=== PATIENT | female | born 1950 | race Caucasian/White ===

== ENCOUNTER → 2017-10-05 14:06 | Outpatient (CLI) | payer BC, SELFPAY ==
[2017-10-05 16:25] LABS: Absolute Lymphocyte Count 1.44 X10^3/ul (0.83-4.51); Absolute Neutrophil Count 6.5 X10^3/uL (2.0-7.7); Basophil# 0.03 X10^3/uL; Basophil% 0.3 % (0-1); Eosinophil# 0.18 X10^3/uL; Hemoglobin 11.9 g/dl (12.0-15.0); Lymphocyte # 1.44 X10^3/ul (4.0); Mean Corp Hgb Conc 32.2 g/gl (32-36); Mean Corpuscular Hgb 29.4 pg (27.0-32.0); Mean Corpuscular Volume 91.4 fL (81-99); Mean Platelet Vol. 11.3 fl (6.2-12.0); Monocyte# 0.87 X10^3/uL; Monocyte% 9.7 % (0-10); Neutrophil # 6.47 X10^3/uL (2.7-7.7); Neutrophil % 71.8 % (47-70); Platelet Count 269 K/mm3 (150-450); RBC Distribution Width CV 13.9 % (11.6-14.6); Red Blood Count 4.05 M/mm3 (4.2-5.4)
[2017-10-05 16:32] LABS: POSITIVE COUNT NO; POSITIVE DIFFERENTIAL NO; POSITIVE MORPHOLOGY NO
[2017-10-05 16:37] LABS: ALB/GLOB Ratio 0.9 RATIO (0.9-2.4); AST(SGOT) 30 U/L (15-37); Alanine Aminotransfer ALT/SGPT 21 U/L (13-56); Albumin, Serum 3.5 g/dL (3.2-5.0); Alkaline Phosphatase 96 U/L (45-117); Anion Gap 10 (5-15); BUN 13 mg/dL (7-18); BUN/Creat Ratio 16.5 RATIO (10-20); Calcium,Total 8.9 mg/dL (8.5-10.1); Chloride 103 mmol/L (98-107); Creatinine, Serum 0.79 mg/dL (0.55-1.02); EST Glomerular Filtration Rate 78 mL/min (>60); Est Glom Filt Rate - Afr Amer 94 mL/min (>60); Glucose 104 mg/dL (74-106); Potassium 4.1 mmol/L (3.5-5.1); Protein, Total 7.5 g/dL (6.4-8.2); Sodium Level 139 mmol/L (136-145); Thyroid Stim Hormone (TSH) 1.28 uIU/mL (0.358-3.74)
[2017-10-06 08:59] LABS: Vitamin D,25 Hydroxy 22.4 ng/mL (29.95-100.01)
== END ==
PROVIDERS: Family Provider Family Medicine Geriatric Medicine; PCP Family Medicine Geriatric Medicine; Visit Provider Family Medicine Geriatric Medicine
DX: I10 Essential (primary) hypertension (principal); E55.9 Vitamin D deficiency, unspecified
CPT/HCPCS: 36415; 80053; 82306; 84443; 85025

== ENCOUNTER → 2017-10-13 09:49 | Outpatient (CLI) | payer BC, SELFPAY ==
--- NOTE | 2017-10-13 09:52 | CDU_ITS ---
Reason For Study: Carotid stenosis Rt. Velocities/BP Lt. Velocities/BP Prox CCA 106.0/16.4 cm/sec. Prox CCA 106.0/28.3 cm/sec. Mid CCA 95.0/27.0 cm/sec. Mid CCA 105.0/26.7 cm/sec. Dist CCA 90.9/22.9 cm/sec. Dist CCA 103.0/26.7 cm/sec. Prox ICA 186.0/49.8 cm/sec. Prox ICA 267.0/75.4 cm/sec. Mid ICA 192.0/53.7 cm/sec. Mid ICA 226.0/62.9 cm/sec. Dist ICA 121.0/40.3 cm/sec. Dist ICA 114.0/32.6 cm/sec. Rt. ICA/CCA = 2.0. Lt. ICA/CCA = 2.5. Prox ECA 220.0/28.8 cm/sec. Prox ECA 248.0/29.9 cm/sec. Rt. Vert. 62.9/20.6 cm/sec. Lt. Vert. 74.7/11.6 cm/sec. Right Extracranial There is intimal thickening but no significant atherosclerotic plaque noted in the right common carotid artery. There is heterogeneous, irregular atherosclerotic plaque noted in the right internal carotid artery. There is heterogeneous, irregular atherosclerotic plaque noted in the right external carotid artery. Antegrade flow is noted in the right vertebral artery. Left Extracranial There is intimal thickening but no significant atherosclerotic plaque noted in the left common carotid artery. There is heterogeneous, irregular atherosclerotic plaque noted in the left internal carotid artery. There is heterogeneous, irregular atherosclerotic plaque noted in the left external carotid artery. Antegrade flow is noted in the left vertebral artery. Procedure Carotid Duplex [id number]. Exam performed in department. Interpretation Summary Moderate (50-69%) stenosis right extracranial internal carotid. Severe (>70%) stenosis left extracranial internal carotid. Flow within the vertebral arteries is antegrade bilaterally. Ordering Physician: Argelia Eid Referring Physician: Leonardo Sotelo Chi Performed By: Alma Rosa Duong RVT
== END ==
PROVIDERS: Family Provider Family Medicine Geriatric Medicine; PCP Family Medicine Geriatric Medicine; Visit Provider Physician Assistant Medical
DX: I25.10 Atherosclerotic heart disease of native coronary artery without angina pectoris (principal); R09.89 Other specified symptoms and signs involving the circulatory and respiratory systems
CPT/HCPCS: 93880

== ENCOUNTER → 2017-12-03 13:01 | Outpatient (CLI) | payer BC, SELFPAY ==
[2017-12-03 13:48] LABS: Prothrombin Time (Protime)PT. 31.3 SECONDS (11.7-14.9)
== END ==
PROVIDERS: Family Provider Family Medicine Geriatric Medicine; PCP Family Medicine Geriatric Medicine; Visit Provider Internal Medicine Cardiovascular Disease
DX: Z95.2 Presence of prosthetic heart valve (principal); Z79.01 Long term (current) use of anticoagulants
CPT/HCPCS: 36415; 85610

== ENCOUNTER → 2018-02-17 11:45 | Outpatient (CLI) | payer BC, SELFPAY ==
--- NOTE | 2018-02-17 12:00 | RAD_ITS ---
STUDY: X-RAY - LUMBAR SPINE REASON FOR EXAM: Female, 67 years old. Lower back pain x1 week. TECHNIQUE: 3 view(s) of the lumbar spine were obtained. COMPARISON: None available. FINDINGS: All 5 nonrib-bearing lumbar vertebral bodies are identified and show normal vertebral body heights with mild L1-L2, moderate L2-L3, mild L3-L4/L4-L5 and moderate L5-S1 disc space seen. Mild scoliosis apex right noted L3-L4, may be positional. Mild normal-appearing lordotic curvature is maintained without significant listhesis seen. No osseous lytic/blastic lesion noted. Visualized posterior elements, pedicles, SI joints and sacrum appear intact. Exit neural foramina appear patent. No paravertebral mass density noted. Nonobstructed nonspecific visualized intestinal gas pattern. Surgical clip right upper quadrant. RAD/Lumbar Spine 2 or 3 Views IMPRESSION: Nonacute lumbosacral spine. No finding of lumbosacral vertebral body acute compression fracture or traumatic listhesis. Multilevel degenerative lumbosacral as described. Severe arteriosclerosis distal abdominal aorta. Electronically Signed: Ronan Salinas, at 14:36 EDT Tel , Service support ,
== END ==
PROVIDERS: Family Provider Family Medicine Geriatric Medicine; PCP Family Medicine Geriatric Medicine; Visit Provider Family Medicine Geriatric Medicine
DX: M51.86 Other intervertebral disc disorders, lumbar region (principal); N39.0 Urinary tract infection, site not specified
CPT/HCPCS: 72100; 87086

== ENCOUNTER → 2018-04-12 13:20 | Outpatient (CLI) | payer BC, SELFPAY ==
[2018-04-12 13:41] LABS: Absolute Lymphocyte Count 1.25 X10^3/ul (0.83-4.51); Absolute Neutrophil Count 7.5 X10^3/uL (2.0-7.7); Basophil# 0.02 X10^3/uL; Basophil% 0.2 % (0-1); Eosinophil# 0.12 X10^3/uL; Eosinophils% 1.2 % (0-5); Hematocrit 38.9 % (37-47); Hemoglobin 12.7 g/dl (12.0-15.0); Lymphocyte # 1.25 X10^3/ul (4.0); Lymphocyte % 12.7 % (19-41); Mean Corp Hgb Conc 32.6 g/gl (32-36); Mean Platelet Vol. 10.6 fl (6.2-12.0); Monocyte# 0.94 X10^3/uL; Monocyte% 9.5 % (0-10); Neutrophil # 7.52 X10^3/uL (2.7-7.7); Neutrophil % 76.2 % (47-70); Platelet Count 260 K/mm3 (150-450); RBC Distribution Width CV 14.1 % (11.6-14.6); RBC Distribution Width SD 46.4 fl (35.1-43.9); Red Blood Count 4.23 M/mm3 (4.2-5.4); White Blood Count 9.9 K/mm3 (4.4-11.0)
[2018-04-12 13:45] LABS: POSITIVE COUNT NO; POSITIVE DIFFERENTIAL NO; POSITIVE MORPHOLOGY NO
[2018-04-12 14:23] LABS: Vitamin D,25 Hydroxy 24.7 ng/mL (29.95-100.01)
[2018-04-12 14:28] LABS: AST(SGOT) 36 U/L (15-37); Alanine Aminotransfer ALT/SGPT 27 U/L (13-56); Albumin, Serum 3.6 g/dL (3.2-5.0); Alkaline Phosphatase 86 U/L (45-117); Anion Gap 6 (5-15); BUN 17 mg/dL (7-18); BUN/Creat Ratio 20.4 RATIO (10-20); Calcium,Total 8.8 mg/dL (8.5-10.1); Chloride 105 mmol/L (98-107); Creatinine, Serum 0.83 mg/dL (0.55-1.02); EST Glomerular Filtration Rate 73 mL/min (>60); Est Glom Filt Rate - Afr Amer 88 mL/min (>60); Globulin 3.7 g/dL (2.2-4.2); Glucose 114 mg/dL (74-106); Protein, Total 7.3 g/dL (6.4-8.2); Sodium Level 139 mmol/L (136-145); Thyroid Stim Hormone (TSH) 0.64 uIU/mL (0.358-3.74)
[2018-04-13 11:27] LABS: Hep C Antibodies <0.1 s/co ratio (0.0-0.9)
== END ==
PROVIDERS: Family Provider Family Medicine Geriatric Medicine; PCP Family Medicine Geriatric Medicine; Visit Provider Family Medicine Geriatric Medicine
DX: I10 Essential (primary) hypertension (principal); E55.9 Vitamin D deficiency, unspecified; Z13.89 Encounter for screening for other disorder
CPT/HCPCS: 36415; 80053; 82306; 84443; 85025; 86803

== ENCOUNTER → 2018-05-17 12:05 | Outpatient (CLI) | payer BC, SELFPAY ==
[2018-05-17 12:36] LABS: International Normalized Ratio 2.2; Prothrombin Time (Protime)PT. 24.1 SECONDS (11.7-14.9)
== END ==
PROVIDERS: Family Provider Family Medicine Geriatric Medicine; PCP Family Medicine Geriatric Medicine; Referring Provider Internal Medicine Cardiovascular Disease; Visit Provider Internal Medicine Cardiovascular Disease
DX: Z79.01 Long term (current) use of anticoagulants (principal); Z95.2 Presence of prosthetic heart valve
CPT/HCPCS: 36415; 85610

== ENCOUNTER → 2018-05-24 13:14 | Outpatient (CLI) | payer BC, SELFPAY ==
[2018-05-24 13:43] LABS: International Normalized Ratio 2.2; Prothrombin Time (Protime)PT. 24.5 SECONDS (11.7-14.9)
== END ==
PROVIDERS: Family Provider Family Medicine Geriatric Medicine; PCP Family Medicine Geriatric Medicine; Referring Provider Internal Medicine Cardiovascular Disease; Visit Provider Internal Medicine Cardiovascular Disease
DX: Z95.2 Presence of prosthetic heart valve (principal); Z79.01 Long term (current) use of anticoagulants
CPT/HCPCS: 36415; 85610

== ENCOUNTER 2018-06-07 14:26 | Outpatient (RCR) | payer BC, SELFPAY ==
[2018-06-07 15:26] LABS: Prothrombin Time (Protime)PT. 31.4 SECONDS (11.7-14.9)
--- OUTSIDE RECORDS SUMMARY | 2018-08-03 05:58 | XMS RPT_ITS ---
:1950 Author Organization OHIP Support Name Relationship Address Phone EDJANPABLO Unavailable [address] [place] [address] + [address] [place] [address] R Unavailable Unavailable Unavailable PABLO WARD Unavailable [address] [place] [address] + [address] [place] [address] R Unavailable Unavailable Unavailable PABLO WARD Unavailable [address] [place] [address] + [address] [place] [address] R Unavailable Unavailable Unavailable PABLO WARD Unavailable [address] [place] [address] + [address] [place] [address] R Unavailable Unavailable Unavailable PABLO WARD Unavailable [address] + [place] [address] R Unavailable Unavailable Unavailable PABLO WARD Unavailable [address] + [place] [address] R Unavailable Unavailable Unavailable PABLO WARD Unavailable [address] + [place] [address] R Unavailable Unavailable Unavailable PABLO WARD Unavailable [address] + [place] [address] R Unavailable Unavailable Unavailable PABLO WARD Unavailable [address] + [place] [address] R Unavailable Unavailable Unavailable PABLO WARD Unavailable [address] + [address] [place], [place] [phone] PABLO WARD Unavailable [address] Unavailable [address] [place], [place] [phone] NOT GIVEN Unavailable Unavailable Unavailable PABLO WARD Unavailable [address] + [place] [address] R Unavailable Unavailable Unavailable PABLO WARD Unavailable [address] + [address] [facility] [place], [place] [phone] PABLO WARD Unavailable [address] Unavailable [address] [facility] [place] [id number] NOT GIVEN Unavailable Unavailable Unavailable PABLO WARD Unavailable [address] + [place] [address] R Unavailable Unavailable Unavailable PABLO WARD Unavailable [address] + [address] [facility] [place] [phone] PABLO WARD Unavailable [address] Unavailable [address] [facility] [place] [phone] NOT GIVEN Unavailable Unavailable Unavailable PABLO WARD Unavailable [address] + [address] [facility] [place] [phone] PABLO WARD Unavailable [address] Unavailable [address] [place], [place] [phone] NOT GIVEN Unavailable Unavailable Unavailable PABLO WARD Unavailable [address] + [place] [address] R Unavailable Unavailable Unavailable PABLO WARD Unavailable [address] + [address] [facility] [place] [phone] PABLO WARD Unavailable [address] Unavailable [address] [place], [place] [phone] NOT GIVEN Unavailable Unavailable Unavailable PABLO WARD Unavailable [address] + [place] [address] R Unavailable Unavailable Unavailable PABLO WARD Unavailable [address] + [address] [facility] [place] [phone] PABLO WARD Unavailable [address] Unavailable [address] [facility] [place] [phone] NOT GIVEN Unavailable Unavailable Unavailable PABLO WARD Unavailable [address] + [place] [address] R Unavailable Unavailable Unavailable PABLO WARD Unavailable [address] + [place] [address] R Unavailable Unavailable Unavailable PABLO WARD Unavailable [address] + [address] [facility] [place] [phone] PABLO WARD Unavailable [address] Unavailable [address] [facility] [place] [phone] NOT GIVEN Unavailable Unavailable Unavailable PABLO WARD Unavailable [address] + [address] [facility] [place], [place] [phone] PABLO WARD Unavailable [address] Unavailable [address] [facility] [place], [place] [phone] NOT GIVEN Unavailable Unavailable Unavailable PABLO WARD Unavailable [address] + [place] [address] R Unavailable Unavailable Unavailable PABLO WARD Unavailable [address] + [place] [address] R Unavailable Unavailable Unavailable PABLO WARD Unavailable [address] + [address] [facility] [place] [phone] PABLO WARD Unavailable [address] Unavailable [address] [facility] [place] [phone] NOT GIVEN Unavailable Unavailable Unavailable PABLO WARD Unavailable [address] + [place] [address] R Unavailable Unavailable Unavailable PABLO WARD Unavailable [address] + [address] [facility] [place] [phone] PABLO WARD Unavailable [address] Unavailable [address] [facility] [place] [phone] NOT GIVEN Unavailable Unavailable Unavailable PABLO WARD Unavailable [address] + [place] [address] R Unavailable Unavailable Unavailable PABLO WARD Unavailable [address] + [address] [facility] [place] [phone] PABLO WARD Unavailable [address] Unavailable [address] [facility] [place] [phone] NOT GIVEN Unavailable Unavailable Unavailable PABLO WARD Unavailable [address] + [address] [facility] [place] [phone] PABLO WARD Unavailable [address] Unavailable [address] [facility] [place] [phone] NOT GIVEN Unavailable Unavailable Unavailable PABLO WARD Unavailable [address] + [place] [address] R Unavailable Unavailable Unavailable PABLO WARD Unavailable [address] + [address] [facility] [place], [place] [phone] PABLO WARD Unavailable [address] Unavailable [address] [facility] [place], [place] [phone] NOT GIVEN Unavailable Unavailable Unavailable PABLO WARD Unavailable [address] + [place] [address] R Unavailable Unavailable Unavailable PABLO WARD Unavailable [address] + [place] [address] R Unavailable Unavailable Unavailable PABLO WARD Unavailable [address] + [address] [facility] [place], [place] [phone] PABLO WARD Unavailable [address] Unavailable [address] [facility] [place] [phone] NOT GIVEN Unavailable Unavailable Unavailable PABLO WARD Unavailable [address] + [place] [address] R Unavailable Unavailable Unavailable PABLO WARD Unavailable [address] + [address] [facility] [place] [phone] PABLO WARD Unavailable [address] Unavailable [address] [facility] [place] [phone] NOT GIVEN Unavailable Unavailable Unavailable PABLO WARD Unavailable [address] + [place] [address] R Unavailable Unavailable Unavailable PABLO WARD Unavailable [address] + [place] [address] R Unavailable Unavailable Unavailable PABLO WARD Unavailable [address] + [place] [address] R Unavailable Unavailable Unavailable R Unavailable Unavailable Unavailable PABLO WARD Unavailable [address] + [place] [address] ED SAMIR Unavailable [address] [place] [facility] + [address] [place] [address] R Unavailable Unavailable Unavailable PABLO WARD Unavailable [address] + [address] [facility] [place], [place] [phone] PABLO WARD Unavailable [address] Unavailable [address] [facility] [place] [phone] NOT GIVEN Unavailable Unavailable Unavailable PABLO WARD Unavailable [address] + [address] [facility] [place], [place] [phone] PABLO WARD Unavailable [address] Unavailable [address] [facility] [place], [place] [phone] NOT GIVEN Unavailable Unavailable Unavailable PABLO WARD Unavailable [address] + [place] [address] ED SAMIR Unavailable [address] [place] [address] + [address] [place] [address] R Unavailable Unavailable Unavailable PABLO WARD Unavailable [address] + [address] [facility] [place], [place] [phone] PABLO WARD Unavailable [address] Unavailable [address] [facility] [place] [phone] NOT GIVEN Unavailable Unavailable Unavailable PABLO WARD Unavailable [address] + [address] [facility] [place], [place] [phone] PABLO WARD Unavailable [address] Unavailable [address] [facility] [place] [phone] NOT GIVEN Unavailable Unavailable Unavailable PABLO WARD Unavailable [address] + [address] [facility] [place], [place] [phone] PABLO WARD Unavailable [address] Unavailable [address] [facility] [place] [phone] NOT GIVEN Unavailable Unavailable Unavailable PABLO WARD Unavailable [address] + [place] [address] ED SAMIR Unavailable [address] [place] [address] + [address] [place] [address] R Unavailable Unavailable Unavailable PABLO WARD Unavailable [address] + [address] [facility] [place], [place] [phone] PABLO WARD Unavailable [address] Unavailable [address] [facility] [place], [place] [phone] NOT GIVEN Unavailable Unavailable Unavailable PABLO WARD Unavailable [address] + [address] [facility] [place], [place] [phone] PABLO WARD Unavailable [address] Unavailable [address] [facility] [place], [place] [phone] NOT GIVEN Unavailable Unavailable Unavailable Care Team Providers Name Role Phone ZURI, JCAK S Admitting Unavailable ZURI, JACK S Attending Unavailable TANK TREADWELL MD Consulting Unavailable ZURI, JACK S Primary Care Unavailable PROVIDER, UNKNOWN Consulting Unavailable PROVIDER, UNKNOWN Consulting Unavailable ZURI, JACK S Admitting Unavailable ZURI, JACK S Attending Unavailable ZURI, JACK S Primary Care Unavailable ZURI, JACK S Admitting Unavailable ZURI, JACK S Attending Unavailable ZURI, JACK S Primary Care Unavailable ZURI, JACK S Admitting Unavailable ZURI, JACK S Attending Unavailable ZURI, JACK S Primary Care Unavailable ZURI, JACK S Admitting Unavailable ZURI, JACK S Attending Unavailable ZURI, JACK S Primary Care Unavailable ZURI, JACK MD Admitting Unavailable ZURI, JACK MD Attending Unavailable ZURI, JACK MD Primary Care Unavailable ZURI, JACK S Admitting Unavailable ZURI, JACK S Attending Unavailable ZURI, JACK S Primary Care Unavailable ZURI, JACK S Admitting Unavailable ZURI, JACK S Attending Unavailable ZURI, JACK S Primary Care Unavailable ZURI, JACK S Admitting Unavailable ZURI, JACK S Attending Unavailable ZURI, JACK S Primary Care Unavailable ZURI, JACK S Admitting Unavailable ZURI, JACK S Attending Unavailable TANK TREADWELL MD Consulting Unavailable ZURI, JACK S Primary Care Unavailable PROVIDER, UNKNOWN Consulting Unavailable PROVIDER, UNKNOWN Consulting Unavailable ZURI, JACK S Admitting Unavailable ZURI, JACK S Attending Unavailable ZURI, JACK S Primary Care Unavailable TANK TREADWELL MD Consulting Unavailable PROVIDER, UNKNOWN Consulting Unavailable PROVIDER, UNKNOWN Consulting Unavailable ZURI, JACK S Admitting Unavailable ZURI, JACK S Attending Unavailable ZURI, JACK S Primary Care Unavailable TANK TREADWELL MD Consulting Unavailable PROVIDER, UNKNOWN Consulting Unavailable PROVIDER, UNKNOWN Consulting Unavailable ZURI, JACK S Admitting Unavailable ZURI, JACK S Attending Unavailable ZURI, JACK S Primary Care Unavailable TANK TREADWELL MD Consulting Unavailable PROVIDER, UNKNOWN Consulting Unavailable PROVIDER, UNKNOWN Consulting Unavailable ZURI, JACK S Admitting Unavailable ZURI, JACK S Attending Unavailable ZURI, JACK S Primary Care Unavailable TANK TREADWELL MD Consulting Unavailable PROVIDER, UNKNOWN Consulting Unavailable PROVIDER, UNKNOWN Consulting Unavailable ZURI, JACK S Admitting Unavailable ZURI, JACK S Attending Unavailable MILETANK MD Consulting Unavailable ZURI, JACK S Primary Care Unavailable PROVIDER, UNKNOWN Consulting Unavailable PROVIDER, UNKNOWN Consulting Unavailable ZURI, JACK S Admitting Unavailable ZURI, JACK S Attending Unavailable MILE, TANK GARCIA Consulting Unavailable ZURI, JACK S Primary Care Unavailable PROVIDER, UNKNOWN Consulting Unavailable PROVIDER, UNKNOWN Consulting Unavailable ZURI, JACK S Admitting Unavailable ZURI, JACK S Attending Unavailable MILE, TANK GARCIA Consulting Unavailable ZURI, JACK S Primary Care Unavailable PROVIDER, UNKNOWN Consulting Unavailable PROVIDER, UNKNOWN Consulting Unavailable ZURI, JACK S Admitting Unavailable ZURI, JACK S Attending Unavailable MILE, TANK GARCIA Consulting Unavailable ZURI, JACK S Primary Care Unavailable PROVIDER, UNKNOWN Consulting Unavailable PROVIDER, UNKNOWN Consulting Unavailable ZURI, JACK S Admitting Unavailable ZURI, JACK S Attending Unavailable MILE, TANK GARCIA Consulting Unavailable ZURI, JACK S Primary Care Unavailable PROVIDER, UNKNOWN Consulting Unavailable PROVIDER, UNKNOWN Consulting Unavailable ZURI, JACK S Admitting Unavailable ZURI, JACK S Attending Unavailable MILE, TANK GARCIA Consulting Unavailable ZURI, JACK S Primary Care Unavailable PROVIDER, UNKNOWN Consulting Unavailable PROVIDER, UNKNOWN Consulting Unavailable ZURI, JACK S Admitting Unavailable ZURI, JACK S Attending Unavailable MILE, TANK GARCIA Consulting Unavailable ZURI, JACK S Primary Care Unavailable PROVIDER, UNKNOWN Consulting Unavailable PROVIDER, UNKNOWN Consulting Unavailable MASCI, LUI A Referring Unavailable MASCI, LUI A Referring Unavailable MASCI, LUI A Referring Unavailable MASCI, LUI A Referring Unavailable MASCI, LUI A Attending Unavailable MASCI, LUI A Referring Unavailable MASCI, LUI A Referring Unavailable MASCI, LUI A Referring Unavailable MASCI, LUI A Attending Unavailable MASCI, LUI A Referring Unavailable MASCI, LUI A Referring Unavailable Zuri, Jack Attending Unavailable Mile, Tank Chi Primary Care Unavailable Zuri, Cranford Attending Unavailable Zuri, Jack Referring Unavailable Mile, Tank Chi Primary Care Unavailable Mile, Tank Chi Attending Unavailable Mile, Tank Chi Attending Unavailable Mile, Tank Chi Attending Unavailable Mile, Tank Chi Attending Unavailable Mile, Tnak Chi Attending Unavailable Argelia Eid Attending Unavailable Mile, Tank Chi Primary Care Unavailable Mile, Tank Chi Attending Unavailable Mile, Tank Chi Primary Care Unavailable Mile, Tank Chi Attending Unavailable Argelia Eid Attending Unavailable Mile, Tank Chi Referring Unavailable Mile, Tank Chi Primary Care Unavailable Mile, Tank Chi Attending Unavailable Mile, Tank Chi Attending Unavailable Argelia Eid Attending Unavailable Mile, Tank Chi Primary Care Unavailable Argelia Eid Referring Unavailable Zuri, Jack Attending Unavailable Zuri, Cranford Referring Unavailable Mile, Tank Chi Primary Care Unavailable Mile, Tank Chi Attending Unavailable Mile, Tank Chi Primary Care Unavailable Mile, Tank Chi Attending Unavailable Mile, Tank Chi Primary Care Unavailable Zuri, Jack Attending Unavailable Mile, Tank Chi Referring Unavailable Zuri, Jack Attending Unavailable Zuri, Cranford Referring Unavailable Mile, Tank Chi Primary Care Unavailable Zuri, Cranford Attending Unavailable Zuri, Jack Referring Unavailable Mile, Tank Chi Primary Care Unavailable Mile, Tank Chi Attending Unavailable Mile, Tank Chi Attending Unavailable Mile, Tank Chi Primary Care Unavailable Mile, Tank Chi Attending Unavailable Mile, Tank Chi Attending Unavailable Mile, Tank Chi Attending Unavailable Mile, Tank Chi Attending Unavailable Mile, Tank Chi Primary Care Unavailable Mile, Tank Chi Referring Unavailable Mile, Tank Chi Attending Unavailable Mile, Tank Chi Attending Unavailable Mile, Tank Chi Attending Unavailable PROBLEMS PROBLEMS DATE TYPE CONDITION / CODE ATTENDING STATUS SOURCE 06/13/2018 Unknown Z79.01 - FPC Zuri, Cranford Active [facility] (current) use of Community anticoagulants / Hospital Z79.01(ICD-10) Repository 06/13/2018 Unknown 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, 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 / Hospital Z95.2(ICD-10) Repository 06/13/2018 Unknown I77.9 - Disorder of Zuri, Jack Active [facility] arteries and Community arterioles, Hospital unspecified / Repository I77.9(ICD-10) 06/13/2018 Unknown 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, 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 / Hospital I65.22(ICD-10) Repository 05/24/2018 Unknown R09.89 - Other Zuri, Jack Active [facility] specified symptoms Community and signs involving Hospital the circulatory and Repository respiratory systems / R09.89(ICD-10) 05/24/2018 Unknown Z95.1 - Presence of Zuri, Jack Active [facility] aortocoronary bypass Community graft / Hospital Z95.1(ICD-10) Repository 03/15/2018 Admitting Presence of ZURI, 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 [facility] / Z952(ICD-10) Hospital Repository 03/15/2018 Principle Presence of ZURI, 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 [facility] prosthetic heart [facility] / Z952(ICD-10) Hospital Repository 03/15/2018 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) ZURI, 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 [facility] Diagnosis use of [facility] anticoagulants / Hospital Z7901(ICD-10) Repository 02/21/2018 Admitting FPC (current) ZURI, 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 [facility] Diagnosis use of [facility] anticoagulants / Hospital Z7901(ICD-10) Repository 02/21/2018 Principle FPC (current) ZURI, 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 [facility] Diagnosis use of [facility] anticoagulants / Hospital Z7901(ICD-10) Repository 02/21/2018 Secondary Presence of ZURI, 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 [facility] prosthetic heart [facility] / Z952(ICD-10) Hospital Repository 02/17/2018 Unknown M51.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, Tank Chi Active [facility] intervertebral disc Community disorders, lumbar Hospital region / Repository M51.86(ICD-10) 10/05/2017 Unknown E55.9 - Vitamin D Mile, Tank Chi Active [facility] deficiency, Community unspecified / Hospital E55.9(ICD-10) Repository 10/05/2017 Unknown I10 - Essential Mile, Tank Chi Active [facility] (primary) [facility] hypertension / Hospital I10(ICD-10) Repository 10/01/2017 Unknown I25.10 - Eid, Active [facility] Atherosclerotic [facility] heart disease [facility] coronary Repository artery without angina pectoris / I25.10(ICD-10) 09/14/2017 Secondary Presence of ZURI, JACK Active [facility] Diagnosis cerebrospinal fluid MD [facility] drainage device / Hospital Z982(ICD-10) Repository 07/29/2017 Active 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 / Clinic Main D59.4(ICD-10) [place] Repository PROCEDURES PROCEDURES No Procedure Records FoundRESULTS RESULTS DEXA BONE DENSITY Observed: 06/09/2018 Status: F Source: [place] STUDY 1:00 PM [facility] REPOSITORY [facility] Imaging Services [address] [place] [address] Dexa Bone Density Study MR#: [id number] Acct: [id number] Name: CLEMENTINE WARD Rep #: [id number] : 1950 F 67 From: Fermin Patterson MD PCP: Tank Treadwell MD, Chi Status: REG CLI Study: Dexa Bone Density Study Date of Exam: 06/09/18 Exam# [id number] Ordering Dr: Tank Treadwell MD STUDY: DUAL ENERGY X-RAY ABSORPTIOMETRY / DXA REASON FOR EXAM: Female, 67 years old. The patient is postmenopausal. Loss of height. TECHNIQUE: Bone Mineral Density (BMD) measurements of lumbar spine and bilateral hips were obtained. COMPARISON: Comparison is made with prior study dated March 25, 2010. FINDINGS: Lumbar Spine (L1-L4): g/cm2 (0.869) / T-score (-2.7) / Z-score (-1.0) Findings are suggestive of osteoporosis with a high fracture risk. Left Femur Total: g/cm2 (0.784) / T-score (-1.8) / Z- score (-0.5) Left Femoral Neck: g/cm2 (0.744) / T-score (-2.1) / Z- score (-0.6) Right Femur Total: g/cm2 (0.821) / T-score (-1.5) / Z- score (-0.3) Right Femoral Neck: g/cm2 (0.802) / T-score (-1.7) / Z-score (-0.2) The T-Scores on the most recent prior examination were: Lumbar Spine (L1-L4): There has been worsening of bone density since the previous examination. Left Femur Total: which represents a worsening of 11.0%. Right Femur Total: which represents a worsening of 9.5%. BD/Dexa Bone Density Study IMPRESSION: The patient is considered osteoporotic as outlined below according to World Aman Organization (WHO) criteria with a high fracture risk. There has been worsening of bone density since the previous examination. Reference Information: The T-score is the number of standard deviations above or below the standard which is normal for young adults at their peak bone mineral density. The World Health Organization (WHO) interprets the T-scores as follows: Above -1 Normal bone density Between -1 and -2.5 Osteopenia Equal to / or below -2.5 Osteoporosis As a practical clinical guideline, osteopenia may be graded as follows: Mild -1 through -1.5 Moderate -1.6 through -2.0 Severe -2.1 through -2.4 The Z-score is the number of standard deviations above or below age-matched controls. A Z-score of less than -1.5 would be considered abnormal. References: 1. NIH Osteoporosis and Related Bone Diseases http://www.osteo.org 2. International Society for Clinical Densitometry http://www.iscd.org 3. National Osteoporosis Foundation http://www.nof.org Electronically Signed: Fermin Patterson MD at 15:32 EST Tel [phone], Service support , CC: Tank Treadwell MD Ladle Cleaner: Signed SCREENING MAMM (CAD), Observed: 06/07/2018 Status: F Source: [place] BILAT 2:54 PM [facility] REPOSITORY [facility] Imaging Services [address] [place] [address] SCREENING MAMM (CAD), BILAT MR#: [id number] Acct: [id number] Name: CLEMENTINE WARD Rep #: [id number] : 1950 F 67 From: Fermin Patterson MD PCP: Tank Treadwell MD, Chi Status: REG CLI Study: SCREENING MAMM (CAD), BILAT Date of Exam: 06/07/18 Exam# [id number] Ordering Dr: Tank Treadwell MD MAMMOGRAPHY - BILATERAL SCREENING REASON FOR EXAM: Female, 67 years old. Routine annual screening examination. PERTINENT HISTORY: Non-contributory. TECHNIQUE: Digital bilateral breast stanislav (3D mammographic acquisition) in the CC and MLO projections. 2-D mediolateral oblique (MLO) and craniocaudad (CC) views of both breasts were obtained. CAD: Full Field Digital Mammography with Computer Added Detection was performed. COMPARISON: Comparison is made with prior examination of March 25, 2010. FINDINGS: Breast Composition: There are scattered areas of fibroglandular density. There are no dominant masses or suspicious calcifications. Small bilateral axillary lymph nodes. No other significant abnormalities are identified. There has been no significant change since the prior study. BI/SCREENING MAMM (CAD), BILAT IMPRESSION: Stable bilateral screening mammogram. Yearly follow-up mammogram recommended. (A) ASSESSMENT CATEGORY: BIRADS Category 2: Benign. A letter regarding these results will be sent to the patient by the facility within 30 days. Approximately 10% of breast cancers are not detected by mammography. A normal mammogram should not delay biopsy of a clinically suspicious abnormality. [id number] Electronically Signed: Fermin Patterson MD at 15:34 EST Tel [phone], Service support , CC: Tank Treadwell MD Ladle Cleaner: Signed PROTHROMBIN TIME W/INR Collected: 06/07/2018 Status: F Source: [place] 2:41 PM [facility] REPOSITORY TYPE CODE TESTS RESULT OUT OF RANGE REFERENCE UNITS LAB L300.4150 11.7-14.9 SECONDS High PROTIME 31.4 LAB L300.4200 Normal INR 3.0 Performed By: #### L300.3900 #### [facility] [address] [place], [address] CARDIOLOGY VISIT Observed: 05/24/2018 Status: F Source: [place] REPORT 1:51 PM [facility] REPOSITORY [facility] [address] [place] [address] OFFICE VISIT Date of Service: 05/24/18 MR#: [id number] Acct: [id number] Name: CLEMENTINE WARD Rep #: [id number] : 1950 Provider: Jack Keating MD Age/Sex: 67/F Location: [facility] Status: Signed HPI HPI Chief Complaint: Follow-up visit Details: CLEMENTINE WARD, is a 67 F who presents to the office today for a follow-up visit. She is a lady with a history of coronary artery disease status post coronary artery bypass surgery in 2010 with a left internal mammary artery to the left anterior descending artery, free right internal mammary artery to the circumflex artery, saphenous vein graft to the AV groove branch of the circumflex and saphenous vein graft to the posterior descending artery. She also had a mitral valve replacement at that time. In addition she has a history of hypertension and hyperlipidemia. From the cardiovascular standpoint she tells me that she has been doing well denying any chest pain or shortness breath or paroxysmal nocturnal dyspnea or pedal edema. Gait this weekend she went hiking and did not experience any significant abnormalities. She has been compliant with all her medications. Her physical exam today demonstrates clear lung moss regular rate and rhythm and no pedal edema. Dixon prosthetic sounds are noted and 1/6 systolic murmur is present. 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 Accompanied by: none Is patient in pain?: No Allergies adhesive tape Adverse Reaction (Severe, Verified 05/24/18 13:28) Rash paroxetine [From Paxil] Adverse Reaction (Severe, Verified 05/24/18 13:28) Many side effects Medications Aspirin [Aspirin, Baby] 81 mg PO DAILY@0800 12/30/14 [History Confirmed 05/24/18] Escitalopram Oxalate [Lexapro] 20 mg PO DAILY 12/30/14 [History Confirmed 05/24/18] Ascorbic Acid [Vitamin C] 500 mg PO DAILY@0800 03/24/16 [History Confirmed 05/24/18] folic acid 1 mg tablet PO 90 Days #90 10/01/17 [History Confirmed 05/24/18] furosemide 40 mg tablet 40 mg PO DAILY #30 tab 10/01/17 [Rx Confirmed 05/24/18] rosuvastatin 20 mg tablet 20 mg PO QHS #30 tab 10/01/17 [Rx Confirmed 05/24/18] warfarin 1 mg tablet 1 mg PO .COMPLEX #30 tab 10/01/17 [Rx Confirmed 05/24/18] warfarin 4 mg tablet 4 mg PO .COMPLEX #30 tab 10/01/17 [Rx Confirmed 05/24/18] metoprolol tartrate 25 mg tablet 12.5 mg PO BID #30 tab 04/11/18 [Rx Confirmed 05/24/18] 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) Anemia (Chronic) Surgical History S/P CABG x 5 (Chronic) Hx of mitral valve replacement with mechanical valve (Chronic) Family History Mother Myocardial infarction CAD (coronary artery disease) Hx CABG Father Pulmonary fibrosis Social History Smoking Status: Current every day smoker alcohol intake: current alcohol intake frequency: a few times a week Alcohol type: beer substance use type: does not use caffeine: Yes Type: tea what type of physical activity do you participate in: none seatbelt use: always do you feel safe at home: Yes ROS Const Const: Negative for fatigue, weakness, night sweats, excessive sweating, frequent falls, headache(s) or daytime sleepiness Eyes Eyes: Negative for loss of peripheral vision, transient loss of vision, blind spots, double vision or blurry vision ENT ENT: Negative for headache(s), dizziness, balance problems, Nosebleed/epistaxis, tongue swelling or lip swelling Cardio Chest Pain: No Palpitations: No Edema: None Muscle aches with walking: None Resp Respiratory: Negative for SOB at rest, SOB orthopnea\SOB lying down, Cough, paroxysmal nocturnal dyspnea or SOB with activity GI GI: Negative nausea, vomiting, heartburn, black,tarry stools or bright, red blood in stools : Negative for hematuria Musc Musc: Negative for balance problems, muscle aches/ myalgia, muscle weakness or joint pain Skin Skin: Negative non-healing lesions, unusual bruising or rash Neuro Neuro: Negative for weakness, frequent falls, headache(s), double vision, dizziness, lightheadedness, orthostatic symptoms, blurry vision or lack of coordination Hong Hematologic/Lymphatic: Negative for easy bruising or easy bleeding Endo Endo: Negative for fatigue, excessive sweating, cold intolerance, heat intolerance, increased thirst/drinking or hair loss Psych Psych: Negative for anxiety or depression Allergy Allergy/Immunology: Negative for throat swelling, Negative for tongue swelling, Negative for hives, Negative for rash, Negative for lip swelling Cardiology Exam Const Appearance: cooperative, healthy appearing, well developed, well groomed and no acute distress Nutritional Appearance: well nourished and average body habitus Orientation: alert, awake and oriented x3 Head Head: normal to inspection, normocephalic and atraumatic Ears: hearing grossly normal bilaterally and external ears normal Nose: external nose normal, nasal mucous membranes and turbinates normal, nares normal, septum normal, no nasal discharge Face and Sinus: face symmetric Mouth: oral mucosae normal, tongue normal, oropharynx normal and moist mucous membranes Teeth and gingiva: dentition normal Throat: posterior oropharynx normal, tonsils normal and uvula midline Eyes General: appearance normal, both eyes and all related structures Eyelids: eyelids normal Conjunctivae: conjunctivae normal Pupils: PERRL, normal by confrontation and accommodation normal EOM: EOM intact bilaterally Neck Neck: normal visual inspection, trachea midline and no JVD JVD: +5 Carotids: normal carotid upstroke and bounding pulses Chest Chest inspection: normal inspection of the chest, symmetric chest movement and normal respiratory effort Auscultation: Bilateral: Clear to Auscultation Cardio Palpation: normal PMI Rate: regular rate Rhythm: regular rhythm Heart sounds: S1 normal and crisp prosthetic S2 Murmur: Grade 1/6, soft and early systolic GI GI: normal to inspection, soft, no hepatosplenomegaly and bowel sounds present Neuro General: alert, awake, oriented x3, no focal sensory deficit, gait normal and moves all extremities Skin Skin: no rashes or lesions noted Extremities Pulses: Normal: Right Femoral Pulse, Left Femoral Pulse, Right Dorsalis Pedis Pulse, Left Dorsalis Pedis Pulse, Right Posterior Tibial Pulse, Left Posterior Tibial Pulse, Right Radial Pulse, Left Radial Pulse Lower Extremity Edema: None: Bilateral Musculoskel Musculoskeletal: No joint tenderness Psych Psychological: normal affect Assessment AND Plan 1. S/P CABG x 5 Z95.1 LUX to LAD, Free ETHEL to lateral CX, SVG to AV branch of cx, SVG to the AV branch of the right, SVG to the PDA. Concomittent with Mechainical MVR per Dr. Ronan Bailey, [facility], 03/10/2011 Plan She does have a view of coronary artery disease status post bypass surgery she underwent stress testing in 2016 which demonstrated no evidence of ischemia at a high workload. 2. Hx of mitral valve replacement with mechanical valve Z95.2 MVR with mechanical valve 03/10/11 @ [facility] Plan She does have a history of mechanical mitral valve replacement her echocardiogram in 2016 demonstrated an normal prosthetic mitral valve function she did have moderate pulmonary hypertension though. She does not appear to be symptomatic with respect to the above and will continue the same. She will also continue with antibiotic prophylaxis. 3. Right carotid bruit R09.89 Plan She does have evidence of a carotid bruit. She did have a carotid ultrasound in 2017 demonstrating moderate 50-69% stenosis of the right extracranial internal carotid and moderate 50-69% stenosis of the left extracranial internal carotid. A repeat ultrasound will be ordered for next year. Thank you for allowing me to participate in the care of your patient. Please don't hesitate to call if any issues arise Plan Detail Follow Up 6 Months (mmm) Coding Level of Care Code Off vis,est,level 3 Diagnoses S/P CABG x 5 Z95.1 Hx of mitral valve replacement with mechanical valve Z95.2 Right carotid bruit R09.89 Coding Level of Care Code Off vis,est,level 3 Diagnoses S/P CABG x 5 Z95.1 Hx of mitral valve replacement with mechanical valve Z95.2 Right carotid bruit R09.89 05/24/18 1351 <Electronically signed by Jack Keating MD> Date Jack Keating MD Cosigner Signature: Date (if applicable) CC: Tank Treadwell MD PROTHROMBIN TIME W/INR Collected: 05/24/2018 Status: F Source: [place] 1:17 PM [facility] REPOSITORY Order Comment: Comments: STANDING ORDER Comments: STANDING ORDER TYPE CODE TESTS RESULT OUT OF RANGE REFERENCE UNITS LAB L300.4150 11.7-14.9 SECONDS High PROTIME 24.5 LAB L300.4200 Normal INR 2.2 Performed By: #### L300.3900 #### [facility] [address] [place], [place], [address] PROTHROMBIN TIME W/INR Collected: 05/17/2018 Status: F Source: [place] 12:17 PM [facility] REPOSITORY TYPE CODE TESTS RESULT OUT OF RANGE REFERENCE UNITS LAB L300.4150 11.7-14.9 SECONDS High PROTIME 24.1 LAB L300.4200 Normal INR 2.2 Performed By: #### L300.3900 #### [facility] [address] [place], [address] PROGRESS Observed: 04/27/2018 Status: COMPLETED Source: [place] 11:56 AM [facility] [place] REPOSITORY HNO ID: [id number] Author: Lui Wilkerson Service: (none) Author Type: Physician Type: Progress Notes Filed: 04/27/2018 3:44 PM Note Text: Diagnosis: 1) Mechanical hemolytic anemia. HPI: Patient is a 67-year-old female who has a past medical history significant for mitral valve disease (s/p mechanical mitral valve replacement; 2010; on AC) and CAD (5 vessel CABG same time as MV surgery) Several years ago was found iron deficient. Was put on oral iron replacement. The patient's CBC from 12/30/2016 demonstrated a total white count of 10,300. Hemoglobin was 11.4 g/dL and the platelet count was 271,000. The MCV was 94.9 and the MCH was 30.8. Most recent iron studies from January 2016. Total iron was 24 TIBC was 538 and the iron saturation was 4.5%. Ferritin was 21 ng per mL. She had a total iron of 77 on 12/30/2016. She underwent a colonoscopy on 03/26/2016. That study showed evidence of moderate diverticular disease with no evidence of lower GI blood loss. Internal hemorrhoids were noted. She also had an EGD done on the same day and it showed no evidence of upper GI blood loss. She had some mild erythema in the gastric mucosa with no other significant findings. Presents for ongoing hematologic management. 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 No symptoms of cardiomyopathy including chest pain/pressure, palpitations, shortness of breath at rest or with exertion, lower extremity swelling/edema, PND or orthopnea. Most recent echo 2015. No episodes of jaundice. No unusual bleeding or unexplained bruising. Still smoking at least a half pack cigarettes a day. PMH, medications and allergies as below personally reviewed by me today. Any changes documented in appropriate section. ROS: Constitutional: Denies episodes of fever and night sweats. Normal appetite. Neuro: Denies VALDIVIA, vertigo, dizziness and imbalance. Denies symptoms of neuropathy. HEENT: No recent change in voice, vision or hearing. Resp: Denies cough, wheeze and hemoptysis. CVS: Denies PND, orthopnea and LE edema. GI: Denies dysgeusia. Denies symptoms of stomatitis. Denies dysphagia and odynophagia. Denies reflux, n/v, change in bowel habits. : Denies dysuria or gross hematuria. No symptoms of bladder outlet obstruction. Endo: Denies hot flashes. Denies polyuria and polydipsia. Denies heat and cold intolerance. Musculoskeletal: Denies muscular pain. Derm: Denies rash. Denies jaundice and diffuse pruritis. Heme: Denies unusual bleeding and unexplained bruising. Psych: Normal mood. PHYSICAL EXAM: Vitals: Blood pressure 120/57, pulse 65, temperature 37.2 ?C (99 ?F), temperature source Oral, weight 65.3 kg (144 lb). Well-appearing and in no acute distress. EYES: Sclerae are anicteric bilaterally. NECK: Supple. RESPIRATORY: Inspiratory breath sounds are of normal intensity in all moss. No rales, wheezes or rhonchi. Expiratory phase is normal. CARDIOVASCULAR: Rhythm is regular. Valve click. There is no gallop or murmur. ABDOMEN: The abdomen is nondistended. Extremities: No swelling or edema. SKIN: No jaundice or rash. No petechiae. 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 No focal motor weakness. MUSCULOSKELETAL: No muscle wasting. LABS: Component Latest Ref Rng AND Units 04/20/2018 WBC, Shelley 3.70 - 11.00 k/uL 10.44 RBC, Sylva 3.90 - 5.20 m/uL 3.79 (L) Hemoglobin, Shelley 11.5 - 15.5 g/dL 11.7 Hematocrit, Shelley 36.0 - 46.0 % 35.4 (L) MCV, Shelley 80.0 - 100.0 fL 93.4 MCH, Shelley 26.0 - 34.0 pg 30.9 MCHC, Shelley 30.5 - 36.0 g/dL 33.1 RDW, Shelley 11.5 - 15.0 % 14.1 Platelet Cnt, Shelley 150 - 400 k/uL 213 MPV, Sylva 9.0 - 12.7 fL 10.6 Absol Gran Count 1.45 - 7.50 k/uL 7.64 (H) Iron 41 - 186 ug/dL 65 TIBC 232 - 386 ug/dL 293 Transferrin Saturation 15 - 57 % 22 Retic % 0.4 - 2.0 % 3.1 (H) Abs Retic 0.0180 - 0.1000 M/uL 0.114 (H) LD 135 - 214 U/L 819 (H) Haptoglobin 31 - 238 mg/dL <10 (L) Ferritin 14.7 - 205.1 ng/mL 663.9 (H) ASSESSMENT/PLAN: (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 Patient has history of mechanical mitral valve replacement. -Previously discussed with her retail buyer--plan to monitor for now. -She has good erythrocytic compensation and is tolerating iron and folic acid replacement well. 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 -Still evidence of ongoing hemolysis. Plan: -Recheck Juan David test today. -Continue iron and folic acid supplementation. -Recheck labs in 3 months. -Office visit in 6 months. -She will continue regular follow-up with her retail buyer. -We also discussed smoking cessation today. She is not psychologically motivated to quit at this time. I will continue to address this on subsequent visits. Lui Wilkerson DO CNOVSP Observed: 04/27/2018 Status: COMPLETED Source: [place] 11:30 AM [facility] REPOSITORY Visit (SP) Office ([facility]) CLEMENTINE WARD ([id number]) 1950 F Date Time Provider Department 04/27/18 11:30 AM LUI WILKERSON During your visit today, we recorded the following information about you: Temperature Pulse Blood pressure Weight 99 degrees 65/minute 120/57 65.3 kg Lui Wilkerson DO 04/27/2018 3:44 PM Signed Diagnosis: 1) Mechanical hemolytic anemia. HPI: Patient is a 67-year-old female who has a past medical history significant for mitral valve disease (s/p mechanical mitral valve replacement; 2010; on AC) and CAD (5 vessel CABG same time as MV surgery) Several years ago was found iron deficient. Was put on oral iron replacement. The patient's CBC from 12/30/2016 demonstrated a total white count of 10,300. Hemoglobin was 11.4 g/dL and the platelet count was 271,000. The MCV was 94.9 and the MCH was 30.8. Most recent iron studies from January 2016. Total iron was 24 TIBC was 538 and the iron saturation was 4.5%. Ferritin was 21 ng per mL. She had a total iron of 77 on 12/30/2016. She underwent a colonoscopy on 03/26/2016. That study showed evidence of moderate diverticular disease with no evidence of lower GI blood loss. Internal hemorrhoids were noted. She also had an EGD done on the same day and it showed no evidence of upper GI blood loss. She had some mild erythema in the gastric mucosa with no other significant findings. Presents for ongoing hematologic management. 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 No symptoms of cardiomyopathy including chest pain/pressure, palpitations, shortness of breath at rest or with exertion, lower extremity swelling/edema, PND or orthopnea. Most recent echo 2015. No episodes of jaundice. No unusual bleeding or unexplained bruising. Still smoking at least a half pack cigarettes a day. PMH, medications and allergies as below personally reviewed by me today. Any changes documented in appropriate section. ROS: Constitutional: Denies episodes of fever and night sweats. Normal appetite. Neuro: Denies VALDIVIA, vertigo, dizziness and imbalance. Denies symptoms of neuropathy. HEENT: No recent change in voice, vision or hearing. Resp: Denies cough, wheeze and hemoptysis. CVS: Denies PND, orthopnea and LE edema. GI: Denies dysgeusia. Denies symptoms of stomatitis. Denies dysphagia and odynophagia. Denies reflux, n/v, change in bowel habits. : Denies dysuria or gross hematuria. No symptoms of bladder outlet obstruction. Endo: Denies hot flashes. Denies polyuria and polydipsia. Denies heat and cold intolerance. Musculoskeletal: Denies muscular pain. Derm: Denies rash. Denies jaundice and diffuse pruritis. Heme: Denies unusual bleeding and unexplained bruising. Psych: Normal mood. PHYSICAL EXAM: Vitals: Blood pressure 120/57, pulse 65, temperature 37.2 ?C (99 ?F), temperature source Oral, weight 65.3 kg (144 lb). Well-appearing and in no acute distress. EYES: Sclerae are anicteric bilaterally. NECK: Supple. RESPIRATORY: Inspiratory breath sounds are of normal intensity in all moss. No rales, wheezes or rhonchi. Expiratory phase is normal. CARDIOVASCULAR: Rhythm is regular. Valve click. There is no gallop or murmur. ABDOMEN: The abdomen is nondistended. Extremities: No swelling or edema. SKIN: No jaundice or rash. No petechiae. 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 No focal motor weakness. MUSCULOSKELETAL: No muscle wasting. LABS: Component Latest Ref Rng AND Units 04/20/2018 WBC, Sylva 3.70 - 11.00 k/uL 10.44 RBC, Sylva 3.90 - 5.20 m/uL 3.79 (L) Hemoglobin, Sylva 11.5 - 15.5 g/dL 11.7 Hematocrit, Sylva 36.0 - 46.0 % 35.4 (L) MCV, Shelley 80.0 - 100.0 fL 93.4 MCH, Shelley 26.0 - 34.0 pg 30.9 MCHC, Sylva 30.5 - 36.0 g/dL 33.1 RDW, Shelley 11.5 - 15.0 % 14.1 Platelet Cnt, Shelley 150 - 400 k/uL 213 MPV, Shelley 9.0 - 12.7 fL 10.6 Absol Gran Count 1.45 - 7.50 k/uL 7.64 (H) Iron 41 - 186 ug/dL 65 TIBC 232 - 386 ug/dL 293 Transferrin Saturation 15 - 57 % 22 Retic % 0.4 - 2.0 % 3.1 (H) Abs Retic 0.0180 - 0.1000 M/uL 0.114 (H) LD 135 - 214 U/L 819 (H) Haptoglobin 31 - 238 mg/dL <10 (L) Ferritin 14.7 - 205.1 ng/mL 663.9 (H) ASSESSMENT/PLAN: (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 Patient has history of mechanical mitral valve replacement. -Previously discussed with her retail buyer--plan to monitor for now. -She has good erythrocytic compensation and is tolerating iron and folic acid replacement well. 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 -Still evidence of ongoing hemolysis. Plan: -Recheck Juan David test today. -Continue iron and folic acid supplementation. -Recheck labs in 3 months. -Office visit in 6 months. -She will continue regular follow-up with her retail buyer. -We also discussed smoking cessation today. She is not psychologically motivated to quit at this time. I will continue to address this on subsequent visits. Lui Wilkerson DO Referring Provider: LUI WILKERSON [[id number]] Allergies As of Date: 04/27/2018 (No Known Allergies) Date Reviewed: 04/27/2018 Reviewed by: Nevaeh Farrar - Fully Assessed Reason for Visit: Established Patient [175] Primary Visit Diagnosis:Other non-autoimmune hemolytic anemias (HCC) [D59.4] Order(s):JUAN DAVID DIRECT [SQDAGT] Order #: [id number] FUTURE Follow-up and Disposition History Recorded Prescriptions as of 04/27/2018 Sig: FOLIC ACID 1 MG TABLET Take 1 tablet by mouth once d* LEXAPRO 20 MG TABLET 1 tablet once daily. FUROSEMIDE 40 MG TABLET 1 tablet once daily. METOPROLOL TARTRATE 25 MG TAB* 0.5 tablets twice daily. CRESTOR 20 MG TABLET 1 tablet once daily. WARFARIN 1 MG TABLET Take 5mg by mouth once daily * WARFARIN 4 MG TABLET Take 5mg by mouth once daily * ASPIRIN 81 MG TABLET,DELAYED * Take 81 mg by mouth once eliazar* FERROUS SULFATE 325 MG (65 MG* Take 325 mg by mouth twice da* ASCORBIC ACID (VITAMIN C) 500* Take 500 mg by mouth once quin* CHANTIX STARTING MONTH BOX 0.* Take by mouth as directed. Medication notes this encounter CHANTIX STARTING MONTH BOX 0.5 MG (11)-1 MG (42) TABLETS IN DOSE PACK >> Nevaeh Farrar MA 04/27/2018 11:27 AM >> NEVAEH FARRAR MA WedApr 27, 2018 11:27 AM No longer taking. Problem List As Of Date 04/27/2018 Noted Resolved Hemolytic anemia (HCC) [D58.9] INVALID FOR* Absolute anemia [D64.9] INVALID FOR*10/27/2017 Encounter Status:Closed by LUI WILKERSON DO on 04/27/18 SHELLEY ABS GR + CBC Collected: 04/20/2018 Status: F Source: [place] 2:36 PM [facility] REPOS[facility]ORY TYPE CODE TESTS RESULT OUT OF REFERENCE UNITS RANGE LAB WWBC 3.70-11.00 k/uL Sylva WBC 10.44 LAB WRBC 3.90-5.20 m/uL Low Shelley RBC 3.79 LAB WHGB 11.5-15.5 g/dL Shelley Hemoglobin 11.7 LAB WHCT 36.0-46.0 % Low Shelley Hematocrit 35.4 LAB WMCV 80.0-100.0 fL Sylva MCV 93.4 LAB WMCH 26.0-34.0 pg Sylva MCH 30.9 LAB WMCHC 30.5-36.0 g/dL Shelley MCHC 33.1 LAB WRDW 11.5-15.0 % Sylva RDW 14.1 LAB WPLT 150-400 k/uL Sylva Platelet Cnt 213 LAB WMPV 9.0-12.7 fL Shelley MPV 10.6 Result Comment: Test performed at: [facility], [address] [place] [address] Rd[address] [place] [address]. LAB ABGRAN 1.45-7.50 k/uL High Absol 7.64 Gran Count RETICULOCYTE Collected: 04/20/2018 Status: F Source: [place] 2:36 PM [facility] REPOSITORY TYPE CODE TESTS RESULT OUT OF REFERENCE UNITS RANGE LAB RETC 0.4-2.0 % High Retic% 3.1 LAB ABRET 0.0180-0.1000 M/uL High Abs Retic 0.114 Performed By: #### RETIC, LD6, HAPTO, FERR, IRON #### [facility] [address] [address] LD Collected: 04/20/2018 Status: F Source: [facility] 2:36 PM [facility] REPOSITORY TYPE CODE TESTS RESULT OUT OF RANGE REFERENCE UNITS LAB LD 135-214 U/L High LD 819 Performed By: #### RETIC, LD6, HAPTO, FERR, IRON #### [facility] [place] [address] [address] HAPTOGLOBIN Collected: 04/20/2018 Status: F Source: [place] 2:36 PM [facility] REPOSITORY TYPE CODE TESTS RESULT OUT OF REFERENCE UNITS RANGE LAB HAPTO 31-238 mg/dL Low Haptoglobin <10 Performed By: #### RETIC, LD6, HAPTO, FERR, IRON #### [facility] [place] [address] [address] FERRITIN Collected: 04/20/2018 Status: F Source: [place] 2:36 PM [facility] REPOSITORY TYPE CODE TESTS RESULT OUT OF REFERENCE UNITS RANGE LAB FERR 14.7-205.1 ng/mL High Ferritin 663.9 Performed By: #### RETIC, LD6, HAPTO, FERR, IRON #### [facility] [address] [id number] IRON AND TIBC Collected: 04/20/2018 Status: F Source: [place] 2:36 PM [facility] REPOSITORY TYPE CODE TESTS RESULT OUT OF REFERENCE UNITS RANGE LAB IRN 41-186 ug/dL Iron 65 LAB TIBC 232-386 ug/dL TIBC 293 LAB SAT 15-57 % Transferrin Saturatn 22 Performed By: #### RETIC, LD6, HAPTO, FERR, IRON #### [facility] [id number] PROTHROMBIN TIME AND Collected: 04/18/2018 Status: F Source: [facility] INR 11:50 AM [facility] REPOS[facility] TYPE CODE TESTS RESULT OUT OF REFERENCE UNITS RANGE LAB PROTHROMBIN TIME AND INR(LOINC) PROTHROMBIN TIME AND INR Result Comment: PROTHROMBIN TIME AND INR LAB PT-COUMADIN(LOINC) sec PT-COUMADIN 32.6 LAB INR(LOINC) 0.8 - 1.2 INR High 3.0 Result Comment: THE HEMOSIL THROMBOPLASTIN REAGENT USED IN THE PROTHROMBIN TIME TEST INTERACTS WITH THE DRUG CUBICIN (DAPTOMYCIN) AND WILL RESULT IN FALSELY ELEVATED PT / INR RESULTS INR INTERPRETATION INR INDICATION PREVENTION AND TREATMENT OF THROMBOEMBOLISM ASSOCIATED WITH: 2.0 - 3.0 ATRIAL FIBRILLATION, BIOPROSTHETIC HEART VALVES, PULMONARY EMBOLISM, VENOUS THROMBOSIS, SYSTEMIC EMBOLISM POST MYOCARDIAL INFARCTION 2.5 - 3.5 MECHANICAL HEART VALVES Performed By: #### [id number] #### [facility],[address] [place], [place] [id number] CBC W/DIFF, AUTOMATED Collected: 04/12/2018 Status: F Source: [place] 1:21 PM [facility] REPOSITORY TYPE CODE TESTS RESULT OUT OF RANGE REFERENCE UNITS LAB L100.1000 4.4-11.0 K/mm3 Normal WBC 9.9 LAB L100.1200 4.2-5.4 M/mm3 Normal RBC 4.23 LAB L100.1300 12.0-15.0 g/dl Normal HGB 12.7 LAB L100.1400 37-47 % Normal HCT 38.9 LAB L100.1500 81-99 fL Normal MCV 92.0 LAB L100.1600 27.0-32.0 pg Normal MCH 30.0 LAB L100.1700 32-36 g/gl Normal MCHC 32.6 LAB L100.1810 11.6-14.6 % Normal RDW CV 14.1 LAB L100.1820 35.1-43.9 fl High RDW SD 46.4 LAB L100.1900 150-450 K/mm3 Normal PLT 260 LAB L100.2000 6.2-12.0 fl Normal MPV 10.6 LAB L100.2100 47-70 % High NEUT% 76.2 LAB L100.2200 19-41 % Low LY% 12.7 LAB L100.2300 0-10 % Normal MONO% 9.5 LAB L100.2400 0-5 % Normal EO% 1.2 LAB L100.2500 0-1 % Normal BASO% 0.2 LAB L100.2550 0.0-0.9 % Normal IM GRAN % 0.200 Result Comment: IG% - Immature Granulocytes (promyelocytes, myelocytes and metamyelocytes) > 1% indicates that a LEFT SHIFT is Present. LAB L100.2620 2.0-7.7 X10 3/uL Normal Absolute Neut 7.5 LAB L100.2720 0.83-4.51 X10 3/ul Normal Absolute Lymph 1.25 Performed By: #### L100.0100 #### [facility] [address] [place], [address] VITAMIN D,25 HYDROXY Collected: 04/12/2018 Status: F Source: [place] 1:21 PM [facility] REPOSITORY TYPE CODE TESTS RESULT OUT OF REFERENCE UNITS RANGE LAB L506.1000 29.95-100.01 ng/mL Low Vitamin D 24.7 25-OH Result Comment: Vitamin D 25(OH) Status Range Deficiency <20 ng/mL (50nmol/L) Insuffciency 20 - 30 ng/mL (50 - 75 nmol/L) Sufficiency 30 - 100 ng/mL (75 - 250 nmol/L) Toxicity >100 ng/mL (>250 nmol/L) Performed By: #### L506.1000 #### [facility] [address] [place], [address] COMPREHENSIVE METABOLIC Collected: 04/12/2018 Status: F Source: [place] [facility] 1:21 PM [facility] REPOSITORY TYPE CODE TESTS RESULT OUT OF RANGE REFERENCE UNITS LAB L501.0100 74-106 mg/dL High GLU 114 Result Comment: Fasting Glucose result from 100 to 125 mg/dL suggests IMPAIRED HOMEOSTASIS per A.D.A. criteria. Please note revised GLUCOSE reference range effective 2017. LAB L501.1000 7-18 mg/dL Normal BUN 17 LAB L501.1100 0.55-1.02 mg/dL Normal CREAT,SERUM 0.83 Result Comment: The validity of the calculated GFR AND GFRAA in patients over 70 years has not been determined. Clinical correlation is essential. LAB L501.1110 >60 mL/min Normal EST GFR 73 Result Comment: Non- GFR Calc LAB L501.1115 >60 mL/min Normal EST GFR - AA 88 Result Comment: GFR Calc LAB L501.1300 10-20 RATIO High BUN/CRE 20.4 LAB L501.1500 6.4-8.2 g/dL T Normal PROT 7.3 LAB L501.1800 3.2-5.0 g/dL Normal ALB 3.6 LAB L501.1950 2.2-4.2 g/dL Normal GLOB 3.7 LAB L501.2000 0.9-2.4 RATIO Normal A/G 1.0 LAB L501.2200 8.5-10.1 mg/dL CA Normal 8.8 LAB L501.4100 15-37 U/L Normal AST 36 LAB L501.4305 45-117 U/L Normal ALK P 86 LAB L501.4405 13-56 U/L Normal ALT 27 LAB L501.4600 0.20-1.00 mg/dL T Normal BILI 0.70 LAB L501.5300 136-145 mmol/L NA Normal 139 LAB L501.5600 3.5-5.1 mmol/L K Normal 4.0 LAB L501.5900 98-107 mmol/L CL Normal 105 LAB L501.6100 21.0-32.0 mmol/L Normal CO2 28.0 LAB L501.6200 5-15 Normal GAP 6 Performed By: #### L500.4050, L501.9520 #### [facility] [address] [place], [place], [id number] THYROID STIM HORMONE Collected: 04/12/2018 Status: F Source: [place] (TSH) 1:21 PM [facility] REPOSITORY TYPE CODE TESTS RESULT OUT OF RANGE REFERENCE UNITS LAB L501.9520 0.358-3.74 uIU/mL Normal TSH 0.64 Performed By: #### L500.4050, L501.9520 #### [facility] [address] [place], [place], [id number] HEPATITIS C ANTIBODIES Collected: 04/12/2018 Status: F Source: [place] 1:21 PM [facility] REPOSITORY TYPE CODE TESTS RESULT OUT OF RANGE REFERENCE UNITS LAB L3100.0650 0.0-0.9 s/co ratio Normal HEP C AB <0.1 Result Comment: Negative: < 0.8 Indeterminate: 0.8 - 0.9 Positive: > 0.9 The CDC recommends that a positive HCV antibody result be followed up with a HCV Nucleic Acid Amplification test (390349). Performed at: [address] [id number] Pharmacy Services Representative: Rl Gant PhD, Phone: [phone] Performed By: #### L3100.0625 #### [facility] (refer to report for specific site) refer to report for address and phone number PROTHROMBIN TIME AND Collected: 03/29/2018 Status: F Source: [place] INR 11:10 AM [facility] REPOSITORY TYPE CODE TESTS RESULT OUT OF REFERENCE UNITS RANGE LAB PROTHROMBIN TIME AND INR(LOINC) PROTHROMBIN TIME AND INR Result Comment: PROTHROMBIN TIME AND INR LAB PT-COUMADIN(LOINC) sec PT-COUMADIN 28.4 LAB INR(LOINC) 0.8 - 1.2 INR High 2.6 Result Comment: THE HEMOSIL THROMBOPLASTIN REAGENT USED IN THE PROTHROMBIN TIME TEST INTERACTS WITH THE DRUG CUBICIN (DAPTOMYCIN) AND WILL RESULT IN FALSELY ELEVATED PT / INR RESULTS INR INTERPRETATION INR INDICATION PREVENTION AND TREATMENT OF THROMBOEMBOLISM ASSOCIATED WITH: 2.0 - 3.0 ATRIAL FIBRILLATION, BIOPROSTHETIC HEART VALVES, PULMONARY EMBOLISM, VENOUS THROMBOSIS, SYSTEMIC EMBOLISM POST MYOCARDIAL INFARCTION 2.5 - 3.5 MECHANICAL HEART VALVES Performed By: #### [id number] #### [place] [address] PROTHROMBIN TIME AND Collected: 03/15/2018 Status: F [facility]: [facility] [facility] 1:26 PM [facility] REPOSITORY TYPE CODE TESTS RESULT OUT OF REFERENCE UNITS RANGE LAB PROTHROMBIN TIME AND INR(LOINC) PROTHROMBIN TIME AND INR Result Comment: PROTHROMBIN TIME AND INR LAB PT-COUMADIN(LOINC) sec PT-COUMADIN 38.9 LAB INR(LOINC) 0.8 - 1.2 INR High 3.6 Result Comment: THE HEMOSIL THROMBOPLASTIN REAGENT USED IN THE PROTHROMBIN TIME TEST INTERACTS WITH THE DRUG CUBICIN (DAPTOMYCIN) AND WILL RESULT IN FALSELY ELEVATED PT / INR RESULTS INR INTERPRETATION INR INDICATION PREVENTION AND TREATMENT OF THROMBOEMBOLISM ASSOCIATED WITH: 2.0 - 3.0 ATRIAL FIBRILLATION, BIOPROSTHETIC HEART VALVES, PULMONARY EMBOLISM, VENOUS THROMBOSIS, SYSTEMIC EMBOLISM POST MYOCARDIAL INFARCTION 2.5 - 3.5 MECHANICAL HEART VALVES Performed By: #### [id number] #### [place] [address] PROTHROMBIN TIME AND Collected: 02/28/2018 Status: F Source: [place] INR 1:18 PM [facility] REPOSITORY TYPE CODE TESTS RESULT OUT OF REFERENCE UNITS RANGE LAB PROTHROMBIN TIME AND INR(LOINC) PROTHROMBIN TIME AND INR Result Comment: PROTHROMBIN TIME AND INR LAB PT-COUMADIN(LOINC) sec PT-COUMADIN 38.0 LAB INR(LOINC) 0.8 - 1.2 INR High 3.5 Result Comment: THE HEMOSIL THROMBOPLASTIN REAGENT USED IN THE PROTHROMBIN TIME TEST INTERACTS WITH THE DRUG CUBICIN (DAPTOMYCIN) AND WILL RESULT IN FALSELY ELEVATED PT / INR RESULTS INR INTERPRETATION INR INDICATION PREVENTION AND TREATMENT OF THROMBOEMBOLISM ASSOCIATED WITH: 2.0 - 3.0 ATRIAL FIBRILLATION, BIOPROSTHETIC HEART VALVES, PULMONARY EMBOLISM, VENOUS THROMBOSIS, SYSTEMIC EMBOLISM POST MYOCARDIAL INFARCTION 2.5 - 3.5 MECHANICAL HEART VALVES Performed By: #### [id number] #### [facility],[address] [place] [address] PROTHROMBIN TIME AND Collected: 02/21/2018 Status: F Source: [facility] INR 11:41 AM [facility] REPOSITORY TYPE CODE TESTS RESULT OUT OF REFERENCE UNITS RANGE LAB PROTHROMBIN TIME AND INR(LOINC) PROTHROMBIN TIME AND INR Result Comment: PROTHROMBIN TIME AND INR LAB PT-COUMADIN(LOINC) sec PT-COUMADIN 38.3 LAB INR(LOINC) 0.8 - 1.2 INR High 3.5 Result Comment: THE HEMOSIL THROMBOPLASTIN REAGENT USED IN THE PROTHROMBIN TIME TEST INTERACTS WITH THE DRUG CUBICIN (DAPTOMYCIN) AND WILL RESULT IN FALSELY ELEVATED PT / INR RESULTS INR INTERPRETATION INR INDICATION PREVENTION AND TREATMENT OF THROMBOEMBOLISM ASSOCIATED WITH: 2.0 - 3.0 ATRIAL FIBRILLATION, BIOPROSTHETIC HEART VALVES, PULMONARY EMBOLISM, VENOUS THROMBOSIS, SYSTEMIC EMBOLISM POST MYOCARDIAL INFARCTION 2.5 - 3.5 MECHANICAL HEART VALVES Performed By: #### [id number] #### [address] [address] LUMBAR SPINE 2 OR 3 Observed: 02/17/2018 Status: F Source: [place] VIEWS 12:00 PM [facility] REPOSITORY [facility] Imaging Services [address] [place], [place] [id number] Lumbar Spine 2 or 3 Views MR#: [id number] Acct: [id number] Name: CLEMENTINE WARD Rep #: [id number] : 1950 F 67 From: Rnoan Salinas MD PCP: Mile GARCIA,Tank Ghotra Status: REG CLI Study: Lumbar Spine 2 or 3 Views Date of Exam: 02/17/18 Exam# [id number] Ordering Dr: Tank Treadwell MD STUDY: X-RAY - LUMBAR SPINE REASON FOR EXAM: Female, 67 years old. Lower back pain x1 week. TECHNIQUE: 3 view(s) of the lumbar spine were obtained. COMPARISON: None available. FINDINGS: All 5 nonrib-bearing lumbar vertebral bodies are identified and show normal vertebral body heights with mild L1-L2, moderate L2-L3, mild L3-L4/L4-L5 and moderate L5-S1 disc space seen. Mild scoliosis apex right noted L3-L4, may be positional. Mild normal-appearing lordotic curvature is maintained without significant listhesis seen. No osseous lytic/blastic lesion noted. Visualized posterior elements, pedicles, SI joints and sacrum appear intact. Exit neural foramina appear patent. No paravertebral mass density noted. Nonobstructed nonspecific visualized intestinal gas pattern. Surgical clip right upper quadrant. RAD/Lumbar Spine 2 or 3 Views IMPRESSION: Nonacute lumbosacral spine. No finding of lumbosacral vertebral body acute compression fracture or traumatic listhesis. Multilevel degenerative lumbosacral as described. Severe arteriosclerosis distal abdominal aorta. Electronically Signed: Ronan Salinas, at 14:36 EDT Tel , Service support , CC: Tank Treadwell MD Ladle Cleaner: Signed Observed: 02/17/2018 Status: F Source: [place] CULTURE, URINE 11:48 AM [facility] REPOSITORY Urine Culture Culture exhibits no growth. Performed By: #### M100.0650 #### [facility] [address] [place] [address], [id number] PROTHROMBIN TIME AND Collected: 02/16/2018 Status: F Source: [place] IN[place] 1:05 PM [facility] REPOSITORY TYPE CODE TESTS RESULT OUT OF REFERENCE UNITS RANGE LAB PROTHROMBIN TIME AND INR(LOINC) PROTHROMBIN TIME AND INR Result Comment: PROTHROMBIN TIME AND INR LAB PT-COUMADIN(LOINC) sec PT-COUMADIN 40.9 LAB INR(LOINC) 0.8 - 1.2 INR High 3.8 Result Comment: THE HEMOSIL THROMBOPLASTIN REAGENT USED IN THE PROTHROMBIN TIME TEST INTERACTS WITH THE DRUG CUBICIN (DAPTOMYCIN) AND WILL RESULT IN FALSELY ELEVATED PT / INR RESULTS INR INTERPRETATION INR INDICATION PREVENTION AND TREATMENT OF THROMBOEMBOLISM ASSOCIATED WITH: 2.0 - 3.0 ATRIAL FIBRILLATION, BIOPROSTHETIC HEART VALVES, PULMONARY EMBOLISM, VENOUS THROMBOSIS, SYSTEMIC EMBOLISM POST MYOCARDIAL INFARCTION 2.5 - 3.5 MECHANICAL HEART VALVES Performed By: #### [id number] #### [facility],[address] [place], [place] [address] PROTHROMBIN TIME AND Collected: 02/02/2018 Status: F Source: [facility] INR 2:13 PM [facility] REPOSITORY TYPE CODE TESTS RESULT OUT OF REFERENCE UNITS RANGE LAB PROTHROMBIN TIME AND INR(LOINC) PROTHROMBIN TIME AND INR Result Comment: PROTHROMBIN TIME AND INR LAB PT-COUMADIN(LOINC) sec PT-COUMADIN 49.9 LAB INR(LOINC) 0.8 - 1.2 INR High Alert 4.6 Result Comment: { CALLED TO NEVAEH/ADRIANO 1521 { READ BACK BY [id number] { TEST REPEATED THE HEMOSIL THROMBOPLASTIN REAGENT USED IN THE PROTHROMBIN TIME TEST INTERACTS WITH THE DRUG CUBICIN (DAPTOMYCIN) AND WILL RESULT IN FALSELY ELEVATED PT / INR RESULTS INR INTERPRETATION INR INDICATION PREVENTION AND TREATMENT OF THROMBOEMBOLISM ASSOCIATED WITH: 2.0 - 3.0 ATRIAL FIBRILLATION, BIOPROSTHETIC HEART VALVES, PULMONARY EMBOLISM, VENOUS THROMBOSIS, SYSTEMIC EMBOLISM POST MYOCARDIAL INFARCTION 2.5 - 3.5 MECHANICAL HEART VALVES Performed By: #### [id number] #### [facility],[address] [place], [place] [address] PROTHROMBIN TIME AND Collected: 01/27/2018 Status: F Source: [facility] INR 2:43 PM [facility] REPOSITORY TYPE CODE TESTS RESULT OUT OF REFERENCE UNITS RANGE LAB PROTHROMBIN TIME AND INR(LOINC) PROTHROMBIN TIME AND INR Result Comment: PROTHROMBIN TIME AND INR LAB PT-COUMADIN(LOINC) sec PT-COUMADIN 22.7 LAB INR(LOINC) 0.8 - 1.2 INR High 2.0 Result Comment: THE HEMOSIL THROMBOPLASTIN REAGENT USED IN THE PROTHROMBIN TIME TEST INTERACTS WITH THE DRUG CUBICIN (DAPTOMYCIN) AND WILL RESULT IN FALSELY ELEVATED PT / INR RESULTS INR INTERPRETATION INR INDICATION PREVENTION AND TREATMENT OF THROMBOEMBOLISM ASSOCIATED WITH: 2.0 - 3.0 ATRIAL FIBRILLATION, BIOPROSTHETIC HEART VALVES, PULMONARY EMBOLISM, VENOUS THROMBOSIS, SYSTEMIC EMBOLISM POST MYOCARDIAL INFARCTION 2.5 - 3.5 MECHANICAL HEART VALVES Performed By: #### [id number] #### [facility],[address] [facility] [address] [place] ABS GR + CBC Collected: 01/26/2018 Status: F Source: [place] 2:43 PM [facility] [place] REPOSITORY TYPE CODE TESTS RESULT OUT OF REFERENCE UNITS RANGE LAB WWBC 3.70-11.00 k/uL [place] WBC 9.23 LAB WRBC 3.90-5.20 m/uL [place] RBC 3.99 LAB WHGB 11.5-15.5 g/dL [place] Hemoglobin 11.9 LAB WHCT 36.0-46.0 % [place] Hematocrit 36.4 LAB WMCV 80.0-100.0 fL [place] MCV 91.2 LAB WMCH 26.0-34.0 pg [place] MCH 29.8 LAB WMCHC 30.5-36.0 g/dL [place] MCHC 32.7 LAB WRDW 11.5-15.0 % [place] RDW 14.1 LAB WPLT 150-400 k/uL [place] Platelet Cnt 237 LAB WMPV 9.0-12.7 fL [place] MPV 9.9 Result Comment: Test performed at: [facility], [address] [place] [address]., [place] [address]. LAB ABGRAN 1.45-7.50 k/uL Absol Gran 6.31 Count RETICULOCYTE Collected: 01/26/2018 Status: F Source: [place] 2:43 PM [facility] REPOSITORY TYPE CODE TESTS RESULT OUT OF REFERENCE UNITS RANGE LAB RETC 0.4-2.0 % High Retic% 3.0 LAB ABRET 0.0180-0.1000 M/uL High Abs Retic 0.116 Performed By: #### RETIC, LD6, IRON, HAPTO, FERR #### [facility] [address], [place] [address] LD Collected: 01/26/2018 Status: F Source: [facility] 2:43 PM [facility] [place] REPOSITORY TYPE CODE TESTS RESULT OUT OF RANGE REFERENCE UNITS LAB LD 135-214 U/L High LD 680 Performed By: #### RETIC, LD6, IRON, HAPTO, FERR #### [facility] [address] [place], [place] [address] IRON AND TIBC Collected: 01/26/2018 Status: F Source: [place] 2:43 PM [facility] REPOSITORY TYPE CODE TESTS RESULT OUT OF REFERENCE UNITS RANGE LAB IRN 41-186 ug/dL Iron 71 LAB TIBC 232-386 ug/dL TIBC 298 LAB SAT 15-57 % Transferrin Saturatn 24 Performed By: #### RETIC, LD6, IRON, HAPTO, FERR #### [facility] [address] [place] [phone] HAPTOGLOBIN Collected: 01/26/2018 Status: F Source: [place] 2:43 PM [facility] REPOSITORY TYPE CODE TESTS RESULT OUT OF REFERENCE UNITS RANGE LAB HAPTO 31-238 mg/dL Low Haptoglobin <10 Performed By: #### RETIC, LD6, IRON, HAPTO, FERR #### [place] [phone] FERRITIN Collected: 01/26/2018 Status: F Source: [place] 2:43 PM [facility] REPOSITORY TYPE CODE TESTS RESULT OUT OF REFERENCE UNITS RANGE LAB FERR 14.7-205.1 ng/mL High Ferritin 525.5 Performed By: #### RETIC, LD6, IRON, HAPTO, FERR #### [place] [address] PROTHROMBIN TIME AND Collected: 01/24/2018 Status: F Source: [place] IN[place] 2:55 PM [facility] REPOSITORY TYPE CODE TESTS RESULT OUT OF REFERENCE UNITS RANGE LAB PROTHROMBIN TIME AND INR(LOINC) PROTHROMBIN TIME AND INR Result Comment: PROTHROMBIN TIME AND INR LAB PT-COUMADIN(LOINC) sec PT-COUMADIN 17.4 LAB INR(LOINC) 0.8 - 1.2 INR High 1.5 Result Comment: THE HEMOSIL THROMBOPLASTIN REAGENT USED IN THE PROTHROMBIN TIME TEST INTERACTS WITH THE DRUG CUBICIN (DAPTOMYCIN) AND WILL RESULT IN FALSELY ELEVATED PT / INR RESULTS INR INTERPRETATION INR INDICATION PREVENTION AND TREATMENT OF THROMBOEMBOLISM ASSOCIATED WITH: 2.0 - 3.0 ATRIAL FIBRILLATION, BIOPROSTHETIC HEART VALVES, PULMONARY EMBOLISM, VENOUS THROMBOSIS, SYSTEMIC EMBOLISM POST MYOCARDIAL INFARCTION 2.5 - 3.5 MECHANICAL HEART VALVES Performed By: #### [id number] #### [facility],[address] [place] [address] PROTHROMBIN TIME AND Collected: 01/20/2018 Status: F Source: [place] IN[place] 2:15 PM [facility] REPOSITORY TYPE CODE TESTS RESULT OUT OF REFERENCE UNITS RANGE LAB PROTHROMBIN TIME AND INR(LOINC) PROTHROMBIN TIME AND INR Result Comment: PROTHROMBIN TIME AND INR LAB PT-COUMADIN(LOINC) sec PT-COUMADIN 50.3 LAB INR(LOINC) 0.8 - 1.2 INR High Alert 4.7 Result Comment: { CALLED TO YVES KENYON AT 1549 { READ BACK BY PK TO DJB { TEST REPEATED THE HEMOSIL THROMBOPLASTIN REAGENT USED IN THE PROTHROMBIN TIME TEST INTERACTS WITH THE DRUG CUBICIN (DAPTOMYCIN) AND WILL RESULT IN FALSELY ELEVATED PT / INR RESULTS INR INTERPRETATION INR INDICATION PREVENTION AND TREATMENT OF THROMBOEMBOLISM ASSOCIATED WITH: 2.0 - 3.0 ATRIAL FIBRILLATION, BIOPROSTHETIC HEART VALVES, PULMONARY EMBOLISM, VENOUS THROMBOSIS, SYSTEMIC EMBOLISM POST MYOCARDIAL INFARCTION 2.5 - 3.5 MECHANICAL HEART VALVES Performed By: #### [id number] #### [place] [address] PROTHROMBIN TIME AND Collected: 01/05/2018 Status: F Source: [place] IN[place] 1:00 PM [facility] REPOSITORY TYPE CODE TESTS RESULT OUT OF REFERENCE UNITS RANGE LAB PROTHROMBIN TIME AND INR(LOINC) PROTHROMBIN TIME AND INR Result Comment: PROTHROMBIN TIME AND INR LAB PT-COUMADIN(LOINC) sec PT-COUMADIN 29.8 LAB INR(LOINC) 0.8 - 1.2 INR High 2.7 Result Comment: THE HEMOSIL THROMBOPLASTIN REAGENT USED IN THE PROTHROMBIN TIME TEST INTERACTS WITH THE DRUG CUBICIN (DAPTOMYCIN) AND WILL RESULT IN FALSELY ELEVATED PT / INR RESULTS INR INTERPRETATION INR INDICATION PREVENTION AND TREATMENT OF THROMBOEMBOLISM ASSOCIATED WITH: 2.0 - 3.0 ATRIAL FIBRILLATION, BIOPROSTHETIC HEART VALVES, PULMONARY EMBOLISM, VENOUS THROMBOSIS, SYSTEMIC EMBOLISM POST MYOCARDIAL INFARCTION 2.5 - 3.5 MECHANICAL HEART VALVES Performed By: #### [id number] #### [place] [address] PROTHROMBIN TIME AND Collected: 12/29/2017 Status: F Source: [facility] INR 2:00 PM [facility] REPOSITORY TYPE CODE TESTS RESULT OUT OF REFERENCE UNITS RANGE LAB PROTHROMBIN TIME AND INR(LOINC) PROTHROMBIN TIME AND INR Result Comment: PROTHROMBIN TIME AND INR LAB PT-COUMADIN(LOINC) sec PT-COUMADIN 48.7 LAB INR(LOINC) 0.8 - 1.2 INR High 4.5 Result Comment: THE HEMOSIL THROMBOPLASTIN REAGENT USED IN THE PROTHROMBIN TIME TEST INTERACTS WITH THE DRUG CUBICIN (DAPTOMYCIN) AND WILL RESULT IN FALSELY ELEVATED PT / INR RESULTS INR INTERPRETATION INR INDICATION PREVENTION AND TREATMENT OF THROMBOEMBOLISM ASSOCIATED WITH: 2.0 - 3.0 ATRIAL FIBRILLATION, BIOPROSTHETIC HEART VALVES, PULMONARY EMBOLISM, VENOUS THROMBOSIS, SYSTEMIC EMBOLISM POST MYOCARDIAL INFARCTION 2.5 - 3.5 MECHANICAL HEART VALVES Performed By: #### [id number] #### [facility],[address] [facility] [address] PROTHROMBIN TIME W/INR Collected: 12/03/2017 Status: F Source: [place] 1:05 PM [facility] REPOSITORY Order Comment: Comments: STANDING ORDER: FAX TO [facility] Comments: STANDING ORDER: FAX TO [facility] TYPE CODE TESTS RESULT OUT OF RANGE REFERENCE UNITS LAB L300.4150 11.7-14.9 SECONDS High PROTIME 31.3 LAB L300.4200 Normal INR 3.0 Performed By: #### L300.3900 #### [facility] [address] [place] [address], [address] PROTHROMBIN TIME AND Collected: 11/04/2017 Status: F Source: [facility] INR 1:22 PM [facility] REPOSITORY TYPE CODE TESTS RESULT OUT OF REFERENCE UNITS RANGE LAB PROTHROMBIN TIME AND INR(LOINC) PROTHROMBIN TIME AND INR Result Comment: PROTHROMBIN TIME AND INR LAB PT-COUMADIN(LOINC) sec PT-COUMADIN 34.5 LAB INR(LOINC) 0.8 - 1.2 INR High 3.1 Result Comment: THE HEMOSIL THROMBOPLASTIN REAGENT USED IN THE PROTHROMBIN TIME TEST INTERACTS WITH THE DRUG CUBICIN (DAPTOMYCIN) AND WILL RESULT IN FALSELY ELEVATED PT / INR RESULTS INR INTERPRETATION INR INDICATION PREVENTION AND TREATMENT OF THROMBOEMBOLISM ASSOCIATED WITH: 2.0 - 3.0 ATRIAL FIBRILLATION, BIOPROSTHETIC HEART VALVES, PULMONARY EMBOLISM, VENOUS THROMBOSIS, SYSTEMIC EMBOLISM POST MYOCARDIAL INFARCTION 2.5 - 3.5 MECHANICAL HEART VALVES Performed By: #### [id number] #### [facility],[address] [place] [address] PROGRESS Observed: 10/27/2017 Status: COMPLETED Source: [place] 12:25 PM [facility] REPOSITORY HNO ID: [id number] Author: Ramon Islas (Sw) Service: (none) Author Type: University Archivist Type: Progress Notes Filed: 10/27/2017 12:28 PM Note Text: You are not granted access to view this sensitive note. PROGRESS Observed: 10/27/2017 Status: COMPLETED Source: [place] 12:06 PM [facility] REPOSITORY HNO ID: [id number] Author: Lui Wilkerson Service: (none) Author Type: Physician Type: Progress Notes Filed: 10/27/2017 12:17 PM Note Text: Diagnosis: 1) Mechanical hemolytic anemia. HPI: Patient is a 67-year-old female who has a past medical history significant for mitral valve disease (s/p mechanical mitral valve replacement; 2010; on AC) and CAD (5 vessel CABG same time as MV surgery) Several years ago was found iron deficient. Was put on oral iron replacement. The patient's CBC from 12/30/2016 demonstrated a total white count of 10,300. Hemoglobin was 11.4 g/dL and the platelet count was 271,000. The MCV was 94.9 and the MCH was 30.8. Most recent iron studies from January 2016. Total iron was 24 TIBC was 538 and the iron saturation was 4.5%. Ferritin was 21 ng per mL. She had a total iron of 77 on 12/30/2016. She underwent a colonoscopy on 03/26/2016. That study showed evidence of moderate diverticular disease with no evidence of lower GI blood loss. Internal hemorrhoids were noted. She also had an EGD done on the same day and it showed no evidence of upper GI blood loss. She had some mild erythema in the gastric mucosa with no other significant findings. Presents for ongoing hematologic management. 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 She has stable dyspnea on exertion. She is able to climb a flight of stairs without getting short of breath. She's got no difficulty with cough, sputum production or wheezing. She denies chest pain/pressure and tightness. No palpitations. She still smoking about a half a pack a day but started Chantix yesterday. No nausea thus far. Smokes about ~1/2 ppd. No episodes of jaundice. No unusual bleeding or unexplained bruising. PMH, medications and allergies as below personally reviewed by me today. Any changes documented in appropriate section. ROS: Constitutional: Denies episodes of fever and night sweats. Normal appetite. Neuro: Denies VALDIVIA, vertigo, dizziness and imbalance. Denies symptoms of neuropathy. HEENT: No recent change in voice, vision or hearing. Resp: Denies cough, wheeze and hemoptysis. CVS: Denies PND, orthopnea and LE edema. GI: Denies dysgeusia. Denies symptoms of stomatitis. Denies dysphagia and odynophagia. Denies reflux, n/v, change in bowel habits. : Denies dysuria or gross hematuria. No symptoms of bladder outlet obstruction. Endo: Denies hot flashes. Denies polyuria and polydipsia. Denies heat and cold intolerance. Musculoskeletal: Denies muscular pain. Derm: Denies rash. Denies jaundice and diffuse pruritis. Heme: Denies unusual bleeding and unexplained bruising. Psych: Normal mood. PHYSICAL EXAM: Vitals: Blood pressure 130/58, pulse 64, temperature 36.3 ?C (97.3 ?F), temperature source Temporal Artery, weight 65.8 kg (145 lb). Well-appearing and in no acute distress. EYES: Sclerae are anicteric bilaterally. NECK: Supple. RESPIRATORY: Inspiratory breath sounds are of normal intensity in all moss. No rales, wheezes or rhonchi. Expiratory phase is normal. CARDIOVASCULAR: Rhythm is regular. Valve click. There is no gallop or murmur. ABDOMEN: The abdomen is nondistended. Extremities: No swelling or edema. SKIN: No jaundice or rash. No petechiae. 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 No focal motor weakness. MUSCULOSKELETAL: No muscle wasting. LABS: Component Latest Ref Rng AND Units 10/20/2017 WBC, [place] 3.70 - 11.00 k/uL 9.14 RBC, [place] 3.90 - 5.20 m/uL 3.93 Hemoglobin, [place] 11.5 - 15.5 g/dL 11.6 Hematocrit, [place] 36.0 - 46.0 % 36.1 MCV, [place] 80.0 - 100.0 fL 91.9 MCH, [place] 26.0 - 34.0 pg 29.5 MCHC, [place] 30.5 - 36.0 g/dL 32.1 RDW, [place] 11.5 - 15.0 % 14.3 Platelet Cnt, Shelley 150 - 400 k/uL 261 MPV, Sylva 9.0 - 12.7 fL 10.5 Absol Gran Count 1.45 - 7.50 k/uL 6.40 Iron 41 - 186 ug/dL 88 TIBC 232 - 386 ug/dL 308 Transferrin Saturation 15 - 57 % 29 Retic % 0.4 - 2.0 % 3.2 (H) Abs Retic 0.0180 - 0.1000 M/uL 0.130 (H) LD 135 - 214 U/L 750 (H) Haptoglobin 31 - 238 mg/dL <10 (L) Ferritin 14.7 - 205.1 ng/mL 507.2 (H) ASSESSMENT/PLAN: (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 Patient has history of mechanical mitral valve replacement. -Previously discussed with her retail buyer--plan to monitor for now. -She has good erythrocytic compensation and is tolerating iron and folic acid replacement well. 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 Plan: -Continue iron and folic acid supplementation. -Recheck labs in 3 months. -Office visit in 6 months. -She will continue regular follow-up with her retail buyer. Lui Wilkerson DO CNOVSP Observed: 10/27/2017 Status: COMPLETED Source: [place] 11:30 AM [facility] REPOSITORY Visit (SP) Office (HEMAWS) CLEMENTINE WARD ([id number]) 1950 F Date Time Provider Department 10/27/17 11:30 AM LUI WILKERSON During your visit today, we recorded the following information about you: Temperature Pulse Blood pressure Weight 97.3 degrees 64/minute 130/58 65.8 kg Lui Wilkerson DO 10/27/2017 12:17 PM Signed Diagnosis: 1) Mechanical hemolytic anemia. HPI: Patient is a 67-year-old female who has a past medical history significant for mitral valve disease (s/p mechanical mitral valve replacement; 2010; on AC) and CAD (5 vessel CABG same time as MV surgery) Several years ago was found iron deficient. Was put on oral iron replacement. The patient's CBC from 12/30/2016 demonstrated a total white count of 10,300. Hemoglobin was 11.4 g/dL and the platelet count was 271,000. The MCV was 94.9 and the MCH was 30.8. Most recent iron studies from January 2016. Total iron was 24 TIBC was 538 and the iron saturation was 4.5%. Ferritin was 21 ng per mL. She had a total iron of 77 on 12/30/2016. She underwent a colonoscopy on 03/26/2016. That study showed evidence of moderate diverticular disease with no evidence of lower GI blood loss. Internal hemorrhoids were noted. She also had an EGD done on the same day and it showed no evidence of upper GI blood loss. She had some mild erythema in the gastric mucosa with no other significant findings. Presents for ongoing hematologic management. 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 She has stable dyspnea on exertion. She is able to climb a flight of stairs without getting short of breath. She's got no difficulty with cough, sputum production or wheezing. She denies chest pain/pressure and tightness. No palpitations. She still smoking about a half a pack a day but started Chantix yesterday. No nausea thus far. Smokes about ~1/2 ppd. No episodes of jaundice. No unusual bleeding or unexplained bruising. PMH, medications and allergies as below personally reviewed by me today. Any changes documented in appropriate section. ROS: Constitutional: Denies episodes of fever and night sweats. Normal appetite. Neuro: Denies VALDIVIA, vertigo, dizziness and imbalance. Denies symptoms of neuropathy. HEENT: No recent change in voice, vision or hearing. Resp: Denies cough, wheeze and hemoptysis. CVS: Denies PND, orthopnea and LE edema. GI: Denies dysgeusia. Denies symptoms of stomatitis. Denies dysphagia and odynophagia. Denies reflux, n/v, change in bowel habits. : Denies dysuria or gross hematuria. No symptoms of bladder outlet obstruction. Endo: Denies hot flashes. Denies polyuria and polydipsia. Denies heat and cold intolerance. Musculoskeletal: Denies muscular pain. Derm: Denies rash. Denies jaundice and diffuse pruritis. Heme: Denies unusual bleeding and unexplained bruising. Psych: Normal mood. PHYSICAL EXAM: Vitals: Blood pressure 130/58, pulse 64, temperature 36.3 ?C (97.3 ?F), temperature source Temporal Artery, weight 65.8 kg (145 lb). Well-appearing and in no acute distress. EYES: Sclerae are anicteric bilaterally. NECK: Supple. RESPIRATORY: Inspiratory breath sounds are of normal intensity in all moss. No rales, wheezes or rhonchi. Expiratory phase is normal. CARDIOVASCULAR: Rhythm is regular. Valve click. There is no gallop or murmur. ABDOMEN: The abdomen is nondistended. Extremities: No swelling or edema. SKIN: No jaundice or rash. No petechiae. 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 No focal motor weakness. MUSCULOSKELETAL: No muscle wasting. LABS: Component Latest Ref Rng ANDamp; Units 10/20/2017 WBC, Sylva 3.70 - 11.00 k/uL 9.14 RBC, Shelley 3.90 - 5.20 m/uL 3.93 Hemoglobin, Sylva 11.5 - 15.5 g/dL 11.6 Hematocrit, Sylva 36.0 - 46.0 % 36.1 MCV, Sylva 80.0 - 100.0 fL 91.9 MCH, Shelley 26.0 - 34.0 pg 29.5 MCHC, Shelley 30.5 - 36.0 g/dL 32.1 RDW, Shelley 11.5 - 15.0 % 14.3 Platelet Cnt, Shelley 150 - 400 k/uL 261 MPV, Shelley 9.0 - 12.7 fL 10.5 Absol Gran Count 1.45 - 7.50 k/uL 6.40 Iron 41 - 186 ug/dL 88 TIBC 232 - 386 ug/dL 308 Transferrin Saturation 15 - 57 % 29 Retic % 0.4 - 2.0 % 3.2 (H) Abs Retic 0.0180 - 0.1000 M/uL 0.130 (H) LD 135 - 214 U/L 750 (H) Haptoglobin 31 - 238 mg/dL ANDlt;10 (L) Ferritin 14.7 - 205.1 ng/mL 507.2 (H) ASSESSMENT/PLAN: (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 Patient has history of mechanical mitral valve replacement. -Previously discussed with her retail buyer--plan to monitor for now. -She has good erythrocytic compensation and is tolerating iron and folic acid replacement well. 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 Plan: -Continue iron and folic acid supplementation. -Recheck labs in 3 months. -Office visit in 6 months. -She will continue regular follow-up with her retail buyer. Lui Wilkerson DO Referring Provider: LUI WILKERSON [[id number]] Allergies As of Date: 10/27/2017 (No Known Allergies) Date Reviewed: 10/27/2017 Reviewed by: Nevaeh Farrar - Fully Assessed Reason for Visit: Established Patient [175] Primary Visit Diagnosis:Other non-autoimmune hemolytic anemias (HCC) [D59.4] Follow-up and Disposition History Recorded Prescriptions as of 10/27/2017 Sig: CHANTIX STARTING MONTH BOX 0.* Take by mouth as directed. FOLIC ACID 1 MG TABLET Take 1 tablet by mouth once d* LEXAPRO 20 MG TABLET 1 tablet once daily. FUROSEMIDE 40 MG TABLET 1 tablet once daily. METOPROLOL TARTRATE 25 MG TAB* 0.5 tablets twice daily. CRESTOR 20 MG TABLET 1 tablet once daily. WARFARIN 1 MG TABLET Take 5 mg by mouth once daily* WARFARIN 4 MG TABLET Take 5 mg by mouth once daily* ASPIRIN 81 MG TABLET,DELAYED * Take 81 mg by mouth once eliazar* FERROUS SULFATE 325 MG (65 MG* Take 325 mg by mouth twice da* ASCORBIC ACID (VITAMIN C) 500* Take 500 mg by mouth once quin* Problem List As Of Date 10/27/2017 Noted Resolved Hemolytic anemia (HCC) [D58.9] INVALID FOR* Absolute anemia [D64.9] INVALID FOR*10/27/2017 Encounter Status:Closed by LUI WILKERSON DO on 10/27/17 CNSW Observed: 10/27/2017 Status: COMPLETED Source: [place] 12:00 AM [facility] REPOSITORY Social Work (HEMAWS) CLEMENTINE WARD ([id number]) 1950 F Date Time Provider Department 10/27/17 RAMON ISLAS (ALLEN) HEMGLORIA During your visit today, we recorded the following information about you: Allergies As of Date: 10/27/2017 (No Known Allergies) Date Reviewed: 10/27/2017 Reviewed by: Nevaeh Farrar - Fully Assessed Reason for Visit: Social Work Services [507] Cmt: distress assessment Prescriptions as of 10/27/2017 Sig: CHANTIX STARTING MONTH BOX 0.* Take by mouth as directed. FOLIC ACID 1 MG TABLET Take 1 tablet by mouth once d* LEXAPRO 20 MG TABLET 1 tablet once daily. FUROSEMIDE 40 MG TABLET 1 tablet once daily. METOPROLOL TARTRATE 25 MG TAB* 0.5 tablets twice daily. CRESTOR 20 MG TABLET 1 tablet once daily. WARFARIN 1 MG TABLET Take 5 mg by mouth once daily* WARFARIN 4 MG TABLET Take 5 mg by mouth once daily* ASPIRIN 81 MG TABLET,DELAYED * Take 81 mg by mouth once eliazar* FERROUS SULFATE 325 MG (65 MG* Take 325 mg by mouth twice da* ASCORBIC ACID (VITAMIN C) 500* Take 500 mg by mouth once quin* Problem List As Of Date 10/27/2017 Noted Resolved Hemolytic anemia (HCC) [D58.9] INVALID FOR* Absolute anemia [D64.9] INVALID FOR*10/27/2017 Encounter Status:Closed by RAMON ISLAS on 10/27/17 RETICULOCYTE Collected: 10/20/2017 Status: F Source: [place] 2:30 PM [facility] REPOSITORY TYPE CODE TESTS RESULT OUT OF REFERENCE UNITS RANGE LAB RETC 0.4-2.0 % High Retic% 3.2 LAB ABRET 0.0180-0.1000 M/uL High Abs Retic 0.130 Performed By: #### RETIC, IRON, LD6, FERR, HAPTO #### [place] [id number] IRON AND TIBC Collected: 10/20/2017 Status: F Source: [place] 2:30 PM [facility] REPOSITORY TYPE CODE TESTS RESULT OUT OF REFERENCE UNITS RANGE LAB IRN 41-186 ug/dL Iron 88 LAB TIBC 232-386 ug/dL TIBC 308 LAB SAT 15-57 % Transferrin Saturatn 29 Performed By: #### RETIC, IRON, LD6, FERR, HAPTO #### [place] [address] LD Collected: 10/20/2017 Status: F Source: [facility] 2:30 PM [facility] REPOSITORY TYPE CODE TESTS RESULT OUT OF RANGE REFERENCE UNITS LAB LD 135-214 U/L High LD 750 Performed By: #### RETIC, IRON, LD6, FERR, HAPTO #### [place] [id number] FERRITIN Collected: 10/20/2017 Status: F Source: [place] 2:30 PM [facility] REPOSITORY TYPE CODE TESTS RESULT OUT OF REFERENCE UNITS RANGE LAB FERR 14.7-205.1 ng/mL High Ferritin 507.2 Performed By: #### RETIC, IRON, LD6, FERR, HAPTO #### [place] [address] HAPTOGLOBIN Collected: 10/20/2017 Status: F Source: [place] 2:30 PM [facility] REPOSITORY TYPE CODE TESTS RESULT OUT OF REFERENCE UNITS RANGE LAB HAPTO 31-238 mg/dL Low Haptoglobin <10 Performed By: #### RETIC, IRON, LD6, FERR, HAPTO #### [place] [address] [place] ABS GR + CBC Collected: 10/20/2017 Status: F Source: [place] 2:29 PM [facility] REPOSITORY TYPE CODE TESTS RESULT OUT OF REFERENCE UNITS RANGE LAB WWBC 3.70-11.00 k/uL Shelley WBC 9.14 LAB WRBC 3.90-5.20 m/uL Sylva RBC 3.93 LAB WHGB 11.5-15.5 g/dL Shelley Hemoglobin 11.6 LAB WHCT 36.0-46.0 % Shelley Hematocrit 36.1 LAB WMCV 80.0-100.0 fL Sylva MCV 91.9 LAB WMCH 26.0-34.0 pg Sylva MCH 29.5 LAB WMCHC 30.5-36.0 g/dL Shelley MCHC 32.1 LAB WRDW 11.5-15.0 % Sylva RDW 14.3 LAB WPLT 150-400 k/uL Shelley Platelet Cnt 261 LAB WMPV 9.0-12.7 fL Sylva MPV 10.5 Result Comment: Test performed at: [facility], [address] [place] [address] Rd[address] [place] [address]. LAB ABGRAN 1.45-7.50 k/uL Absol Gran 6.40 Count CAROTID DUPLEX Observed: 10/20/2017 Status: F Source: [place] ULTR[facility] 6:54 AM [facility] REPOSITORY [facility] Cardiovascular Services [address] [place] [address] Carotid Duplex Ultrasound 10/13/17 1001 MR#: [id number] Acct: [id number] Name: CLEMENTINE WARD Rep #: [id number] : 1950 67 From: Curtis Joshi MD Attending Dr: Argelia Eid Status: REG CLI Ordering Dr: Argelia Eid Date: 10/13/17 Location: [facility] Sex: F C Admitted: Reason For Study: Carotid stenosis Rt. Velocities/BP Lt. Velocities/BP Prox CCA 106.0/16.4 cm/sec. Prox CCA 106.0/28.3 cm/sec. Mid CCA 95.0/27.0 cm/sec. Mid CCA 105.0/26.7 cm/sec. Dist CCA 90.9/22.9 cm/sec. Dist CCA 103.0/26.7 cm/sec. Prox ICA 186.0/49.8 cm/sec. Prox ICA 267.0/75.4 cm/sec. Mid ICA 192.0/53.7 cm/sec. Mid ICA 226.0/62.9 cm/sec. Dist ICA 121.0/40.3 cm/sec. Dist ICA 114.0/32.6 cm/sec. Rt. ICA/CCA = 2.0. Lt. ICA/CCA = 2.5. Prox ECA 220.0/28.8 cm/sec. Prox ECA 248.0/29.9 cm/sec. Rt. Vert. 62.9/20.6 cm/sec. Lt. Vert. 74.7/11.6 cm/sec. Right Extracranial There is intimal thickening but no significant atherosclerotic plaque noted in the right common carotid artery. There is heterogeneous, irregular atherosclerotic plaque noted in the right internal carotid artery. There is heterogeneous, irregular atherosclerotic plaque noted in the right external carotid artery. Antegrade flow is noted in the right vertebral artery. Left Extracranial There is intimal thickening but no significant atherosclerotic plaque noted in the left common carotid artery. There is heterogeneous, irregular atherosclerotic plaque noted in the left internal carotid artery. There is heterogeneous, irregular atherosclerotic plaque noted in the left external carotid artery. Antegrade flow is noted in the left vertebral artery. Procedure Carotid Duplex 23965. Exam performed in department. Interpretation Summary Moderate (50-69%) stenosis right extracranial internal carotid. Severe (>70%) stenosis left extracranial internal carotid. Flow within the vertebral arteries is antegrade bilaterally. Ordering Physician: Argelia Eid Referring Physician: Tank Treadwell Chi Performed By: Alma Rosa Duong RVT 10/20/17 0653 Date Curtis Joshi MD CC: Argelia Eid; Tank Treadwell MD Date Dictated: 10/13/17 1001 Date Transcribed: 10/20/17 0653 Ladle Cleaner: Signed PROTHROMBIN TIME AND Collected: 10/14/2017 Status: F Source: [facility] INR 10:13 AM [facility] REPOSITORY TYPE CODE TESTS RESULT OUT OF REFERENCE UNITS RANGE LAB PROTHROMBIN TIME AND INR(LOINC) PROTHROMBIN TIME AND INR Result Comment: PROTHROMBIN TIME AND INR LAB PT-COUMADIN(LOINC) sec PT-COUMADIN 32.6 LAB INR(LOINC) 0.8 - 1.2 INR High 3.0 Result Comment: THE HEMOSIL THROMBOPLASTIN REAGENT USED IN THE PROTHROMBIN TIME TEST INTERACTS WITH THE DRUG CUBICIN (DAPTOMYCIN) AND WILL RESULT IN FALSELY ELEVATED PT / INR RESULTS INR INTERPRETATION INR INDICATION PREVENTION AND TREATMENT OF THROMBOEMBOLISM ASSOCIATED WITH: 2.0 - 3.0 ATRIAL FIBRILLATION, BIOPROSTHETIC HEART VALVES, PULMONARY EMBOLISM, VENOUS THROMBOSIS, SYSTEMIC EMBOLISM POST MYOCARDIAL INFARCTION 2.5 - 3.5 MECHANICAL HEART VALVES Performed By: #### [id number] #### [facility],[address] [place] [address] CBC W/DIFF, AUTOMATED Collected: 10/05/2017 Status: F Source: [place] 2:08 PM [facility] REPOSITORY TYPE CODE TESTS RESULT OUT OF RANGE REFERENCE UNITS LAB L100.1000 4.4-11.0 K/mm3 Normal WBC 9.0 LAB L100.1200 4.2-5.4 M/mm3 Low RBC 4.05 LAB L100.1300 12.0-15.0 g/dl Low HGB 11.9 LAB L100.1400 37-47 % Normal HCT 37.0 LAB L100.1500 81-99 fL Normal MCV 91.4 LAB L100.1600 27.0-32.0 pg Normal MCH 29.4 LAB L100.1700 32-36 g/gl Normal MCHC 32.2 LAB L100.1810 11.6-14.6 % Normal RDW CV 13.9 LAB L100.1820 35.1-43.9 fl High RDW SD 46.0 LAB L100.1900 150-450 K/mm3 Normal PLT 269 LAB L100.2000 6.2-12.0 fl Normal MPV 11.3 LAB L100.2100 47-70 % High NEUT% 71.8 LAB L100.2200 19-41 % Low LY% 16.0 LAB L100.2300 0-10 % Normal MONO% 9.7 LAB L100.2400 0-5 % Normal EO% 2.0 LAB L100.2500 0-1 % Normal BASO% 0.3 LAB L100.2550 0.0-0.9 % Normal IM GRAN % 0.200 Result Comment: IG% - Immature Granulocytes (promyelocytes, myelocytes and metamyelocytes) > 1% indicates that a LEFT SHIFT is Present. LAB L100.2620 2.0-7.7 X10 3/uL Normal Absolute Neut 6.5 LAB L100.2720 0.83-4.51 X10 3/ul Normal Absolute Lymph 1.44 Performed By: #### L100.0100 #### [facility] [address] [place], [address] COMPREHENSIVE METABOLIC Collected: 10/05/2017 Status: F Source: [facility] 2:08 PM [facility] REPOSITORY TYPE CODE TESTS RESULT OUT OF RANGE REFERENCE UNITS LAB L501.0100 74-106 mg/dL Normal GLU 104 Result Comment: Fasting Glucose result from 100 to 125 mg/dL suggests IMPAIRED HOMEOSTASIS per A.D.A. criteria. Please note revised GLUCOSE reference range effective 2017. LAB L501.1000 7-18 mg/dL Normal BUN 13 LAB L501.1100 0.55-1.02 mg/dL Normal CREAT,SERUM 0.79 Result Comment: The validity of the calculated GFR AND GFRAA in patients over 70 years has not been determined. Clinical correlation is essential. LAB L501.1110 >60 mL/min Normal EST GFR 78 Result Comment: Non- GFR Calc LAB L501.1115 >60 mL/min Normal EST GFR - AA 94 Result Comment: GFR Calc LAB L501.1300 10-20 RATIO Normal BUN/CRE 16.5 LAB L501.1500 6.4-8.2 g/dL T Normal PROT 7.5 LAB L501.1800 3.2-5.0 g/dL Normal ALB 3.5 LAB L501.1950 2.2-4.2 g/dL Normal GLOB 4.0 LAB L501.2000 0.9-2.4 RATIO Normal A/G 0.9 LAB L501.2200 8.5-10.1 mg/dL CA Normal 8.9 LAB L501.4100 15-37 U/L Normal AST 30 LAB L501.4305 45-117 U/L Normal ALK P 96 LAB L501.4405 13-56 U/L Normal ALT 21 Result Comment: Please note revised ALT reference range effective 2017. LAB L501.4600 0.20-1.00 mg/dL Normal T BILI 0.50 LAB L501.5300 136-145 mmol/L Normal NA 139 LAB L501.5600 3.5-5.1 mmol/L Normal K 4.1 LAB L501.5900 98-107 mmol/L Normal CL 103 LAB L501.6100 21.0-32.0 mmol/L Normal CO2 26.0 LAB L501.6200 5-15 Normal GAP 10 Performed By: #### L500.4050, L501.9520 #### [facility] [address] [facility] [place], [place], [id number] THYROID STIM HORMONE Collected: 10/05/2017 Status: F Source: [place] ([facility]) 2:08 PM [facility] REPOSITORY TYPE CODE TESTS RESULT OUT OF RANGE REFERENCE UNITS LAB L501.9520 0.358-3.74 uIU/mL Normal TSH 1.28 Performed By: #### L500.4050, L501.9520 #### [facility] [address] [facility] [place], [address] VITAMIN D,25 HYDROXY Collected: 10/05/2017 Status: F Source: [place] 2:08 PM [facility] REPOSITORY TYPE CODE TESTS RESULT OUT OF REFERENCE UNITS RANGE LAB L506.1000 29.95-100.01 ng/mL Low Vitamin D 22.4 25-OH Result Comment: Vitamin D 25(OH) Status Range Deficiency <20 ng/mL (50nmol/L) Insuffciency 20 - 30 ng/mL (50 - 75 nmol/L) Sufficiency 30 - 100 ng/mL (75 - 250 nmol/L) Toxicity >100 ng/mL (>250 nmol/L) Performed By: #### L506.1000 #### [facility] [address] [place], [address] CARDIOLOGY VISIT Observed: 10/01/2017 Status: F Source: [place] RE[place] 5:00 PM [facility] REPOSITORY [facility] [address] [place] [address] OFFICE VISIT Date of Service: 10/01/17 MR#: [id number] Acct: [id number] Name: CLEMENTINE WARD Rep #: [id number] : 1950 Provider: Argelia Eid Age/Sex: 67/F Location: [facility] Status: Signed HPI HPI Details: CLEMENTINE WARD, is a 67 F who presents to the office today for a cardiovascular follow-up. She has a history of coronary artery disease with bypass surgery in 2010 with an LUX to the LAD, free ETHEL to the circumflex, SVG to the AV groove branch of the circumflex, SVG to the posterior descending. She also underwent a mitral valve replacement at that time. She does have a history of hypertension,hyperlipidemia, amenia. From a cardiac standpoint, patient is doing well. She does not have any chest discomfort/heaviness/tightness. Her exercise tolerance is stable for her age. She does not have any worsening symptoms of shortness of breath. She does not have any orthopnea. She denies PND. She does not have any symptoms of congestive heart failure. She does not have any palpitations that she is aware of. She does not have any lightheadedness or dizziness. She does not have any near-syncope or syncope. She does not have any lower extremity edema. She does not have any symptoms of claudication. 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 Accompanied by: None Is patient in pain?: No Allergies adhesive tape Adverse Reaction (Severe, Verified 10/01/17 13:21) Rash paroxetine [From Paxil] Adverse Reaction (Severe, Verified 10/01/17 13:21) Many side effects Medications Aspirin [Aspirin, Baby] 81 mg PO DAILY@0800 12/30/14 [History Confirmed 10/01/17] Escitalopram Oxalate [Lexapro] 20 mg PO DAILY 12/30/14 [History Confirmed 10/01/17] Ferrous Sulfate [Slow Release Iron] 47.5 mg PO DAILY 12/30/14 [History Confirmed 10/01/17] Ascorbic Acid [Vitamin C] 500 mg PO DAILY@0800 03/24/16 [History Confirmed 10/01/17] folic acid 1 mg tablet PO 90 Days #90 10/01/17 [History Confirmed 10/01/17] furosemide 40 mg tablet 40 mg PO DAILY #30 tab 10/01/17 [Rx Confirmed 10/01/17] metoprolol tartrate 25 mg tablet 12.5 mg PO BID #30 tab 10/01/17 [Rx Confirmed 10/01/17] rosuvastatin 20 mg tablet 20 mg PO QHS #30 tab 10/01/17 [Rx Confirmed 10/01/17] warfarin 1 mg tablet 1 mg PO .COMPLEX #30 tab 10/01/17 [Rx Confirmed 10/01/17] warfarin 4 mg tablet 4 mg PO .COMPLEX #30 tab 10/01/17 [Rx Confirmed 10/01/17] PFSH Medical History Premature ventricular contractions (Chronic) Right carotid bruit (Chronic) Tobacco use (Chronic) Hyperlipidemia (Chronic) Secondary pulmonary arterial hypertension (Chronic) Nonrheumatic mitral valve regurgitation (Chronic) Atherosclerotic heart disease of [place] coronary artery without angina pectoris (Chronic) 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) Anemia (Chronic) Surgical History S/P CABG x 5 (Chronic) Hx of mitral valve replacement with mechanical valve (Chronic) Family History Mother Myocardial infarction CAD (coronary artery disease) Hx CABG Father Pulmonary fibrosis Social History Smoking Status: Current every day smoker alcohol intake: current alcohol intake frequency: a few times a week Alcohol type: beer substance use type: does not use caffeine: Yes Type: tea what type of physical activity do you participate in: none seatbelt use: always do you feel safe at home: Yes ROS Const Const: Negative for weakness, fatigue, fever(s) or headache(s) Eyes Eyes: Negative for blind spots, loss of peripheral vision or transient loss of vision ENT ENT: Positive for dizziness; negative for headache(s), tinnitus or Nosebleed/epistaxis Cardio Chest Pain: No Palpitations: No Edema: None Muscle aches with walking: None Resp Respiratory: Negative for SOB with activity, SOB at rest, SOB orthopnea\SOB lying down or Cough GI GI: Negative nausea, vomiting, heartburn or vomiting blood/hematemesis : Negative for hematuria Musc Musc: Negative for muscle aches/ myalgia Neuro Neuro: Positive for dizziness and lightheadedness; negative for weakness, headache(s), near syncope, syncope or orthostatic symptoms Hong Hematologic/Lymphatic: Negative for easy bleeding Endo Endo: Negative for fatigue Cardiology Exam Const Appearance: cooperative, no acute distress and well developed Orientation: alert, awake and oriented x3 Head Head: normocephalic and atraumatic Mouth: moist mucous membranes Eyes General: appearance normal, both eyes and all related structures Conjunctivae: conjunctivae normal Pupils: PERRL EOM: EOM intact bilaterally Neck Neck: normal visual inspection, no lymphadenopathy and no JVD Carotids: bruit Right Neck Mass: Negative Neck mass Chest Chest inspection: normal inspection of the chest, symmetric chest movement and midline sternotomy incision Auscultation: Bilateral: Clear to Auscultation Cardio Palpation: normal PMI Rate: regular rate Rhythm: regular rhythm Heart sounds: S1 normal, S2 normal, murmur and crisp prosthetic S2; negative rub or gallop Murmur: soft, Grade 1/6 and mid systolic GI GI: normal to inspection, soft, no hepatosplenomegaly and bowel sounds present; negative tender Neuro General: alert, awake, oriented x3, CN's II-XI intact bilaterally and moves all extremities Extremities Pulses: Normal: Right Posterior Tibial Pulse, Left Posterior Tibial Pulse, Right Radial Pulse, Left Radial Pulse Lower Extremity Edema: None: Bilateral Psych Psychological: normal affect Supplemental Info Echocardiogram in 2016 demonstrated normal LV size. Left ventricular systolic function is normal. The estimated ejection fraction is 65 %. Normal prosthetic mitral valve. Moderate pulmonary hypertension. Stress test in 2016 demonstrated Normal exercise myocardial perfusion stress test. Preserved ejection fraction. Good functional work capacity. Carotid ultrasound in 2017 demonstrated moderate (50-69%) stenosis right extracranial internal carotid. Moderate (50-69%) stenosis left extracranial internal carotid. Flow within the vertebral arteries is antegrade bilaterally. Assessment AND Plan 1. Atherosclerosis of [place] coronary artery of [place] heart without angina pectoris I25.10 LUX to LAD, Free ETHEL to lateral CX, SVG to AV branch of cx, SVG to the AV branch of the right, SVG to the PDA. Concomittent with Mechainical MVR per Dr. Ronan Bailey, [facility], 03/10/2011 Plan - POLLY Ramos Stable, from a cardiac standpoint patient does not have any symptoms of angina. We recommend that they continue with current aggressive medical management and risk factor modification. Orders Orders: 2. Nonrheumatic mitral valve regurgitation I34.0 Plan - POLLY Ramos Patient does have a mechanical mitral valve. We will continue to monitor by history, exam and echocardiograms as deemed appropriate. She is anticoagulated with a therapeutic INR goal of 2.5-3.5. She is being monitored through hematology for her anemia. 3. Pure hypercholesterolemia E78.00; E78.0 Plan - POLLY Ramos Managed by primary care doctor. Patient states that they have been adequately controlled. 4. Right carotid bruit R09.89 Plan - POLLY Ramos Patient does have moderate disease bilaterally. With her right carotid bruit would like to obtain a carotid ultrasound to demonstrate stability. Orders Orders: Plan Detail Other Medications New: Changed: Additional Comments - POLLY Ramos The above patient was discussed with Dr. Keating, he agrees with plan of care. Thank you for allowing us to participate in patient's plan of care, if you have any questions please do not hesitate to call. This note was generated using a voice recognition system and there may be incorrect words, spelling or punctuation errors that were not noted when reviewing the office note prior to saving. 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 transplanted heart: [place] heart Nonrheumatic mitral valve regurgitation I34.0 Pure hypercholesterolemia E78.00; E78.0 Hyperlipidemia type: pure hypercholesterolemia Right carotid bruit R09.89 Coding Level of Care Code Off vis,est,level 3 Diagnoses Atherosclerosis of [place] coronary artery of [place] heart without angina pectoris I25.10 [place] vs. transplanted heart: [place] heart Nonrheumatic mitral valve regurgitation I34.0 Pure hypercholesterolemia E78.00; E78.0 Hyperlipidemia type: pure hypercholesterolemia Right carotid bruit R09.89 10/01/17 1408 <Electronically signed by Argelia MATIAS> Date Argelia MATIAS 10/01/17 1700<Electronically signed by Jack Keating MD> Cosigner Signature: Date (if applicable) Jack Keating MD CC: Tank Treadwell MD PROTHROMBIN TIME AND Collected: 09/30/2017 Status: F Source: [place] INR 1:06 PM [facility] REPOSITORY TYPE CODE TESTS RESULT OUT OF REFERENCE UNITS RANGE LAB PROTHROMBIN TIME AND INR(LOINC) PROTHROMBIN TIME AND INR Result Comment: PROTHROMBIN TIME AND INR LAB PT-COUMADIN(LOINC) sec PT-COUMADIN 26.4 LAB INR(LOINC) 0.8 - 1.2 INR High 2.4 Result Comment: THE HEMOSIL THROMBOPLASTIN REAGENT USED IN THE PROTHROMBIN TIME TEST INTERACTS WITH THE DRUG CUBICIN (DAPTOMYCIN) AND WILL RESULT IN FALSELY ELEVATED PT / INR RESULTS INR INTERPRETATION INR INDICATION PREVENTION AND TREATMENT OF THROMBOEMBOLISM ASSOCIATED WITH: 2.0 - 3.0 ATRIAL FIBRILLATION, BIOPROSTHETIC HEART VALVES, PULMONARY EMBOLISM, VENOUS THROMBOSIS, SYSTEMIC EMBOLISM POST MYOCARDIAL INFARCTION 2.5 - 3.5 MECHANICAL HEART VALVES Performed By: #### [id number] #### [facility],[address] [place] [address] PROTHROMBIN TIME AND Collected: 09/14/2017 Status: F Source: [place] 1:03 PM [facility] REPOSITORY TYPE CODE TESTS RESULT OUT OF REFERENCE UNITS RANGE LAB PROTHROMBIN TIME AND INR(LOINC) PROTHROMBIN TIME AND INR Result Comment: PROTHROMBIN TIME AND INR LAB PT-COUMADIN(LOINC) sec PT-COUMADIN 32.0 LAB INR(LOINC) 0.8 - 1.2 INR High 2.9 Result Comment: THE HEMOSIL THROMBOPLASTIN REAGENT USED IN THE PROTHROMBIN TIME TEST INTERACTS WITH THE DRUG CUBICIN (DAPTOMYCIN) AND WILL RESULT IN FALSELY ELEVATED PT / INR RESULTS INR INTERPRETATION INR INDICATION PREVENTION AND TREATMENT OF THROMBOEMBOLISM ASSOCIATED WITH: 2.0 - 3.0 ATRIAL FIBRILLATION, BIOPROSTHETIC HEART VALVES, PULMONARY EMBOLISM, VENOUS THROMBOSIS, SYSTEMIC EMBOLISM POST MYOCARDIAL INFARCTION 2.5 - 3.5 MECHANICAL HEART VALVES Performed By: #### [id number] #### [place] [address] PROTHROMBIN TIME AND Collected: 09/02/2017 Status: F [facility] [place] [facility] PM [facility] REPOSITORY TYPE CODE TESTS RESULT OUT OF REFERENCE UNITS RANGE LAB PROTHROMBIN TIME AND INR(LOINC) PROTHROMBIN TIME AND INR Result Comment: PROTHROMBIN TIME AND INR LAB PT-COUMADIN(LOINC) sec PT-COUMADIN 40.8 LAB INR(LOINC) 0.8 - 1.2 INR High 3.7 Result Comment: THE HEMOSIL THROMBOPLASTIN REAGENT USED IN THE PROTHROMBIN TIME TEST INTERACTS WITH THE DRUG CUBICIN (DAPTOMYCIN) AND WILL RESULT IN FALSELY ELEVATED PT / INR RESULTS INR INTERPRETATION INR INDICATION PREVENTION AND TREATMENT OF THROMBOEMBOLISM ASSOCIATED WITH: 2.0 - 3.0 ATRIAL FIBRILLATION, BIOPROSTHETIC HEART VALVES, PULMONARY EMBOLISM, VENOUS THROMBOSIS, SYSTEMIC EMBOLISM POST MYOCARDIAL INFARCTION 2.5 - 3.5 MECHANICAL HEART VALVES Performed By: #### [id number] #### [place] [id number] PROTHROMBIN TIME AND Collected: 08/19/2017 Status: F Source: [place] IN[place] 11:17 AM [facility] REPOSITORY TYPE CODE TESTS RESULT OUT OF REFERENCE UNITS RANGE LAB PROTHROMBIN TIME AND INR(LOINC) PROTHROMBIN TIME AND INR Result Comment: PROTHROMBIN TIME AND INR LAB PT-COUMADIN(LOINC) sec PT-COUMADIN 31.7 LAB INR(LOINC) 0.8 - 1.2 INR High 2.9 Result Comment: THE HEMOSIL THROMBOPLASTIN REAGENT USED IN THE PROTHROMBIN TIME TEST INTERACTS WITH THE DRUG CUBICIN (DAPTOMYCIN) AND WILL RESULT IN FALSELY ELEVATED PT / INR RESULTS INR INTERPRETATION INR INDICATION PREVENTION AND TREATMENT OF THROMBOEMBOLISM ASSOCIATED WITH: 2.0 - 3.0 ATRIAL FIBRILLATION, BIOPROSTHETIC HEART VALVES, PULMONARY EMBOLISM, VENOUS THROMBOSIS, SYSTEMIC EMBOLISM POST MYOCARDIAL INFARCTION 2.5 - 3.5 MECHANICAL HEART VALVES Performed By: #### [id number] #### [facility],[address] [place] [address] PROTHROMBIN TIME AND Collected: 08/12/2017 Status: F Source: [facility] INR 11:33 AM [facility] REPOSITORY TYPE CODE TESTS RESULT OUT OF REFERENCE UNITS RANGE LAB PROTHROMBIN TIME AND INR(LOINC) PROTHROMBIN TIME AND INR Result Comment: PROTHROMBIN TIME AND INR LAB PT-COUMADIN(LOINC) sec PT-COUMADIN 50.9 LAB INR(LOINC) 0.8 - 1.2 INR High Alert 4.7 Result Comment: { CALLED TO ALFIE/1537/BKO { READ BACK BY ALFIE/[id number] { TEST REPEATED THE HEMOSIL THROMBOPLASTIN REAGENT USED IN THE PROTHROMBIN TIME TEST INTERACTS WITH THE DRUG CUBICIN (DAPTOMYCIN) AND WILL RESULT IN FALSELY ELEVATED PT / INR RESULTS INR INTERPRETATION INR INDICATION PREVENTION AND TREATMENT OF THROMBOEMBOLISM ASSOCIATED WITH: 2.0 - 3.0 ATRIAL FIBRILLATION, BIOPROSTHETIC HEART VALVES, PULMONARY EMBOLISM, VENOUS THROMBOSIS, SYSTEMIC EMBOLISM POST MYOCARDIAL INFARCTION 2.5 - 3.5 MECHANICAL HEART VALVES Performed By: #### [id number] #### [facility],[address] [place], [place] [address] PNH PANEL BY FCM Collected: 08/02/2017 Status: F Source: [place] 12:38 PM [facility] REPOSITORY TYPE CODE TESTS RESULT OUT OF RANGE REFERENCE UNITS LAB PNHINT Negative. No PNH clone Interpretation Abnormal detected. Account Alert Credited Result Comment: SENT TO [facility] Performed By: #### PNHPNL #### [facility] [address] [place], [place] [address] #### PNHF #### [facility]-[address] [address] PNH PANEL BY FCM Collected: 08/02/2017 Status: F Source: [place] 12:38 PM [facility] REPOSITORY TYPE CODE TESTS RESULT OUT OF REFERENCE UNITS RANGE LAB PNHPI PNH PI-Linked (NOTE) Interp Result Comment: Peripheral blood, flow cytometric immunophenotyping: Normal phenotyping results. No PNH clone is detected in RBC, granulocytes, or monocytes. Clinical correlation is recommended. Recent transfusion can decrease the sensitivity of this test and interfere with accuracy. The specimen received is satisfactory for quality analysis. Reviewed by: Vernon Mirza M.D. Testing results: See table ADDITIONAL INFORMATION Antibodies to the following antigens were used for cell gating and interpretation. RBCs: KZ994r and CD59. WBCs: CD14, CD15, CD16, CD24, CD33, CD45, FLAER. This test was developed using an analyte specific reagent. Its performance characteristics were determined by [facility] in a manner consistent with CLIA requirements. This test has not been cleared or approved by the U.S. Food and Drug Administration. LAB PNHRP 0.00-0.99 % PNH RBC Part Ag Loss 0.01 LAB PNHRC 0.00-0.01 % PNH RBC Comp Ag Loss 0.00 LAB PNHG 0.00-0.01 % PNH Granulocytes 0.00 LAB PNHM 0.00-0.05 % PNH Monocytes 0.00 Performed By: #### PNHPNL #### [facility] [address] [place], [place] [address] #### PNHF #### [facility]-[address] [address] [place] ABS GR + CBC Collected: 07/29/2017 Status: F Source: [place] 2:43 PM [facility] REPOSITORY TYPE CODE TESTS RESULT OUT OF REFERENCE UNITS RANGE LAB WWBC 3.70-11.00 k/uL [place] WBC 10.64 LAB WRBC 3.90-5.20 m/uL [place] RBC 4.01 LAB WHGB 11.5-15.5 g/dL [place] Hemoglobin 12.0 LAB WHCT 36.0-46.0 % [place] Hematocrit 36.5 LAB WMCV 80.0-100.0 fL [place] MCV 91.0 LAB WMCH 26.0-34.0 pg [place] MCH 29.9 LAB WMCHC 30.5-36.0 g/dL [place] MCHC 32.9 LAB WRDW 11.5-15.0 % [place] RDW 13.9 LAB WPLT 150-400 k/uL [place] Platelet Cnt 256 LAB WMPV 9.0-12.7 fL [place] MPV 10.3 Result Comment: Test performed at: [facility], [address] [place] [address] Rd., [place] [address]. LAB ABGRAN 1.45-7.50 k/uL High Absol 8.18 Gran Count RETICULOCYTE Collected: 07/29/2017 Status: F Source: [place] 2:43 PM [facility] [place] REPOSITORY TYPE CODE TESTS RESULT OUT OF REFERENCE UNITS RANGE LAB RETC 0.4-2.0 % High Retic% 2.9 LAB ABRET 0.0180-0.1000 M/uL High Abs Retic 0.118 Performed By: #### RETIC, LD6, IRON, HAPTO, FERR #### [facility] [address] [place] [address] LD Collected: 07/29/2017 Status: F Source: [facility] 2:43 PM [facility] [place] REPOSITORY TYPE CODE TESTS RESULT OUT OF RANGE REFERENCE UNITS LAB LD 135-214 U/L High LD 768 Performed By: #### RETIC, LD6, IRON, HAPTO, FERR #### [facility] [address] [place] [address] IRON AND TIBC Collected: 07/29/2017 Status: F Source: [place] 2:43 PM [facility] REPOSITORY TYPE CODE TESTS RESULT OUT OF REFERENCE UNITS RANGE LAB IRN 41-186 ug/dL Iron 69 LAB TIBC 232-386 ug/dL TIBC 304 LAB SAT 15-57 % Transferrin Saturatn 23 Performed By: #### RETIC, LD6, IRON, HAPTO, FERR #### [facility] [address] [place] [id number] HAPTOGLOBIN Collected: 07/29/2017 Status: F Source: [place] 2:43 PM [facility] [place] REPOSITORY TYPE CODE TESTS RESULT OUT OF REFERENCE UNITS RANGE LAB HAPTO 31-238 mg/dL Low Haptoglobin <10 Performed By: #### RETIC, LD6, IRON, HAPTO, FERR #### [facility] [address] [place], [place] [address] FERRITIN Collected: 07/29/2017 Status: F Source: [place] 2:43 PM [facility] REPOSITORY TYPE CODE TESTS RESULT OUT OF REFERENCE UNITS RANGE LAB FERR 14.7-205.1 ng/mL High Ferritin 484.7 Performed By: #### RETIC, LD6, IRON, HAPTO, FERR #### [facility] [address] [place], [place] [address] PROTHROMBIN TIME AND Collected: 07/22/2017 Status: F Source: [place] IN[place] 1:35 PM [facility] REPOSITORY TYPE CODE TESTS RESULT OUT OF REFERENCE UNITS RANGE LAB PROTHROMBIN TIME AND INR(LOINC) PROTHROMBIN TIME AND INR Result Comment: PROTHROMBIN TIME AND INR LAB PT-COUMADIN(LOINC) sec PT-COUMADIN 33.4 LAB INR(LOINC) 0.8 - 1.2 INR High 3.0 Result Comment: THE HEMOSIL THROMBOPLASTIN REAGENT USED IN THE PROTHROMBIN TIME TEST INTERACTS WITH THE DRUG CUBICIN (DAPTOMYCIN) AND WILL RESULT IN FALSELY ELEVATED PT / INR RESULTS INR INTERPRETATION INR INDICATION PREVENTION AND TREATMENT OF THROMBOEMBOLISM ASSOCIATED WITH: 2.0 - 3.0 ATRIAL FIBRILLATION, BIOPROSTHETIC HEART VALVES, PULMONARY EMBOLISM, VENOUS THROMBOSIS, SYSTEMIC EMBOLISM POST MYOCARDIAL INFARCTION 2.5 - 3.5 MECHANICAL HEART VALVES Performed By: #### [id number] #### [facility],[address] [place] [address] PROTHROMBIN TIME AND Collected: 07/15/2017 Status: F [place] 2[place]16 PM [facility] REPOSITORY TYPE CODE TESTS RESULT OUT OF REFERENCE UNITS RANGE LAB PROTHROMBIN TIME AND INR(LOINC) PROTHROMBIN TIME AND INR Result Comment: PROTHROMBIN TIME AND INR LAB PT-COUMADIN(LOINC) sec PT-COUMADIN 23.9 LAB INR(LOINC) 0.8 - 1.2 INR High 2.2 Result Comment: THE HEMOSIL THROMBOPLASTIN REAGENT USED IN THE PROTHROMBIN TIME TEST INTERACTS WITH THE DRUG CUBICIN (DAPTOMYCIN) AND WILL RESULT IN FALSELY ELEVATED PT / INR RESULTS INR INTERPRETATION INR INDICATION PREVENTION AND TREATMENT OF THROMBOEMBOLISM ASSOCIATED WITH: 2.0 - 3.0 ATRIAL FIBRILLATION, BIOPROSTHETIC HEART VALVES, PULMONARY EMBOLISM, VENOUS THROMBOSIS, SYSTEMIC EMBOLISM POST MYOCARDIAL INFARCTION 2.5 - 3.5 MECHANICAL HEART VALVES Performed By: #### [id number] #### [facility],[address] [place] [address] ALLERGIES ALLERGIES DATE TYPE / CODE NAME / CODE REACTION SEVERITY SOURCE 05/24/2018 Drug adhesive Rash SV [place] Allergy/483412598(S tape/[id number] [facility] NOMED CT) (RXNORM) Hospital Repository 05/24/2018 Drug paroxetine/F006 Many side SV [place] Allergy/968328385(S 690459(RXNORM[facility] 12/30/2014 Drug No Known Unknown [place] Allergy/189814985(S Allergies[facility] [address] Hospital Repository Drug NO KNOWN [place] Class/207854072(SNO ALLERGIES [facility]) [place] Repository Miscellaneous No Known Moderate [facility] Allergy/296754138(S Allergies (Severity [facility] NOMED CT) Modifier) Hospital (Qualifier Repository Value) ENCOUNTERS ENCOUNTERS ADMIT/DISCHARGE ACCOUNT ADMITTING ENCOUNTER LOCATION SOURCE NUMBER CLASS 06/27/2018 [id number] [facility] ing:CVS Repository 06/13/2018 [id number] [facility] ing:LAB Repository 06/09/2018 [id number] Ambulatory [facility] ing:OPBD Repository 06/07/2018 [id number] Ambulatory [facility] ing:OPBD Repository 06/07/2018/06/13/20 [id number] Ambulatory [address] ing:LAB Repository 05/24/2018/05/24/20 [id number] [facility] [place] [facility] 05/24/2018 [id number] [facility] ing:LAB Repository 05/17/2018 [id number] [facility] ing:LAB Repository 04/27/2018/04/27/20 [id number] Ambulatory [address] Repository 04/27/2018/04/28/20 [id number] Ambulatory [address] Repository 04/20/2018/04/21/20 [id number] Ambulatory [address] Repository 04/19/2018 [id number] Ambulatory BMSBuilding:[place] [facility] Repository 04/18/2018/04/18/20 [id number] ZURI, JACK Ambulatory [address] Repository 04/12/2018 [id number] Ambulatory [facility] ing:POLAB3 Repository 03/29/2018/03/29/20 [id number] ZURI, JACK Ambulatory [address] Repository 03/29/2018 [id number] Ambulatory BMSBuilding:[place] [facility] Repository 03/25/2018 [id number] Ambulatory [facility] Repository 03/15/2018/03/15/20 [id number] ZURI, JACK Ambulatory [address] Repository 02/28/2018 [id number] Ambulatory BMSBuilding:[place] MS.[facility] Repository 02/28/2018/02/29/20 [id number] ZURI, JACK Ambulatory [address] Repository 02/21/2018 [id number] Ambulatory BMSBuilding:[place] [facility] Repository 02/21/2018/02/22/20 [id number] ZURI, JACK Ambulatory [address] Repository 02/17/2018 [id number] Ambulatory [facility] Hospital ing:POLAB3 Repository 02/16/2018 [id number] Ambulatory BMSBuilding:[place] [facility] Repository 02/16/2018/02/17/20 [id number] ZURI, JACK Ambulatory [address] Repository 02/02/2018/02/03/20 [id number] ZURI, JACK Ambulatory [address] Repository 02/02/2018 [id number] Ambulatory BMSBuilding:[place] [facility] Repository 01/27/2018 [id number] Ambulatory BMSBuilding:[place] [facility] Repository 01/27/2018/01/28/20 [id number] ZURI, JACK Ambulatory [address] Repository 01/26/2018/01/28/20 [id number] Ambulatory [address] Repository 01/25/2018 [id number] Ambulatory BMSBuilding:[place] [facility] Repository 01/24/2018/01/25/20 [id number] ZURI, JACK Ambulatory [address] Repository 01/20/2018 [id number] Ambulatory BMSBuilding:[place] [facility] Repository 01/20/2018/01/21/20 [id number] ZURI, JACK Ambulatory [address] Repository 01/05/2018 [id number] ZURI, JACK Ambulatory [facility] Repository 12/29/2017 [id number] Ambulatory BMSBuilding:[place] [facility] Repository 12/29/2017/12/30/19 [id number] ZURI, JACK Ambulatory [address] Repository 12/03/2017 [id number] Ambulatory [facility] ing:LAB Repository 11/05/2017 [id number] Ambulatory BMSBuilding:[place] [facility] Repository 11/04/2017/11/05/19 [id number] ZURI, JACK Ambulatory [address] Repository 10/27/2017/10/29/19 [id number] Ambulatory [address] Repository 10/20/2017/10/22/19 [id number] Ambulatory [address] Repository 10/14/2017 [id number] Ambulatory BMSBuilding:[place] [facility] Repository 10/14/2017/10/15/19 [id number] ZURI, JACK Ambulatory [address] Repository 10/13/2017 [id number] Ambulatory [facility] ing:CVS Repository 10/05/2017 [id number] Ambulatory [facility] ing:POLAB3 Repository 10/01/2017/10/02/19 [id number] Ambulatory BMSBuilding:[place] 18 MS.[facility] Repository 10/01/2017 [id number] Ambulatory BMSBuilding:[place] [facility] Repository 09/30/2017/10/01/19 [id number] ZURI, JACK Ambulatory [address] Repository 09/14/2017/09/15/19 [id number] ZURI, JACK Ambulatory [address] Repository 09/14/2017 [id number] Ambulatory BMSBuilding:[place] [facility] Repository 09/02/2017/09/02/19 [id number] ZURI, JACK Ambulatory [address] Repository 08/19/2017/08/19/19 [id number] ZURI, JACK Ambulatory [address] Repository 08/12/2017/08/12/19 [id number] ZURI, JACK Ambulatory [address] Repository 08/02/2017/08/02/19 [id number] Ambulatory [address] Repository 07/30/2017/07/30/19 [id number] Ambulatory [address] Repository 07/29/2017/07/30/19 [id number] Ambulatory [address] Repository 07/22/2017 [id number] Ambulatory BMSBuilding:[place] [facility] Repository 07/22/2017/07/22/19 [id number] ZURI, JACK Ambulatory [address] Repository 07/15/2017/07/15/19 [id number] ZURI, JACK Ambulatory [address] Repository PAYERS PAYERS ENCOUNTER GUARANTOR PAYER SUBSCRIBER SOURCE 06/27/2018 PABLO Sanabria Primary PABLO Rosa [id number] Insurance:Ming TALAVERA: [facility] Number: [id number] Repository [address]Fpx: ([phone]) Date:7028-94-40EL [phone] () [id number], [place] [address]XU: 06/27/2018 Secondary NOT GIVENUNK [place] Insurance:SELF PAY [facility]: Effective Repository Date:2018-06-21 06/13/2018 PABLO A Primary PABLO A [place] [id number] Insurance:ANTHEMPolicy FLINNERDOB: Community [place] Number: [id number] [id number] Repository [address]Hol: ([phone]) Date:9968-84-13NV [phone] () [place], [place] [address]GY: 06/13/2018 Secondary NOT GIVENUNK [place] Insurance:SELF PAY [place] Number: Effective Repository Date:2018-06-13 06/09/2018 PABLO A Primary PABLO A [place] [id number] Insurance:ANTHEMPolicy FLINNERDOB: Community [place] Number: [id number], [place] [id number] Repository [address]Uzo: (330) Date:2218-49-44XN [phone] () 777[address]BEBJYRJ, [place] [address]MI: 06/09/2018 Secondary NOT GIVENUNK [place] Insurance:SELF PAY [facility] Number: Effective Repository Date:2018-06-06 06/07/2018 PABLO A Primary PABLO A [place] [id number] Insurance:ANTHEMPolicy FLINNERDOB: Community [place] Number: [id number], [place] [id number] Repository [address]Eiv: (330) Date:4275-81-68KP [phone] () 859348HZUKBJT, [place] [address]VB: 06/07/2018 Secondary NOT GIVENUNK [place] Insurance:SELF PAY [facility] Number: Effective Repository Date:2018-04-14 06/07/2018 PABLO A Primary PABLO A [place] [id number] Insurance:ANTHEMPolicy FLINNERDOB: Community [place] Number: [id number], [place] [id number] Repository [address]Mrk: (330) Date:0184-36-54US [phone] () [id number], [place] [address]KH: 06/07/2018 Secondary NOT GIVENUNK [place] Insurance:SELF PAY [facility] Number: Effective Repository Date:2018-06-07 05/24/2018 PABLO A Primary PABLO A [place] [id number] Insurance:ANTHEMPolicy FLINNERDOB: [facility] [place] Number: [id number], [place] [id number] Repository [address]Zlm: (330) Date:8415-76-56NP [phone] () 747[address]TEVONYX, [place] [address]IA: 05/24/2018 Secondary NOT GIVENUNK [place] Insurance:SELF PAY [place] Number: Effective Repository Date:2018-05-24 05/24/2018 PABLO A Primary PABLO A [place] [id number] Insurance:ANTHEMPolicy [facility] [place] Number: [id number], [place] [id number] Repository [address]Jbb: ([phone]) Date:1646-80-36XE [phone] () 1995[address]HSYOVTA, [place] [address]CF: 05/24/2018 Secondary NOT GIVENUNK [place] Insurance:SELF PAY [place] Number: Effective Repository Date:2018-05-24 05/17/2018 PABLO A Primary PABLO A Sylva [id number] Insurance:ANTHEMPolicy FLINNERDOB: [facility] Number: [id number], [place] [id number] Repository [address]Suu: (330) Date:4302-00-21CG [phone] () [id number], [place] [address]JX: 05/17/2018 Secondary NOT GIVENUNK [place] Insurance:SELF PAY [place] Number: Effective Repository Date:2018-05-17 04/19/2018 Pablo Sanabria Primary Pablo Rosa [id number] Insurance:ANTHEMPolicy FlinnerDOB: [facility] Number: [id number] Box [id number] Repository [address], [place] Date:4459-11-52JX [address] [address]Eea: [phone]) [id number], [place] [phone] () [address]VF: 04/19/2018 Secondary NOT GIVENUNK Syl[place] Insurance:SELF PAY [place] Number: Effective Repository Date:2018-04-19 04/18/2018 CLEMENTINE Luna Primary Insurance:JOAQUÍN Castro FLINNERDOB: [address] AN[address] FLINNERDOB: [id number] [id number] Hospital [id number] Number: [address], Repository [place] [id number] [id number] [facility], Date:Plan Name:B2 [place] [id number]: () 04/12/2018 Pablo Sanabria Primary Pablo Rosa [id number] Insurance:ANTHEMPolicy FlinnerDOB: [facility] Number: [id number] [facility] Box [id number] Repository [address] [place] [address], [place] Date:5868-60-65VW [address] [address]Fss: [phone]) [id number], [place] [phone] () [address]WJ: 04/12/2018 Secondary NOT GIVENUNK Syl[place] Insurance:SELF PAY [place] Number: Effective Repository Date:2018-04-12 03/29/2018 CLEMENTINE Luna Primary Insurance:JOAQUÍN Castro FLINNERDOB: [address] [birth year] ANTHEM FLINNERDOB: [facility] [id number] [facility] [id number] Hospital [id number] Number: [address] [place], Repository [place] [id number] [place] [id number] [facility], Date:Plan Name:B2 [place] [id number]: () 03/29/2018 Pablo A Primary Pablo Rosa [id number] Insurance:ANTHEMPolicy FlinnerDOB: [facility] Number: [id number] [facility] Box [id number] [facility] [place]:0400-[facility]-82HC [address]Rde: (556) [id number], [place] [phone] () 63091QR: 03/29/2018 Secondary NOT GIVENUNK Sylva Insurance:SELF PAY [place] Number: Effective Repository Date:2018-03-29 03/15/2018 CLEMENTINE Luna Primary Insurance:JOAQUÍN Swansoncatherine FLINNERDOB: CROSS [birth year] ANTHEM FLINNERDOB: [facility] 2452-83-38JSBoundary [facility] 5973-99-23RZNCM Hospital [address] Number: MARIA [address], Repository [place] [id number] [place] [id number] [facility], Date:Plan Name:[facility] [id number]: () 02/28/2018 Pablo A Primary Pablo Rosa [id number] Insurance:ANTHEMPolicy FlinnerDOB: [employer] Number: [id number] Juan Regional Medical Center Box [id number] [facility] [place] Date:0379-79-21ZW [address]Vys: (567) [id number], [place] [phone] () 68555FQ: 02/28/2018 Secondary NOT GIVENUNK Shelley Insurance:SELF PAY [place] Number: Effective Repository Date:2018-02-28 02/28/2018 CLEMENTINE Luna Primary Insurance:JOAQUÍN Castro FLINNERDOB: CROSS [birth year] ANTHEM FLINNERDOB: [facility] [id number] [facility] 2557-68-65CBSEX Hospital [address] Number: MARIA A DE [place], Repository [place] [id number] [place] [id number] [facility], Date:Plan Name:[facility] [id number]: () 02/21/2018 Pablo A Primary Pablo Jasonoster [id number] Insurance:ANTHEMPolicy FlinnerDOB: [facility] Number: [id number] Juan Regional Medical Center Box [id number] Repository [address] [place] [address], [place] Date:9511-63-96QA [address]Vei: (498) 433010SILANTABUHL, [place] [phone] () 39945JT: 02/21/2018 Secondary NOT GIVENUNK Sylva Insurance:SELF PAY [place] Number: Effective Repository Date:2018-02-21 02/21/2018 CLEMENTINE Luna Primary Insurance:JOAQUÍN MONTOYAALD Hong Castro FLINNERDOB: CROSS [birth year] ANTHEM FLINNERDOB: [facility] 5095-14-21SGBoundary Community Hospital 1165-80-81EUBRM Hospital [address] Number: MARIA A [place], Repository [place] [id number] [place] [id number] [facility], Date:Plan Name:[facility] [id number]: () 02/17/2018 Pablo A Primary Pablo A Shelley [id number] Insurance:ANTHEMPolicy FlinnerDOB: [facility] Number: [id number] Juan Regional Medical Center Box [id number] [address]ository [address], [place] Date:1990-96-35GW [address] [address]Cjp: ([phone]) [id number], [place] [phone] () 37487MN: 02/17/2018 Secondary NOT GIVENUNK Sylva Insurance:SELF PAY [place] Number: Effective Repository Date:2018-02-17 02/16/2018 Pablo A Primary Pablo A Shelley [id number] Insurance:ANTHEMPolicy FlinnerDOB: [facility] [place] Number: [id number] [facility] Medical Center Box [id number] Repository [address], [place] Date:0954-47-63CH [address] [address]Dqx: (086) [id number], [place] [phone] () 89161CV: 02/16/2018 Secondary NOT GIVENUNK Sylva Insurance:SELF PAY [place] Number: Effective Repository Date:2018-02-16 02/16/2018 CLEMENTINE D Primary Insurance:JOAQUÍN Castro FLINNERDOB: CROSS [birth year] ANTHEM FLINNERDOB: [facility] 0695-42-61DPBoundary Community Hospital 9588-85-32KRURO Hospital [address] Number: [address], Repository [place] [id number] [place] [id number] [facility], Date:Plan Name:[facility] [id number]: () 02/02/2018 [facility] Primary Insurance:JOAQUÍN Castro FLINNERDOB: CROSS [birth year] ANTHEM FLINNERDOB: [facility] 9319-57-04THBoundary Community Hospital 3238-89-81KDATW Hospital [address] Number: [address], Repository [place] [id number] [place] [id number] [facility], Date:Plan Name:[facility] [id number]: () 02/02/2018 Pablo A Primary Pablo A Sylva [id number] Insurance:ANTHEMPolicy FlinnerDOB: [facility] [place] Number: [id number] Juan Regional Medical Center Box [id number] [address]ository [address], [place] Date:6157-00-63WZ [address] [address]Iur: ([phone]) [id number], [place] [phone] () 61928FJ: 02/02/2018 Secondary NOT GIVENUNK Sylva Insurance:SELF PAY [place] Number: Effective Repository Date:2018-02-02 01/27/2018 Pablo A Primary Pablo A Sylva [id number] Insurance:ANTHEMPolicy FlinnerDOB: [facility] [place] Number: [id number] Juan Regional Medical Center Box [id number] Repository [address], [place] Date:6498-94-35CS [address] [address]Qct: (501) 105002EZDCJERBUHL, [place] [phone] () 78806EH: 01/27/2018 Secondary NOT GIVENUNK Shelley Insurance:SELF PAY [place] Number: Effective Repository Date:2018-01-27 01/27/2018 CLEMENTINE D Primary Insurance:JOAQUÍN Castro FLINNERDOB: CR[address] [birth year] ANTHTARYN FLINNERDOB: [facility] [id number] OUTPATIENTClarion Psych[facility] 3135-63-54FWXTK Hospital [address] Number: [address], Repository [place] [id number] [place] [id number] [facility], Date:Plan Name:[address]2 [place] [id number]: () 01/25/2018 Pablo A Primary Pablo Rosa [id number] Insurance:ANTHEMPolicy [facility]DOB: [facility] [place] Number: [id number] [facility] Regional Medical Center Box [id number] Repository [address], [place] Date:6471-72-20LE [address] [address]Ags: (482) [phone], [place] 081-2143 () 36931YX: 01/25/2018 Secondary NOT GIVENUNK Sylva Insurance:SELF PAY [place] Number: Effective Repository Date:2018-01-25 01/24/2018 CLEMENTINE D Primary Insurance:JOAQUÍN Castro FLINNERDOB: [place] [birth year] ANTHTARYN FLINNERDOB: [facility] [id number] OUTPATIENTClarion Psychiatric Center 0599-22-88HDCPH Hospital [address] Number: [address], Repository [place] [id number] [place] [id number] [facility], Date:Plan Name:[address]2 [place] [id number]: () 01/20/2018 Pablo A Primary Pablo Jasonoster [id number] Insurance:ANTHEMPolicy FlinnerDOB: [facility] [place] Number: [id number] Juan Regional Medical Center Box [id number] Repository [address], [place] Date:3350-70-58MD [address] [address]Icw: (655) [phone], [place] [phone] () 25737GD: 01/20/2018 Secondary NOT GIVENUNK Shelley Insurance:SELF PAY [place] Number: Effective Repository Date:2018-01-20 01/20/2018 CLEMENTINE Luna Primary Insurance:JOAQUÍN Castro FLINNERDOB: CROSS [birth year] ANTHEM FLINNERDOB: [facility] 5518-68-36XTBoundary Community Hospital 6159-17-25DVPXH Hospital [address] Number: [address], Repository [place] [id number] [place] [id number] [facility], Date:Plan Name:[facility] [id number]: () 01/05/2018 CLEMENTINE Luna Primary Insurance:JOAQUÍN Castro FLINNERDOB: CROSS [birth year] ANTHEM FLINNERDOB: [facility] 0258-47-94XOBoundary Community Hospital 8591-90-10CTOZR Hospital [address] Number: [address], Repository [place] [id number] [place] [id number] [facility], Date:Plan Name:[facility] [id number]: () 12/29/2017 Pablo A Primary Pablo Rosa [id number] Insurance:ANTHEMPolicy FlinnerDOB: [facility] Number: [id number] Juan Regional Medical Center Box [id number] Repository [address], [place] Date:8149-86-36MJ [address] [address]Srn: (125) [phone], [place] [phone] () 30785CH: 12/29/2017 Secondary NOT GIVENUNK Shelley Insurance:SELF PAY [place] Number: Effective Repository Date:2017-12-29 12/29/2017 CLEMENTINE Luna Primary Insurance:JOAQUÍN Castro FLINNERDOB: CR[address] [birth year] ANTHEM FLINNERDOB: [facility] [id number] OUTPATIENTClarion Psychiatric Center 5114-98-57JPWVK Hospital [address] Number: [address], Repository [place] [id number] [place] [id number] [facility], Date:Plan Name:[facility] [id number]: () 12/03/2017 Pablo Sanabria Primary Pablo Rosa [id number] Insurance:ANTHEMPolicy FlinnerDOB: [facility] Number: [id number] [facility] Center Box [id number] Repository [address], [place] Date:2759-72-09SL [address] [address]Ihu: (586) [id number], [place] [phone] () 90916PR: 12/03/2017 Secondary NOT GIVENUNK Sylva Insurance:SELF PAY [place] Number: Effective Repository Date:2017-12-03 11/05/2017 Pablo A Primary Pablo Rosa [id number] Insurance:ANTHEMPolicy FlinnerDOB: [facility] Number: [id number] Juan Regional Medical Center Box [id number] Repository [address], [place] Date:4133-39-25GY [address] [address]Dsd: ([phone]) 532333EPUWQSI, [place] 005-1475 () 16956HR: 11/05/2017 Secondary NOT GIVENUNK Shelley Insurance:SELF PAY [place] Number: Effective Repository Date:2017-11-05 11/04/2017 CLEMENTINE Luna Primary Insurance:JOAQUÍN Castro FLINNERDOB: CR[place] [birth year] ANTHTARYN FLINNERDOB: [facility] [id number] OUTPATIENTClarion Psychiatric Center 4766-83-44UMENC Hospital [address] Number: [address], Repository [place] [id number] W[place] [id number] [facility], Date:Plan Name:B2 [place] [id number]: () 10/14/2017 Pablo A Primary Pablo Rosa [id number] Insurance:ANTHEMPolicy FlinnerDOB: [facility] Number: [id number] Juan Regional Medical Center Box [id number] Repository [address], [place] Date:1993-76-53ER [address]Pwg: (137) [phone], [place] [phone] () 24980YH: 10/14/2017 Secondary NOT GIVENUNK Shelley Insurance:SELF PAY [place] Number: Effective Repository Date:2017-10-14 10/14/2017 CLEMENTINE Luna Primary Insurance:JOAQUÍN PABLO Pitts Ermaludincatherine FLINNERDOB: CROSS [facility] ANTHEM FLINNERDOB: [facility] 1271-04-42HQBoundary Community Hospital 7825-46-62GIPOJ Hospital [address] Number: [address], Repository [place] [id number] [place] [id number] [facility], Date:Plan Name:B2 [place] [id number]: () 10/13/2017 Pablo A Primary Pablo Jasonoster [id number] Insurance:ANTHEMPolicy FlinnerDOB: [facility] Number: [id number] Juan Regional Medical Center Box [id number] Repository [address], [place] Date:8078-17-56MP [address]Dfw: ([phone]) 214216GINAVTWBUHL, [place] [phone] () 62096IZ: 10/13/2017 Secondary NOT GIVENUNK Shelley Insurance:SELF PAY [place] Number: Effective Repository Date:2017-10-01 10/05/2017 Pablo A Primary Pablo Jasonoster [id number] Insurance:ANTHEMPolicy FlinnerDOB: [facility] Number: [id number] [facility] Medical Center Box [id number] Repository [address], [place] Date:5749-49-52KA [address] [address]Msr: ([phone]) 342008ZAMWXDG, [place] [phone] () 48586TS: 10/05/2017 Secondary NOT GIVENUNK Shelley Insurance:SELF PAY [place] Number: Effective Repository Date:2017-10-05 10/01/2017 Pablo Sanabria Primary Pablo Rosa [id number] Insurance:ANTHEMPolicy FlinnerDOB: [facility] [place] Number: [id number] Juan Regional Medical Center Box [id number] Repository [address], [place] Date:7605-44-94SX [address] [address]Ljl: ([phone]) [phone], [place] [phone] () 63556CY: 10/01/2017 Secondary NOT GIVENUNK Sylva Insurance:SELF PAY [place] Number: Effective Repository Date:2017-06-18 10/01/2017 Pablo A Primary Pablo Rosa [id number] Insurance:ANTHEMPolicy FlinnerDOB: [facility] [place] Number: [id number] Juan Regional Medical Center Box [id number] Repository [address], [place] Date:6815-39-31KC [address] [address]Cqc: ([phone]) [id number], [place] [phone] () 20368UI: 10/01/2017 Secondary NOT GIVENUNK Shelley Insurance:SELF PAY [place] Number: Effective Repository Date:2017-10-01 09/30/2017 CLEMENTINE Luna Primary Insurance:JOAQUÍN Castro FLINNERDOB: CROSS [birth year] ANTHEM FLINNERDOB: [facility] [id number] OUTPATIENTClarion Psychiatric Center 2057-15-71UCGGW Hospital [address] Number: [address], Repository [place] [id number] [place] [id number] [facility], Date:Plan Name:B2 [place] [id number]: () 09/14/2017 CLEMENTINE Luna Primary Insurance:BLUE PABLO Hong Pomerene FLINNERDOB: CROSS [birth year] ANTHEM FLINNERDOB: [facility] 6079-47-64UHBoundary Community Hospital 9760-06-65XXYLZ Hospital [address] Number: [address]MEGHAREANIL, Repository [place] [id number] [place] [id number] [facility], Date:Plan Name:[facility] [id number]: () 09/14/2017 Pablo A Primary Pablo Daniele Rosa [id number] Insurance:ANTHEMPolicy FlinnerDOB: [facility] [place] Number: [id number] [facility] Medical Center Box [id number] Repository [address], [place] Date:1833-42-85MX [address] [address]Hnt: (491) [id number], [place] [phone] () 22201VL: 09/14/2017 Secondary NOT GIVENUNK Shelley Insurance:SELF PAY [place] Number: Effective Repository Date:2017-09-14 09/02/2017 CLEMENTINE D Primary Insurance:JOAQUÍN Castro FLINNERDOB: CROSS [birth year] ANTHEM FLINNERDOB: [facility] 8377-41-76DDBoundary Community Hospital 7854-05-20ACIZY Hospital [address] Number: [address], Repository [place] [id number] [place] [id number] [facility], Date:Plan Name:[facility] [id number]: () 08/19/2017 CLEMENTINE D Primary Insurance:JOAQUÍN Castro FLINNERDOB: CROSS [birth year] ANTHEM FLINNERDOB: [facility] 1313-58-17KJBoundary Community Hospital 3653-16-67CLPVT Hospital [address] Number: [address]AN[address], Repository [place] [id number] [place] [id number] [facility], Date:Plan Name:[facility] [id number]: () 08/12/2017 CLEMENTINE D Primary Insurance:JOAQUÍN Castro FLINNERDOB: CROSS [birth year] ANTHEM FLINNERDOB: [facility] 7148-29-57BEBoundary Community Hospital 0254-55-93QYVFC Hospital [address] Number: [address]MEGHAREANIL, Repository [place] [id number] [place] [id number] [facility], Date:Plan Name:[facility] [id number]: () 07/22/2017 Pablo A Primary Pablo Rosa [id number] Insurance:ANTHEMPolicy FlinnerDOB: [facility] [place] Number: [id number] [facility] Center Box [id number] Repository [address], [place] Date:9627-17-13ZT [address]Hdf: (500) [id number], [place] [phone] () 78914NU: 07/22/2017 Secondary NOT GIVENUNK Shelley Insurance:SELF PAY [place] Number: Effective Repository Date:2017-07-22 07/22/2017 CLEMENTINE Luna Primary Insurance:JOAQUÍN Castro FLINNERDOB: CROSS 332 ANTHTARYN FLINNERDOB: [facility] 1936-04-86OBBoundary Community Hospital 3469-75-39SBPVT Hospital [address] Number: MARIA A [address] [place] [address], Repository [place] [id number] [place] [id number] [facility], Date:Plan Name:[facility] [id number]: () 07/15/2017 CLEMENTINE Luna Primary Insurance:JOAQUÍN Castro FLINNERDOB: CROSS 332 ANTHTARYN FLINNERDOB: [facility] 8471-04-14CEBoundary Community Hospital 7973-04-08QSSQE Hospital [address] Number: [address]MEGHAREANIL, Repository [place] [id number] [place] [id number] [facility], Date:Plan Name:[facility] [id number]: ()
== END 2018-06-13 10:50 | disposition home or self-care (01) ==
LOC: LAB 14:26
PROVIDERS: Family Provider Family Medicine Geriatric Medicine; PCP Family Medicine Geriatric Medicine; Referring Provider Internal Medicine Cardiovascular Disease; Visit Provider Internal Medicine Cardiovascular Disease
DX: Z79.01 Long term (current) use of anticoagulants (principal); Z95.2 Presence of prosthetic heart valve
CPT/HCPCS: 36415; 85610

== ENCOUNTER → 2018-06-07 14:50 | Outpatient (CLI) | payer BC, SELFPAY ==
[2018-05-24 13:27] VITALS: BMI 27.7
--- NOTE | 2018-06-07 14:53 | BI_ITS ---
MAMMOGRAPHY - BILATERAL SCREENING REASON FOR EXAM: Female, 67 years old. Routine annual screening examination. PERTINENT HISTORY: Non-contributory. TECHNIQUE: Digital bilateral breast stanislav (3D mammographic acquisition) in the CC and MLO projections. 2-D mediolateral oblique (MLO) and craniocaudad (CC) views of both breasts were obtained. CAD: Full Field Digital Mammography with Computer Added Detection was performed. COMPARISON: Comparison is made with prior examination of March 25, 2010. FINDINGS: Breast Composition: There are scattered areas of fibroglandular density. There are no dominant masses or suspicious calcifications. Small bilateral axillary lymph nodes. No other significant abnormalities are identified. There has been no significant change since the prior study. BI/SCREENING MAMM (CAD), BILAT IMPRESSION: Stable bilateral screening mammogram. Yearly follow-up mammogram recommended. (A) ASSESSMENT CATEGORY: BIRADS Category 2: Benign. A letter regarding these results will be sent to the patient by the facility within 30 days. Approximately 10% of breast cancers are not detected by mammography. A normal mammogram should not delay biopsy of a clinically suspicious abnormality. [id number] Electronically Signed: Fermin Patterson MD at 15:34 EST Tel [phone], Service support ,
--- OUTSIDE RECORDS SUMMARY | 2018-08-03 06:48 | XMS RPT_ITS ---
:1950 Author Organization OHIP Support Name Relationship Address Phone EDJANPABLO Unavailable [address] [place] [address] + [address] [place] [address] R Unavailable Unavailable Unavailable PABLO WARD Unavailable [address] [place] [address] + [address] [place] [address] R Unavailable Unavailable Unavailable PABLO WARD Unavailable [address] [place] [address] + [address] [place] [address] R Unavailable Unavailable Unavailable PABLO WARD Unavailable [address] [place] [address] + [address] [place] [address] R Unavailable Unavailable Unavailable PABLO WARD Unavailable [address] + [place] [address] R Unavailable Unavailable Unavailable PABLO WARD Unavailable [address] + [place] [address] R Unavailable Unavailable Unavailable PABLO WARD Unavailable [address] + [place] [address] R Unavailable Unavailable Unavailable PABLO WARD Unavailable [address] + [place] [address] R Unavailable Unavailable Unavailable PABLO WARD Unavailable [address] + [place] [address] R Unavailable Unavailable Unavailable PABLO WARD Unavailable [address] + [address] [place], [place] [phone] PABLO WARD Unavailable [address] Unavailable [address] [place], [place] [id number] NOT GIVEN Unavailable Unavailable Unavailable PABLO WARD Unavailable [address] + [place] [address] R Unavailable Unavailable Unavailable PABLO WARD Unavailable [address] + [address] [facility] [place], [place] [phone] PABLO WARD Unavailable [address] Unavailable [address] [facility] [place] [phone] NOT GIVEN Unavailable Unavailable Unavailable PABLO WARD Unavailable [address] + [place] [address] R Unavailable Unavailable Unavailable PABLO WARD Unavailable [address] + [address] [facility] [phone] PABLO WARD Unavailable [address] Unavailable [address] [facility] [place] [phone] NOT GIVEN Unavailable Unavailable Unavailable PABLO WARD Unavailable [address] + [address] [facility] [place] [phone] PABLO WARD Unavailable [address] Unavailable [address] [place], [place] [id number] NOT GIVEN Unavailable Unavailable Unavailable PABLO WARD Unavailable [address] + [place] [address] R Unavailable Unavailable Unavailable PABLO WARD Unavailable [address] + [address] [facility] [place] [phone] PABLO WARD Unavailable [address] Unavailable [address] [place], [place] [phone] NOT GIVEN Unavailable Unavailable Unavailable PABLO WARD Unavailable [address] + [place] [address] R Unavailable Unavailable Unavailable PABLO WARD Unavailable [address] + [address] [facility] [place] [phone] PABLO WARD Unavailable [address] Unavailable [address] [facility] [place] [phone] NOT GIVEN Unavailable Unavailable Unavailable PABLO WARD Unavailable [address] + [place] [address] R Unavailable Unavailable Unavailable PABLO WARD Unavailable [address] + [place] [address] R Unavailable Unavailable Unavailable PABLO WARD Unavailable [address] + [address] [facility] [place] [phone] PABLO WARD Unavailable [address] Unavailable [address] [facility] [place], [place] [phone] NOT GIVEN Unavailable Unavailable Unavailable PABLO WARD Unavailable [address] + [address] [facility] [place], [place] [phone] PABLO WARD Unavailable [address] Unavailable [address] [facility] [place], [place] [phone] NOT GIVEN Unavailable Unavailable Unavailable PABLO WARD Unavailable [address] + [place] [address] R Unavailable Unavailable Unavailable PABLO WARD Unavailable [address] + [place] [address] R Unavailable Unavailable Unavailable PABLO WARD Unavailable [address] + [address] [facility] [place] [phone] PABLO WARD Unavailable [address] Unavailable [address] [facility] [place] [phone] NOT GIVEN Unavailable Unavailable Unavailable PABLO WARD Unavailable [address] + [place] [address] R Unavailable Unavailable Unavailable PABLO WARD Unavailable [address] + [address] [facility] [place] [phone] PABLO WARD Unavailable [address] Unavailable [address] [facility] [place] [phone] NOT GIVEN Unavailable Unavailable Unavailable PABLO WARD Unavailable [address] + [place] [address] R Unavailable Unavailable Unavailable PABLO WARD Unavailable [address] + [address] [facility] [place] [phone] PABLO WARD Unavailable [address] Unavailable [address] [facility] [place] [phone] NOT GIVEN Unavailable Unavailable Unavailable PABLO WARD Unavailable [address] + [address] [facility] [place] [phone] PABLO WARD Unavailable [address] Unavailable [address] [facility] [place] [phone] NOT GIVEN Unavailable Unavailable Unavailable PABLO WARD Unavailable [address] + [place] [address] R Unavailable Unavailable Unavailable PABLO WARD Unavailable [address] + [address] [facility] [place], [place] [phone] PABLO WARD Unavailable [address] Unavailable [address] [facility] [place], [place] [phone] NOT GIVEN Unavailable Unavailable Unavailable PABLO WARD Unavailable [address] + [place] [address] R Unavailable Unavailable Unavailable PABLO WARD Unavailable [address] + [place] [address] R Unavailable Unavailable Unavailable PABLO WARD Unavailable [address] + [address] [facility] [place], [place] [phone] PABLO WARD Unavailable [address] Unavailable [address] [facility] [place] [phone] NOT GIVEN Unavailable Unavailable Unavailable PABLO WARD Unavailable [address] + [place] [address] R Unavailable Unavailable Unavailable PABLO WARD Unavailable [address] + [address] [facility] [place] [phone] PABLO WARD Unavailable [address] Unavailable [address] [facility] [place] [phone] NOT GIVEN Unavailable Unavailable Unavailable PABLO WARD Unavailable [address] + [place] [address] R Unavailable Unavailable Unavailable PABLO WARD Unavailable [address] + [place] [address] R Unavailable Unavailable Unavailable PABLO WARD Unavailable [address] + [place] [address] R Unavailable Unavailable Unavailable R Unavailable Unavailable Unavailable PABLO WARD Unavailable [address] + [place] [address] ED SAMIR Unavailable [address] [place] [facility] + [address] [place] [address] R Unavailable Unavailable Unavailable PABLO WARD Unavailable [address] + [address] [facility] [place], [place] [phone] PABLO WARD Unavailable [address] Unavailable [address] [facility] [place] [phone] NOT GIVEN Unavailable Unavailable Unavailable PABLO WARD Unavailable [address] + [address] [facility] [place], [place] [phone] PABLO WARD Unavailable [address] Unavailable [address] [facility] [place], [place] [phone] NOT GIVEN Unavailable Unavailable Unavailable PABLO WARD Unavailable [address] + [place] [address] ED SAMIR Unavailable [address] [place] [address] + [address] [place] [address] R Unavailable Unavailable Unavailable PABLO WARD Unavailable [address] + [address] [facility] [place], [place] [phone] PABLO WARD Unavailable [address] Unavailable [address] [facility] [place], [place] [phone] NOT GIVEN Unavailable Unavailable Unavailable PABLO WARD Unavailable [address] + [address] [facility] [place], [place] [phone] PABLO WARD Unavailable [address] Unavailable [address] [facility] [place] [id number] NOT GIVEN Unavailable Unavailable Unavailable PABLO WARD Unavailable [address] + [address] [facility] [place], [place] [phone] PABLO WARD Unavailable [address] Unavailable [address] [facility] [place], [place] [phone] NOT GIVEN Unavailable Unavailable Unavailable PABLO WARD Unavailable [address] + [place] [address] ED SAMIR Unavailable [address] [place] [address] + [address] [place] [address] R Unavailable Unavailable Unavailable PABLO WARD Unavailable [address] + [address] [facility] [place], [place] [phone] PABLO WARD Unavailable [address] Unavailable [address] [facility] [place], [place] [phone] NOT GIVEN Unavailable Unavailable Unavailable PABLO WARD Unavailable [address] + [address] [facility] [place], [place] [phone] PABLO WARD Unavailable [address] Unavailable [address] [facility] [place], [place] [phone] NOT GIVEN Unavailable Unavailable Unavailable Care Team Providers Name Role Phone Argelia Eid Attending Unavailable Mile, Tank Chi Primary Care Unavailable Argelia Eid Referring Unavailable Mile, Tank Chi Attending Unavailable Mile, Tank Chi Attending Unavailable Argelia Eid Attending Unavailable Mile, Tank Chi Referring Unavailable Mile, Tank Chi Primary Care Unavailable Mile, Tank Chi Attending Unavailable Mile, Tank Chi Attending Unavailable Mile, Tank Chi Primary Care Unavailable EidArgelia gil Attending Unavailable Mile, Tank Chi Primary Care Unavailable Mile, Tank Chi Attending Unavailable Mile, Tank Chi Attending Unavailable Zuri, Fisher Attending Unavailable Mile, Tank Chi Primary Care Unavailable Mile, Tank Chi Attending Unavailable Mile, Tank Chi Attending Unavailable Mile, Tank Chi Primary Care Unavailable Mile, Tank Chi Referring Unavailable Zuri, Fisher Attending Unavailable Zuri, Fisher Referring Unavailable Mile, Tank Chi Primary Care Unavailable Mile, Tank Chi Attending Unavailable Zuri, Jack Attending Unavailable Zuri, Fisher Referring Unavailable Mile, Tank Chi Primary Care [...] Attending Unavailable Mile, Tank Chi Attending Unavailable Zuri, Fisher Attending Unavailable Mile, Tank Chi Referring Unavailable Zuri, Jack Attending Unavailable Zuri, Fisher Referring Unavailable Mile, Tank Chi Primary Care Unavailable Zuri, Fisher Attending Unavailable Zuri, Fisher Referring Unavailable Mile, Tank Chi Primary Care Unavailable Mile, Tank Chi Attending Unavailable ZURI, JACK S Admitting Unavailable ZURI, JACK S Attending Unavailable MILE, TANK MD Consulting Unavailable ZURI, JAKC S Primary Care Unavailable PROVIDER, UNKNOWN Consulting Unavailable PROVIDER, UNKNOWN Consulting Unavailable ZURI, JACK S Admitting Unavailable ZURI, JACK S Attending Unavailable ZURI, JACK S Primary Care Unavailable ZURI, JACK S Admitting Unavailable ZURI, JACK S Attending Unavailable ZURI, JACK S Primary Care Unavailable ZURI, JACK S Admitting Unavailable ZURI, JACK S Attending Unavailable ZURI, JACK S Primary Care Unavailable UZRI, JACK S Admitting Unavailable ZURI, JACK S [...] Referring Unavailable MASCI, LUI A Referring Unavailable PROBLEMS PROBLEMS DATE TYPE CONDITION / CODE ATTENDING STATUS SOURCE 06/13/2018 Unknown Z79.01 - FDC Zuri, Fisher Active [facility] (current) use of Community anticoagulants / Hospital Z79.01(ICD-10) Repository 06/13/2018 Unknown 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, 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 / Hospital Z95.2(ICD-10) Repository 06/13/2018 Unknown I77.9 - Disorder of Zuri, Jack Active [facility] arteries and Community arterioles, Hospital unspecified / Repository I77.9(ICD-10) 06/13/2018 Unknown 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, 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 / Hospital I65.22(ICD-10) Repository 05/24/2018 Unknown R09.89 - Other Zuri, Jack Active [facility] specified symptoms Community and signs involving Hospital the circulatory and Repository respiratory systems / R09.89(ICD-10) 05/24/2018 Unknown Z95.1 - Presence of Zuri, Jack Active [facility] aortocoronary bypass Community graft / Hospital Z95.1(ICD-10) Repository 03/15/2018 Admitting Presence of ZURI, 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 [facility] prosthetic [facility] valve / Z952(ICD-10) Hospital Repository 03/15/2018 Principle Presence of ZURI, 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 [facility] prosthetic heart [facility] valve / Z952(ICD-10) Hospital Repository 03/15/2018 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, 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 [facility] use of [facility] anticoagulants / Hospital Z7901(ICD-10) Repository 02/21/2018 Admitting [facility]DC (current) ZURI, 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 [facility] use of [facility] anticoagulants / Hospital Z7901(ICD-10) Repository 02/21/2018 Principle [facility]DC (current) ZURI, 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 [facility] Diagnosis use of [facility] anticoagulants / Hospital Z7901(ICD-10) Repository 02/21/2018 Secondary Presence of ZURI, 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 [facility] prosthetic heart [facility] valve / Z952(ICD-10) Hospital Repository 02/17/2018 Unknown M51.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, Tank Chi Active [facility]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 / Clinic Main D59.4(ICD-10) [place] Repository PROCEDURES PROCEDURES No Procedure Records FoundRESULTS RESULTS DEXA BONE DENSITY Observed: 06/09/2018 Status: F Source: [place] STUDY 1:00 PM [facility] REPOSITORY [facility] Imaging Services [address] [place] [address] Dexa Bone Density Study MR#: [id number] Acct: [id number] Name: CLEMENTINE WARD Rep #: [id number] : 1950 F 67 From: Fermin Patterson MD PCP: Tank Treadwell MD, Chi Status: REG CLI Study: Dexa Bone Density Study Date of Exam: 06/09/18 Exam# [id number] Ordering Dr: Tank Treadwell MD STUDY: DUAL [...] Fermin Patterson MD at 15:32 EST Tel [phone], Service support , CC: Tank Treadwell MD Account Strategist: Signed SCREENING MAMM (CAD), Observed: 06/07/2018 Status: F Source: [place] BILAT 2:54 PM [facility]IT[facility] Imaging Services [address] [place] [id number] SCREENING MAMM (CAD), BILAT MR#: [id number] Acct: [id number] Name: CLEMENTINE WARD Rep #: [id number] : 1950 F 67 From: Fermin Patterson MD PCP: Tank Treadwell MD, Chi Status: REG CLI Study: SCREENING MAMM (CAD), BILAT Date of Exam: 06/07/18 Exam# [id number] Ordering Dr: Tank Treadwell MD MAMMOGRAPHY - [...] delay biopsy of a clinically suspicious abnormality. [id number] Electronically Signed: Fermin Patterson MD at 15:34 EST Tel [phone], Service support , CC: Tank Treadwell MD Account Strategist: Signed PROTHROMBIN TIME W/INR Collected: 06/07/2018 Status: F Source: [place] 2:41 PM [facility] REPOSITORY TYPE CODE TESTS RESULT OUT OF RANGE REFERENCE UNITS LAB L300.4150 11.7-14.9 SECONDS High PROTIME 31.4 LAB L300.4200 Normal INR 3.0 Performed By: #### L300.3900 #### [facility] [address] [place], [address] CARDIOLOGY VISIT Observed: 05/24/2018 Status: F Source: [place] REPORT 1:51 PM [facility] REPOSITORY [facility] [address] [place] [address] OFFICE VISIT Date of Service: 05/24/18 MR#: [id number] Acct: [id number] Name: CLEMENTINE WARD Rep #: [id number] : 1950 Provider: Jack Keating MD Age/Sex: 67/F Location[place] [facility] Status: Signed HPI HPI Chief Complaint: Follow-up [...] rate and rhythm and no pedal edema. [place] prosthetic sounds are noted and 1/6 systolic murmur is present. 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 Ronan Bailey, [facility], 03/10/2011 Plan She does have a view of coronary artery disease status post bypass surgery she underwent stress testing in 2016 which demonstrated no evidence of ischemia at a high workload. 2. Hx of mitral valve replacement with mechanical valve Z95.2 MVR with mechanical valve 03/10/11 @ [facility] Plan She does have a history of [...] TIME W/INR Collected: 05/24/2018 Status: F Source: [place] 1:17 PM [facility] REPOSITORY Order Comment: Comments: STANDING ORDER Comments: STANDING ORDER TYPE CODE TESTS RESULT OUT OF RANGE REFERENCE UNITS LAB L300.4150 11.7-14.9 SECONDS High PROTIME 24.5 LAB L300.4200 Normal INR 2.2 Performed By: #### L300.3900 #### [facility] [address] [place], [place], [address] PROTHROMBIN TIME W/INR Collected: 05/17/2018 Status: F Source: [place] 12:17 PM [facility] REPOSITORY TYPE CODE TESTS RESULT OUT OF RANGE REFERENCE UNITS LAB L300.4150 11.7-14.9 SECONDS High PROTIME 24.1 LAB L300.4200 Normal INR 2.2 Performed By: #### L300.3900 #### [facility] [address] [place], [address] PROGRESS Observed: 04/27/2018 Status: COMPLETED Source: [place] 11:56 AM [facility] [place] REPOSITORY HNO ID: [id number] Author: Lui Wilkerson Service: (none) Author Type: [...] No jaundice or rash. No petechiae. 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 No focal motor weakness. MUSCULOSKELETAL: No muscle wasting. LABS: Component Latest Ref Rng AND Units 04/20/2018 WBC, [facility] 3.70 - 11.00 k/uL 10.44 RBC, [facility] 3.90 - 5.20 m/uL 3.79 (L) Hemoglobin, [facility] 11.5 - 15.5 g/dL 11.7 Hematocrit, [facility] 36.0 - 46.0 % 35.4 (L) MCV, [facility] 80.0 - 100.0 fL 93.4 MCH, [facility] 26.0 - 34.0 pg 30.9 MCHC, [facility] 30.5 - 36.0 g/dL 33.1 RDW, [facility] 11.5 - 15.0 % 14.1 Platelet Cnt, [facility] 150 - 400 k/uL 213 MPV, [facility] 9.0 - 12.7 fL 10.6 Absol Gran [...] mitral valve replacement. -Previously discussed with her pricing manager--plan to monitor for now. -She has good erythrocytic compensation and is tolerating iron and folic acid replacement well. 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 -Still evidence of ongoing hemolysis. Plan: -Recheck Juan David test today. -Continue iron and folic acid supplementation. -Recheck labs in 3 months. -Office visit in 6 months. -She will continue regular follow-up with her pricing manager. -We also discussed smoking cessation today. She is not psychologically motivated to quit at this time. I will continue to address this on subsequent visits. Lui Wilkerson DO CNOVSP Observed: 04/27/2018 Status: COMPLETED Source: [place] 11:30 AM [facility] REPOSITORY Visit (SP) Office ([facility]) CLEMENTINE WARD ([id number]) 1950 F Date Time Provider Department 04/27/18 [...] No jaundice or rash. No petechiae. 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 No focal motor weakness. MUSCULOSKELETAL: No muscle wasting. LABS: Component Latest Ref Rng AND Units 04/20/2018 WBC, [facility] 3.70 - 11.00 k/uL 10.44 RBC, [facility] 3.90 - 5.20 m/uL 3.79 (L) Hemoglobin, [facility] 11.5 - 15.5 g/dL 11.7 Hematocrit, [place] 36.0 - 46.0 % 35.4 (L) MCV, [facility] 80.0 - 100.0 fL 93.4 MCH, [facility] 26.0 - 34.0 pg 30.9 MCHC, [place] 30.5 - 36.0 g/dL 33.1 RDW, [place] [...] mitral valve replacement. -Previously discussed with her pricing manager--plan to monitor for now. -She has good erythrocytic compensation and is tolerating iron and folic acid replacement well. 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 -Still evidence of ongoing hemolysis. Plan: -Recheck Juan David test today. -Continue iron and folic acid supplementation. -Recheck labs in 3 months. -Office visit in 6 months. -She will continue regular follow-up with her pricing manager. -We also discussed smoking cessation today. She is not psychologically motivated to quit at this time. I will continue to address this on subsequent visits. 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] Order(s):JUAN DAVID DIRECT [SQDAGT] Order #: [id number] FUTURE Follow-up and Disposition History Recorded Prescriptions [...] + CBC Collected: 04/20/2018 Status: F Source: [place] 2:36 PM [facility] REPOSIT[facility] TYPE CODE TESTS RESULT OUT OF REFERENCE UNITS RANGE LAB WWBC 3.70-11.00 k/uL [place] WBC 10.44 LAB WRBC 3.90-5.20 m/uL Low [place] RBC 3.79 LAB WHGB 11.5-15.5 g/dL [place] Hemoglobin 11.7 LAB WHCT 36.0-46.0 % Low [place] Hematocrit 35.4 LAB WMCV 80.0-100.0 fL [place] MCV 93.4 LAB WMCH 26.0-34.0 pg [place] MCH 30.9 LAB WMCHC 30.5-36.0 g/dL [place] MCHC 33.1 LAB WRDW 11.5-15.0 % [place] RDW 14.1 LAB WPLT 150-400 k/uL [place] Platelet Cnt 213 LAB WMPV 9.0-12.7 fL [place] MPV 10.6 Result Comment: Test performed at: [facility], [address] [place] [address] Rd[address] [place] [address]. LAB ABGRAN 1.45-7.50 k/uL High Absol 7.64 Gran Count RETICULOCYTE Collected: 04/20/2018 Status: F Source: [place] 2:36 PM [facility] REPOSITORY TYPE CODE TESTS RESULT OUT OF REFERENCE UNITS RANGE LAB RETC 0.4-2.0 % High Retic% 3.1 LAB ABRET 0.0180-0.1000 M/uL High Abs Retic 0.114 Performed By: #### RETIC, LD6, HAPTO, FERR, IRON #### [facility] [address] [address] LD Collected: 04/20/2018 Status: F Source: [facility] 2:36 PM [facility] REPOSITORY TYPE CODE TESTS RESULT OUT OF RANGE REFERENCE UNITS LAB LD 135-214 U/L High LD 819 Performed By: #### RETIC, LD6, HAPTO, FERR, IRON #### [facility] [address] [address] HAPTOGLOBIN Collected: 04/20/2018 Status: F Source: [place] 2:36 PM [facility] REPOSITORY TYPE CODE TESTS RESULT OUT OF REFERENCE UNITS RANGE LAB HAPTO 31-238 mg/dL Low Haptoglobin <10 Performed By: #### RETIC, LD6, HAPTO, FERR, IRON #### [facility] [address] [address] FERRITIN Collected: 04/20/2018 Status: F Source: [place] 2:36 PM [facility] REPOSITORY TYPE CODE TESTS RESULT OUT OF REFERENCE UNITS RANGE LAB FERR 14.7-205.1 ng/mL High Ferritin 663.9 Performed By: #### RETIC, LD6, HAPTO, FERR, IRON #### [facility] [address] [id number] IRON AND TIBC Collected: 04/20/2018 Status: F Source: [place] 2:36 PM [facility] REPOSITORY TYPE CODE TESTS RESULT OUT OF REFERENCE UNITS RANGE LAB IRN 41-186 ug/dL Iron 65 LAB TIBC 232-386 ug/dL TIBC 293 LAB SAT 15-57 % Transferrin Saturatn 22 Performed By: #### RETIC, LD6, HAPTO, FERR, IRON #### [facility] [id number] PROTHROMBIN TIME AND Collected: 04/18/2018 Status: F Source: [facility] INR 11:50 AM [facility] REPOSITORY TYPE CODE TESTS RESULT OUT OF [...] 3.5 MECHANICAL HEART VALVES Performed By: #### [id number] #### [facility],[address] [place], [place] [id number] CBC W/DIFF, AUTOMATED Collected: 04/12/2018 Status: F Source: [place] 1:21 PM [facility] REPOSITORY TYPE CODE TESTS RESULT [...] Lymph 1.25 Performed By: #### L100.0100 #### [facility] [address] [place], [address] VITAMIN D,25 HYDROXY Collected: 04/12/2018 Status: F Source: [place] 1:21 PM [facility] REPOSITORY TYPE CODE TESTS RESULT OUT OF REFERENCE UNITS RANGE LAB L506.1000 29.95-100.01 ng/mL Low Vitamin D 24.7 25-OH Result Comment: Vitamin D 25(OH) Status Range Deficiency <20 ng/mL (50nmol/L) Insuffciency 20 - 30 ng/mL (50 - 75 nmol/L) Sufficiency 30 - 100 ng/mL (75 - 250 nmol/L) Toxicity >100 ng/mL (>250 nmol/L) Performed By: #### L506.1000 #### [facility] [address] [place], [address] COMPREHENSIVE METABOLIC Collected: 04/12/2018 Status: F Source: [facility] 1:21 PM [facility] REPOSITORY TYPE CODE TESTS RESULT [...] 6 Performed By: #### L500.4050, L501.9520 #### [facility] [address] [facility]. [place], [place], [id number] THYROID STIM HORMONE Collected: 04/12/2018 Status: F Source: [place] (TSH) 1:21 PM [facility] REPOSITORY TYPE CODE TESTS RESULT OUT OF RANGE REFERENCE UNITS LAB L501.9520 0.358-3.74 uIU/mL Normal TSH 0.64 Performed By: #### L500.4050, L501.9520 #### [facility] [address] [place], [place], [address] HEPATITIS C ANTIBODIES Collected: 04/12/2018 Status: F Source: [place] 1:21 PM [facility] REPOSITORY TYPE CODE TESTS RESULT OUT OF RANGE REFERENCE UNITS LAB L3100.0650 0.0-0.9 s/co ratio Normal HEP C AB <0.1 Result Comment: Negative: < 0.8 Indeterminate: 0.8 - 0.9 Positive: > 0.9 The CDC recommends that a positive HCV antibody result be followed up with a HCV Nucleic Acid Amplification test (553393). Performed at: [address] [id number] Meter Changes Records Clerk: Rl Gant PhD, Phone: [phone] Performed By: #### L3100.0625 #### [facility] (refer to report for specific site) refer to report for address and phone number PROTHROMBIN TIME AND Collected: 03/29/2018 Status: F Source: [place] IN[place] 11:10 AM [facility] REPOSITORY TYPE CODE TESTS RESULT OUT OF [...] 3.5 MECHANICAL HEART VALVES Performed By: #### [id number] #### [place] [address] PROTHROMBIN TIME AND Collected: 03/15/2018 Status: F [facility] REPOSITORY TYPE CODE TESTS RESULT OUT OF [...] 3.5 MECHANICAL HEART VALVES Performed By: #### [id number] #### [place] [address] PROTHROMBIN TIME AND Collected: 02/28/2018 Status: F Source: [place] IN[place] 1:18 PM [facility] REPOSITORY TYPE CODE TESTS RESULT OUT OF [...] 3.5 MECHANICAL HEART VALVES Performed By: #### [id number] #### [facility],[address] [place] [address] PROTHROMBIN TIME AND Collected: 02/21/2018 Status: F Source: [facility] INR 11:41 AM [facility] REPOSITORY TYPE CODE TESTS RESULT OUT OF [...] 3.5 MECHANICAL HEART VALVES Performed By: #### [id number] #### [address] [address] LUMBAR SPINE 2 OR 3 Observed: 02/17/2018 Status: F Source: [place] VIEWS 12:00 PM [facility] REPOSITORY [facility] Imaging Services [address] [place], [place] [id number] Lumbar Spine 2 or 3 Views MR#: [id number] Acct: [id number] Name: CLEMENTINE WARD Rep #: [id number] : 1950 F 67 From: Rnoan Salinas MD PCP: Mile GARCIA,Tank Ghotra Status: REG CLI Study: Lumbar Spine 2 or 3 Views Date of Exam: 02/17/18 Exam# [id number] Ordering Dr: Tank Treadwell MD STUDY: X-RAY [...] Service support , CC: Tank Treadwell MD Account Strategist: Signed Observed: 02/17/2018 Status: F Source: [place] CULTURE, URINE 11:48 AM [facility] REPOSITORY Urine Culture Culture exhibits no growth. Performed By: #### M100.0650 #### [facility] [address] [place] [address], [id number] PROTHROMBIN TIME AND Collected: 02/16/2018 Status: F Source: [place] INR 1:05 PM [facility] REPOSITORY TYPE CODE TESTS RESULT OUT OF [...] 3.5 MECHANICAL HEART VALVES Performed By: #### [id number] #### [facility],[address] [place], [place] [address] PROTHROMBIN TIME AND Collected: 02/02/2018 Status: F Source: [facility] INR 2:13 PM [facility] REPOSITORY TYPE CODE TESTS RESULT OUT OF [...] 3.5 MECHANICAL HEART VALVES Performed By: #### [id number] #### [facility],[address] [place], [place] [address] PROTHROMBIN TIME AND Collected: 01/27/2018 Status: F Source: [facility] INR 2:43 PM [facility] REPOSITORY TYPE CODE TESTS RESULT OUT OF [...] 3.5 MECHANICAL HEART VALVES Performed By: #### [id number] #### [facility],[address] [facility] [address] [place] ABS GR + CBC Collected: 01/26/2018 Status: F Source: [place] 2:43 PM [facility] [place] REPOSITORY TYPE CODE TESTS RESULT OUT OF REFERENCE UNITS RANGE LAB WWBC 3.70-11.00 k/uL [place] WBC 9.23 LAB WRBC 3.90-5.20 m/uL [place] RBC 3.99 LAB WHGB 11.5-15.5 g/dL [place] Hemoglobin 11.9 LAB WHCT 36.0-46.0 % [place] Hematocrit 36.4 LAB WMCV 80.0-100.0 fL [place] MCV 91.2 LAB WMCH 26.0-34.0 pg [place] MCH 29.8 LAB WMCHC 30.5-36.0 g/dL [place] MCHC 32.7 LAB WRDW 11.5-15.0 % [place] RDW 14.1 LAB WPLT 150-400 k/uL [place] Platelet Cnt 237 LAB WMPV 9.0-12.7 fL [place] MPV 9.9 Result Comment: Test performed at: [facility], [address] [place] [address]., [place] [address]. LAB ABGRAN 1.45-7.50 k/uL Absol Gran 6.31 Count RETICULOCYTE Collected: 01/26/2018 Status: F Source: [place] 2:43 PM [facility] REPOSITORY TYPE CODE TESTS RESULT OUT OF REFERENCE UNITS RANGE LAB RETC 0.4-2.0 % High Retic% 3.0 LAB ABRET 0.0180-0.1000 M/uL High Abs Retic 0.116 Performed By: #### RETIC, LD6, IRON, HAPTO, FERR #### [facility] [address] [place], [place] [address] LD Collected: 01/26/2018 Status: F Source: [facility] 2:43 PM [facility] [place] REPOSITORY TYPE CODE TESTS RESULT OUT OF RANGE REFERENCE UNITS LAB LD 135-214 U/L High LD 680 Performed By: #### RETIC, LD6, IRON, HAPTO, FERR #### [facility] [address] [place], [place] [address] IRON AND TIBC Collected: 01/26/2018 Status: F Source: [place] 2:43 PM [facility] REPOSITORY TYPE CODE TESTS RESULT OUT OF REFERENCE UNITS RANGE LAB IRN 41-186 ug/dL Iron 71 LAB TIBC 232-386 ug/dL TIBC 298 LAB SAT 15-57 % Transferrin Saturatn 24 Performed By: #### RETIC, LD6, IRON, HAPTO, FERR #### [facility] [address] [place] [phone] HAPTOGLOBIN Collected: 01/26/2018 Status: F Source: [place] 2:43 PM [facility] REPOSITORY TYPE CODE TESTS RESULT OUT OF REFERENCE UNITS RANGE LAB HAPTO 31-238 mg/dL Low Haptoglobin <10 Performed By: #### RETIC, LD6, IRON, HAPTO, FERR #### [place] [phone] FERRITIN Collected: 01/26/2018 Status: F Source: [place] 2:43 PM [facility] REPOSITORY TYPE CODE TESTS RESULT OUT OF REFERENCE UNITS RANGE LAB FERR 14.7-205.1 ng/mL High Ferritin 525.5 Performed By: #### RETIC, LD6, IRON, HAPTO, FERR #### [place] [address] PROTHROMBIN TIME AND Collected: 01/24/2018 Status: F Source: [place] IN[place] 2:55 PM [facility] REPOSITORY TYPE CODE TESTS RESULT OUT OF [...] 3.5 MECHANICAL HEART VALVES Performed By: #### [id number] #### [facility],[address] [place] [address] PROTHROMBIN TIME AND Collected: 01/20/2018 Status: F Source: [place] IN[place] 2:15 PM [facility] REPOSITORY TYPE CODE TESTS RESULT OUT OF [...] 3.5 MECHANICAL HEART VALVES Performed By: #### [id number] #### [place] [address] PROTHROMBIN TIME AND Collected: 01/05/2018 Status: F Source: [place] IN[place] 1:00 PM [facility] REPOSITORY TYPE CODE TESTS RESULT OUT OF [...] 3.5 MECHANICAL HEART VALVES Performed By: #### [id number] #### [place] [address] PROTHROMBIN TIME AND Collected: 12/29/2017 Status: F Source: [facility] INR 2:00 PM [facility] REPOSITORY TYPE CODE TESTS RESULT OUT OF [...] 3.5 MECHANICAL HEART VALVES Performed By: #### [id number] #### [facility],[address] [facility] [address] PROTHROMBIN TIME W/INR Collected: 12/03/2017 Status: F Source: [place] 1:05 PM [facility] REPOSITORY Order Comment: Comments: STANDING ORDER: FAX TO [facility] Comments: STANDING ORDER: FAX TO [facility] TYPE CODE TESTS RESULT OUT OF RANGE REFERENCE UNITS LAB L300.4150 11.7-14.9 SECONDS High PROTIME 31.3 LAB L300.4200 Normal INR 3.0 Performed By: #### L300.3900 #### [facility] [address] [place] [address], [address] PROTHROMBIN TIME AND Collected: 11/04/2017 Status: F Source: [facility] INR 1:22 PM [facility] REPOSITORY TYPE CODE TESTS RESULT OUT OF [...] 3.5 MECHANICAL HEART VALVES Performed By: #### [id number] #### [facility],[address] [place] [address] PROGRESS Observed: 10/27/2017 Status: COMPLETED Source: [place] 12:25 PM [facility] REPOSITORY HNO ID: [id number] Author: Ramon Islas (Sw) Service: (none) Author Type: Leather Sponger Type: Progress Notes Filed: 10/27/2017 12:28 PM Note Text: You are not granted access to view this sensitive note. PROGRESS Observed: 10/27/2017 Status: COMPLETED Source: [place] 12:06 PM [facility] REPOSITORY HNO ID: [id number] Author: Lui Wilkerson Service: (none) Author Type: [...] No jaundice or rash. No petechiae. 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 No focal motor weakness. MUSCULOSKELETAL: No muscle wasting. LABS: Component Latest Ref Rng AND Units 10/20/2017 WBC, [place] 3.70 - 11.00 k/uL 9.14 RBC, [place] 3.90 - 5.20 m/uL 3.93 Hemoglobin, [place] 11.5 - 15.5 g/dL 11.6 Hematocrit, [place] 36.0 - 46.0 % 36.1 MCV, [place] 80.0 - 100.0 fL 91.9 MCH, [place] 26.0 - 34.0 pg 29.5 MCHC, [place] 30.5 - 36.0 g/dL 32.1 RDW, [place] 11.5 - 15.0 % 14.3 Platelet Cnt, [place] 150 - 400 k/uL 261 MPV, [place] 9.0 - 12.7 fL 10.5 Absol Gran [...] mitral valve replacement. -Previously discussed with her pricing manager--plan to monitor for now. -She has good erythrocytic compensation and is tolerating iron and folic acid replacement well. 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 Plan: -Continue iron and folic acid supplementation. -Recheck labs in 3 months. -Office visit in 6 months. -She will continue regular follow-up with her pricing manager. Lui Wilkerson DO CNOVSP Observed: 10/27/2017 Status: COMPLETED Source: [place] 11:30 AM [facility] REPOSITORY Visit (SP) Office (HEMAWS) CLEMENTINE WARD ([id number]) 1950 F Date Time Provider Department 10/27/17 [...] No jaundice or rash. No petechiae. 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 No focal motor weakness. MUSCULOSKELETAL: No muscle wasting. LABS: Component Latest Ref Rng ANDamp; Units 10/20/2017 WBC, [place] 3.70 - 11.00 k/uL 9.14 RBC, [place] 3.90 - 5.20 m/uL 3.93 Hemoglobin, [place] 11.5 - 15.5 g/dL 11.6 Hematocrit, [place] 36.0 - 46.0 % 36.1 MCV, [place] 80.0 - 100.0 fL 91.9 MCH, [place] [...] mitral valve replacement. -Previously discussed with her pricing manager--plan to monitor for now. -She has good erythrocytic compensation and is tolerating iron and folic acid replacement well. 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 Plan: -Continue iron and folic acid supplementation. -Recheck labs in 3 months. -Office visit in 6 months. -She will continue regular follow-up with her pricing manager. Lui Wilkerson DO Referring Provider: LUI WILKERSON [[id number]] Allergies As of Date: 10/27/2017 (No Known [...] 10/27/17 CNSW Observed: 10/27/2017 Status: COMPLETED Source: [place] 12:00 AM [facility] REPOSITORY Social Work (HEMAWS) CLEMENTINE WARD ([id number]) 1950 F Date Time Provider Department 10/27/17 [...] 10/27/17 RETICULOCYTE Collected: 10/20/2017 Status: F Source: [place] 2:30 PM [facility] REPOSITORY TYPE CODE TESTS RESULT OUT OF REFERENCE UNITS RANGE LAB RETC 0.4-2.0 % High Retic% 3.2 LAB ABRET 0.0180-0.1000 M/uL High Abs Retic 0.130 Performed By: #### RETIC, IRON, LD6, FERR, HAPTO #### [place] [address] IRON AND TIBC Collected: 10/20/2017 Status: F Source: [place] 2:30 PM [facility] REPOSITORY TYPE CODE TESTS RESULT OUT OF REFERENCE UNITS RANGE LAB IRN 41-186 ug/dL Iron 88 LAB TIBC 232-386 ug/dL TIBC 308 LAB SAT 15-57 % Transferrin Saturatn 29 Performed By: #### RETIC, IRON, LD6, FERR, HAPTO #### [place] [address] LD Collected: 10/20/2017 Status: F Source: [facility] 2:30 PM [facility] REPOSITORY TYPE CODE TESTS RESULT OUT OF RANGE REFERENCE UNITS LAB LD 135-214 U/L High LD 750 Performed By: #### RETIC, IRON, LD6, FERR, HAPTO #### [place] [phone] FERRITIN Collected: 10/20/2017 Status: F Source: [place] 2:30 PM [facility] REPOSITORY TYPE CODE TESTS RESULT OUT OF REFERENCE UNITS RANGE LAB FERR 14.7-205.1 ng/mL High Ferritin 507.2 Performed By: #### RETIC, IRON, LD6, FERR, HAPTO #### [place] [address] HAPTOGLOBIN Collected: 10/20/2017 Status: F Source: [place] 2:30 PM [facility] REPOSITORY TYPE CODE TESTS RESULT OUT OF REFERENCE UNITS RANGE LAB HAPTO 31-238 mg/dL Low Haptoglobin <10 Performed By: #### RETIC, IRON, LD6, FERR, HAPTO #### [place] [address] [place] ABS GR + CBC Collected: 10/20/2017 Status: F Source: [facility] 2:29 PM [facility] REPOSITORY TYPE CODE TESTS RESULT OUT OF REFERENCE UNITS RANGE LAB WWBC 3.70-11.00 k/uL [place] WBC 9.14 LAB WRBC 3.90-5.20 m/uL [place] RBC 3.93 LAB WHGB 11.5-15.5 g/dL [place] Hemoglobin 11.6 LAB WHCT 36.0-46.0 % [place] Hematocrit 36.1 LAB WMCV 80.0-100.0 fL [place] MCV 91.9 LAB WMCH 26.0-34.0 pg [place] MCH 29.5 LAB WMCHC 30.5-36.0 g/dL [place] MCHC 32.1 LAB WRDW 11.5-15.0 % [place] RDW 14.3 LAB WPLT 150-400 k/uL [place] Platelet Cnt 261 LAB WMPV 9.0-12.7 fL [place] MPV 10.5 Result Comment: Test performed at: [facility], [address] [place] [address] Rd., [place] [address]. LAB ABGRAN 1.45-7.50 k/uL Absol Gran 6.40 Count CAROTID DUPLEX Observed: 10/20/2017 Status: F Source: [place] ULTRASOUND 6:54 AM [facility] REPOSITORY [facility] Cardiovascular Services [address] [place] [address] Carotid Duplex Ultrasound 10/13/17 1001 MR#: [id number] Acct: [id number] Name: CLEMENTINE WARD Rep #: [id number] : 1950 67 From: Curtis Joshi MD Attending Dr: Argelia Eid Status: REG CLI Ordering Dr: Argelia Eid Date: 10/13/17 Location: [facility] Sex: F C Admitted: Reason For Study: [...] the left vertebral artery. Procedure Carotid Duplex 41308. Exam performed in department. Interpretation Summary Moderate (50-69%) stenosis right extracranial internal carotid. Severe (>70%) stenosis left extracranial internal carotid. Flow within the vertebral arteries is antegrade bilaterally. Ordering Physician: Argelia Eid Referring Physician: Tank Treadwell Chi Performed By: Alma Rosa Duong RVT 10/20/17 0653 Date Curtis Joshi MD CC: Argelia Eid; Tank Treadwell MD Date Dictated: 10/13/17 1001 Date Transcribed: 10/20/17 0653 Account Strategist: Signed PROTHROMBIN TIME AND Collected: 10/14/2017 Status: F Source: [facility] INR 10:13 AM [facility] REPOSITORY TYPE CODE TESTS RESULT OUT OF [...] 3.5 MECHANICAL HEART VALVES Performed By: #### [id number] #### [facility],[address] [place] [address] CBC W/DIFF, AUTOMATED Collected: 10/05/2017 Status: F Source: [place] 2:08 PM [facility] REPOSITORY TYPE CODE TESTS RESULT [...] Lymph 1.44 Performed By: #### L100.0100 #### [facility] [address] [place], [address] COMPREHENSIVE METABOLIC Collected: 10/05/2017 Status: F Source: [facility] 2:08 PM [facility] REPOSITORY TYPE CODE TESTS RESULT [...] 10 Performed By: #### L500.4050, L501.9520 #### [facility] [address] [facility] [place], [place], [id number] THYROID STIM HORMONE Collected: 10/05/2017 Status: F Source: [place] (TSH) 2:08 PM [facility] REPOSITORY TYPE CODE TESTS RESULT OUT OF RANGE REFERENCE UNITS LAB L501.9520 0.358-3.74 uIU/mL Normal TSH 1.28 Performed By: #### L500.4050, L501.9520 #### [facility] [address] [place] [place], [address] VITAMIN D,25 HYDROXY Collected: 10/05/2017 Status: F Source: [place] 2:08 PM [facility] REPOSITORY TYPE CODE TESTS RESULT OUT OF REFERENCE UNITS RANGE LAB L506.1000 29.95-100.01 ng/mL Low Vitamin D 22.4 25-OH Result Comment: Vitamin D 25(OH) Status Range Deficiency <20 ng/mL (50nmol/L) Insuffciency 20 - 30 ng/mL (50 - 75 nmol/L) Sufficiency 30 - 100 ng/mL (75 - 250 nmol/L) Toxicity >100 ng/mL (>250 nmol/L) Performed By: #### L506.1000 #### [facility] [address] [place], [address] CARDIOLOGY VISIT Observed: 10/01/2017 Status: F Source: [place] REPORT 5:00 PM [facility] REPOSITORY [facility] 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 Assessment AND Plan 1. 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 Concomittent with Mechainical MVR per Dr. Ronan Bailey, [facility], 03/10/2011 Plan - POLLY Ramos Stable, from [...] prior to saving. Follow Up 6 Months (SLOT AMBASSADOR) Coding Level of Care Code Off vis,est,level 3 Diagnoses Atherosclerosis of [place]anga coronary artery of [place] heart without angina pectoris I25.10 [place] vs. transplanted heart: [place]anga heart Nonrheumatic mitral valve regurgitation I34.0 Pure hypercholesterolemia E78.00; E78.0 Hyperlipidemia type: pure hypercholesterolemia Right carotid bruit R09.89 Coding Level of Care Code Off vis,est,level 3 Diagnoses Atherosclerosis of [place] coronary artery of [place] heart without angina pectoris I25.10 [place] vs. transplanted heart: [place] heart Nonrheumatic mitral valve regurgitation I34.0 Pure hypercholesterolemia E78.00; E78.0 Hyperlipidemia type: pure hypercholesterolemia Right carotid bruit R09.89 10/01/17 1408 <Electronically signed by Argelia MATIAS> Date Argelia MATIAS 10/01/17 1700<Electronically signed by Jack Keating MD> Cosigner Signature: Date (if applicable) Jack Keating MD CC: Tank Treadwell MD PROTHROMBIN TIME AND Collected: 09/30/2017 Status: F Source: [place] [facility] 1:06 PM [facility] REPOSITORY TYPE CODE TESTS RESULT OUT OF [...] 3.5 MECHANICAL HEART VALVES Performed By: #### [id number] #### [facility],[address] [place] [address] PROTHROMBIN TIME AND Collected: 09/14/2017 Status: F Source: [place] IN[place] 1:03 PM [facility] REPOSITORY TYPE CODE TESTS RESULT OUT OF [...] 3.5 MECHANICAL HEART VALVES Performed By: #### [id number] #### [place] [address] PROTHROMBIN TIME AND Collected: 09/02/2017 Status: F [facility] REPOSITORY TYPE CODE TESTS RESULT OUT OF [...] 3.5 MECHANICAL HEART VALVES Performed By: #### [id number] #### [place] [id number] PROTHROMBIN TIME AND Collected: 08/19/2017 Status: F Source: [place] IN[place] 11:17 AM [facility] REPOSITORY TYPE CODE TESTS RESULT OUT OF [...] 3.5 MECHANICAL HEART VALVES Performed By: #### [id number] #### [facility],[address] [place] [address] PROTHROMBIN TIME AND Collected: 08/12/2017 Status: F Source: [facility] INR 11:33 AM [facility] REPOSITORY TYPE CODE TESTS RESULT OUT OF REFERENCE UNITS RANGE LAB PROTHROMBIN TIME AND INR(LOINC) PROTHROMBIN TIME AND INR Result Comment: PROTHROMBIN TIME AND INR LAB PT-COUMADIN(LOINC) sec PT-COUMADIN 50.9 LAB INR(LOINC) 0.8 - 1.2 INR High Alert 4.7 Result Comment: { CALLED TO ALFIE/1537/BKO { READ BACK BY ALFIE/[id number] { TEST REPEATED THE HEMOSIL THROMBOPLASTIN REAGENT [...] 3.5 MECHANICAL HEART VALVES Performed By: #### [id number] #### [facility],[address] [place], [place] [id number] PNH PANEL BY FCM Collected: 08/02/2017 Status: F Source: [place] 12:38 PM [facility] REPOSITORY TYPE CODE TESTS RESULT OUT OF RANGE REFERENCE UNITS LAB PNHINT Negative. No PNH clone Interpretation Abnormal detected. Account Alert Credited Result Comment: SENT TO [facility] Performed By: #### PNHPNL #### [facility] [address] [place], [place] [address] #### PNHF #### [facility]-[address] [address] PNH PANEL BY FCM Collected: 08/02/2017 Status: F Source: [place] 12:38 PM [facility] REPOSITORY TYPE CODE TESTS RESULT OUT [...] used for cell gating and interpretation. RBCs: VB249t and CD59. WBCs: CD14, CD15, CD16, CD24, CD33, CD45, FLAER. This test was developed using an analyte specific reagent. Its performance characteristics were determined by [facility] in a manner consistent with CLIA requirements. This test has not been cleared or approved by the U.S. Food and Drug Administration. LAB PNHRP 0.00-0.99 % PNH RBC Part Ag Loss 0.01 LAB PNHRC 0.00-0.01 % PNH RBC Comp Ag Loss 0.00 LAB PNHG 0.00-0.01 % PNH Granulocytes 0.00 LAB PNHM 0.00-0.05 % PNH Monocytes 0.00 Performed By: #### PNHPNL #### [facility] [address] [place], [place] [address] #### PNHF #### [facility]-[address] [address] [place] ABS GR + CBC Collected: 07/29/2017 Status: F Source: [place] 2:43 PM [facility] REPOSITORY TYPE CODE TESTS RESULT OUT OF REFERENCE UNITS RANGE LAB WWBC 3.70-11.00 k/uL [place] WBC 10.64 LAB WRBC 3.90-5.20 m/uL [place] RBC 4.01 LAB WHGB 11.5-15.5 g/dL [place] Hemoglobin 12.0 LAB WHCT 36.0-46.0 % [place] Hematocrit 36.5 LAB WMCV 80.0-100.0 fL [place] MCV 91.0 LAB WMCH 26.0-34.0 pg [place] MCH 29.9 LAB WMCHC 30.5-36.0 g/dL [place] MCHC 32.9 LAB WRDW 11.5-15.0 % [place] RDW 13.9 LAB WPLT 150-400 k/uL [place] Platelet Cnt 256 LAB WMPV 9.0-12.7 fL [place] MPV 10.3 Result Comment: Test performed at: [facility], [address] [place] [address] Rd., [place] [address]. LAB ABGRAN 1.45-7.50 k/uL High Absol 8.18 Gran Count RETICULOCYTE Collected: 07/29/2017 Status: F Source: [place] 2:43 PM [facility] [place] REPOSITORY TYPE CODE TESTS RESULT OUT OF REFERENCE UNITS RANGE LAB RETC 0.4-2.0 % High Retic% 2.9 LAB ABRET 0.0180-0.1000 M/uL High Abs Retic 0.118 Performed By: #### RETIC, LD6, IRON, HAPTO, FERR #### [facility] [address] [place] [address] LD Collected: 07/29/2017 Status: F Source: [facility] 2:43 PM [facility] [place] REPOSITORY TYPE CODE TESTS RESULT OUT OF RANGE REFERENCE UNITS LAB LD 135-214 U/L High LD 768 Performed By: #### RETIC, LD6, IRON, HAPTO, FERR #### [facility] [address] [place] [address] IRON AND TIBC Collected: 07/29/2017 Status: F Source: [place] 2:43 PM [facility] REPOSITORY TYPE CODE TESTS RESULT OUT OF REFERENCE UNITS RANGE LAB IRN 41-186 ug/dL Iron 69 LAB TIBC 232-386 ug/dL TIBC 304 LAB SAT 15-57 % Transferrin Saturatn 23 Performed By: #### RETIC, LD6, IRON, HAPTO, FERR #### [facility] [address] [place] [id number] HAPTOGLOBIN Collected: 07/29/2017 Status: F Source: [place] 2:43 PM [facility] [place] REPOSITORY TYPE CODE TESTS RESULT OUT OF REFERENCE UNITS RANGE LAB HAPTO 31-238 mg/dL Low Haptoglobin <10 Performed By: #### RETIC, LD6, IRON, HAPTO, FERR #### [facility] [address] [address] [place], [place] [address] FERRITIN Collected: 07/29/2017 Status: F Source: AGRA 2:43 PM [facility] REPOSITORY TYPE CODE TESTS RESULT OUT OF REFERENCE UNITS RANGE LAB FERR 14.7-205.1 ng/mL High Ferritin 484.7 Performed By: #### RETIC, LD6, IRON, HAPTO, FERR #### [facility] [address] [place], [place] [address] PROTHROMBIN TIME AND Collected: 07/22/2017 Status: F Source: HONG STELLA INR 1:35 PM [facility] REPOSITORY TYPE CODE TESTS RESULT OUT OF [...] 3.5 MECHANICAL HEART VALVES Performed By: #### [id number] #### [facility],[address] [place] [address] PROTHROMBIN TIME AND Collected: 07/15/2017 Status: F Source: HONGEUSEBIA VILLALTALUDINMT INR 2:16 PM [facility] REPOSITORY TYPE CODE TESTS RESULT OUT OF [...] 3.5 MECHANICAL HEART VALVES Performed By: #### [id number] #### [facility],[address] [place] [address] ALLERGIES ALLERGIES DATE TYPE / CODE NAME / CODE REACTION SEVERITY SOURCE 05/24/2018 Drug adhesive Rash SV [place] Allergy/209862008(S tape/[id number] [facility] NOMED CT) (RXNORM) Hospital Repository 05/24/2018 Drug paroxetine/F006 Many side SV [place] Allergy/437986818(S 439028(RXNORM) [facility] 12/30/2014 Drug No Known Unknown [place] Allergy/334675007(S Allergies/F0019 [facility] [address]([facility] Repository Drug NO KNOWN Walsh Class/907172076(SNO ALLERGIES [facility]) [place] Repository Miscellaneous No Known [facility] Allergy/735796500(S Allergies (Severity [facility] NOMED CT) Modifier) Hospital (Qualifier Repository Value) ENCOUNTERS ENCOUNTERS ADMIT/DISCHARGE ACCOUNT ADMITTING ENCOUNTER LOCATION SOURCE NUMBER CLASS 06/27/2018 [id number] [facility] ing:CVS Repository 06/13/2018 [id number] [facility] ing:LAB Repository 06/09/2018 [id number] Ambulatory [facility] ing:OPBD Repository 06/07/2018 [id number] Ambulatory [facility] ing:OPBD Repository 06/07/2018/06/13/20 [id number] Ambulatory [address] ing:LAB Repository 05/24/2018/05/24/20 [id number] Ambulatory BMS[facility] [place] [facility] 05/24/2018 [id number] [facility] ing:LAB Repository 05/17/2018 [id number] [facility] ing:LAB Repository 04/27/2018/04/27/20 [id number] Ambulatory [address] Repository 04/27/2018/04/28/20 [id number] Ambulatory [address] Repository 04/20/2018/04/21/20 [id number] Ambulatory [address] Repository 04/19/2018 [id number] Ambulatory BMSBuilding:[place] [facility] Repository 04/18/2018/04/18/20 [id number] ZURI, JACK Ambulatory [address] Repository 04/12/2018 [id number] Ambulatory [facility] ing:POLAB3 Repository 03/29/2018/03/29/20 [id number] ZURI, JAKC Ambulatory [address] Repository 03/29/2018 [id number] Ambulatory BMSBuilding:[place] [facility] Repository 03/25/2018 [id number] Ambulatory [facility] Repository 03/15/2018/03/15/20 [id number] ZURI, JACK Ambulatory [address] Repository 02/28/2018 [id number] Ambulatory BMSBuilding:[place] [facility] Repository 02/28/2018/02/29/20 [id number] ZURI, JACK Ambulatory [address] Repository 02/21/2018 [id number] Ambulatory BMSBuilding:[place] [facility] Repository 02/21/2018/02/22/20 [id number] ZURI, JACK Ambulatory [address] Repository 02/17/2018 [id number] Ambulatory [facility] Hospital ing:POLAB3 Repository 02/16/2018 [id number] Ambulatory BMSBuilding:[place] [facility] Repository 02/16/2018/02/17/20 [id number] ZURI, JACK Ambulatory [address] Repository 02/02/2018/02/03/20 [id number] ZURI, JACK Ambulatory [address] Repository 02/02/2018 [id number] Ambulatory BMSBuilding:[place]be[place] [facility] Repository 01/27/2018 [id number] Ambulatory BMSBuilding:[place] [facility] Repository 01/27/2018/01/28/20 [id number] ZURI, JACK Ambulatory [address] Repository 01/26/2018/01/28/20 [id number] Ambulatory [address] Repository 01/25/2018 [id number] Ambulatory BMSBuilding:[place] [facility] Repository 01/24/2018/01/25/20 [id number] ZURI, JACK Ambulatory [address] Repository 01/20/2018 [id number] Ambulatory BMSBuilding:[place] [facility] Repository 01/20/2018/01/21/20 [id number] ZURI, JACK Ambulatory [address] Repository 01/05/2018 [id number] ZURI, JACK Ambulatory [facility] Repository 12/29/2017 [id number] Ambulatory BMSBuilding:[place] [facility] Repository 12/29/2017/12/30/19 [id number] ZURI, JACK Ambulatory [address] Repository 12/03/2017 [id number] Ambulatory [facility] ing:LAB Repository 11/05/2017 [id number] Ambulatory BMSBuilding:[place] [facility] Repository 11/04/2017/11/05/19 [id number] ZURI, JACK Ambulatory [address] Repository 10/27/2017/10/29/19 [id number] Ambulatory [address] Repository 10/20/2017/10/22/19 [id number] Ambulatory [address] Repository 10/14/2017 [id number] Ambulatory BMSBuilding:[place] [facility] Repository 10/14/2017/10/15/19 [id number] ZURI, JACK Ambulatory [address] Repository 10/13/2017 [id number] Ambulatory [facility] ing:CVS Repository 10/05/2017 [id number] Ambulatory [facility] ing:POLAB3 Repository 10/01/2017/10/02/19 [id number] Ambulatory BMSBuilding:[place] [address] [facility] Repository 10/01/2017 [id number] Ambulatory BMSBuilding:[place] [facility] Repository 09/30/2017/10/01/19 [id number] ZURI, JCAK Ambulatory [address] Repository 09/14/2017/09/15/19 [id number] ZURI, JACK Ambulatory [address] Repository 09/14/2017 [id number] Ambulatory BMSBuilding:[place] [facility] Repository 09/02/2017/09/02/19 [id number] ZURI, JACK Ambulatory [address] Repository 08/19/2017/08/19/19 [id number] ZURI, JACK Ambulatory [address] Repository 08/12/2017/08/12/19 [id number] ZURI, JACK Ambulatory [address] Repository 08/02/2017/08/02/19 [id number] Ambulatory [address] Repository 07/30/2017/07/30/19 [id number] Ambulatory [address] Repository 07/29/2017/07/30/19 [id number] Ambulatory [address] Repository 07/22/2017 [id number] Ambulatory BMSBuilding:[place] [facility] Repository 07/22/2017/07/22/19 [id number] ZURI, JACK Ambulatory [address] Repository 07/15/2017/07/15/19 [id number] ZURI, JACK Ambulatory [address] Repository PAYERS PAYERS ENCOUNTER GUARANTOR PAYER SUBSCRIBER SOURCE 06/27/2018 PABLO Sanabria Primary PABLO Rosa [id number] Insurance:Ming TALAVERA: [facility] Number: [id number] Repository [address]Zlr: (330) Date:9511-18-14HT [phone] () [id number], [place] [address]LZ: 06/27/2018 Secondary NOT GIVENUNK [place] Insurance:SELF PAY [facility] Number: Effective Repository Date:2018-06-21 06/13/2018 PABLO A Primary PABLO A [place] [id number] Insurance:ANTHEMPolicy FLINNERDOB: Community [place] Number: [id number], [place] [id number] Repository [address]Aer: (330) Date:0808-66-95AJ [phone] () 456999IAQYTRI, [place] [address]CH: 06/13/2018 Secondary NOT GIVENUNK [place] Insurance:SELF PAY [facility] Number: Effective Repository Date:2018-06-13 06/09/2018 PABLO A Primary PABLO A [place] [id number] Insurance:ANTHEMPolicy FLINNERDOB: Community [place] Number: [id number], [place] [id number] Repository [address]Plu: (330) Date:1572-32-79JE [phone] () 193123VEXTVGD, [place] [address]FA: 06/09/2018 Secondary NOT GIVENUNK [place] Insurance:SELF PAY [facility] Hospital Number: Effective Repository Date:2018-06-06 06/07/2018 PABLO A Primary PABLO A [place] [id number] Insurance:ANTHEMPolicy FLINNERDOB: Community [place] Number: [id number], [place] [id number] Repository [address]Muw: (330) Date:1565-86-76AS [phone] () 583572LXXNGAO, [place] [address]NX: 06/07/2018 Secondary NOT GIVENUNK [place] Insurance:SELF PAY [facility] Number: Effective Repository Date:2018-04-14 06/07/2018 PABLO A Primary PABLO A [place] [id number] Insurance:ANTHEMPolicy FLINNERDOB: Community [place] Number: [id number], [place] [id number] Repository [address]Vpp: (330) Date:3153-93-41CZ [phone] () [id number], [place] [address]WW: 06/07/2018 Secondary NOT GIVENUNK [place] Insurance:SELF PAY [facility] Number: Effective Repository Date:2018-06-07 05/24/2018 PABLO A Primary PABLO A [place] [id number] Insurance:ANTHEMPolicy FLINNERDOB: [facility] [place] Number: [id number], [place] [id number] Repository [address]Zqa: (330) Date:0227-64-61BM [phone] () [id number], [place] [address]ZO: 05/24/2018 Secondary NOT GIVENUNK [place] Insurance:SELF PAY [facility] Number: Effective Repository Date:2018-05-24 05/24/2018 PABLO A Primary PABLO A [place] [id number] Insurance:ANTHEMPolicy [facility]DOB[facility] Number: [id number], [place] [id number] Repository [address]Lsk: (330) Date:1711-36-79PI [phone] () 829986VQABRMF, [place] [address]FN: 05/24/2018 Secondary NOT GIVENUNK [place] Insurance:SELF PAY [facility] Number: Effective Repository Date:2018-05-24 05/17/2018 PABLO A Primary PABLO A [place] [id number] Insurance:ANTHEMPolicy FLINNERDOB: [facility] Number: [id number], [place] [id number] Repository [address]Eoo: (330) Date:4203-08-04DZ [phone] () 805038YPXLYSI, [place] [address]DD: 05/17/2018 Secondary NOT GIVENUNK [place] Insurance:SELF PAY [facility] Number: Effective Repository Date:2018-05-17 04/19/2018 Pablo Sanabria Primary Pablo Rosa [id number] Insurance:ANTHEMPolicy FlinnerDOB: [facility] Number: [id number] View Regional Medical Center Box [id number] Repository [address], [place] Date:5188-19-83MK [address] [address]Dse: (538) [id number], [place] [phone] () 26[address]OX: 04/19/2018 Secondary NOT GIVENUNK [place] Insurance:SELF PAY [facility] Number: Effective Repository Date:2018-04-19 04/18/2018 CLEMENTINE Luna Primary Insurance:JOAQUÍN Castro FLINNERDOB: [address] [birth year] ANTHEM FLINNERDOB: [facility] [id number] Memorial Hospital [id number] Hospital [address] Number: [address], Repository [place] [id number] [place] [id number] [facility], Date:Plan Name:B2 Ne [id number]: () 04/12/2018 Pablo Sanabria Primary Pablo Rosa [id number] Insurance:ANTHEMPolicy FlinnerDOB: [facility] Number: [id number] View Regional Medical Center Box [id number] Repository [address] [place] [address], [place] Date:7019-86-33QH [address] [address]Nnn: (194) 742254XYPNJOZ, [place] [phone] () [address]VC: 04/12/2018 Secondary NOT GIVENUNK [place] Insurance:SELF PAY [facility] Number: Effective Repository Date:2018-04-12 03/29/2018 CLEMENTINE Luna Primary Insurance:JOAQUÍN Castro FLINNERDOB: [address] ANTHEM FLINNERDOB: [facility] 9078-24-12ECCaribou Memorial Hospital 8241-10-63FVEGN Hospital [address] Number: [address], Repository [place] [id number] [place] [id number] [facility], Date:Plan Name:B2 Ne [id number]: () 03/29/2018 Pablo A Primary Pablo Rosa [id number] Insurance:ANTHEMPolicy FlinnerDOB: [facility] Number: [id number] View Regional Medical Center Box [id number] Repository [facility] [place] Date:9697-69-08VW [address] [address]Yat: (077) [phone], [place] [phone] () 611[address]DD: 03/29/2018 Secondary NOT GIVENUNK [place] Insurance:SELF PAY [facility] Number: Effective Repository Date:2018-03-29 03/15/2018 CLEMENTINE Luna Primary Insurance:JOAQUÍN Swansoncatherine FLINNERDOB: [address] [birth year] ANTHEM FLINNERDOB: [facility] [id number] Memorial Hospital [id number] Hospital [address] Number: MARIA A 194[place], Repository [place] [id number] [place] [id number] [facility], Date:Plan Name:[facility] [id number]: () 02/28/2018 Pablo A Primary Pablo Rosa [id number] Insurance:ANTHEMPolicy FlinnerDOB: [facility] Number: [id number] View Regional Medical Center Box [id number] Repository [facility] [place] Date:5363-50-42EB [address] [address]Gzm: (311) [phone], [place] [phone] () 534[address]PY: 02/28/2018 Secondary NOT GIVENUNK [place] Insurance:SELF PAY [facility] Number: Effective Repository Date:2018-02-28 02/28/2018 CLEMENTINE Luna Primary Insurance:JOAQUÍN Castro FLINNERDOB: [address] ANTHEM FLINNERDOB: [facility] [id number] OUTPATIENTKaleida Health [id number] Hospital [address] Number: MARIA A [place], Repository [place] [id number] [place] [id number] [facility], Date:Plan Name:[facility] [id number]: () 02/21/2018 Pablo A Primary Pablo Jasonoster [id number] Insurance:ANTHEMPolicy FlinnerDOB: [facility] Number: [id number] View Regional Medical Center Box [id number] Repository [address] [place] [address], [place] Date:2408-16-90PK [address] [address]Trl: ([phone]) [phone], [place] [phone] () 25253WZ: 02/21/2018 Secondary NOT GIVENUNK [place] Insurance:SELF PAY [facility] Number: Effective Repository Date:2018-02-21 02/21/2018 CLEMENTINE Luna Primary Insurance:JOAQUÍN MONTOYAALD Hong Castro FLINNERDOB: [address] [birth year] ANTHEM FLINNERDOB: [facility] [id number] Memorial Hospital [id number] Hospital [address] Number: MARIA A [place], Repository [place] [id number] Ne [id number] [facility], Date:Plan Name:[facility] [id number]: () 02/17/2018 Pablo A Primary Pablo A [place] [id number] Insurance:ANTHEMPolicy FlinnerDOB: [facility] Number: [id number] View Regional Medical Center Box [id number] Repository [address], [place] Date:6234-10-83YV [address] [address]Nnt: (054) 587102294572VPAGEENJENISON, [place] [phone] () 917[address]OV: 02/17/2018 Secondary NOT GIVENUNK [place] Insurance:SELF PAY [facility] Number: Effective Repository Date:2018-02-17 02/16/2018 Pablo A Primary Pablo A [place] [id number] Insurance:ANTHEMPolicy FlinnerDOB: Community [facility] Number: [id number] View Regional Medical Center Box [id number] Repository [address], [place] Date:6437-73-52GS [address] [address]Ebg: (485) 782543MKHMYMO, [place] [phone] () 52[address]CV: 02/16/2018 Secondary NOT GIVENUNK [place] Insurance:SELF PAY [facility] Number: Effective Repository Date:2018-02-16 02/16/2018 CLEMENTINE D Primary Insurance:JOAQUÍN Castro FLINNERDOB: [address] ANTHEM FLINNERDOB: [facility] [id number] Memorial Hospital 5082-64-75WCSJN Hospital [address] Number: [address], Repository [place] [id number] [place] [id number] [facility], Date:Plan Name:[facility] [id number]: () 02/02/2018 [facility] Primary Insurance:JOAQUÍN Castro FLINNERDOB: [address] ANTHEM FLINNERDOB: [facility] [id number] Memorial Hospital [id number] Hospital [address] Number: [address], Repository [place] [id number] [place] [id number] [facility], Date:Plan Name:[facility] [id number]: () 02/02/2018 Pablo A Primary Pablo A [place] [id number] Insurance:ANTHEMPolicy FlinnerDOB: [facility] Number: [id number] View Regional Medical Center Box [id number] Repository [address], [place] Date:7846-45-98UJ [address] [address]Ybo: (885) 083028NHECGHM, [place] [phone] () 37539EV: 02/02/2018 Secondary NOT GIVENUNK [place] Insurance:SELF PAY [facility] Number: Effective Repository Date:2018-02-02 01/27/2018 Pablo A Primary Pablo A [place] [id number] Insurance:ANTHEMPolicy FlinnerDOB: [facility] [place] Number: [id number] View Regional Medical Center Box [id number] Repository [address], [place] Date:7196-21-37ET [address] [address]Rzo: (030) 459853XSXPMKYJENISON, [place] [phone] () 28445DL: 01/27/2018 Secondary NOT GIVENUNK [place] Insurance:SELF PAY [facility] Number: Effective Repository Date:2018-01-27 01/27/2018 CLEMENTINE D Primary Insurance:JOAQUÍN Castro FLINNERDOB: [address] ANTHTARYN FLINNERDOB: [facility] [id number] OUTPATIENTKaleida Health [id number] Hospital [address] Number: [address], Repository [place] [id number] [place] [id number] [facility], Date:Plan Name:B2 Ne [id number]: () 01/25/2018 Pablo A Primary Pablo Rosa [id number] Insurance:ANTHEMPolicy FlinnerDOB: [facility] Number: [id number] View Regional Medical Center Box [id number] Repository [address], [place] Date:3472-05-49XC [address] [address]Cyt: (740) 202428EABNGBYJENISON, [place] [phone] () 77366YX: 01/25/2018 Secondary NOT GIVENUNK [place] Insurance:SELF PAY [facility] Number: Effective Repository Date:2018-01-25 01/24/2018 CLEMENTINE D Primary Insurance:JOAQUÍN Castro FLINNERDOB: [address] ANTHTARYN FLINNERDOB: [facility] [id number] OUTPATIENTKaleida Health 8485-43-00ECDAH Hospital [address] Number: [address], Repository [place] [id number] [place] [id number] [facility], Date:Plan Name:B2 Ne [id number]: () 01/20/2018 Pablo A Primary Pablo Jasonoster [id number] Insurance:ANTHEMPolicy FlinnerDOB: [facility] [place] Number: [id number] View Regional Medical Center Box [id number] Repository [address], [place] Date:5016-07-25LJ [address] [address]Zeb: (672) [phone], [place] [phone] () 34[address]MO: 01/20/2018 Secondary NOT GIVENUNK [place] Insurance:SELF PAY [facility] Number: Effective Repository Date:2018-01-20 01/20/2018 CLEMENTINE Luna Primary Insurance:JOAQUÍN Castro FLINNERDOB: [address] ANTHEM FLINNERDOB: [facility] [id number] Memorial Hospital 2175-14-12PNWHV Hospital [address] Number: [address], Repository [place] [id number] [place] [id number] [facility], Date:Plan Name:[facility] [id number]: () 01/05/2018 CLEMENTINE Luna Primary Insurance:JOAQUÍN Castro FLINNERDOB: [address] ANTHEM FLINNERDOB: [facility] 5484-11-79VECaribou Memorial Hospital 5726-03-19DQLBI Hospital [address] Number: [address], Repository [place] [id number] [place] [id number] [facility], Date:Plan Name:[facility] [id number]: () 12/29/2017 Pablo A Primary Pablo Rosa [id number] Insurance:ANTHEMPolicy FlinnerDOB: [facility] Number: [id number] View Regional Medical Center Box [id number] Repository [address], [place] Date:3390-28-98NU [address] [address]Pqm: (752) 833714ZJUBDQQJENISON, [place] [phone] () 70854HO: 12/29/2017 Secondary NOT GIVENUNK [place] Insurance:SELF PAY [facility] Number: Effective Repository Date:2017-12-29 12/29/2017 CLEMENTINE Luna Primary Insurance:JOAQUÍN Castro FLINNERDOB: [address] ANTHEM FLINNERDOB: [facility] [id number] OUTPATIENTKaleida Health [id number] Hospital [address] Number: [address], Repository [place] [id number] [place] [id number] [facility], Date:Plan Name:[facility] [id number]: () 12/03/2017 Pablo Sanabria Primary Pablo Rosa [id number] Insurance:ANTHEMPolicy FlinnerDOB: [facility] Number: [id number] View Regional Medical Center Box [id number] Repository [address], [place] Date:1004-88-56VH [address] [address]Nyn: (524) 449567TGAVXMW, [place] [phone] () 81009XQ: 12/03/2017 Secondary NOT GIVENUNK [place] Insurance:SELF PAY [facility] Number: Effective Repository Date:2017-12-03 11/05/2017 Pablo A Primary Pablo Rosa [id number] Insurance:ANTHEMPolicy FlinnerDOB: [facility] Number: [id number] View Regional Medical Center Box [id number] Repository [address], [place] Date:1316-06-23QV [address] [address]Kub: (409) [id number], [place] [phone] () 30981WK: 11/05/2017 Secondary NOT GIVENUNK [place] Insurance:SELF PAY [facility] Number: Effective Repository Date:2017-11-05 11/04/2017 CLEMENTINE Luna Primary Insurance:JOAQUÍN Castro FLINNERDOB: [address] ANTHTARYN FLINNERDOB: [facility] [id number] OUTPATIENTKaleida Health 9274-40-68VAAPM Hospital [address] Number: [address], Repository [place] [id number] Ne [id number] [facility], Date:Plan Name:B2 Ne [id number]: () 10/14/2017 Pablo A Primary Pablo Rosa [id number] Insurance:ANTHEMPolicy FlinnerDOB: [facility] Number: [id number] View Regional Medical Center Box [id number] Repository [address], [place] Date:8132-23-37QY [address] [address]Xxu: (642) 867328CXIRMGM, [place] [phone] () 95603RR: 10/14/2017 Secondary NOT GIVENUNK [place] Insurance:SELF PAY [facility] Number: Effective Repository Date:2017-10-14 10/14/2017 CLEMENTINE Luna Primary Insurance:JOAQUÍN PABLO Pitts Ermaludincatherine FLINNERDOB: [facility] ANTHEM FLINNERDOB: [facility] 7519-07-21OOCaribou Memorial Hospital 3190-49-72HABVX Hospital [address] Number: [address], Repository [place] [id number] [place] [id number] [facility], Date:Plan Name:B2 Ne [id number]: () 10/13/2017 Pablo A Primary Pablo Jasonoster [id number] Insurance:ANTHEMPolicy FlinnerDOB: [facility] Number: [id number] View Regional Medical Center Box [id number] Repository [address], [place] Date:0965-23-87UF [address] [address]Wny: (313) [phone], [place] [phone] () 06752BB: 10/13/2017 Secondary NOT GIVENUNK [place] Insurance:SELF PAY [facility] Number: Effective Repository Date:2017-10-01 10/05/2017 Pablo A Primary Pablo Jasonoster [id number] Insurance:ANTHEMPolicy FlinnerDOB: [facility] Number: [id number] View Regional Medical Center Box [id number] Repository [address], [place] Date:5207-62-96IB [address] [address]Crv: (080) 441372NWSVOLV, [place] [phone] () 20685KY: 10/05/2017 Secondary NOT GIVENUNK [place] Insurance:SELF PAY [facility] Number: Effective Repository Date:2017-10-05 10/01/2017 Pablo Sanabria Primary Pablo Rosa [id number] Insurance:ANTHEMPolicy FlinnerDOB: [facility] Number: [id number] View Regional Medical Center Box [id number] Repository [address], [place] Date:0791-85-06GJ [address]Rmi: (942) [phone], [place] [phone] () 16341BN: 10/01/2017 Secondary NOT GIVENUNK [place] Insurance:SELF PAY [facility] Number: Effective Repository Date:2017-06-18 10/01/2017 Pablo A Primary Pablo Rosa [id number] Insurance:ANTHEMPolicy Fl[facility]: [facility] Number: [id number] View Regional Medical Center Box [id number] Repository [address], [place] Date:3419-69-23QD [address] [address]Roq: (316) 964807JZDIEWD, [place] [phone] () [id number]: 10/01/2017 Secondary NOT GIVENUNK Shelley Insurance:SELF PAY [facility] Number: Effective Repository Date:2017-10-01 09/30/2017 CLEMENTINE Luna Primary Insurance:JOAQUÍN Castro FLINNERDOB: CROSS [birth year] ANTHEM FLINNERDOB: [facility] [id number] [id number] [facility] [address]: [address], Repository [place] [id number] [place] [id number] [facility], Date:Plan Name:B2 Ne [id number]: () 09/14/2017 CLEMENTINE Luna Primary Insurance:BLUE PABLO Hong Pomerene FLINNERDOB: CROSS [birth year] ANTHEM FLINNERDOB: [facility] [id number] 6125-13-43BCDES Hospital [id number]: [address], Repository [place] [id number] [place] [id number] [facility], Date:Plan Name:[facility] [id number]: () 09/14/2017 Pablo A Primary Pablo Daniele Rosa [id number] Insurance:ANTHEMPolicy FlinnerDOB: [facility] Gackle Number: [id number] Box [id number] [address] Date:1321-77-63[address]Nfn: (864) [id number], [place] [phone] () [id number]: 09/14/2017 Secondary NOT GIVENUNK Hselley Insurance:SELF PAY [facility] Number: Effective Repository Date:2017-09-14 09/02/2017 CLEMENTINE D Primary Insurance:JOAQUÍN Castro FLINNERDOB: CROSS [birth year] ANTHEM FLINNERDOB: [facility] [id number] [facility] Hospital 9030-07-94BGUIQ Hospital [id number]: [address], Repository [place] [id number] [place] [id number] [facility], Date:Plan Name:[facility] [id number]: () 08/19/2017 CLEMENTINE D Primary Insurance:JOAQUÍN Castro FLINNERDOB: CR[address] [birth year] ANTHEM FLINNERDOB: [facility] 2045-28-21XCCaribou Memorial Hospital [id number] Hospital [id number]: [address], Repository [place] [id number] [place] [id number] [facility], Date:Plan Name:[facility] [id number]: () 08/12/2017 CLEMENTINE D Primary Insurance:JAOQUÍN Castro FLINNERDOB: CROSS [birth year] ANTHEM FLINNERDOB: [facility] [id number] Memorial Hospital [id number] Hospital [id number]: [address], Repository [place] [id number] [place] [id number] [facility], Date:Plan Name:[facility] [id number]: () 07/22/2017 Pablo A Primary Pablo Rosa [id number] Insurance:ANTHEMPolicy FlinnerDOB: [facility]ackle Number: [id number] View Regional Medical Center Box [id number] [address], [place] Date:8904-83-74[address] [address]Cqz: ([phone]) [id number], [place] [phone] () [id number]: 07/22/2017 Secondary NOT GIVENUNK Shelley Insurance:SELF PAY [facility] Number: Effective Repository Date:2017-07-22 07/22/2017 CLEMENTINE Luna Primary Insurance:JOAQUÍN Castro FLINNERDOB: CR[address] [birth year] ANTHTARYN FLINNERDOB: [facility] [id number] Memorial Hospital 6031-80-99JFAZL Hospital [address] Number: [address], Repository [place] [id number] [place] [id number] [facility], Date:Plan Name:[facility] [id number]: () 07/15/2017 CLEMENTINE Luna Primary Insurance:JOAQUÍN Castro FLINNERDOB: CR[address] [birth year] ANTHTARYN FLINNERDOB: [facility] [id number] Memorial Hospital 1186-17-32EFOPP Hospital [id number]: [address], Repository [place] [id number] [place] [id number] [facility], Date:Plan Name:[facility] [id number]: ()
== END ==
PROVIDERS: Family Provider Family Medicine Geriatric Medicine; PCP Family Medicine Geriatric Medicine; Visit Provider Family Medicine Geriatric Medicine
DX: Z12.31 Encounter for screening mammogram for malignant neoplasm of breast (principal)
CPT/HCPCS: 77063; 77067

== ENCOUNTER → 2018-06-09 12:58 | Outpatient (CLI) | payer BC, SELFPAY ==
[2018-05-24 13:27] VITALS: BMI 27.7
--- NOTE | 2018-06-09 13:06 | BD_ITS ---
STUDY: DUAL ENERGY X-RAY ABSORPTIOMETRY / DXA REASON FOR EXAM: Female, 67 years old. The patient is postmenopausal. Loss of height. TECHNIQUE: Bone Mineral Density (BMD) measurements of lumbar spine and bilateral hips were obtained. COMPARISON: Comparison is made with prior study dated March 25, 2010. FINDINGS: Lumbar Spine (L1-L4): g/cm2 (0.869) / T-score (-2.7) / Z-score (-1.0) Findings are suggestive of osteoporosis with a high fracture risk. Left Femur Total: g/cm2 (0.784) / T-score (-1.8) / Z-score (-0.5) Left Femoral Neck: g/cm2 (0.744) / T-score (-2.1) / Z-score (-0.6) Right Femur Total: g/cm2 (0.821) / T-score (-1.5) / Z-score (-0.3) Right Femoral Neck: g/cm2 (0.802) / T-score (-1.7) / Z-score (-0.2) The T-Scores on the most recent prior examination were: Lumbar Spine (L1-L4): There has been worsening of bone density since the previous examination. Left Femur Total: which represents a worsening of 11.0%. Right Femur Total: which represents a worsening of 9.5%. BD/Dexa Bone Density Study IMPRESSION: The patient is considered osteoporotic as outlined below according to World [employer] Organization (WHO) criteria with a high fracture risk. There has been worsening of bone density since the previous examination. Reference Information: The T-score is the number of standard deviations above or below the standard which is normal for young adults at their peak bone mineral density. The World Health Organization (WHO) interprets the T-scores as follows: Above -1 Normal bone density Between -1 and -2.5 Osteopenia Equal to / or below -2.5 Osteoporosis As a practical clinical guideline, osteopenia may be graded as follows: Mild -1 through -1.5 Moderate -1.6 through -2.0 Severe -2.1 through -2.4 The Z-score is the number of standard deviations above or below age-matched controls. A Z-score of less than -1.5 would be considered abnormal. References: 1. NIH Osteoporosis and Related Bone Diseases http://www.osteo.org 2. International Society for Clinical Densitometry http://www.iscd.org 3. National Osteoporosis Foundation http://www.nof.org Electronically Signed: Fermin Patterson MD at 15:32 EST Tel [phone], Service support ,
--- OUTSIDE RECORDS SUMMARY | 2018-08-04 16:42 | XMS RPT_ITS ---
:1950 Author Organization OHIP Support Name Relationship Address Phone EDJANPABLO Unavailable [address] [place] [address] + [address] [place] [address] R Unavailable Unavailable Unavailable PABLO WARD Unavailable [address] [place] [address] + [address] [place] [address] R Unavailable Unavailable Unavailable PABLO WARD Unavailable [address] [place] [address] + [address] [place] [address] R Unavailable Unavailable Unavailable PABLO WARD Unavailable [address] [place] [address] + [address] [place] [address] R Unavailable Unavailable Unavailable PABLO WARD Unavailable [address] + [place] [address] R Unavailable Unavailable Unavailable PABLO WARD Unavailable [address] + [place] [address] R Unavailable Unavailable Unavailable PABLO WARD Unavailable [address] + [place] [address] R Unavailable Unavailable Unavailable PABLO WARD Unavailable [address] + [place] [address] R Unavailable Unavailable Unavailable PABLO WARD Unavailable [address] + [place] [address] R Unavailable Unavailable Unavailable PABLO WARD Unavailable [address] + [address] [place], [place] [phone] PABLO WARD Unavailable [address] Un[address] [place], [place] [phone] NOT GIVEN Unavailable Unavailable Unavailable PABLO WARD Unavailable [address] + [place] [address] R Unavailable Unavailable Unavailable PABLO WARD Unavailable [address] + [address] [facility] [place], [place] [phone] PABLO WARD Unavailable [address] [facility] [place] [phone] NOT GIVEN Unavailable Unavailable Unavailable PABLO WARD Unavailable [address] + [place] [address] R Unavailable Unavailable Unavailable PABLO WARD Unavailable [address] + [address] [facility] [place] [phone] PABLO WARD Unavailable [address] Unavailable [address] [facility] [place] [phone] NOT GIVEN Unavailable Unavailable Unavailable PABLO WARD Unavailable [address] + [address] [facility] [place] [phone] PABLO WARD Unavailable [address] Unavailable [address] [place], [place] [phone] NOT GIVEN Unavailable Unavailable Unavailable PABLO WARD Unavailable [address] + [place] [address] R Unavailable Unavailable Unavailable PABLO WARD Unavailable [address] + [address] [facility] [place] [phone] PABLO WARD Unavailable [address] Unavailable [address] [place], [place] [phone] NOT GIVEN Unavailable Unavailable Unavailable PABLO WARD Unavailable [address] + [place] [address] R Unavailable Unavailable Unavailable PABLO WARD Unavailable [address] + [address] [facility] [place] [phone] PABLO WARD Unavailable [address] Unavailable [address] [facility] [place] [phone] NOT GIVEN Unavailable Unavailable Unavailable PABLO WARD Unavailable [address] + [place] [address] R Unavailable Unavailable Unavailable PABLO WARD Unavailable [address] + [place] [address] R Unavailable Unavailable Unavailable PABLO WARD Unavailable [address] + [address] [facility] [place] [phone] PABLO WARD Unavailable [address] [facility] [place], [place] [phone] NOT GIVEN Unavailable Unavailable Unavailable PABLO WARD Unavailable [address] + [address] [facility] [place], [place] [phone] PABLO WARD Unavailable [address] [facility] [place], [place] [phone] NOT GIVEN Unavailable Unavailable Unavailable PABLO WARD Unavailable [address] + [place] [address] R Unavailable Unavailable Unavailable PABLO WARD Unavailable [address] + [place] [address] R Unavailable Unavailable Unavailable PABLO WARD Unavailable [address] + [address] [facility] [place] [phone] PABLO WARD Unavailable [address] Unavailable [address] [facility] [place] [phone] NOT GIVEN Unavailable Unavailable Unavailable PABLO WARD Unavailable [address] + [place] [address] R Unavailable Unavailable Unavailable PABLO WARD Unavailable [address] + [address] [facility] [phone] PABLO WADR Unavailable [address] Unavailable [address] [facility] [place] [phone] NOT GIVEN Unavailable Unavailable Unavailable PABLO WARD Unavailable [address] + [place] [address] R Unavailable Unavailable Unavailable PABLO WARD Unavailable [address] + [address] [facility] [phone] PABLO WARD Unavailable [address] Unavailable [address] [facility] [phone] NOT GIVEN Unavailable Unavailable Unavailable PABLO WARD Unavailable [address] + [address] [facility] [phone] PABLO AWRD Unavailable [address] Unavailable [address] [facility] [phone] NOT GIVEN Unavailable Unavailable Unavailable PABLO WARD Unavailable [address] + [place] [address] R Unavailable Unavailable Unavailable PABLO WARD Unavailable [address] + [address] [facility] [place], [place] [phone] PABLO WARD Unavailable [address] [facility] [place], [place] [phone] NOT GIVEN Unavailable Unavailable Unavailable PABLO WARD Unavailable [address] + [place] [address] R Unavailable Unavailable Unavailable PABLO WARD Unavailable [address] + [place] [address] R Unavailable Unavailable Unavailable PABLO WARD Unavailable [address] + [address] [facility] [place], [place] [phone] PABLO WARD Unavailable [address] Unavailable [address] [facility] [phone] NOT GIVEN Unavailable Unavailable Unavailable PABLO WARD Unavailable [address] + [place] [address] R Unavailable Unavailable Unavailable PABLO WARD Unavailable [address] + [address] [facility] [phone] PABLO WARD Unavailable [address] Unavailable [address] [facility] [phone] NOT GIVEN Unavailable Unavailable Unavailable PABLO WARD Unavailable [address] + [place] [address] R Unavailable Unavailable Unavailable PABLO WARD Unavailable [address] + [place] [address] R Unavailable Unavailable Unavailable PABLO WARD Unavailable [address] + [place] [address] R Unavailable Unavailable Unavailable R Unavailable Unavailable Unavailable PABLO WARD Unavailable [address] + [place] [address] ED SAMIR Unavailable [address] [place] [facility] + [address] [place] [address] R Unavailable Unavailable Unavailable PABLO WARD Unavailable [address] + [address] [facility] [place], [place] [phone] PABLO WARD Unavailable [address] Unavailable [address] [place] [facility] [phone] NOT GIVEN Unavailable Unavailable Unavailable PABLO WARD Unavailable [address] + [address] [facility] [place], [place] [phone] PABLO WARD Unavailable [address] [facility] [place], [place] [phone] NOT GIVEN Unavailable Unavailable Unavailable PABLO WARD Unavailable [address] + [place] [address] ED SAMIR Unavailable [address] [place] [address] + [address] [place] [address] R Unavailable Unavailable Unavailable PABLO WARD Unavailable [address] + [address] [facility] [place], [place] [phone] PABLO WARD Unavailable [address] Unavailable [address] [facility] [facility] [phone] NOT GIVEN Unavailable Unavailable Unavailable PABLO WARD Unavailable [address] + [address] [facility] [place], [place] [phone] PABLO WARD Unavailable [address] Unavailable [address] [facility] [facility] [phone] NOT GIVEN Unavailable Unavailable Unavailable PABLO WARD Unavailable [address] + [address] [facility] [place], [place] [phone] PABLO WARD Unavailable [address] Unavailable [address] [facility] [facility] [phone] NOT GIVEN Unavailable Unavailable Unavailable PABLO WARD Unavailable [address] + [place] [address] ED SAMIR Unavailable [address] [place] [address] + [address] [place] [address] R Unavailable Unavailable Unavailable PABLO WARD Unavailable [address] + [address] [facility] [place], [place] [phone] PABLO WARD Unavailable [address] [facility] [place], [place] [phone] NOT GIVEN Unavailable Unavailable Unavailable PABLO WARD Unavailable [address] + [address] [facility] [place], [place] [phone] PABLO WARD Unavailable [address] [facility] [place], [place] [phone] NOT GIVEN Unavailable Unavailable Unavailable Care Team Providers Name Role Phone ZURI, JACK S Admitting Unavailable ZURI, JACK [...] Unavailable ZURI, JACK S Primary Care Unavailable MILE, TANK MD Consulting Unavailable PROVIDER, UNKNOWN Consulting Unavailable PROVIDER, UNKNOWN Consulting Unavailable ZURI, JACK S Admitting Unavailable ZURI, JACK S Attending Unavailable ZURI, JACK S Primary Care Unavailable MILE, TANK MD Consulting Unavailable PROVIDER, UNKNOWN Consulting Unavailable PROVIDER, UNKNOWN Consulting Unavailable ZURI, JACK S Admitting Unavailable ZURI, JACK S Attending Unavailable ZURI, JACK S Primary Care Unavailable MILE, TNAK MD Consulting Unavailable PROVIDER, UNKNOWN Consulting Unavailable PROVIDER, UNKNOWN Consulting Unavailable ZURI, JACK S Admitting Unavailable ZURI, JACK S Attending Unavailable ZURI, JACK S Primary Care Unavailable MILE, TANK MD Consulting Unavailable PROVIDER, UNKNOWN Consulting Unavailable PROVIDER, UNKNOWN Consulting Unavailable ZURI, JACK S Admitting Unavailable ZURI, JACK S Attending Unavailable ZURI, JACK S Primary Care Unavailable MILE, TANK MD Consulting Unavailable PROVIDER, UNKNOWN Consulting Unavailable PROVIDER, UNKNOWN Consulting Unavailable ZURI, JACK S Admitting Unavailable ZURI, JACK S Attending Unavailable ZURI, JACK S Primary Care Unavailable MILE, TANK MD Consulting Unavailable PROVIDER, UNKNOWN Consulting Unavailable PROVIDER, UNKNOWN Consulting Unavailable ZURI, JACK S Admitting Unavailable ZURI, JACK S Attending Unavailable ZURI, JACK S Primary Care Unavailable MILE, TANK MD Consulting Unavailable PROVIDER, UNKNOWN Consulting Unavailable PROVIDER, UNKNOWN Consulting Unavailable Mile, Tank Chi Attending Unavailable Mile, Tank Chi Attending Unavailable Argelia [place] Attending Unavailable Mile, Tank Chi Referring Unavailable Mile, Tank Chi Primary Care Unavailable Mile, Tank Chi Attending Unavailable Mile, Tank Chi Attending Unavailable Mile, Tank Chi Primary Care Unavailable Argelia [place] Attending Unavailable Mile, Tank Chi Primary Care Unavailable Mile, Tank Chi Attending Unavailable Mile, Tank Chi Attending Unavailable Zuri, Jack Attending Unavailable Mile, Tank Chi Primary Care Unavailable Mile, Tank Chi Attending Unavailable Mile, Tank Chi Attending Unavailable Mile, Tank Chi Attending Unavailable EidArgelia santos Attending Unavailable Mile, Tank Chi Primary Care Unavailable Argelia [place] Referring Unavailable Mile, Tank Chi Attending Unavailable Mile, Tank Chi Attending Unavailable Mile, Atnk Chi Attending Unavailable Mile, Tank Chi Attending Unavailable Mile, Tank Chi Primary Care Unavailable Mile, Tank Chi Referring Unavailable Mile, Tank Chi Attending Unavailable Mile, Tnak Chi Attending Unavailable Mile, Tank Chi Attending Unavailable Mile, Tank Chi Attending Unavailable Mile, Tank Chi Primary Care Unavailable Mile, Tank Chi Attending Unavailable Zuri, Jack Attending Unavailable Zuri, Dawn Referring Unavailable Mile, Tank Chi Primary Care Unavailable Zuri, Dawn Attending Unavailable Zuri, Dawn Referring Unavailable Mile, Tank Chi Primary Care Unavailable Zuri, Jack Attending Unavailable Mile, Tank Chi Referring Unavailable Mile, Tank Chi Attending Unavailable Mile, Tank Chi Primary Care Unavailable Mile, Tank Chi Attending Unavailable Mile, Tank Chi Primary Care Unavailable Zuri, Jack Attending Unavailable Zuri, Dawn Referring Unavailable Mile, Tank Chi Primary Care Unavailable Zuri, Dawn Attending Unavailable Zuri, Dawn Referring Unavailable Mile, Tank Chi Primary Care Unavailable MASCI, LUI A Referring Unavailable MASCI, [...] / CODE ATTENDING STATUS SOURCE 06/13/2018 Unknown 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, 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 / Hospital Z95.2(ICD-10) Repository 06/13/2018 Unknown Z79.01 - long-term Zuri, Jack Active [place] (current) use of Community anticoagulants / Hospital Z79.01(ICD-10) Repository 06/13/2018 Unknown I77.9 - Disorder of Zuri, Jack Active [place] arteries and Community arterioles, Hospital unspecified / Repository I77.9(ICD-10) 06/13/2018 Unknown 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, 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 / Hospital I65.22(ICD-10) Repository 05/24/2018 Unknown R09.89 - Other Zuri, Jack Active [place] specified symptoms Community and signs involving Hospital the circulatory and Repository respiratory systems / R09.89(ICD-10) 05/24/2018 Unknown Z95.1 - Presence of Zuri, Jack Active [place] aortocoronary bypass Community graft / Hospital Z95.1(ICD-10) Repository 03/15/2018 Admitting Presence of ZURI, 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 [place] [facility] / Z952(ICD-10) Hospital Repository 03/15/2018 Principle Presence of ZURI, 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 [place] [facility] prosthetic heart [facility] / Z952(ICD-10) Hospital Repository 03/15/2018 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) ZURI, 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 [place] Diagnosis use of [facility] anticoagulants / Hospital Z7901(ICD-10) Repository 02/21/2018 Admitting long-term (current) ZURI, 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 [place] Diagnosis use of [facility] anticoagulants / Hospital Z7901(ICD-10) Repository 02/21/2018 Principle long-term (current) ZURI, 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 [place] Diagnosis use of [facility] anticoagulants / Hospital Z7901(ICD-10) Repository 02/21/2018 Secondary Presence of ZURI, 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 [place] Diagnosis prosthetic heart [facility] / Z952(ICD-10) Hospital Repository 02/17/2018 Unknown M51.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, 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, lumbar Hospital region / Repository M51.86(ICD-10) 10/05/2017 Unknown E55.9 - Vitamin D Mile, Tank Chi Active [place] deficiency, Community unspecified / Hospital E55.9(ICD-10) Repository 10/05/2017 Unknown I10 - Essential Mile, Tank Chi Active [place] (primary) Replaced By [facility] hypertension / Hospital I10(ICD-10) Repository 10/01/2017 Unknown I25.10 - Eid, Active [facility] Atherosclerotic [facility] heart disease [facility] [place] coronary Repository artery without angina pectoris / I25.10(ICD-10) 09/14/2017 Secondary Presence of ZURI, JACK Active [place] [facility] Diagnosis cerebrospinal fluid MD [facility] drainage device / Hospital Z982(ICD-10) Repository 07/29/2017 Active 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 / Clinic Main D59.4(ICD-10) [place] Repository PROCEDURES PROCEDURES No Procedure Records FoundRESULTS RESULTS DEXA BONE DENSITY Observed: 06/09/2018 Status: F Source: [place] STUDY 1:00 PM [facility] REPOSITORY [facility] Imaging Services [address] [place] [address] Dexa Bone Density Study MR#: [id number] Acct: [id number] Name: CLEMENTINE WARD Rep #: [id number] : 1950 F 67 From: Fermin Patterson MD PCP: Tank Treadwell MD, Chi Status: REG CLI Study: Dexa Bone Density Study Date of Exam: 06/09/18 Exam# [id number] Ordering Dr: Tank Treadwell MD STUDY: DUAL [...] Fermin Patterson MD at 15:32 EST Tel [phone], Service support , CC: Tank Treadwell MD Cleaner [employer]: Signed SCREENING MAMM (CAD), Observed: 06/07/2018 Status: F Source: [place] BILAT 2:54 PM [facility] REPOSITORY [facility] Imaging Services [address] [place] [address] SCREENING MAMM (CAD), BILAT MR#: [id number] Acct: [id number] Name: CLEMENTINE WARD Rep #: [id number] : 1950 F 67 From: Fermin Patterson MD PCP: Tank Treadwell MD, Chi Status: REG CLI Study: SCREENING MAMM (CAD), BILAT Date of Exam: 06/07/18 Exam# [id number] Ordering Dr: Tank Treadwell MD MAMMOGRAPHY - [...] delay biopsy of a clinically suspicious abnormality. [id number] Electronically Signed: Fermin Patterson MD at 15:34 EST Tel [phone], Service support , CC: Tank Treadwell MD [employer]: Signed PROTHROMBIN TIME W/INR Collected: 06/07/2018 Status: F Source: [place] 2:41 PM [facility] REPOSITORY TYPE CODE TESTS RESULT OUT OF RANGE REFERENCE UNITS LAB L300.4150 11.7-14.9 SECONDS High PROTIME 31.4 LAB L300.4200 Normal INR 3.0 Performed By: #### L300.3900 #### [facility] [address] [place], [address] CARDIOLOGY VISIT Observed: 05/24/2018 Status: F Source: [place] REPORT 1:51 PM [facility] REPOSITORY [facility] [address] [place] [address] OFFICE VISIT Date of Service: 05/24/18 MR#: [id number] Acct: [id number] Name: CLEMENTINE WARD Rep #: [id number] : 1950 Provider: Jack Keating MD Age/Sex: 67/F [place] [facility] [place]: Signed HPI HPI Chief Complaint: Follow-up [...] rate and rhythm and no pedal edema. [place] prosthetic sounds are noted and 1/6 systolic murmur is present. 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 Ronan Bailey, [facility], 03/10/2011 Plan She does have a view of coronary artery disease status post bypass surgery she underwent stress testing in 2016 which demonstrated no evidence of ischemia at a high workload. 2. Hx of mitral valve replacement with mechanical valve Z95.2 MVR with mechanical valve 03/10/11 @ [facility] Plan She does have a history of [...] TIME W/INR Collected: 05/24/2018 Status: F Source: [place] 1:17 PM [facility] REPOSITORY Order Comment: Comments: STANDING ORDER Comments: STANDING ORDER TYPE CODE TESTS RESULT OUT OF RANGE REFERENCE UNITS LAB L300.4150 11.7-14.9 SECONDS High PROTIME 24.5 LAB L300.4200 Normal INR 2.2 Performed By: #### L300.3900 #### [facility] [address] [place], [place], [id number] PROTHROMBIN TIME W/INR Collected: 05/17/2018 Status: F Source: [place] 12:17 PM [facility] REPOSITORY TYPE CODE TESTS RESULT OUT OF RANGE REFERENCE UNITS LAB L300.4150 11.7-14.9 SECONDS High PROTIME 24.1 LAB L300.4200 Normal INR 2.2 Performed By: #### L300.3900 #### [facility] [address] [place], [address] PROGRESS Observed: 04/27/2018 Status: COMPLETED Source: [place] 11:56 AM [facility] REPOSITORY HNO ID: [id number] Author: Lui Wilkerson Service: (none) Author Type: [...] No jaundice or rash. No petechiae. 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 No focal motor weakness. MUSCULOSKELETAL: No muscle wasting. LABS: Component Latest Ref Rng AND Units 04/20/2018 WBC, [place] 3.70 - 11.00 k/uL 10.44 RBC, [place] 3.90 - 5.20 m/uL 3.79 (L) Hemoglobin, [place] 11.5 - 15.5 g/dL 11.7 Hematocrit, [place] 36.0 - 46.0 % 35.4 (L) MCV, [place] 80.0 - 100.0 fL 93.4 MCH, [place] 26.0 - 34.0 pg 30.9 MCHC, [place] 30.5 - 36.0 g/dL 33.1 RDW, [place] 11.5 - 15.0 % 14.1 Platelet Cnt, [place] 150 - 400 k/uL 213 MPV, [place] 9.0 - 12.7 fL 10.6 Absol Gran [...] mitral valve replacement. -Previously discussed with her change management--plan to monitor for now. -She has good erythrocytic compensation and is tolerating iron and folic acid replacement well. 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 -Still evidence of ongoing hemolysis. Plan: -Recheck Juan David test today. -Continue iron and folic acid supplementation. -Recheck labs in 3 months. -Office visit in 6 months. -She will continue regular follow-up with her change management. -We also discussed smoking cessation today. She is not psychologically motivated to quit at this time. I will continue to address this on subsequent visits. Lui Wilkerson DO CNOVSP Observed: 04/27/2018 Status: COMPLETED Source: [place] 11:30 AM [facility] REPOSITORY Visit (SP) Office ([facility]) CLEMENTINE WARD ([id number]) 1950 F Date Time Provider Department 04/27/18 [...] No jaundice or rash. No petechiae. 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 No focal motor weakness. MUSCULOSKELETAL: No muscle wasting. LABS: Component Latest Ref Rng AND Units 04/20/2018 WBC, [place] 3.70 - 11.00 k/uL 10.44 RBC, [place] 3.90 - 5.20 m/uL 3.79 (L) Hemoglobin, [place] 11.5 - 15.5 g/dL 11.7 Hematocrit, [place] 36.0 - 46.0 % 35.4 (L) MCV, [place] 80.0 - 100.0 fL 93.4 MCH, [place] 26.0 - 34.0 pg 30.9 MCHC, [place] 30.5 - 36.0 g/dL 33.1 RDW, [place] [...] mitral valve replacement. -Previously discussed with her change management--plan to monitor for now. -She has good erythrocytic compensation and is tolerating iron and folic acid replacement well. 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 -Still evidence of ongoing hemolysis. Plan: -Recheck Juan David test today. -Continue iron and folic acid supplementation. -Recheck labs in 3 months. -Office visit in 6 months. -She will continue regular follow-up with her change management. -We also discussed smoking cessation today. She is not psychologically motivated to quit at this time. I will continue to address this on subsequent visits. 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] Order(s):JUAN DAVID DIRECT [SQDAGT] Order #: [id number] FUTURE Follow-up and Disposition History Recorded Prescriptions [...] + CBC Collected: 04/20/2018 Status: F Source: [place] 2:36 PM [facility] REPOSITORY TYPE CODE TESTS RESULT OUT OF REFERENCE UNITS RANGE LAB WWBC 3.70-11.00 k/uL [place] WBC 10.44 LAB WRBC 3.90-5.20 m/uL Low [place] RBC 3.79 LAB WHGB 11.5-15.5 g/dL [place] Hemoglobin 11.7 LAB WHCT 36.0-46.0 % Low [place] Hematocrit 35.4 LAB WMCV 80.0-100.0 fL [place] MCV 93.4 LAB WMCH 26.0-34.0 pg [place] MCH 30.9 LAB WMCHC 30.5-36.0 g/dL [place] MCHC 33.1 LAB WRDW 11.5-15.0 % [place] RDW 14.1 LAB WPLT 150-400 k/uL [place] Platelet Cnt 213 LAB WMPV 9.0-12.7 fL [place] MPV 10.6 Result Comment: Test performed at: [facility], [address] [place] [address] Rd[address] [place] [address]. LAB ABGRAN 1.45-7.50 k/uL High Absol 7.64 Gran Count RETICULOCYTE Collected: 04/20/2018 Status: F Source: [place] 2:36 PM [facility] REPOSITORY TYPE CODE TESTS RESULT OUT OF REFERENCE UNITS RANGE LAB RETC 0.4-2.0 % High Retic% 3.1 LAB ABRET 0.0180-0.1000 M/uL High Abs Retic 0.114 Performed By: #### RETIC, IRON, FERR, HAPTO, LD6 #### [facility] [employer] [address] [place] [address] LD Collected: 04/20/2018 Status: F Source: [facility] 2:36 PM [facility] REPOSITORY TYPE CODE TESTS RESULT OUT OF RANGE REFERENCE UNITS LAB LD 135-214 U/L High LD 819 Performed By: #### RETIC, IRON, FERR, HAPTO, LD6 #### [facility] [employer] [address] [place] [address] HAPTOGLOBIN Collected: 04/20/2018 Status: F Source: [place] 2:36 PM [facility] REPOSITORY TYPE CODE TESTS RESULT OUT OF REFERENCE UNITS RANGE LAB HAPTO 31-238 mg/dL Low Haptoglobin <10 Performed By: #### RETIC, IRON, FERR, HAPTO, LD6 #### [facility] [employer] [address] [place] [address] FERRITIN Collected: 04/20/2018 Status: F Source: [place] 2:36 PM [facility] REPOSITORY TYPE CODE TESTS RESULT OUT OF REFERENCE UNITS RANGE LAB FERR 14.7-205.1 ng/mL High Ferritin 663.9 Performed By: #### RETIC, IRON, FERR, HAPTO, LD6 #### [facility] [address] [address] IRON AND TIBC Collected: 04/20/2018 Status: F Source: [place] 2:36 PM [facility] REPOSITORY TYPE CODE TESTS RESULT OUT OF REFERENCE UNITS RANGE LAB IRN 41-186 ug/dL Iron 65 LAB TIBC 232-386 ug/dL TIBC 293 LAB SAT 15-57 % Transferrin Saturatn 22 Performed By: #### RETIC, IRON, FERR, HAPTO, LD6 #### [facility] [id number] PROTHROMBIN TIME AND Collected: 04/18/2018 Status: F Source: [facility] INR 11:50 AM [facility] REPOSITORY TYPE CODE TESTS RESULT OUT OF [...] 3.5 MECHANICAL HEART VALVES Performed By: #### [id number] #### [facility],[address] [place], [place] [id number] CBC W/DIFF, AUTOMATED Collected: 04/12/2018 Status: F Source: [place] 1:21 PM [facility] REPOSITORY TYPE CODE TESTS RESULT OUT [...] Lymph 1.25 Performed By: #### L100.0100 #### [facility] [address] [place], [address] VITAMIN D,25 HYDROXY Collected: 04/12/2018 Status: F Source: [place] 1:21 PM [facility] REPOSITORY TYPE CODE TESTS RESULT OUT OF REFERENCE UNITS RANGE LAB L506.1000 29.95-100.01 ng/mL Low Vitamin D 24.7 25-OH Result Comment: Vitamin D 25(OH) Status Range Deficiency <20 ng/mL (50nmol/L) Insuffciency 20 - 30 ng/mL (50 - 75 nmol/L) Sufficiency 30 - 100 ng/mL (75 - 250 nmol/L) Toxicity >100 ng/mL (>250 nmol/L) Performed By: #### L506.1000 #### [facility] [address] [place], [address] COMPREHENSIVE METABOLIC Collected: 04/12/2018 Status: F Source: [place] [facility] 1:21 PM [facility] REPOSITORY TYPE CODE TESTS RESULT OUT [...] 6 Performed By: #### L500.4050, L501.9520 #### [facility] [address] [facility]. [place], [place], [id number] THYROID STIM HORMONE Collected: 04/12/2018 Status: F Source: [place] (TSH) 1:21 PM [facility] REPOSITORY TYPE CODE TESTS RESULT OUT OF RANGE REFERENCE UNITS LAB L501.9520 0.358-3.74 uIU/mL Normal TSH 0.64 Performed By: #### L500.4050, L501.9520 #### [facility] [address] [place], [place], [address] HEPATITIS C ANTIBODIES Collected: 04/12/2018 Status: F Source: [place] 1:21 PM [facility] REPOSITORY TYPE CODE TESTS RESULT OUT OF RANGE REFERENCE UNITS LAB L3100.0650 0.0-0.9 s/co ratio Normal HEP C AB <0.1 Result Comment: Negative: < 0.8 Indeterminate: 0.8 - 0.9 Positive: > 0.9 The CDC recommends that a positive HCV antibody result be followed up with a HCV Nucleic Acid Amplification test (581962). Performed at: [address] [id number] Storeroom Supervisor: Rl Gant PhD, Phone: [phone] Performed By: #### L3100.0625 #### [facility] (refer to report for specific site) refer to report for address and phone number PROTHROMBIN TIME AND Collected: 03/29/2018 Status: F Source: [place] IN[place] 11:10 AM [facility] REPOSITORY TYPE CODE TESTS RESULT OUT OF [...] 3.5 MECHANICAL HEART VALVES Performed By: #### [id number] #### [place] [address] PROTHROMBIN TIME AND Collected: 03/15/2018 Status: F [facility] REPOSITORY TYPE CODE TESTS RESULT OUT OF [...] 3.5 MECHANICAL HEART VALVES Performed By: #### [id number] #### [place] [address] PROTHROMBIN TIME AND Collected: 02/28/2018 Status: F Source: [place] 1:18 PM [facility] REPOSITORY TYPE CODE TESTS RESULT OUT OF [...] 3.5 MECHANICAL HEART VALVES Performed By: #### [id number] #### [facility],[address] [place] [address] PROTHROMBIN TIME AND Collected: 02/21/2018 Status: F Source: [facility] INR 11:41 AM [facility] REPOSITORY TYPE CODE TESTS RESULT OUT OF [...] 3.5 MECHANICAL HEART VALVES Performed By: #### [id number] #### [address] [address] LUMBAR SPINE 2 OR 3 Observed: 02/17/2018 Status: F Source: [place] VIEWS 12:00 PM [facility] REPOSITORY [facility] Imaging Services [address] [place], [place] [id number] Lumbar Spine 2 or 3 Views MR#: [id number] Acct: [id number] Name: CLEMENTINE WARD Rep #: [id number] : 1950 F 67 From: Ronan Salinas MD PCP: Mile GARCIA,Tank Ghotra Status: REG CLI Study: Lumbar Spine 2 or 3 Views Date of Exam: 02/17/18 Exam# [id number] Ordering Dr: Tank Treadwell MD STUDY: X-RAY [...] Service support , CC: Tank Treadwell MD [employer]: Signed Observed: 02/17/2018 Status: F Source: [place] CULTURE, URINE 11:48 AM [facility] REPOSITORY Urine Culture Culture exhibits no growth. Performed By: #### M100.0650 #### [facility] [address] [place] [address], [id number] PROTHROMBIN TIME AND Collected: 02/16/2018 Status: F Source: [place] 1:05 PM [facility] REPOSITORY TYPE CODE TESTS RESULT OUT OF [...] 3.5 MECHANICAL HEART VALVES Performed By: #### [id number] #### [facility],[address] [place], [place] [address] PROTHROMBIN TIME AND Collected: 02/02/2018 Status: F Source: [facility] INR 2:13 PM [facility] REPOSITORY TYPE CODE TESTS RESULT OUT OF [...] 3.5 MECHANICAL HEART VALVES Performed By: #### [id number] #### [facility],[address] [place], [place] [address] PROTHROMBIN TIME AND Collected: 01/27/2018 Status: F Source: [facility] INR 2:43 PM [facility] REPOSITORY TYPE CODE TESTS RESULT OUT OF [...] 3.5 MECHANICAL HEART VALVES Performed By: #### [id number] #### [facility],[address] [facility] [address] [place] ABS GR + CBC Collected: 01/26/2018 Status: F Source: [place] 2:43 PM [facility] REPOSITORY TYPE CODE TESTS RESULT OUT OF REFERENCE UNITS RANGE LAB WWBC 3.70-11.00 k/uL [place] WBC 9.23 LAB WRBC 3.90-5.20 m/uL [place] RBC 3.99 LAB WHGB 11.5-15.5 g/dL [place] Hemoglobin 11.9 LAB WHCT 36.0-46.0 % [place] Hematocrit 36.4 LAB WMCV 80.0-100.0 fL [place] MCV 91.2 LAB WMCH 26.0-34.0 pg [place] MCH 29.8 LAB WMCHC 30.5-36.0 g/dL [place] MCHC 32.7 LAB WRDW 11.5-15.0 % [place] RDW 14.1 LAB WPLT 150-400 k/uL [place] Platelet Cnt 237 LAB WMPV 9.0-12.7 fL [place] MPV 9.9 Result Comment: Test performed at: [facility], [address] [place] [address] Rd., [place] [address]. LAB ABGRAN 1.45-7.50 k/uL Absol Gran 6.31 Count RETICULOCYTE Collected: 01/26/2018 Status: F Source: [place] 2:43 PM [facility] REPOSITORY TYPE CODE TESTS RESULT OUT OF REFERENCE UNITS RANGE LAB RETC 0.4-2.0 % High Retic% 3.0 LAB ABRET 0.0180-0.1000 M/uL High Abs Retic 0.116 Performed By: #### LD6, IRON, HAPTO, FERR, RETIC #### [facility] [employer] [address] [place], [place] [address] LD Collected: 01/26/2018 Status: F Source: [facility] 2:43 PM [facility] REPOSITORY TYPE CODE TESTS RESULT OUT OF RANGE REFERENCE UNITS LAB LD 135-214 U/L High LD 680 Performed By: #### LD6, IRON, HAPTO, FERR, RETIC #### [facility] [employer] [address] [place], [place] [address] IRON AND TIBC Collected: 01/26/2018 Status: F Source: [place] 2:43 PM [facility] REPOSITORY TYPE CODE TESTS RESULT OUT OF REFERENCE UNITS RANGE LAB IRN 41-186 ug/dL Iron 71 LAB TIBC 232-386 ug/dL TIBC 298 LAB SAT 15-57 % Transferrin Saturatn 24 Performed By: #### LD6, IRON, HAPTO, FERR, RETIC #### [address] [place] [address] HAPTOGLOBIN Collected: 01/26/2018 Status: F Source: [place] 2:43 PM [facility] REPOSITORY TYPE CODE TESTS RESULT OUT OF REFERENCE UNITS RANGE LAB HAPTO 31-238 mg/dL Low Haptoglobin <10 Performed By: #### LD6, IRON, HAPTO, FERR, RETIC #### [address] [address] FERRITIN Collected: 01/26/2018 Status: F Source: [place] 2:43 PM [facility] REPOSITORY TYPE CODE TESTS RESULT OUT OF REFERENCE UNITS RANGE LAB FERR 14.7-205.1 ng/mL High Ferritin 525.5 Performed By: #### LD6, IRON, HAPTO, FERR, RETIC #### [place] [address] PROTHROMBIN TIME AND Collected: 01/24/2018 Status: F Source: [place] 2:55 PM [facility] REPOSITORY TYPE CODE TESTS RESULT OUT OF [...] 3.5 MECHANICAL HEART VALVES Performed By: #### [id number] #### [facility],[address] [place] [address] PROTHROMBIN TIME AND Collected: 01/20/2018 Status: F Source: [place] 2:15 PM [facility] REPOSITORY TYPE CODE TESTS RESULT OUT OF [...] 3.5 MECHANICAL HEART VALVES Performed By: #### [id number] #### [address] [place] [address] PROTHROMBIN TIME AND Collected: 01/05/2018 Status: F Source: [place] 1:00 PM [facility] REPOSITORY TYPE CODE TESTS RESULT OUT OF [...] 3.5 MECHANICAL HEART VALVES Performed By: #### [id number] #### [place] [address] PROTHROMBIN TIME AND Collected: 12/29/2017 Status: F Source: [facility] INR 2:00 PM [facility] REPOSITORY TYPE CODE TESTS RESULT OUT OF [...] 3.5 MECHANICAL HEART VALVES Performed By: #### [id number] #### [facility],[address] [facility] [address] PROTHROMBIN TIME W/INR Collected: 12/03/2017 Status: F Source: [place] 1:05 PM [facility] REPOSITORY Order Comment: Comments: STANDING ORDER: FAX TO [facility] Comments: STANDING ORDER: FAX TO [facility] TYPE CODE TESTS RESULT OUT OF RANGE REFERENCE UNITS LAB L300.4150 11.7-14.9 SECONDS High PROTIME 31.3 LAB L300.4200 Normal INR 3.0 Performed By: #### L300.3900 #### [facility] [address] [place] [address], [address] PROTHROMBIN TIME AND Collected: 11/04/2017 Status: F Source: [facility] INR 1:22 PM [facility] REPOSITORY TYPE CODE TESTS RESULT OUT OF [...] 3.5 MECHANICAL HEART VALVES Performed By: #### [id number] #### [facility],[address] [place] [address] PROGRESS Observed: 10/27/2017 Status: COMPLETED Source: [place] 12:25 PM [facility] REPOSITORY HNO ID: [id number] Author: Ramon Islas (Sw) Service: (none) Author Type: Home Theater Installer Type: Progress Notes Filed: 10/27/2017 12:28 PM Note Text: You are not granted access to view this sensitive note. PROGRESS Observed: 10/27/2017 Status: COMPLETED Source: [place] 12:06 PM [facility] REPOSITORY HNO ID: [id number] Author: Lui Wilkerson Service: (none) Author Type: [...] No jaundice or rash. No petechiae. 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 No focal motor weakness. MUSCULOSKELETAL: No muscle wasting. LABS: Component Latest Ref Rng AND Units 10/20/2017 WBC, [place] 3.70 - 11.00 k/uL 9.14 RBC, [place] 3.90 - 5.20 m/uL 3.93 Hemoglobin, [place] 11.5 - 15.5 g/dL 11.6 Hematocrit, [place] 36.0 - 46.0 % 36.1 MCV, [place] 80.0 - 100.0 fL 91.9 MCH, [place] 26.0 - 34.0 pg 29.5 MCHC, [place] 30.5 - 36.0 g/dL 32.1 RDW, [place] 11.5 - 15.0 % 14.3 Platelet Cnt, [place] 150 - 400 k/uL 261 MPV, [place] 9.0 - 12.7 fL 10.5 Absol Gran [...] mitral valve replacement. -Previously discussed with her change management--plan to monitor for now. -She has good erythrocytic compensation and is tolerating iron and folic acid replacement well. 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 Plan: -Continue iron and folic acid supplementation. -Recheck labs in 3 months. -Office visit in 6 months. -She will continue regular follow-up with her change management. Lui Wilkerson DO CNOVSP Observed: 10/27/2017 Status: COMPLETED Source: [place] 11:30 AM [facility] REPOSITORY Visit (SP) Office (HEMAWS) CLEMENTINE WARD ([id number]) 1950 F Date Time Provider Department 10/27/17 [...] No jaundice or rash. No petechiae. 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 No focal motor weakness. MUSCULOSKELETAL: No muscle wasting. LABS: Component Latest Ref Rng ANDamp; Units 10/20/2017 WBC, [place] 3.70 - 11.00 k/uL 9.14 RBC, [place] 3.90 - 5.20 m/uL 3.93 Hemoglobin, [place] 11.5 - 15.5 g/dL 11.6 Hematocrit, [place] 36.0 - 46.0 % 36.1 MCV, [place] 80.0 - 100.0 fL 91.9 MCH, [place] [...] mitral valve replacement. -Previously discussed with her change management--plan to monitor for now. -She has good erythrocytic compensation and is tolerating iron and folic acid replacement well. 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 Plan: -Continue iron and folic acid supplementation. -Recheck labs in 3 months. -Office visit in 6 months. -She will continue regular follow-up with her change management. Lui Wilkerson DO Referring Provider: LUI WILKERSON [[id number]] Allergies As of Date: 10/27/2017 (No Known [...] 10/27/17 CNSW Observed: 10/27/2017 Status: COMPLETED Source: [place] 12:00 AM [facility] REPOSITORY Social Work (HEMAWS) CLEMENTINE WARD ([id number]) 1950 F Date Time Provider Department 10/27/17 [...] 10/27/17 RETICULOCYTE Collected: 10/20/2017 Status: F Source: [place] 2:30 PM [facility] REPOSITORY TYPE CODE TESTS RESULT OUT OF REFERENCE UNITS RANGE LAB RETC 0.4-2.0 % High Retic% 3.2 LAB ABRET 0.0180-0.1000 M/uL High Abs Retic 0.130 Performed By: #### HAPTO, FERR, LD6, IRON, RETIC #### [place] [address] IRON AND TIBC Collected: 10/20/2017 Status: F Source: [place] 2:30 PM [facility] REPOSITORY TYPE CODE TESTS RESULT OUT OF REFERENCE UNITS RANGE LAB IRN 41-186 ug/dL Iron 88 LAB TIBC 232-386 ug/dL TIBC 308 LAB SAT 15-57 % Transferrin Saturatn 29 Performed By: #### HAPTO, FERR, LD6, IRON, RETIC #### [place] [address] LD Collected: 10/20/2017 Status: F Source: [facility] 2:30 PM [facility] REPOSITORY TYPE CODE TESTS RESULT OUT OF RANGE REFERENCE UNITS LAB LD 135-214 U/L High LD 750 Performed By: #### HAPTO, FERR, LD6, IRON, RETIC #### [place] [address] FERRITIN Collected: 10/20/2017 Status: F Source: [place] 2:30 PM [facility] REPOSITORY TYPE CODE TESTS RESULT OUT OF REFERENCE UNITS RANGE LAB FERR 14.7-205.1 ng/mL High Ferritin 507.2 Performed By: #### HAPTO, FERR, LD6, IRON, RETIC #### [place] [address] HAPTOGLOBIN Collected: 10/20/2017 Status: F Source: [place] 2:30 PM [facility] REPOSITORY TYPE CODE TESTS RESULT OUT OF REFERENCE UNITS RANGE LAB HAPTO 31-238 mg/dL Low Haptoglobin <10 Performed By: #### HAPTO, FERR, LD6, IRON, RETIC #### [place] [address] [place] ABS GR + CBC Collected: 10/20/2017 Status: F Source: [place] 2:29 PM [facility] REPOSITORY TYPE CODE TESTS RESULT OUT OF REFERENCE UNITS RANGE LAB WWBC 3.70-11.00 k/uL [place] WBC 9.14 LAB WRBC 3.90-5.20 m/uL [place] RBC 3.93 LAB WHGB 11.5-15.5 g/dL [place] Hemoglobin 11.6 LAB WHCT 36.0-46.0 % [place] Hematocrit 36.1 LAB WMCV 80.0-100.0 fL [place] MCV 91.9 LAB WMCH 26.0-34.0 pg [place] MCH 29.5 LAB WMCHC 30.5-36.0 g/dL [place] MCHC 32.1 LAB WRDW 11.5-15.0 % [place] RDW 14.3 LAB WPLT 150-400 k/uL [place] Platelet Cnt 261 LAB WMPV 9.0-12.7 fL [place] MPV 10.5 Result Comment: Test performed at: [facility], [address] [place] [address] Rd., [place] [address]. LAB ABGRAN 1.45-7.50 k/uL Absol Gran 6.40 Count CAROTID DUPLEX Observed: 10/20/2017 Status: F Source: [place] ULTRASOUND 6:54 AM [facility] REPOSITORY [facility] Cardiovascular Services [address] [place] [address] Carotid Duplex Ultrasound 10/13/17 1001 MR#: [id number] Acct: [id number] Name: CLEMENTINE WARD Rep #: [id number] : 1950 67 From: Curtis Joshi MD Attending Dr: Argelia Eid Status: REG CLI Ordering Dr: Argelia Eid Date: 10/13/17 Location: [facility] Sex: F C Admitted: Reason For Study: [...] the left vertebral artery. Procedure Carotid Duplex 11769. Exam performed in department. Interpretation Summary Moderate (50-69%) stenosis right extracranial internal carotid. Severe (>70%) stenosis left extracranial internal carotid. Flow within the vertebral arteries is antegrade bilaterally. Ordering Physician: Argelia Eid Referring Physician: Tank Treadwell Chi Performed By: Alma Rosa Duong RVT 10/20/17 0653 Date Curtis Joshi MD CC: Argelia Eid; Tank Treadwell MD Date Dictated: 10/13/17 1001 Date Transcribed: 10/20/17 0653 [employer]: Signed PROTHROMBIN TIME AND Collected: 10/14/2017 Status: F Source: [facility] INR 10:13 AM [facility] REPOSITORY TYPE CODE TESTS RESULT OUT OF [...] 3.5 MECHANICAL HEART VALVES Performed By: #### [id number] #### [facility],[address] [place] [address] CBC W/DIFF, AUTOMATED Collected: 10/05/2017 Status: F Source: [place] 2:08 PM [facility] REPOSITORY TYPE CODE TESTS RESULT OUT [...] Lymph 1.44 Performed By: #### L100.0100 #### [facility] [address] [place], [address] COMPREHENSIVE METABOLIC Collected: 10/05/2017 Status: F Source: [facility] 2:08 PM [facility] REPOSITORY TYPE CODE TESTS RESULT OUT [...] 10 Performed By: #### L500.4050, L501.9520 #### [facility] [address] [facility]. [place], [place], [id number] THYROID STIM HORMONE Collected: 10/05/2017 Status: F Source: [place] (TSH) 2:08 PM [facility] REPOSITORY TYPE CODE TESTS RESULT OUT OF RANGE REFERENCE UNITS LAB L501.9520 0.358-3.74 uIU/mL Normal TSH 1.28 Performed By: #### L500.4050, L501.9520 #### [facility] [address] [facility], [address] VITAMIN D,25 HYDROXY Collected: 10/05/2017 Status: F Source: [place] 2:08 PM [facility] REPOSITORY TYPE CODE TESTS RESULT OUT OF REFERENCE UNITS RANGE LAB L506.1000 29.95-100.01 ng/mL Low Vitamin D 22.4 25-OH Result Comment: Vitamin D 25(OH) Status Range Deficiency <20 ng/mL (50nmol/L) Insuffciency 20 - 30 ng/mL (50 - 75 nmol/L) Sufficiency 30 - 100 ng/mL (75 - 250 nmol/L) Toxicity >100 ng/mL (>250 nmol/L) Performed By: #### L506.1000 #### [facility] [address] [place], [address] CARDIOLOGY VISIT Observed: 10/01/2017 Status: F Source: [place] REPORT 5:00 PM [facility] REPOSITORY [facility] 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 Assessment AND Plan 1. Atherosclerosis of [place] coronary artery of [place] heart without angina pectoris I25.10 LUX to LAD, Free ETHEL to lateral CX, SVG to AV branch of cx, SVG to the AV branch of the right, SVG to the PDA. Concomittent with Mechainical MVR per Dr. Ronan Bailey, [facility], 03/10/2011 Plan - POLLY Ramos Stable, from [...] prior to saving. 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 transplanted heart: [place] heart Nonrheumatic mitral valve regurgitation I34.0 Pure hypercholesterolemia E78.00; E78.0 Hyperlipidemia type: pure hypercholesterolemia Right carotid bruit R09.89 Coding Level of Care Code Off vis,est,level 3 Diagnoses Atherosclerosis of [place] coronary artery of [place] heart without angina pectoris I25.10 [place] vs. transplanted heart: [place] heart Nonrheumatic mitral valve regurgitation I34.0 Pure hypercholesterolemia E78.00; E78.0 Hyperlipidemia type: pure hypercholesterolemia Right carotid bruit R09.89 10/01/17 1408 <Electronically signed by Argelia MATIAS> Date Argelia MATIAS 10/01/17 1700<Electronically signed by Jack Keating MD> Cosigner Signature: Date (if applicable) Jack Keating MD CC: Tank Treadwell MD PROTHROMBIN TIME AND Collected: 09/30/2017 Status: F Source: [place] 1:06 PM [facility] REPOSITORY TYPE CODE TESTS RESULT OUT OF [...] 3.5 MECHANICAL HEART VALVES Performed By: #### [id number] #### [facility],[address] [place] [address] PROTHROMBIN TIME AND Collected: 09/14/2017 Status: F Source: [place] [facility] 1:03 PM [facility] REPOSITORY TYPE CODE TESTS RESULT OUT OF [...] 3.5 MECHANICAL HEART VALVES Performed By: #### [id number] #### [place] [address] PROTHROMBIN TIME AND Collected: 09/02/2017 Status: F [facility] PM [facility] REPOSITORY TYPE CODE TESTS RESULT OUT OF [...] 3.5 MECHANICAL HEART VALVES Performed By: #### [id number] #### [place] [address] PROTHROMBIN TIME AND Collected: 08/19/2017 Status: F Source: [place] 11:17 AM [facility] REPOSITORY TYPE CODE TESTS RESULT OUT OF [...] 3.5 MECHANICAL HEART VALVES Performed By: #### [id number] #### [facility],[address] [place] [address] PROTHROMBIN TIME AND Collected: 08/12/2017 Status: F Source: [facility] INR 11:33 AM [facility] REPOSITORY TYPE CODE TESTS RESULT OUT OF REFERENCE UNITS RANGE LAB PROTHROMBIN TIME AND INR(LOINC) PROTHROMBIN TIME AND INR Result Comment: PROTHROMBIN TIME AND INR LAB PT-COUMADIN(LOINC) sec PT-COUMADIN 50.9 LAB INR(LOINC) 0.8 - 1.2 INR High Alert 4.7 Result Comment: { CALLED TO ALFIE/1537/BKO { READ BACK BY ALFIE/[id number] { TEST REPEATED THE HEMOSIL THROMBOPLASTIN REAGENT [...] 3.5 MECHANICAL HEART VALVES Performed By: #### [id number] #### [facility],[address] [place], [place] [id number] PNH PANEL BY FCM Collected: 08/02/2017 Status: F Source: [place] 12:38 PM [facility] REPOSITORY TYPE CODE TESTS RESULT OUT OF RANGE REFERENCE UNITS LAB PNHINT Negative. No PNH clone Interpretation Abnormal detected. Account Alert Credited Result Comment: S[facility] TO [facility] Performed By: #### PNHPNL #### [facility] [address] [place], [place] [address] #### PNHF #### [facility]-[address] [address] PNH PANEL BY FCM Collected: 08/02/2017 Status: F Source: [place] 12:38 PM [facility] REPOSITORY TYPE CODE TESTS RESULT [...] used for cell gating and interpretation. RBCs: XY081s and CD59. WBCs: CD14, CD15, CD16, CD24, CD33, CD45, FLAER. This test was developed using an analyte specific reagent. Its performance characteristics were determined by [facility] in a manner consistent with CLIA requirements. This test has not been cleared or approved by the U.S. Food and Drug Administration. LAB PNHRP 0.00-0.99 % PNH RBC Part Ag Loss 0.01 LAB PNHRC 0.00-0.01 % PNH RBC Comp Ag Loss 0.00 LAB PNHG 0.00-0.01 % PNH Granulocytes 0.00 LAB PNHM 0.00-0.05 % PNH Monocytes 0.00 Performed By: #### PNHPNL #### [facility] [address], [place] [address] #### PNHF #### [facility]-[address] [address] [place] ABS GR + CBC Collected: 07/29/2017 Status: F Source: [place] 2:43 PM [facility] REPOSITORY TYPE CODE TESTS RESULT OUT OF REFERENCE UNITS RANGE LAB WWBC 3.70-11.00 k/uL [place] WBC 10.64 LAB WRBC 3.90-5.20 m/uL [place] RBC 4.01 LAB WHGB 11.5-15.5 g/dL [place] Hemoglobin 12.0 LAB WHCT 36.0-46.0 % [place] Hematocrit 36.5 LAB WMCV 80.0-100.0 fL [place] MCV 91.0 LAB WMCH 26.0-34.0 pg [place] MCH 29.9 LAB WMCHC 30.5-36.0 g/dL [place] MCHC 32.9 LAB WRDW 11.5-15.0 % [place] RDW 13.9 LAB WPLT 150-400 k/uL [place] Platelet Cnt 256 LAB WMPV 9.0-12.7 fL [place] MPV 10.3 Result Comment: Test performed at: [facility], [address] [place] [address] Rd., [place] [address]. LAB ABGRAN 1.45-7.50 k/uL High Absol 8.18 Gran Count RETICULOCYTE Collected: 07/29/2017 Status: F Source: [place] 2:43 PM [facility] [place] REPOSITORY TYPE CODE TESTS RESULT OUT OF REFERENCE UNITS RANGE LAB RETC 0.4-2.0 % High Retic% 2.9 LAB ABRET 0.0180-0.1000 M/uL High Abs Retic 0.118 Performed By: #### FERR, HAPTO, IRON, LD6, RETIC #### [facility] [employer] [address] [id number] LD Collected: 07/29/2017 Status: F Source: [facility] 2:43 PM [facility] [place] REPOSITORY TYPE CODE TESTS RESULT OUT OF RANGE REFERENCE UNITS LAB LD 135-214 U/L High LD 768 Performed By: #### FERR, HAPTO, IRON, LD6, RETIC #### [facility] [employer] [address], [place] [address] IRON AND TIBC Collected: 07/29/2017 Status: F Source: [place] 2:43 PM [facility] REPOSITORY TYPE CODE TESTS RESULT OUT OF REFERENCE UNITS RANGE LAB IRN 41-186 ug/dL Iron 69 LAB TIBC 232-386 ug/dL TIBC 304 LAB SAT 15-57 % Transferrin Saturatn 23 Performed By: #### FERR, HAPTO, IRON, LD6, RETIC #### [facility] [employer] [address], [place] [address] HAPTOGLOBIN Collected: 07/29/2017 Status: F Source: [place] 2:43 PM [facility] [place] REPOSITORY TYPE CODE TESTS RESULT OUT OF REFERENCE UNITS RANGE LAB HAPTO 31-238 mg/dL Low Haptoglobin <10 Performed By: #### FERR, HAPTO, IRON, LD6, RETIC #### [facility] [address] [place], [place] [id number] FERRITIN Collected: 07/29/2017 Status: F Source: [place] 2:43 PM [facility] REPOSITORY TYPE CODE TESTS RESULT OUT OF REFERENCE UNITS RANGE LAB FERR 14.7-205.1 ng/mL High Ferritin 484.7 Performed By: #### FERR, HAPTO, IRON, LD6, RETIC #### [facility] [address] [place], [place] [address] PROTHROMBIN TIME AND Collected: 07/22/2017 Status: F Source: [place] 1:35 PM [facility] REPOSITORY TYPE CODE TESTS RESULT OUT OF [...] 3.5 MECHANICAL HEART VALVES Performed By: #### [id number] #### [facility],[address] [place] [address] PROTHROMBIN TIME AND Collected: 07/15/2017 Status: F Source: [place] 2:16 PM [facility] REPOSITORY TYPE CODE TESTS RESULT OUT OF [...] 3.5 MECHANICAL HEART VALVES Performed By: #### [id number] #### [facility],[address] [place] [address] ALLERGIES ALLERGIES DATE TYPE / CODE NAME / CODE REACTION SEVERITY SOURCE 05/24/2018 Drug adhesive Rash SV [place] Allergy/419300766(S tape/[id number] Replaced By [facility] NOMED CT) (RXNORM) Hospital Repository 05/24/2018 Drug paroxetine/F006 Many side SV [place] Allergy/481812387(S 173515(RXNORM) [facility] 12/30/2014 Drug No Known Unknown [place] Allergy/305450475(S Allergies/F[facility] [address]NORM[facility] Hospital Repository Drug NO KNOWN [place] Class/521907903(SNO ALLERGIES [facility]) [place] Repository Miscellaneous No Known Moderate [facility] Allergy/810339247(S Allergies (Severity [facility] NOMED CT) Modifier) Hospital (Qualifier Repository Value) ENCOUNTERS ENCOUNTERS ADMIT/DISCHARGE ACCOUNT ADMITTING ENCOUNTER LOCATION SOURCE NUMBER CLASS 06/27/2018 [id number] [facility] ing:CVS Repository 06/13/2018 [id number] [facility] ing:LAB Repository 06/09/2018 [id number] Ambulatory [facility] ing:OPBD Repository 06/07/2018 [id number] Ambulatory [facility] ing:OPBD Repository 06/07/2018/06/13/20 [id number] Ambulatory [address] ing:LAB Repository 05/24/2018/05/24/20 [id number] Ambulatory BMSBuilding[facility]B [place] [facility] 05/24/2018 [id number] [facility] ing:LAB Repository 05/17/2018 [id number] [facility] ing:LAB Repository 04/27/2018/04/27/20 [id number] Ambulatory [address] Repository 04/27/2018/04/28/20 [id number] Ambulatory [address] Repository 04/20/2018/04/21/20 [id number] Ambulatory [address] Repository 04/19/2018 [id number] Ambulatory BMSBuilding:[place] [facility] Repository 04/18/2018/04/18/20 [id number] ZURI, JACK Ambulatory [address] Repository 04/12/2018 [id number] Ambulatory [facility] ing:POLAB3 Repository 03/29/2018/03/29/20 [id number] ZURI, JACK Ambulatory [address] Repository 03/29/2018 [id number] Ambulatory BMSBuilding:[place] [facility] Repository 03/25/2018 [id number] Ambulatory [facility] Repository 03/15/2018/03/15/20 [id number] ZURI, JACK Ambulatory [address] Repository 02/28/2018 [id number] Ambulatory BMSBuilding:[place] [facility] Repository 02/28/2018/02/29/20 [id number] ZURI, JACK Ambulatory [address] Repository 02/21/2018 [id number] Ambulatory BMSBuilding:[place] [facility] Repository 02/21/2018/02/22/20 [id number] ZURI, JACK Ambulatory [address] Repository 02/17/2018 [id number] Ambulatory [facility] ing:POLAB3 Repository 02/16/2018 [id number] Ambulatory BMSBuilding:[place] [facility] Repository 02/16/2018/02/17/20 [id number] ZURI, JACK Ambulatory [address] Repository 02/02/2018/02/03/20 [id number] ZURI, JACK Ambulatory [address] Repository 02/02/2018 [id number] Ambulatory BMSBuilding:[place] [facility] Repository 01/27/2018 [id number] Ambulatory BMSBuilding:[place] [facility] Repository 01/27/2018/01/28/20 [id number] ZURI, JACK Ambulatory [address] Repository 01/26/2018/01/28/20 [id number] Ambulatory [address] Repository 01/25/2018 [id number] Ambulatory BMSBuilding:[place] [facility] Repository 01/24/2018/01/25/20 [id number] ZURI, JACK Ambulatory [address] Repository 01/20/2018 [id number] Ambulatory BMSBuilding:[place] [facility] Repository 01/20/2018/01/21/20 [id number] ZURI, JACK Ambulatory [address] Repository 01/05/2018 [id number] ZURI, JACK Ambulatory [facility] Repository 12/29/2017 [id number] Ambulatory BMSBuilding:[place] [facility] Repository 12/29/2017/12/30/19 [id number] ZURI, JACK Ambulatory [address] Repository 12/03/2017 [id number] Ambulatory [facility] ing:LAB Repository 11/05/2017 [id number] Ambulatory BMSBuilding:[place] [facility] Repository 11/04/2017/11/05/19 [id number] ZURI, JACK Ambulatory [address] Repository 10/27/2017/10/29/19 [id number] Ambulatory [address] Repository 10/20/2017/10/22/19 [id number] Ambulatory [address] Repository 10/14/2017 [id number] Ambulatory BMSBuilding:[place] [facility] Repository 10/14/2017/10/15/19 [id number] ZURI, JACK Ambulatory [address] Repository 10/13/2017 [id number] Ambulatory [facility] ing:CVS Repository 10/05/2017 [id number] Ambulatory [facility] ing:POLAB3 Repository 10/01/2017/10/02/19 [id number] Ambulatory BMSBuilding:[place] 18 [facility] Repository 10/01/2017 [id number] Ambulatory BMSBuilding:[place] [facility] Repository 09/30/2017/10/01/19 [id number] ZURI, JACK Ambulatory [address] Repository 09/14/2017/09/15/19 [id number] ZURI, JACK Ambulatory [address] Repository 09/14/2017 [id number] Ambulatory BMSBuilding:[place] [facility] Repository 09/02/2017/09/02/19 [id number] ZURI, JACK Ambulatory [address] Repository 08/19/2017/08/19/19 [id number] ZURI, JACK Ambulatory [address] Repository 08/12/2017/08/12/19 [id number] ZURI, JACK Ambulatory [address] Repository 08/02/2017/08/02/19 [id number] Ambulatory [address] Repository 07/30/2017/07/30/19 [id number] Ambulatory [address] Repository 07/29/2017/07/30/19 [id number] Ambulatory [address] Repository 07/22/2017 [id number] Ambulatory BMSBuilding:[place] [facility] Repository 07/22/2017/07/22/19 [id number] ZURI, JACK Ambulatory [address] Repository 07/15/2017/07/15/19 [id number] ZURI, JACK Ambulatory [address] Repository PAYERS PAYERS ENCOUNTER GUARANTOR PAYER SUBSCRIBER SOURCE 06/27/2018 PABLO Sanabria Primary PABLO Rosa [id number] Insurance:Ming TALAVERA: [facility] Number: [id number] Repository [address]Jbf: (330) Date:5513-24-37YI [phone] () 125338ZEMHZWH, [place] [address]FP: 06/27/2018 Secondary NOT GIVENUNK [place] Insurance:SELF PAY [facility] Number: Effective Repository Date:2018-06-21 06/13/2018 PABLO A Primary PABLO A [place] [id number] Insurance:ANTHEMPolicy FLINNERDOB: Community [place] Number: [id number], [place] [id number] Repository [address]Ykr: (330) Date:5842-88-30QD [phone] () 087302TUKWSGU, [place] [address]EW: 06/13/2018 Secondary NOT GIVENUNK [place] Insurance:SELF PAY [facility] Number: Effective Repository Date:2018-06-13 06/09/2018 PABLO A Primary PABLO A [place] [id number] Insurance:ANTHEMPolicy FLINNERDOB: Community [place] Number: [id number], [place] [id number] Repository [address]Vrp: (330) Date:7547-32-80QJ [phone] () 067543QYTJUKT, [place] [address]UP: 06/09/2018 Secondary NOT GIVENUNK [place] Insurance:SELF PAY [facility] Number: Effective Repository Date:2018-06-06 06/07/2018 PABLO A Primary PABLO A [place] [id number] Insurance:ANTHEMPolicy FLINNERDOB: Community [place] Number: [id number], [place] [id number] Repository [address]Mcp: (330) Date:2672-21-04ZL [phone] () 210591TJVLCSR, [place] [address]RV: 06/07/2018 Secondary NOT GIVENUNK [place] Insurance:SELF PAY [facility] Number: Effective Repository Date:2018-04-14 06/07/2018 PABLO A Primary PABLO A [place] [id number] Insurance:ANTHEMPolicy FLINNERDOB: Community [place] Number: [id number], [place] [id number] Repository [address]Lgf: (330) Date:4937-09-70MK [phone] () 071855BPJYUYQ, [place] [address]AO: 06/07/2018 Secondary NOT GIVENUNK [place] Insurance:SELF PAY Replaced By [facility] Number: Effective Repository Date:2018-06-07 05/24/2018 PABLO A Primary PABLO A [place] [id number] Insurance:ANTHEMPolicy FLINNERDOB: [facility] Number: [id number], [place] [id number] Repository [address]Fsg: (330) Date:4022-34-14AJ [phone] () 709707UBGLFQT, [place] [address]SV: 05/24/2018 Secondary NOT GIVENUNK [place] Insurance:SELF PAY [facility] Number: Effective Repository Date:2018-05-24 05/24/2018 PABLO A Primary PABLO A [place] [id number] Insurance:ANTHEMPolicy [facility]INNERDOB[facility] [place] Number: [id number], [place] [id number] Repository [address]Rur: (330) Date:5791-25-17NV [phone] () 785730IAPUGTS, [place] [address]US: 05/24/2018 Secondary NOT GIVENUNK [place] Insurance:SELF PAY [facility] Number: Effective Repository Date:2018-05-24 05/17/2018 PABLO A Primary PABLO A [place] [id number] Insurance:ANTHEMPolicy FLINNERDOB: [facility] Number: [id number], [place] [id number] Repository [address]Bwy: (330) Date:8107-94-50SP [phone] () 197053WNXJLUN, [place] [address]IU: 05/17/2018 Secondary NOT GIVENUNK [place] Insurance:SELF PAY [facility] Number: Effective Repository Date:2018-05-17 04/19/2018 Pablo Sanabria Primary [place] Rosa [id number] Insurance:ANTHEMPolicy FlinnerDOB: [facility] Number: [id number] General Hospital Box [id number] Repository [address], [place] Date:4347-85-47PJ [address] [address]Udj: (772) 836461JFXJKQO, [place] [phone] () [address]PB: 04/19/2018 Secondary NOT GIVENUNK [place] Insurance:SELF PAY [facility] Number: Effective Repository Date:2018-04-19 04/18/2018 CLEMENTINE Luna Primary Insurance:JOAQUÍN Castro FLINNERDOB: [address] ANTHEM FLINNERDOB: [facility] [id number][facility] [id number] Hospital [address] Number: [address], Repository [place] [id number] Ar [id number] [facility], Date:Plan Name:B2 Ar [id number]: () 04/12/2018 Pablo Sanabria Primary Pablo Rosa [id number] Insurance:ANTHEMPolicy FlinnerDOB: [facility] Number: [id number] General Hospital Box [id number] Repository [address] [place] [address], [place] Date:7810-14-87TF [address] [address]Unj: (328) 822930UNJJVSX, [place] [phone] () 111[address]KO: 04/12/2018 Secondary NOT GIVENUNK [place] Insurance:SELF PAY [facility] Number: Effective Repository Date:2018-04-12 03/29/2018 CLEMENTINE Luna Primary Insurance:JOAQUÍN Castro FLINNERDOB: [address] ANTHEM FLINNERDOB: [facility] [id number]. Luke's [facility] [id number] Hospital [address] Number: [address] [place], Repository [place] [id number] Ar [id number] [facility], Date:Plan Name:B2 Ar [id number]: () 03/29/2018 Pablo A Primary Pablo Rosa [id number] Insurance:ANTHEMPolicy FlinnerDOB: [facility] Number: [id number] General Hospital Box [id number] Rep[facility] [place] Date:4560-04-22TD [address] [address]Yip: (586) [id number], [place] [phone] () [address]IM: 03/29/2018 Secondary NOT GIVENUNK [place] Insurance:SELF PAY [facility] Number: Effective Repository Date:2018-03-29 03/15/2018 CLEMENTINE Luna Primary Insurance:JOAQUÍN Swansoncatherine FLINNERDOB: [address] [birth year] ANTHEM FLINNERDOB: [facility] [id number]. Luke's [facility] [id number] Hospital [address] Number: MARIA A 194[place], Repository [place] [id number] Ar [id number] [facility], Date:Plan Name:[facility] [id number]: () 02/28/2018 Pablo A Primary Pablo Rosa [id number] Insurance:ANTHEMPolicy FlinnerDOB: [facility] Number: [id number] General Hospital Box [id number] Repository [facility] [place] Date:0461-46-66DF [address] [address]Kfo: (506) 762144XLFIQIJIRONTON, [place] [phone] () [address]27[address]EM: 02/28/2018 Secondary NOT GIVENUNK [place] Insurance:SELF PAY [facility] Number: Effective Repository Date:2018-02-28 02/28/2018 CLEMENTINE Luna Primary Insurance:JOAQUÍN Castro FLINNERDOB: [place] [address] ANTHEM FLINNERDOB: [facility] [id number] OUT[facility]IENTKind[facility] [id number] Hospital [address] Number: [place]IA A [place], Repository [place] [id number] Ar [id number] [facility], Date:Plan Name:[facility] [id number]: () 02/21/2018 Pablo A Primary Pablo Jasonoster [id number] Insurance:ANTHEMPolicy FlinnerDOB: [facility] Number: [id number] General Hospital Box [id number] Repository [address] [place] [address], [place] Date:0403-59-97PU [address] [address]Ejx: ([phone]) 381394HGLANTAIRONTON, [place] [phone] () 06[address]SD: 02/21/2018 Secondary NOT GIVENUNK [place] Insurance:SELF PAY [facility] Number: Effective Repository Date:2018-02-21 02/21/2018 CLEMENTINE Luna Primary Insurance:JOAQUÍN MONTOYAALD [place] FLINNERDOB: [place] [birth year] ANTHEM FLINNERDOB: [facility] [id number]. Luke's [facility] [id number] Hospital [address] Number: MARIA A [place], Repository [place] [id number] Ar [id number] [facility], Date:Plan Name:[facility] [id number]: () 02/17/2018 Pablo A Primary Pablo A [place] [id number] Insurance:ANTHEMPolicy FlinnerDOB: [facility] Number: [id number] General Hospital Box [id number] Repository [address], [place] Date:2313-65-28RN [address] [address]Ffz: (143) [id number], [place] [phone] () 64988QJ: 02/17/2018 Secondary NOT GIVENUNK [place] Insurance:SELF PAY [facility] Number: Effective Repository Date:2018-02-17 02/16/2018 Pablo A Primary Pablo A [place] [id number] Insurance:ANTHEMPolicy FlinnerDOB: Community [facility] Dixon Number: [id number] General Hospital Box [id number] Repository [address], [place] Date:1989-76-19QL [address]Bxm: (193) 010821FNPXIRS, [place] [phone] () 30504RC: 02/16/2018 Secondary NOT GIVENUNK [place] Insurance:SELF PAY [facility] Number: Effective Repository Date:2018-02-16 02/16/2018 CLEMENTINE D Primary Insurance:JOAQUÍN Castro FLINNERDOB: [address] ANTHEM FLINNERDOB: [facility] [id number]. Luke's [facility] [id number] Hospital [address] Number: [address], Repository [place] [id number] [place] [id number] [facility], Date:Plan Name:[facility] [id number]: () 02/02/2018 [facility] Primary Insurance:JOAQUÍN Castro FLINNERDOB: [address] ANTHEM FLINNERDOB: [facility] [id number]. Luke's [place] 5964-47-61ODUAD Hospital [address] Number: [address], Repository [place] [id number] [place] [id number] [facility], Date:Plan Name:[facility] [id number]: () 02/02/2018 Pablo A Primary Pablo A [place] [id number] Insurance:ANTHEMPolicy [facility] Number: [id number] General Hospital Box [id number] Repository [address], [place] Date:3471-01-04GG [address] [address]Jbw: (758) 367334FDGOLOY, [place] [phone] () 478[address]GQ: 02/02/2018 Secondary NOT GIVENUNK [place] Insurance:SELF PAY [facility] Number: Effective Repository Date:2018-02-02 01/27/2018 Pablo A Primary Pablo A [place] [id number] Insurance:ANTHEMPolicy FlinnerDOB: Replaced By [facility] Gideon Dixon Number: [id number] General Hospital Box [id number] Repository [place], [place] Date:4309-09-38LC [address] [address]Gvq: (222) 667906AYUVRPBIRONTON, [place] [phone] () 05228JP: 01/27/2018 Secondary NOT GIVENUNK [place] Insurance:SELF PAY [facility] Number: Effective Repository Date:2018-01-27 01/27/2018 CLEMENTINE D Primary Insurance:JOAQUÍN Castro FLINNERDOB: [address] ANTHTARYN FLINNERDOB: [facility] [id number] OUTPATIENTKind[facility] [id number] Hospital [address] Number: [address]OX [address], Repository [place] [id number] Ar [id number] [facility], Date:Plan Name:B2 Ar [id number]: () 01/25/2018 Pablo A Primary Pablo Rosa [id number] Insurance:ANTHEMPolicy [facility] Number: [id number] General Hospital Box [id number] Repository [address], [place] Date:8265-11-08VM [address] [address]Nok: (680) 676998TXYNBFXIRONTON, [place] [phone] () 58797DU: 01/25/2018 Secondary NOT GIVENUNK [place] Insurance:SELF PAY [facility] Number: Effective Repository Date:2018-01-25 01/24/2018 CLEMENTINE D Primary Insurance:JOAQUÍN Castro FLINNERDOB: [address] ANTHTARYN FLINNERDOB: [facility] [id number] OUTPATIENTKind[facility] [id number] Hospital [address] Number: [address], Repository [place] [id number] Ar [id number] [facility], Date:Plan Name:B2 Ar [id number]: () 01/20/2018 Pablo A Primary Pablo Jasonoster [id number] Insurance:ANTHEMPolicy FlinnerDOB: Replaced By [facility] [place] Number: [id number] General Hospital Box [id number] Repository [address], [place] Date:4212-05-62EV [address] [address]Xpp: (028) 757875JLKMGHOIRONTON, [place] [phone] () 02141IZ: 01/20/2018 Secondary NOT GIVENUNK [place] Insurance:SELF PAY [facility] Number: Effective Repository Date:2018-01-20 01/20/2018 CLEMENTINE Luna Primary Insurance:JOAQUÍN Castro FLINNERDOB: [address] ANTHEM FLINNERDOB: [facility] 7407-40-30NSSt. [facility] 3099-45-80XHXLE Hospital [address] Number: [address], Repository [place] [id number] Ar [id number] [facility], Date:Plan Name:[facility] [id number]: () 01/05/2018 CLEMENTINE Luna Primary Insurance:JOAQUÍN Castro FLINNERDOB: [address] ANTHEM FLINNERDOB: [facility] 7766-89-08CISt. Luke's [facility] 2025-46-46NBRVQ Hospital [address] Number: [address], Repository [place] [id number] [place] [id number] [facility], Date:Plan Name:[facility] [id number]: () 12/29/2017 Pablo A Primary Pablo Rosa [id number] Insurance:ANTHEMPolicy FlinnerDOB: [facility] Number: [id number] General Hospital Box [id number] Repository [place], [place] Date:7834-89-53ZZ [address] [address]Rkx: (061) 170517SXQBIYTIRONTON, [place] [phone] () 42983DX: 12/29/2017 Secondary NOT GIVENUNK [place] Insurance:SELF PAY [facility] Number: Effective Repository Date:2017-12-29 12/29/2017 CLEMENTINE Luna Primary Insurance:JOAQUÍN Castro FLINNERDOB: [address] ANTHEM FLINNERDOB: [facility] [id number] OUT[facility]IENTKind[facility] [id number] Hospital [address] Number: [address], Repository [place] [id number] Ar [id number] [facility], Date:Plan Name:[facility] [id number]: () 12/03/2017 Pablo Sanabria Primary Pablo Rosa [id number] Insurance:ANTHEMPolicy FlinnerDOB: [facility] Number: [id number] General Hospital Box [id number] Repository [place], [place] Date:7938-46-13CK [address] [address]Dpq: (800) 628106YRCEPUD, [place] [phone] () 24871BR: 12/03/2017 Secondary NOT GIVENUNK [place] Insurance:SELF PAY [facility] Number: Effective Repository Date:2017-12-03 11/05/2017 Pablo A Primary Pablo Rosa [id number] Insurance:ANTHEMPolicy FlinnerDOB: [facility] Number: [id number] General Hospital Box [id number] Repository [address], [place] Date:5634-66-30ZC [address] [address]Mdl: (905) 990981WXJBQUW, [place] [phone] () 65480YN: 11/05/2017 Secondary NOT GIVENUNK [place] Insurance:SELF PAY [facility] Hospital Number: Effective Repository Date:2017-11-05 11/04/2017 CLEMENTINE Luna Primary Insurance:JOAQUÍN Castro FLINNERDOB: CROSS [birth year] ANTHTARYN FLINNERDOB: [facility] [id number] [facility] [id number] Hospital [address]: [address], Repository [place] [id number] Ar [id number] [facility], Date:Plan Name:B2 Ar [id number]: () 10/14/2017 Pablo A Primary Pablo Rosa [id number] Insurance:ANTHEMPolicy FlinnerDOB: [facility] Number: [id number] [facility] Hospital Box [id number] [address] Date:8257-58-73VS [address] [address]Ogq: [phone]) [phone], [place] [phone] () 70825UB: 10/14/2017 Secondary NOT GIVENUNK [place] Insurance:SELF PAY [facility] Number: Effective Repository Date:2017-10-14 10/14/2017 CLEMENTINE Luna Primary Insurance:JOAQUÍN PABLO Pitts Ermaludincatherine FLINNERDOB: CROSS [facility] ANTHEM FLINNERDOB: [facility] [id number] [id number] Hospital [address] Number: [address], Repository [place] [id number] [place] [id number] [facility], Date:Plan Name:B2 Ar [id number]: () 10/13/2017 Pablo A Primary Pablo Jasonoster [id number] Insurance:ANTHEMPolicy FlinnerDOB: [facility] Number: [id number] General Hospital Box [id number] [address]ository [address] Date:2261-89-61ZA [address] [address]Ltw: [phone], [place] [phone] () 77733FK: 10/13/2017 Secondary NOT GIVENUNK [place] Insurance:SELF PAY [facility] Number: Effective Repository Date:2017-10-01 10/05/2017 Pablo A Primary Pablo Jasonoster [id number] Insurance:ANTHEMPolicy FlinnerDOB: [facility] Number: [id number] General Hospital Box [id number] [address]ository [address] Date:9174-56-37JU [address] [address]Qhb: [phone], [place] [phone] () 39249ZF: 10/05/2017 Secondary NOT GIVENUNK [place] Insurance:SELF PAY [facility] Number: Effective Repository Date:2017-10-05 10/01/2017 Pablo Sanabria Primary Pablo Rosa [id number] Insurance:ANTHEMPolicy FlinnerDOB: Replaced By [facility] Number: [id number] General Hospital Box [id number] [address], [place] Date:5858-75-23MM [address] [address]Vnq: [phone], [place] [phone] () 65529RI: 10/01/2017 Secondary NOT GIVENUNK [place] Insurance:SELF PAY [facility] Number: Effective Repository Date:2017-06-18 10/01/2017 Pablo A Primary Pablo Rosa [id number] Insurance:ANTHEMPolicy [facility] Number: [id number] General Hospital Box [id number] [address] Date:1296-24-21NR [address] [address]Gqd: [phone], [place] [phone] () 29119WR: 10/01/2017 Secondary NOT GIVENUNK [place] Insurance:SELF PAY [facility] Number: Effective Repository Date:2017-10-01 09/30/2017 CLEMENTINE Luna Primary Insurance:JOAQUÍN Castro FLINNERDOB: CROSS [birth year] ANTHEM FLINNERDOB: [facility] [id number] OUTPATIENTKind[facility] [id number] Hospital [address] Number: [address], Repository [place] [id number] Ar [id number] [facility], Date:Plan Name:B2 Ar [id number]: () 09/14/2017 CLEMENTINE Luna Primary Insurance:BLUE PABLO Hong Pomerene FLINNERDOB: CROSS [birth year] ANTHEM FLINNERDOB: [facility] [id number]. [facility] [id number] Hospital [address] Number: [address], Repository [place] [id number] [place] [id number] [facility], Date:Plan Name:[facility] [id number]: () 09/14/2017 Pablo A Primary Pablo Daniele Rosa [id number] Insurance:ANTHEMPolicy FlinnerDOB: Replaced By [facility] [place] Number: [id number] General Hospital Box [id number] [address]ository [address], [place] Date:0855-89-77BX [address] [address]Psb: [phone], [place] [phone] () 83149IS: 09/14/2017 Secondary NOT GIVENUNK [place] Insurance:SELF PAY [facility] Number: Effective Repository Date:2017-09-14 09/02/2017 CLEMENTINE D Primary Insurance:JOAQUÍN Castro FLINNERDOB: CROSS [birth year] ANTHEM FLINNERDOB: [facility] [id number]. Luke's [facility] [id number] Hospital [address] Number: [address], Repository [place] [id number] [place] [id number] [facility], Date:Plan Name:[facility] [id number]: () 08/19/2017 CLEMENTINE D Primary Insurance:JOAQUÍN Castro FLINNERDOB: CROSS [birth year] ANTHEM FLINNERDOB: [facility] [id number]. Luke's [place] [id number] Hospital [address] Number: [address], Repository [place] [id number] [place] [id number] [facility], Date:Plan Name:[facility] [id number]: () 08/12/2017 CLEMENTINE D Primary Insurance:JOAQUÍN Castro FLINNERDOB: CR[address] [birth year] ANTHEM FLINNERDOB: [facility] [id number]. Luke's [facility] [id number] Hospital [address] Number: [address], Repository [place] [id number] [place] [id number] [facility], Date:Plan Name:[facility] [id number]: () 07/22/2017 Pablo A Primary Pablo Rosa [id number] Insurance:ANTHEMPolicy FlinnerDOB: Replaced By [facility] [place] Number: [id number] General Hospital Box [id number] [address] Date:9195-13-97RR [address] [address]Bgq: [phone], [place] [phone] () 32179WE: 07/22/2017 Secondary NOT GIVENUNK [place] Insurance:SELF PAY [facility] Number: Effective Repository Date:2017-07-22 07/22/2017 CLEMENTINE Luna Primary Insurance:JOAQUÍN Castro FLINNERDOB: CR[address] [birth year] ANTHTARYN FLINNERDOB: [facility] [id number]. Luke's [facility] [id number] Hospital [address] Number: [place] [address] [place], Repository [place] [id number] [place] [id number] [facility], Date:Plan Name:[facility] [id number]: () 07/15/2017 CLEMENTINE Luna Primary Insurance:JOAQUÍN Castro FLINNERDOB: CROSS [birth year] ANTHTARYN FLINNERDOB: [facility] [id number]. Luke's [place] [id number] Hospital [address] Number: [address], Repository [place] [id number] [place] [id number] [facility], Date:Plan Name:[facility] [id number]: ()
== END ==
PROVIDERS: Family Provider Family Medicine Geriatric Medicine; PCP Family Medicine Geriatric Medicine; Visit Provider Family Medicine Geriatric Medicine
DX: Z78.0 Asymptomatic menopausal state (principal)
CPT/HCPCS: 77080

== ENCOUNTER → 2018-06-27 08:46 | Outpatient (CLI) | payer BC, SELFPAY ==
--- NOTE | 2018-06-27 08:52 | CDU_ITS ---
Reason For Study: CAROTID ARTERY DISEASE Rt. Velocities/BP Lt. Velocities/BP Prox CCA 106/17 cm/sec. Prox CCA 97/20 cm/sec. Mid CCA 83/21 cm/sec. Mid CCA 69/22 cm/sec. Dist CCA 78/21 cm/sec. Dist CCA 77/24 cm/sec. Prox ICA 211/58 cm/sec. Prox ICA 275/89 cm/sec. Mid ICA 162/58 cm/sec. Mid ICA 236/50 cm/sec. Dist ICA 114/42 cm/sec. Dist ICA 130/31 cm/sec. Rt. ICA/CCA = 2.5. Lt. ICA/CCA = 4.0. Prox ECA 174/27 cm/sec. Prox ECA 361/40 cm/sec. Rt. Vert. 49/19 cm/sec. Lt. Vert. 79/24 cm/sec. Right Extracranial There is intimal thickening but no significant atherosclerotic plaque noted in the right common carotid artery. There is heterogeneous, irregular atherosclerotic plaque noted in the right internal carotid artery. There is heterogeneous, irregular atherosclerotic plaque noted in the right external carotid artery. Antegrade flow is noted in the right vertebral artery. There is heterogeneous, irregular atherosclerotic plaque noted in the right bulb. Left Extracranial There is intimal thickening but no significant atherosclerotic plaque noted in the left common carotid artery. There is heterogeneous, irregular atherosclerotic plaque noted in the left internal carotid artery. There is heterogeneous, irregular atherosclerotic plaque noted in the left external carotid artery. Antegrade flow is noted in the left vertebral artery. There is heterogeneous, irregular atherosclerotic plaque noted in the left bulb. Procedure Carotid Duplex [id number]. Exam performed in department. Interpretation Summary Moderate (50-69%) stenosis right extracranial internal carotid. Severe (>70%) stenosis left extracranial internal carotid. Flow within the vertebral arteries is antegrade bilaterally. Ordering Physician: Argelia Eid Referring Physician: TANK TREADWELL CHI Performed By: Mey Rodriguez, GUS, RVT
--- OUTSIDE RECORDS SUMMARY | 2018-09-28 19:53 | XMS RPT_ITS ---
:1950 Author Organization [place] Support Name Relationship Address Phone PABLO WARD Unavailable [address] [place] [address] + [address] [place] [address] R Unavailable Unavailable Unavailable APBLO WARD Unavailable [address] + [address] [place] [address] R Unavailable Unavailable Unavailable PABLO WARD Unavailable [address] + [address] [place] [address] R Unavailable Unavailable Unavailable EDPABLO Unavailable [address] + [address] [place] [address] R Unavailable Unavailable Unavailable JAN WARDALD Unavailable [address] + [address] [place] [address] R Unavailable Unavailable Unavailable JAVIERJAN UPTONALD Unavailable [address] + [place] [address] R Unavailable Unavailable Unavailable JAVIERJAN UPTONALD Unavailable [address] + [place] [address] R Unavailable Unavailable Unavailable PABLO WARD Unavailable [address] + [place] [address] R Unavailable Unavailable Unavailable JAN WARDALD Unavailable [address] + [place] [address] R Unavailable Unavailable Unavailable PABLO WARD Unavailable [address] + [place] [address] R Unavailable Unavailable Unavailable JAN WARDALD Unavailable [address] + [address] [facility] [place], [place] [phone] PABLO WARD Unavailable [address] Unavailable [address] [facility] [place] [id number] NOT GIVEN Unavailable Unavailable Unavailable PABLO WARD Unavailable [address] + [place] [address] R Unavailable Unavailable Unavailable PABLO WARD Unavailable [address] + [address] [facility] [place] [phone] PABLO WARD Unavailable [address] Unavailable [address] [facility] [place] [id number] NOT GIVEN Unavailable Unavailable Unavailable PABLO WARD Unavailable [address] + [place] [address] R Unavailable Unavailable Unavailable PABLO WARD Unavailable [address] + [address] [facility] [place] [phone] PABLO WARD Unavailable [address] Unavailable [address] [facility] [place] [id number] NOT GIVEN Unavailable Unavailable Unavailable PABLO WARD Unavailable [address] + [address] [facility] [place] [phone] PABLO WARD Unavailable [address] Unavailable [address] [facility] [place] [id number] NOT GIVEN Unavailable Unavailable Unavailable PABLO WARD Unavailable [address] + [place] [address] R Unavailable Unavailable Unavailable PABLO WARD Unavailable [address] + [address] [facility] [place] [phone] PABLO WARD Unavailable [address] Unavailable [address] [facility] [place] [phone] NOT GIVEN Unavailable Unavailable Unavailable PABLO WARD Unavailable [address] + [place] [address] R Unavailable Unavailable Unavailable PABLO WARD Unavailable [address] + [address] [facility] [place] [phone] PABLO WARD Unavailable [address] Unavailable [address] [facility] [place] [phone] NOT GIVEN Unavailable Unavailable Unavailable PABLO WARD Unavailable [address] + [place] [address] R Unavailable Unavailable Unavailable PABLO WARD Unavailable [address] + [place] [address] R Unavailable Unavailable Unavailable PABLO WARD Unavailable [address] + [address] [facility] [place] [phone] PABLO WARD Unavailable [address] Unavailable [address] [facility] [place] [phone] NOT GIVEN Unavailable Unavailable Unavailable PABLO WARD Unavailable [address] + [address] [facility] [place] [phone] PABLO WARD Unavailable [address] Unavailable [address] [facility] [place] [phone] NOT GIVEN Unavailable Unavailable Unavailable PABLO AWRD Unavailable [address] + [place] [address] R Unavailable Unavailable Unavailable PABLO WARD Unavailable [address] + [place] [address] R Unavailable Unavailable Unavailable PABLO WARD Unavailable [address] + [address] [facility] [place] [phone] PABLO WARD Unavailable [address] Unavailable [address] [facility] [phone] NOT GIVEN Unavailable Unavailable Unavailable PABLO WARD Unavailable [address] + [place] [address] R Unavailable Unavailable Unavailable PABLO WARD Unavailable [address] + [address] [facility] [place] [phone] PABLO WARD Unavailable [address] Unavailable [address] [facility] [place] [phone] NOT GIVEN Unavailable Unavailable Unavailable PABLO WARD Unavailable [address] + [place] [address] R Unavailable Unavailable Unavailable PABLO WARD Unavailable [address] + [address] [facility] [place] [phone] PABLO WARD Unavailable [address] Unavailable [address] [facility] [place] [id number] NOT GIVEN Unavailable Unavailable Unavailable PABLO WARD Unavailable [address] + [address] [facility] [place] [phone] PABLO WARD Unavailable [address] Unavailable [address] [facility] [place] [phone] NOT GIVEN Unavailable Unavailable Unavailable PABLO WARD Unavailable [address] + [place] [address] R Unavailable Unavailable Unavailable JAN WARDALD Unavailable [address] + [address] [facility], [place] [phone] PABLO WARD Unavailable [address] Unavailable [address] [place], [place] [phone] NOT GIVEN Unavailable Unavailable Unavailable PABLO WARD Unavailable [address] + [facility] [place] [address] R Unavailable Unavailable Unavailable PABLO WARD Unavailable [address] + [facility] [place] [address] R Unavailable Unavailable Unavailable PABLO WARD Unavailable [address] + [address] [facility] [place] [phone] PABLO WARD Unavailable [address] Unavailable [address] [place], [place] [phone] NOT GIVEN Unavailable Unavailable Unavailable PABLO WARD Unavailable [address] + [facility] [place] [address] R Unavailable Unavailable Unavailable PABLO WARD Unavailable [address] + [address] [facility] [place] [phone] PABLO WARD Unavailable [address] Unavailable [address] [place], [place] [id number] NOT GIVEN Unavailable Unavailable Unavailable PABLO WARD Unavailable [address] + [place] [address] R Unavailable Unavailable Unavailable PABLO WARD Unavailable [address] + [facility] [place] [address] R Unavailable Unavailable Unavailable PABLO WARD Unavailable [address] + [facility] [place] [address] R Unavailable Unavailable Unavailable R Unavailable Unavailable Unavailable PABLO WARD Unavailable [address] + [place] [address] SAMIR WARD Unavailable [address] [facility] + [address] [place] [address] R Unavailable Unavailable Unavailable PABLO WARD Unavailable [address] + [address] [facility] [place] [phone] PABLO WARD Unavailable [address] Unavailable [address] [place] [phone] NOT GIVEN Unavailable Unavailable Unavailable PABLO WARD Unavailable [address] + [address] [place] [phone] JAVIERJUANPABLO BONE Unavailable [address] Unavailable [address] [place], [place] [phone] NOT GIVEN Unavailable Unavailable Unavailable JAVIERWONPABLO Unavailable [address] + [facility] [place] [address] EDSAMIR Unavailable [address] [place] [address] + [address] [place] [address] R Unavailable Unavailable Unavailable JAVIERJUANPABLO BONE Unavailable [address] + [address] [place], [place] [phone] JAVIERJUANPABLO BONE Unavailable [address] Unavailable [address] [place] [phone] NOT GIVEN Unavailable Unavailable Unavailable EDPABLO Unavailable [address] + [address] [place] [phone] JAVIERWONPABLO Unavailable [address] Unavailable [address] [place], [place] [phone] NOT GIVEN Unavailable Unavailable Unavailable JAVIERJUANPABLO BONE Unavailable [address] + [address] [place], [place] [phone] JAVIERJUANPABLO BONE Unavailable [address] Unavailable [address] [place], [place] [phone] NOT GIVEN Unavailable Unavailable Unavailable Care Team Providers Name Role Phone ZURI, JACK S Admitting Unavailable ZURI, JACK S Attending Unavailable ZURI, JACK S Primary Care Unavailable ZURI, JACK S Admitting Unavailable ZURI, JACK S Attending Unavailable ZURI, JACK S Primary Care Unavailable ZURI, JACK S Admitting Unavailable ZURI, JACK S Attending Unavailable ZURI, JACK S Primary Care Unavailable JACK KEATING MD Admitting Unavailable JACK KEATING MD Attending Unavailable JACK KEATING MD Primary Care Unavailable ZURI, JACK S [...] Unavailable ZURI, JACK S Primary Care Unavailable LEONARDO TREADWELL MD Consulting Unavailable PROVIDER, UNKNOWN Consulting Unavailable PROVIDER, UNKNOWN Consulting Unavailable ZURI, JACK S Admitting Unavailable ZURI, JACK S Attending Unavailable ZURI, JACK S Primary Care Unavailable LEONARDO TREADWELL MD Consulting Unavailable PROVIDER, UNKNOWN Consulting Unavailable PROVIDER, UNKNOWN Consulting Unavailable ZURI, JACK S Admitting Unavailable ZURI, JACK S Attending Unavailable ZURI, JACK S Primary Care Unavailable LEONARDO TREADWELL MD Consulting Unavailable PROVIDER, UNKNOWN Consulting Unavailable PROVIDER, UNKNOWN Consulting Unavailable ZURI, JACK S Admitting Unavailable ZURI, JACK S Attending Unavailable ZURI, JACK S Primary Care Unavailable LEONARDO TREADWELL MD Consulting Unavailable PROVIDER, UNKNOWN Consulting Unavailable PROVIDER, UNKNOWN Consulting Unavailable ZURI, JACK S Admitting Unavailable ZURI, JACK S Attending Unavailable ZURI, JACK S Primary Care Unavailable LEONARDO TREADWELL MD Consulting Unavailable PROVIDER, UNKNOWN Consulting Unavailable PROVIDER, UNKNOWN Consulting Unavailable ZURI, JACK S Admitting Unavailable ZURI, JACK S Attending Unavailable ZURI, JACK S Primary Care Unavailable LEONARDO TREADWELL MD Consulting Unavailable PROVIDER, UNKNOWN Consulting Unavailable PROVIDER, UNKNOWN Consulting Unavailable ZURI, JACK S Admitting Unavailable ZURI, JACK S Attending Unavailable ZURI, JACK S Primary Care Unavailable LEONARDO TREADWELL MD Consulting Unavailable PROVIDER, UNKNOWN Consulting Unavailable PROVIDER, UNKNOWN Consulting Unavailable ZURI, JACK S Admitting Unavailable ZURI, JACK S Attending Unavailable ZURI, JACK S Primary Care Unavailable LEONARDO TREADWELL MD Consulting Unavailable PROVIDER, UNKNOWN Consulting Unavailable PROVIDER, UNKNOWN Consulting Unavailable ZURI, JACK S Admitting Unavailable ZURI, JACK S Attending Unavailable ZURI, JACK S Primary Care Unavailable LEONARDO TREADWELL MD Consulting Unavailable PROVIDER, UNKNOWN Consulting Unavailable PROVIDER, UNKNOWN Consulting Unavailable ZURI, JACK S Admitting Unavailable ZURI, JACK S Attending Unavailable ZURI, JACK S Primary Care Unavailable LEONARDO TREADWELL MD Consulting Unavailable PROVIDER, UNKNOWN Consulting Unavailable PROVIDER, UNKNOWN Consulting Unavailable ZURI, JACK S Admitting Unavailable ZURI, JACK S Attending Unavailable ZURI, JACK S Primary Care Unavailable DEEPAKLEONARDO MEAD MD Consulting Unavailable PROVIDER, UNKNOWN Consulting Unavailable PROVIDER, UNKNOWN Consulting Unavailable ZURI, JACK S Admitting Unavailable ZURI, JACK S Attending Unavailable ZURI, JACK S Primary Care Unavailable DEEPAK, LEONARDO MD Consulting Unavailable PROVIDER, UNKNOWN Consulting Unavailable PROVIDER, UNKNOWN Consulting Unavailable MASCI, LUI A Referring Unavailable MASCI, LUI A Referring Unavailable MASCI, LUI A Attending Unavailable MASCI, LUI A Referring Unavailable MASCI, LUI A Referring Unavailable MASCI, LUI A Attending Unavailable MASCI, LUI A Referring Unavailable MASCI, LUI A Referring Unavailable MASCI, LUI A Referring Unavailable EidArgelia gil Attending Unavailable Deepak, Leonardo Chi Primary Care Unavailable EidArgelia santos Referring Unavailable Zuri, Jack Attending Unavailable Zuri, [place] Referring Unavailable Deepak, Leonardo Chi Primary Care Unavailable Deepak, Leonardo Chi Attending Unavailable Argelia Eid Attending Unavailable Deepak, Leonardo Chi Referring Unavailable Deepak, Leonardo Chi Primary Care Unavailable Deepak, Leonardo Chi Attending Unavailable Deepak, Leonardo Chi Attending Unavailable Deepak, Leonardo Chi Primary Care Unavailable EidArgelia santos Attending Unavailable Deepak, Leonardo Chi Primary Care Unavailable Deepak, Leonardo Chi Attending Unavailable Deepak, Leonardo Chi Attending Unavailable Zuri, [place] Attending Unavailable Deepak, Leonardo Chi Primary Care Unavailable Deepak, Leonardo Chi Attending Unavailable Deepak, Leonardo Chi Attending Unavailable Deepak, Leonardo Chi Attending Unavailable Deepak, Leonardo Chi Attending Unavailable Deepak, Leonardo Chi Attending Unavailable Deepak, Leonardo Chi Attending Unavailable Deepak, Leonardo Chi Attending Unavailable Deepak, Leonardo Chi Primary Care Unavailable Deepak, Leonardo Chi Referring Unavailable Deepak, Leonardo Chi Attending Unavailable Deepak, Leonardo Chi Attending Unavailable Deepak, Leonardo Chi Attending Unavailable Deepak, Leonardo Chi Attending Unavailable Deepak, Leonardo Chi Primary Care Unavailable Deepak, Leonardo Chi Attending Unavailable Zuri, Jack Attending Unavailable Zuri, Jack Referring Unavailable Deepak, Leonardo Chi Primary Care Unavailable Zuri, Jack Attending Unavailable Zuri, Jack Referring Unavailable Deeapk, Leonardo Chi Primary Care Unavailable Zuri, Jack Attending Unavailable Deepak, Leonardo Chi Referring Unavailable Deepak, Leonardo Chi Attending Unavailable Deepak, Leonardo Chi Primary Care Unavailable Deepak, Leonardo Chi Attending Unavailable Deepak, Leonardo Chi Primary Care Unavailable Zuri, Jack Attending Unavailable Zuri, Jack Referring Unavailable Deepak, Leonardo Chi Primary Care Unavailable Zuri, Jack Attending Unavailable Zuri, [place] Referring Unavailable Deepak, Leonardo Chi Primary Care Unavailable PROBLEMS PROBLEMS DATE TYPE CONDITION / CODE ATTENDING STATUS SOURCE 07/28/2018 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 / Clinic Main D59.4(ICD-10) [place] Repository 07/11/2018 Unknown 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, [place]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 / Hospital Z95.2(ICD-10) Repository 07/11/2018 Unknown Z79.01 - senior care Zuri, Jack Active [facility] (current) use of Community anticoagulants / Hospital Z79.01(ICD-10) Repository 06/13/2018 Unknown I77.9 - Disorder of Zuri, Jack Active [facility] arteries and Community arterioles, Hospital unspecified / Repository I77.9(ICD-10) 06/13/2018 Unknown 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, [place] Active [facility] and stenosis of left Community carotid artery / Hospital I65.22(ICD-10) Repository 05/24/2018 Unknown R09.89 - Other Zuri, Jack Active [facility] specified symptoms Community and signs involving Hospital the circulatory and Repository respiratory systems / R09.89(ICD-10) 05/24/2018 Unknown Z95.1 - Presence of Zuri, [place] Active [place] aortocoronary bypass Community graft / Hospital Z95.1(ICD-10) Repository 03/15/2018 Admitting Presence of ZURI, 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 [facility] / Z952(ICD-10) Hospital Repository 03/15/2018 Principle Presence of ZURI, 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 [facility] / Z952(ICD-10) Hospital Repository 03/15/2018 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) ZURI, 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 [facility] use of [facility] anticoagulants / Hospital Z7901(ICD-10) Repository 02/21/2018 Admitting senior care (current) ZURI, 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 [facility] use of [facility] anticoagulants / Hospital Z7901(ICD-10) Repository 02/21/2018 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) JACK KEATING S Active [facility] use of [facility] anticoagulants / Hospital Z7901(ICD-10) Repository 02/21/2018 Secondary Presence of ZURINICOLA CANTURIL S Active [facility] / Z952(ICD-10) Hospital Repository 02/17/2018 Unknown M51.86 - Other Deepak, 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 Community disorders, lumbar Hospital region / Repository M51.86(ICD-10) 10/05/2017 Unknown E55.9 - Vitamin D Deepak, Leonardo Chi Active [place] deficiency, Community unspecified / Hospital E55.9(ICD-10) Repository 10/05/2017 Unknown I10 - Essential Deepak, Leonardo Chi Active [facility] (primary) Community hypertension / Hospital I10(ICD-10) Repository 10/01/2017 Unknown I25.10 - Eid, Active [facility] Atherosclerotic [facility] heart disease of [facility] [place] coronary Repository artery without angina pectoris / I25.10(ICD-10) 09/14/2017 Secondary Presence of ZURIJASWINDER CANTUL Active [facility] cerebrospinal fluid MD [facility] drainage device / Hospital Z982(ICD-10) Repository PROCEDURES PROCEDURES No Procedure Records FoundRESULTS RESULTS LD Collected: 07/28/2018 Status: F Source: [facility] 12:02 PM [facility] REPOSITORY TYPE CODE TESTS RESULT OUT OF RANGE REFERENCE UNITS LAB LD 135-214 U/L High LD 840 RETICULOCYTE Collected: 07/28/2018 Status: F Source: [place] 12:02 PM [facility] REPOSITORY TYPE CODE TESTS RESULT OUT OF REFERENCE UNITS RANGE LAB RETC 0.4-2.0 % High Retic% 2.7 LAB ABRET 0.0180-0.1000 M/uL High Abs Retic 0.112 Performed By: #### RETIC, IRON, HAPTO, FERR #### [facility] [address] [place], [place] [address] IRON AND TIBC Collected: 07/28/2018 Status: F Source: [place] 12:02 PM [facility] REPOSITORY TYPE CODE TESTS RESULT OUT OF REFERENCE UNITS RANGE LAB IRN 41-186 ug/dL Iron 101 LAB TIBC 232-386 ug/dL TIBC 305 LAB SAT 15-57 % Transferrin Saturatn 33 Performed By: #### RETIC, IRON, HAPTO, FERR #### [facility] [address] [address] HAPTOGLOBIN Collected: 07/28/2018 Status: F Source: [place] 12:02 [facility] REPOSITORY TYPE CODE TESTS RESULT OUT OF REFERENCE UNITS RANGE LAB HAPTO 31-238 mg/dL Low Haptoglobin <10 Performed By: #### RETIC, IRON, HAPTO, FERR #### [facility] [address] [address] FERRITIN Collected: 07/28/2018 Status: F Source: [place] 12:02 [facility] REPOSITORY TYPE CODE TESTS RESULT OUT OF REFERENCE UNITS RANGE LAB FERR 14.7-205.1 ng/mL High Ferritin 839.2 Performed By: #### RETIC, IRON, HAPTO, FERR #### [facility] [address] [address] [place] ABS GR + CBC Collected: 07/28/2018 Status: F Source: [place] 12:01 [facility] REPOSITORY TYPE CODE TESTS RESULT OUT OF REFERENCE UNITS RANGE LAB WWBC 3.70-11.00 k/uL [place] WBC 8.70 LAB WRBC 3.90-5.20 m/uL [facility] RBC 4.08 LAB WHGB 11.5-15.5 g/dL [place] Hemoglobin 12.3 LAB WHCT 36.0-46.0 % [place] Hematocrit 37.8 LAB WMCV 80.0-100.0 fL [place] MCV 92.6 LAB WMCH 26.0-34.0 pg [facility] MCH 30.1 LAB WMCHC 30.5-36.0 g/dL [facility] MCHC 32.5 LAB WRDW 11.5-15.0 % [facility] RDW 13.3 LAB WPLT 150-400 k/uL [place] Platelet Cnt 222 LAB WMPV 9.0-12.7 fL [place] MPV 10.9 Result Comment: Test performed at: [facility], [address] [place] [address] Rd[address] [place] [address]. LAB ABGRAN 1.45-7.50 k/uL Absol Gran 6.66 Count PROTHROMBIN TIME W/INR Collected: 07/07/2018 Status: F Source: [place] 1:42 PM [facility] REPOS[facility] Order Comment: Comments: STANDING ORDER Comments: STANDING ORDER TYPE CODE TESTS RESULT OUT OF RANGE REFERENCE UNITS LAB L300.4150 11.7-14.9 SECONDS High PROTIME 27.8 LAB L300.4200 Normal INR 2.6 Performed By: #### L300.3900 #### [facility] [address] [place], [address] CAROTID DUPLEX Observed: 06/29/2018 Status: F Source: [place] ULTRASOUND 8:12 AM [facility] RE[place]IT[place] [facility] Cardiovascular Services [address] [place] [address] Carotid Duplex Ultrasound 06/27/18 0856 MR#: [id number] Acct: [id number] Name: CLEMENTINE WARD Rep #: [id number] : 1950 67 From: Curtis Joshi MD Attending Dr: Argelia Eid Status: REG CLI Ordering Dr: Argelia Eid Date: 06/27/18 Location: [facility] Sex: F C Admitted: Reason For Study: CAROTID ARTERY DISEASE Rt. Velocities/BP Lt. Velocities/BP Prox CCA 106/17 cm/sec. Prox CCA 97/20 cm/sec. Mid CCA 83/21 cm/sec. Mid CCA 69/22 cm/sec. Dist CCA 78/21 cm/sec. Dist CCA 77/24 cm/sec. Prox ICA 211/58 cm/sec. Prox ICA 275/89 cm/sec. Mid ICA 162/58 cm/sec. Mid ICA 236/50 cm/sec. Dist ICA 114/42 cm/sec. Dist ICA 130/31 cm/sec. Rt. ICA/CCA = 2.5. Lt. ICA/CCA = 4.0. Prox ECA 174/27 cm/sec. Prox ECA 361/40 cm/sec. Rt. Vert. 49/19 cm/sec. Lt. Vert. 79/24 cm/sec. Right Extracranial There is intimal thickening but no significant atherosclerotic plaque noted in the right common carotid artery. There is heterogeneous, irregular atherosclerotic plaque noted in the right internal carotid artery. There is heterogeneous, irregular atherosclerotic plaque noted in the right external carotid artery. Antegrade flow is noted in the right vertebral artery. There is heterogeneous, irregular atherosclerotic plaque noted in the right bulb. Left Extracranial There is intimal thickening but no significant atherosclerotic plaque noted in the left common carotid artery. There is heterogeneous, irregular atherosclerotic plaque noted in the left internal carotid artery. There is heterogeneous, irregular atherosclerotic plaque noted in the left external carotid artery. Antegrade flow is noted in the left vertebral artery. There is heterogeneous, irregular atherosclerotic plaque noted in the left bulb. Procedure Carotid Duplex 78966. Exam performed in department. Interpretation Summary Moderate (50-69%) stenosis right extracranial internal carotid. Severe (>70%) stenosis left extracranial internal carotid. Flow within the vertebral arteries is antegrade bilaterally. Ordering Physician: Argelia Eid Referring Physician: LEONARDO TREADWELL [facility] Performed By: Mey Rodriguez, GUS, RVT 06/29/18810 Date Curtis Joshi MD CC: Argelia Eid; Leonardo Treadwell MD Date Dictated: 06/27/18 0856 Date Transcribed: 06/29/18810 Career Development Associate: Signed DEXA BONE DENSITY Observed: 06/09/2018 Status: F Source: [place] STUDY 1:00 PM [facility] [place] [facility] [place] [address] Dexa Bone Density Study MR#: [id number] Acct: [id number] Name: CLEMENTINE WARD Rep #: [id number] : 1950 F 67 From: Fermin Patterson MD PCP: Leonardo Treadwell MD, Chi Status: REG CLI Study: Dexa Bone Density Study Date of Exam: 06/09/18 Exam# [id number] Ordering Dr: Leonardo Treadwell MD STUDY: DUAL ENERGY X-RAY ABSORPTIOMETRY [...] Fermin Patterson MD at 15:32 EST Tel [phone], Service support , CC: Leonardo Treadwell MD Career Development Associate: Signed SCREENING MAMM (CAD), Observed: 06/07/2018 Status: F Source: [facility] 2:54 PM [facility] [place] [facility] Imaging Services [address] [place] [address] SCREENING MAMM (CAD), BILAT MR#: [id number] Acct: [id number] Name: CLEMENTINE WARD Cheryl Rep #: [id number] : 1950 F 67 From: Fermin Patterson MD PCP: Leonardo Treadwell MD, Chi Status: REG [facility] Study: SCREENING MAMM (CAD), BILAT Date of Exam: 06/07/18 Exam# [id number] Ordering Dr: Leonardo Treadwell MD MAMMOGRAPHY - BILATERAL SCREENING REASON [...] delay biopsy of a clinically suspicious abnormality. [id number] Electronically Signed: Fermin Patterson MD at 15:34 EST Tel [phone], Service support , CC: Leonardo Treadwell MD Career Development Associate: Signed PROTHROMBIN TIME W/INR Collected: 06/07/2018 Status: F Source: [place] 2:41 PM [facility] REPOS[place] TYPE CODE TESTS RESULT OUT OF RANGE REFERENCE UNITS LAB L300.4150 11.7-14.9 SECONDS High PROTIME 31.4 LAB L300.4200 Normal INR 3.0 Performed By: #### L300.3900 #### [facility] [place], [address] CARDIOLOGY VISIT Observed: 05/24/2018 Status: F Source: [place] REPORT 1:51 PM [facility] [address] [place] [address] OFFICE VISIT Date of Service: 05/24/18 MR#: [id number] Acct: [id number] Name: CLEMENTINE WARD Rep #: [id number] : 1950 Provider: Jack Keating MD Age/Sex: 67/F Location: [facility] Status: Signed HPI HPI Chief Complaint: Follow-up [...] rate and rhythm and no pedal edema. [place] prosthetic sounds are noted and 1/6 systolic murmur is present. 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 Ronan Bailey, [facility], 03/10/2011 Plan She does have a view of coronary artery disease status post bypass surgery she underwent stress testing in 2016 which demonstrated no evidence of ischemia at a high workload. 2. Hx of mitral valve replacement with mechanical valve Z95.2 MVR with mechanical valve 03/10/11 @ [facility] Plan She does have a history of [...] signed by Jack Keating MD> Date Jack Ahmadi Signature: Date (if applicable) CC: Leonardo Treadwell MD PROTHROMBIN TIME W/INR Collected: 05/24/2018 Status: F Source: [place] 1:17 PM [facility] [place] Order Comment: Comments: STANDING ORDER Comments: STANDING ORDER TYPE CODE TESTS RESULT OUT OF RANGE REFERENCE UNITS LAB L300.4150 11.7-14.9 SECONDS High PROTIME 24.5 LAB L300.4200 Normal INR 2.2 Performed By: #### L300.3900 #### [facility] [address] [place], [address] PROTHROMBIN TIME W/INR Collected: 05/17/2018 Status: F Source: [place] 12:17 PM [facility] REPOS[facility]ORY TYPE CODE TESTS RESULT OUT OF RANGE REFERENCE UNITS LAB L300.4150 11.7-14.9 SECONDS High PROTIME 24.1 LAB L300.4200 Normal INR 2.2 Performed By: #### L300.3900 #### [facility] [address] [place], [address] PROGRESS Observed: 04/27/2018 Status: COMPLETED Source: [place] 11:56 AM [facility] REPOSITORY O ID: [id number] Author: Lui Wilkerson Service: (none) Author Type: [...] No jaundice or rash. No petechiae. NEUROLOGIC: pin attacher II-XII are grossly intact. No focal motor weakness. MUSCULOSKELETAL: No muscle wasting. 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 Patient has history of mechanical mitral valve replacement. -Previously discussed with her service vehicle operator--plan to monitor for now. -She has good erythrocytic compensation and is tolerating iron and folic acid replacement well. 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 -Still evidence of ongoing hemolysis. Plan: -Recheck Norman test today. -Continue iron and folic acid supplementation. -Recheck labs in 3 months. -Office visit in 6 months. -She will continue regular follow-up with her service vehicle operator. -We also discussed smoking cessation today. She is not psychologically motivated to quit at this time. I will continue to address this on subsequent visits. Lui Wilkerson DO CNOVSP Observed: 04/27/2018 Status: COMPLETED Source: [place] 11:30 AM [facility] REPOSITORY Visit (SP) Office (SAMIA) CLEMENTINE WARD ([id number]) 1950 F Date Time Provider Department 04/27/18 [...] swelling/edema, PND or orthopnea. Most recent echo 2016. No episodes of jaundice. No unusual bleeding [...] No jaundice or rash. No petechiae. NEUROLOGIC: pin attacher II-XII are grossly intact. No focal motor weakness. MUSCULOSKELETAL: No muscle wasting. 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 Patient has history of mechanical mitral valve replacement. -Previously discussed with her service vehicle operator--plan to monitor for now. -She has good erythrocytic compensation and is tolerating iron and folic acid replacement well. 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 -Still evidence of ongoing hemolysis. Plan: -Recheck Norman test today. -Continue iron and folic acid supplementation. -Recheck labs in 3 months. -Office visit in 6 months. -She will continue regular follow-up with her service vehicle operator. -We also discussed smoking cessation today. She is not psychologically motivated to quit at this time. I will continue to address this on subsequent visits. 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 Problem List As Of Date 04/27/2018 Noted Resolved Hemolytic anemia (HCC) [D58.9] INVALID FOR* Absolute anemia [D64.9] INVALID FOR*10/27/2017 Encounter Status:Closed by LUI WILKERSON DO on 04/27/18 [place] ABS GR + CBC Collected: 04/20/2018 Status: F Source: [place] 2:36 PM [facility] REPOSIT[facility] TYPE CODE TESTS RESULT OUT OF REFERENCE UNITS RANGE LAB WWBC 3.70-11.00 k/uL [place] WBC 10.44 LAB WRBC 3.90-5.20 m/uL Low [place] RBC 3.79 LAB WHGB 11.5-15.5 g/dL [place] Hemoglobin 11.7 LAB WHCT 36.0-46.0 % Low [place] Hematocrit 35.4 LAB WMCV 80.0-100.0 fL [place] MCV 93.4 LAB WMCH 26.0-34.0 pg [place] MCH 30.9 LAB WMCHC 30.5-36.0 g/dL [place] MCHC 33.1 LAB WRDW 11.5-15.0 % [place] RDW 14.1 LAB WPLT 150-400 k/uL [place] Platelet Cnt 213 LAB WMPV 9.0-12.7 fL [place] MPV 10.6 Result Comment: Test performed at: [facility], [address] [place] [address]. LAB ABGRAN 1.45-7.50 k/uL High Absol 7.64 Gran Count RETICULOCYTE Collected: 04/20/2018 Status: F Source: [place] 2:36 PM [facility] REPOSITORY TYPE CODE TESTS RESULT OUT OF REFERENCE UNITS RANGE LAB RETC 0.4-2.0 % High Retic% 3.1 LAB ABRET 0.0180-0.1000 M/uL High Abs Retic 0.114 Performed By: #### RETIC, LD6, HAPTO, FERR, IRON #### [place] [address] LD Collected: 04/20/2018 Status: F Source: [facility] 2:36 PM [facility] REPOSITORY TYPE CODE TESTS RESULT OUT OF RANGE REFERENCE UNITS LAB LD 135-214 U/L High LD 819 Performed By: #### RETIC, LD6, HAPTO, FERR, IRON #### [place] [address] HAPTOGLOBIN Collected: 04/20/2018 Status: F Source: [place] 2:36 PM [facility] REPOSITORY TYPE CODE TESTS RESULT OUT OF REFERENCE UNITS RANGE LAB HAPTO 31-238 mg/dL Low Haptoglobin <10 Performed By: #### RETIC, LD6, HAPTO, FERR, IRON #### [facility] [address] [place] [address] FERRITIN Collected: 04/20/2018 Status: F Source: [place] 2:36 PM [facility] REPOSITORY TYPE CODE TESTS RESULT OUT OF REFERENCE UNITS RANGE LAB FERR 14.7-205.1 ng/mL High Ferritin 663.9 Performed By: #### RETIC, LD6, HAPTO, FERR, IRON #### [facility] [address] [place] [address] IRON AND TIBC Collected: 04/20/2018 Status: F Source: [place] 2:36 PM [facility] REPOSITORY TYPE CODE TESTS RESULT OUT OF REFERENCE UNITS RANGE LAB IRN 41-186 ug/dL Iron 65 LAB TIBC 232-386 ug/dL TIBC 293 LAB SAT 15-57 % Transferrin Saturatn 22 Performed By: #### RETIC, LD6, HAPTO, FERR, IRON #### [facility] [address] [place] [address] PROTHROMBIN TIME AND Collected: 04/18/2018 Status: F Source: [facility] INR 11:50 AM [facility] REPOSITORY TYPE CODE TESTS RESULT [...] 3.5 MECHANICAL HEART VALVES Performed By: #### [id number] #### [facility],[address] [place] [address] CBC W/DIFF, AUTOMATED Collected: 04/12/2018 Status: F Source: [place] 1:21 PM [facility] RE[place] TYPE CODE TESTS RESULT OUT OF [...] Lymph 1.25 Performed By: #### L100.0100 #### [facility] [address] [place], [place], [address] VITAMIN D,25 HYDROXY Collected: 04/12/2018 Status: F Source: [place] 1:21 PM [facility] REPOS[facility]ORY TYPE CODE TESTS RESULT OUT OF REFERENCE UNITS RANGE LAB L506.1000 29.95-100.01 ng/mL Low Vitamin D 24.7 25-OH Result Comment: Vitamin D 25(OH) Status Range Deficiency <20 ng/mL (50nmol/L) Insuffciency 20 - 30 ng/mL (50 - 75 nmol/L) Sufficiency 30 - 100 ng/mL (75 - 250 nmol/L) Toxicity >100 ng/mL (>250 nmol/L) Performed By: #### L506.1000 #### [facility] [address] [place], [place], [address] COMPREHENSIVE METABOLIC Collected: 04/12/2018 Status: F Source: [facility] 1:21 PM [facility] REPOSITORY TYPE CODE TESTS RESULT OUT OF [...] 6 Performed By: #### L500.4050, L501.9520 #### [facility] [place], [address] THYROID STIM HORMONE Collected: 04/12/2018 Status: F Source: [place] ([facility]) 1:21 PM [facility] REPOSITORY TYPE CODE TESTS RESULT OUT OF RANGE REFERENCE UNITS LAB L501.9520 0.358-3.74 uIU/mL Normal TSH 0.64 Performed By: #### L500.4050, L501.9520 #### [facility] [address] [place], [address] HEPATITIS C ANTIBODIES Collected: 04/12/2018 Status: F Source: [place] 1:21 PM [facility] REPOSITORY TYPE CODE TESTS RESULT OUT OF RANGE REFERENCE UNITS LAB L3100.0650 0.0-0.9 s/co ratio Normal HEP C AB <0.1 Result Comment: Negative: < 0.8 Indeterminate: 0.8 - 0.9 Positive: > 0.9 The CDC recommends that a positive HCV antibody result be followed up with a HCV Nucleic Acid Amplification test (346891). Performed at: [facility] [id number] Boiler House Inspector: Rl Gant PhD, Phone: [phone] Performed By: #### L3100.0625 #### [facility] (refer to report for specific site) refer to report for address and phone number PROTHROMBIN TIME AND Collected: 03/29/2018 Status: F Source: [facility] INR 11:10 AM [facility] REPOSITORY TYPE CODE TESTS RESULT [...] 3.5 MECHANICAL HEART VALVES Performed By: #### [id number] #### [facility],[address] [place] [address] PROTHROMBIN TIME AND Collected: 03/15/2018 Status: F Source: [place] 1:26 PM [facility] REPOSITORY TYPE CODE TESTS RESULT [...] 3.5 MECHANICAL HEART VALVES Performed By: #### [id number] #### [place] [address] PROTHROMBIN TIME AND Collected: 02/28/2018 Status: F Source: [place] 1:18 PM [facility] REPOSITORY TYPE CODE TESTS RESULT [...] 3.5 MECHANICAL HEART VALVES Performed By: #### [id number] #### [place] [address] PROTHROMBIN TIME AND Collected: 02/21/2018 Status: F Source: [place] 11:41 AM [facility] REPOSITORY TYPE CODE TESTS RESULT [...] 3.5 MECHANICAL HEART VALVES Performed By: #### [id number] #### [facility],[address] [address] LUMBAR SPINE 2 OR 3 Observed: 02/17/2018 Status: F Source: [place] VIEWS 12:00 PM [facility] RE[facility]IT[facility] Imaging Services [address] [place], [place] [id number] Lumbar Spine 2 or 3 Views MR#: [id number] Acct: [id number] Name: JAIDENSMITHACLEMENTINE D Rep #: [id number] : 1950 F 67 From: Ronan Salinas MD PCP: Leonardo Treadwell MD, Chi Status: REG CLI Study: Lumbar Spine 2 or 3 Views Date of Exam: 02/17/18 Exam# [id number] Ordering Dr: Leonardo Treadwell MD STUDY: X-RAY - LUMBAR SPINE [...] EDT Tel , Service support , CC: Leonardo Treadwell MD Career Development Associate: Signed Observed: 02/17/2018 Status: F Source: [place] CULTURE, URINE 11:48 AM [facility] REPOSITORY Urine Culture Culture exhibits no growth. Performed By: #### M100.0650 #### [facility] [address] [place] [address], [address] PROTHROMBIN TIME AND Collected: 02/16/2018 Status: F Source: [facility] INR 1:05 PM [facility] REPOSITORY TYPE CODE TESTS RESULT [...] 3.5 MECHANICAL HEART VALVES Performed By: #### [id number] #### [facility],[address] [place] [address] PROTHROMBIN TIME AND Collected: 02/02/2018 Status: F Source: [facility] INR 2:13 PM [facility] REPOSITORY TYPE CODE TESTS RESULT OUT OF REFERENCE UNITS RANGE LAB PROTHROMBIN TIME AND INR(LOINC) PROTHROMBIN TIME AND INR Result Comment: PROTHROMBIN TIME AND INR LAB PT-COUMADIN(LOINC) sec PT-COUMADIN 49.9 LAB INR(LOINC) 0.8 - 1.2 INR High Alert 4.6 Result Comment: { CALLED TO SHEY[place]/ADRIANO 1521 { READ BACK BY [id number] { [...] 3.5 MECHANICAL HEART VALVES Performed By: #### [id number] #### [place] [address] PROTHROMBIN TIME AND Collected: 01/27/2018 Status: F Source: [facility] INR 2:43 PM [facility] REPOSITORY TYPE CODE TESTS RESULT [...] 3.5 MECHANICAL HEART VALVES Performed By: #### [id number] #### [place] [address] [place] ABS GR + CBC Collected: 01/26/2018 Status: F Source: [place] 2:43 PM [facility] REPOSITORY TYPE CODE TESTS RESULT OUT OF REFERENCE UNITS RANGE LAB WWBC 3.70-11.00 k/uL [place] WBC 9.23 LAB WRBC 3.90-5.20 m/uL [place] RBC 3.99 LAB WHGB 11.5-15.5 g/dL [place] Hemoglobin 11.9 LAB WHCT 36.0-46.0 % [place] Hematocrit 36.4 LAB WMCV 80.0-100.0 fL [place] MCV 91.2 LAB WMCH 26.0-34.0 pg [place] MCH 29.8 LAB WMCHC 30.5-36.0 g/dL [place] MCHC 32.7 LAB WRDW 11.5-15.0 % [place] RDW 14.1 LAB WPLT 150-400 k/uL [place] Platelet Cnt 237 LAB WMPV 9.0-12.7 fL [place] MPV 9.9 Result Comment: Test performed at: [facility], [address] [place] [address] Rd[address] [place] [address]. LAB ABGRAN 1.45-7.50 k/uL Absol Gran 6.31 Count RETICULOCYTE Collected: 01/26/2018 Status: F Source: [place] 2:43 PM [facility] REPOSITORY TYPE CODE TESTS RESULT OUT OF REFERENCE UNITS RANGE LAB RETC 0.4-2.0 % High Retic% 3.0 LAB ABRET 0.0180-0.1000 M/uL High Abs Retic 0.116 Performed By: #### RETIC, LD6, IRON, HAPTO, FERR #### [facility] [place] [address] LD Collected: 01/26/2018 Status: F Source: [facility] 2:43 PM [facility] REPOSITORY TYPE CODE TESTS RESULT OUT OF RANGE REFERENCE UNITS LAB LD 135-214 U/L High LD 680 Performed By: #### RETIC, LD6, IRON, HAPTO, FERR #### [facility] [address] [place], [place] [address] IRON AND TIBC Collected: 01/26/2018 Status: F Source: [place] 2:43 PM [facility] REPOSITORY TYPE CODE TESTS RESULT OUT OF REFERENCE UNITS RANGE LAB IRN 41-186 ug/dL Iron 71 LAB TIBC 232-386 ug/dL TIBC 298 LAB SAT 15-57 % Transferrin Saturatn 24 Performed By: #### RETIC, LD6, IRON, HAPTO, FERR #### [place] [id number] HAPTOGLOBIN Collected: 01/26/2018 Status: F Source: [place] 2:43 PM [facility] REPOSITORY TYPE CODE TESTS RESULT OUT OF REFERENCE UNITS RANGE LAB HAPTO 31-238 mg/dL Low Haptoglobin <10 Performed By: #### RETIC, LD6, IRON, HAPTO, FERR #### [facility] [address] [place], [place] [address] FERRITIN Collected: 01/26/2018 Status: F Source: [place] 2:43 PM [facility] REPOSITORY TYPE CODE TESTS RESULT OUT OF REFERENCE UNITS RANGE LAB FERR 14.7-205.1 ng/mL High Ferritin 525.5 Performed By: #### RETIC, LD6, IRON, HAPTO, FERR #### [facility] [address] [place], [place] [address] PROTHROMBIN TIME AND Collected: 01/24/2018 Status: F Source: [place] 2:55 PM [facility] REPOSITORY TYPE CODE TESTS RESULT [...] 3.5 MECHANICAL HEART VALVES Performed By: #### [id number] #### [facility],[address] [place] [address] PROTHROMBIN TIME AND Collected: 01/20/2018 Status: F Source: [place] 2:15 PM [facility] REPOSITORY TYPE CODE TESTS RESULT [...] 3.5 MECHANICAL HEART VALVES Performed By: #### [id number] #### [place] [address] PROTHROMBIN TIME AND Collected: 01/05/2018 Status: F Source: [facility] INR 1:00 PM [facility] REPOSITORY TYPE CODE TESTS RESULT [...] 3.5 MECHANICAL HEART VALVES Performed By: #### [id number] #### [facility],[address] [place] [address] PROTHROMBIN TIME AND Collected: 12/29/2017 Status: F Source: [facility] INR 2:00 PM [facility] REPOSITORY TYPE CODE TESTS RESULT [...] 3.5 MECHANICAL HEART VALVES Performed By: #### [id number] #### [facility],[address] [place] [address] PROTHROMBIN TIME W/INR Collected: 12/03/2017 Status: F Source: [place] 1:05 PM [facility] RE[facility] Order Comment: Comments: STANDING ORDER: FAX TO [facility] Comments: STANDING ORDER[facility] TYPE CODE TESTS RESULT OUT OF RANGE REFERENCE UNITS LAB L300.4150 11.7-14.9 SECONDS High PROTIME 31.3 LAB L300.4200 Normal INR 3.0 Performed By: #### L300.3900 #### [facility] [address] [place] [address], [address] PROTHROMBIN TIME AND Collected: 11/04/2017 Status: F Source: [facility] INR 1:22 PM [facility] REPOSITORY TYPE CODE TESTS RESULT [...] 3.5 MECHANICAL HEART VALVES Performed By: #### [id number] #### [facility],[address] [place] [address] PROGRESS Observed: 10/27/2017 Status: COMPLETED Source: [place] 12:25 PM [facility] REPOSITORY HNO ID: [id number] Author: Clementine Islas ([place]) Service: (none) Author Type: Naphthalene Operator Type: Progress Notes Filed: 10/27/2017 12:28 PM Note Text: You are not granted access to view this sensitive note. PROGRESS Observed: 10/27/2017 Status: COMPLETED Source: [place] 12:06 PM [facility] REPOSITORY HNO ID: [id number] Author: Lui Wilkerson Service: (none) Author Type: [...] No jaundice or rash. No petechiae. NEUROLOGIC: pin attacher II-XII are grossly intact. No focal motor weakness. MUSCULOSKELETAL: No muscle wasting. 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 Patient has history of mechanical mitral valve replacement. -Previously discussed with her service vehicle operator--plan to monitor for now. -She has good erythrocytic compensation and is tolerating iron and folic acid replacement well. 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 Plan: -Continue iron and folic acid supplementation. -Recheck labs in 3 months. -Office visit in 6 months. -She will continue regular follow-up with her service vehicle operator. Lui Wilkerson DO CNOVSP Observed: 10/27/2017 Status: COMPLETED Source: [place] 11:30 AM [facility] REPOSITORY Visit (SP) Office (SAMIA) CLEMENTINE WARD ([id number]) 1950 F Date Time Provider Department 10/27/17 [...] No jaundice or rash. No petechiae. NEUROLOGIC: pin attacher II-XII are grossly intact. No focal motor weakness. MUSCULOSKELETAL: No muscle wasting. 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 Patient has history of mechanical mitral valve replacement. -Previously discussed with her service vehicle operator--plan to monitor for now. -She has good erythrocytic compensation and is tolerating iron and folic acid replacement well. 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 Plan: -Continue iron and folic acid supplementation. -Recheck labs in 3 months. -Office visit in 6 months. -She will continue regular follow-up with her service vehicle operator. Lui Wilkerson DO Referring Provider: LUI WILKERSON [[id number]] Allergies As of Date: 10/27/2017 (No Known Allergies) Date Reviewed: 10/27/2017 Reviewed by: Sheyla Farrar - Fully Assessed Reason for Visit: [...] 10/27/17 CNSW Observed: 10/27/2017 Status: COMPLETED Source: [place] 12:00 AM [facility] [employer] (HEMAWS) EDCLEMENTINE ([id number]) 1950 F Date Time Provider Department 10/27/17 CLEMENTINE ISLAS () HEMAWS During your visit today, we recorded the following information about you: Allergies As of Date: 10/27/2017 (No Known Allergies) Date Reviewed: 10/27/2017 Reviewed by: Sheyla Farrar - Fully Assessed Reason for Visit: [...] anemia [D64.9] INVALID FOR*10/27/2017 Encounter Status:Closed by CLEMENTINE ISLAS on 10/27/17 RETICULOCYTE Collected: 10/20/2017 Status: F Source: [place] 2:30 PM [facility] REPOSITORY TYPE CODE TESTS RESULT OUT OF REFERENCE UNITS RANGE LAB RETC 0.4-2.0 % High Retic% 3.2 LAB ABRET 0.0180-0.1000 M/uL High Abs Retic 0.130 Performed By: #### RETIC, IRON, LD6, FERR, HAPTO #### [facility] [address] [place], [place] [address] IRON AND TIBC Collected: 10/20/2017 Status: F Source: [place] 2:30 PM [facility] REPOSITORY TYPE CODE TESTS RESULT OUT OF REFERENCE UNITS RANGE LAB IRN 41-186 ug/dL Iron 88 LAB TIBC 232-386 ug/dL TIBC 308 LAB SAT 15-57 % Transferrin Saturatn 29 Performed By: #### RETIC, IRON, LD6, FERR, HAPTO #### [facility] [address] [place] [address] LD Collected: 10/20/2017 Status: F Source: [facility] 2:30 PM [facility] REPOSITORY TYPE CODE TESTS RESULT OUT OF RANGE REFERENCE UNITS LAB LD 135-214 U/L High LD 750 Performed By: #### RETIC, IRON, LD6, FERR, HAPTO #### [place] [address] FERRITIN Collected: 10/20/2017 Status: F Source: [place] 2:30 PM [facility] REPOSITORY TYPE CODE TESTS RESULT OUT OF REFERENCE UNITS RANGE LAB FERR 14.7-205.1 ng/mL High Ferritin 507.2 Performed By: #### RETIC, IRON, LD6, FERR, HAPTO #### [place] [address] HAPTOGLOBIN Collected: 10/20/2017 Status: F Source: [place] 2:30 PM [facility] REPOSITORY TYPE CODE TESTS RESULT OUT OF REFERENCE UNITS RANGE LAB HAPTO 31-238 mg/dL Low Haptoglobin <10 Performed By: #### RETIC, IRON, LD6, FERR, HAPTO #### [place] [address] [place] ABS GR + CBC Collected: 10/20/2017 Status: F Source: [place] 2:29 PM [facility] REPOSITORY TYPE CODE TESTS RESULT OUT OF REFERENCE UNITS RANGE LAB WWBC 3.70-11.00 k/uL [place] WBC 9.14 LAB WRBC 3.90-5.20 m/uL [place] RBC 3.93 LAB WHGB 11.5-15.5 g/dL [place] Hemoglobin 11.6 LAB WHCT 36.0-46.0 % [place] Hematocrit 36.1 LAB WMCV 80.0-100.0 fL [place] MCV 91.9 LAB WMCH 26.0-34.0 pg [place] MCH 29.5 LAB WMCHC 30.5-36.0 g/dL [place] MCHC 32.1 LAB WRDW 11.5-15.0 % [place] RDW 14.3 LAB WPLT 150-400 k/uL [place] Platelet Cnt 261 LAB WMPV 9.0-12.7 fL [place] MPV 10.5 Result Comment: Test performed at: [facility], [address] [place] [address] Rd[address] [place] [address]. LAB ABGRAN 1.45-7.50 k/uL Absol Gran 6.40 Count CAROTID DUPLEX Observed: 10/20/2017 Status: F Source: [place] ULTRASOUND 6:54 AM [facility] RE[place] Cardiovascular Services [address] [place] [address] Carotid Duplex Ultrasound 10/13/17 1001 MR#: [id number] Acct: [id number] Name: JAVIERPAYAM UPTONERIN [place] Rep #: [id number] : 1950 67 From: Curtis Joshi MD Attending Dr: Argelia Eid Status: REG CLI Ordering Dr: Argelia Eid PA Date: 10/13/17 Location: CVS Sex: F C Admitted: Reason For Study: [...] the left vertebral artery. Procedure Carotid Duplex 03543. Exam performed in department. Interpretation Summary Moderate (50-69%) stenosis right extracranial internal carotid. Severe (>70%) stenosis left extracranial internal carotid. Flow within the vertebral arteries is antegrade bilaterally. Ordering Physician: Argelia Eid Referring Physician: Leonardo Treadwell Chi Performed By: Alma Rosa Duong RVT 10/20/17 0653 Date Curtis Joshi MD CC: Argelia Eid; Leonardo Treadwell MD Date Dictated: 10/13/17 1001 Date Transcribed: 10/20/1753 Career Development Associate: Signed PROTHROMBIN TIME AND Collected: 10/14/2017 Status: F Source: [place] INR 10:13 AM [facility] REPOSITORY TYPE CODE TESTS RESULT [...] 3.5 MECHANICAL HEART VALVES Performed By: #### [id number] #### [facility],[address] [place] [address] CBC W/DIFF, AUTOMATED Collected: 10/05/2017 Status: F Source: [place] 2:08 PM [facility] REPOSITORY TYPE CODE TESTS RESULT OUT OF [...] Lymph 1.44 Performed By: #### L100.0100 #### [facility] [address] [place], [address] COMPREHENSIVE METABOLIC Collected: 10/05/2017 Status: F Source: [facility] 2:08 PM [facility] REPOSITORY TYPE CODE TESTS RESULT OUT OF [...] 10 Performed By: #### L500.4050, L501.9520 #### [facility] [address] [place], [address] THYROID STIM HORMONE Collected: 10/05/2017 Status: F Source: [place] (TSH) 2:08 PM [facility] REPOSITORY TYPE CODE TESTS RESULT OUT OF RANGE REFERENCE UNITS LAB L501.9520 0.358-3.74 uIU/mL Normal TSH 1.28 Performed By: #### L500.4050, L501.9520 #### [facility] [address] [place], [address] VITAMIN D,25 HYDROXY Collected: 10/05/2017 Status: F Source: [place] 2:08 PM [facility] REPOSITORY TYPE CODE TESTS RESULT OUT OF REFERENCE UNITS RANGE LAB L506.1000 29.95-100.01 ng/mL Low Vitamin D 22.4 25-OH Result Comment: Vitamin D 25(OH) Status Range Deficiency <20 ng/mL (50nmol/L) Insuffciency 20 - 30 ng/mL (50 - 75 nmol/L) Sufficiency 30 - 100 ng/mL (75 - 250 nmol/L) Toxicity >100 ng/mL (>250 nmol/L) Performed By: #### L506.1000 #### [facility] [address] [place], [address] CARDIOLOGY VISIT Observed: 10/01/2017 Status: F Source: [place] REPORT 5:00 PM [facility] [place] [facility] [address] [place] [address] OFFICE VISIT Date of Service: 10/01/17 MR#: [id number] Acct: [id number] Name: CLEMENTINE WARD Rep #: [id number] : 1950 Provider: Argelia Eid Age/Sex: 67/F Location: 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 Assessment AND Plan 1. Atherosclerosis of [place] coronary artery of [place] heart without angina pectoris I25.10 LUX to LAD, Free ETHEL to lateral CX, SVG to AV branch of cx, SVG to the AV branch of the right, SVG to the PDA. Concomittent with Mechainical MVR per Dr. Ronan Bailey, [facility], 03/10/2011 Plan - POLLY Ramos Stable, from [...] prior to saving. Follow Up 6 Months (ALTERATION TAILOR) Coding Level of Care Code Off vis,est,level 3 Diagnoses Atherosclerosis of [place] coronary artery of [place] heart without angina pectoris I25.10 [place] vs. transplanted heart: [place] heart Nonrheumatic mitral valve regurgitation I34.0 Pure hypercholesterolemia E78.00; E78.0 Hyperlipidemia type: pure hypercholesterolemia Right carotid bruit R09.89 Coding Level of Care Code Off vis,est,level 3 Diagnoses Atherosclerosis of [place] coronary artery of [place] heart without angina pectoris I25.10 [place] vs. transplanted heart: [place] heart Nonrheumatic mitral valve regurgitation I34.0 Pure hypercholesterolemia E78.00; E78.0 Hyperlipidemia type: pure hypercholesterolemia Right carotid bruit R09.89 10/01/17 1408 <Electronically signed by Argelia MATIAS> Date Argelia MATIAS 10/01/17 1700<Electronically signed by Jack Keating MD> Cosigner Signature: Date (if applicable) Jack Keating MD CC: Leonardo Treadwell MD PROTHROMBIN TIME AND Collected: 09/30/2017 Status: F Source: [facility] INR 1:06 PM [facility] REPOSITORY TYPE CODE TESTS RESULT [...] 3.5 MECHANICAL HEART VALVES Performed By: #### [id number] #### [facility],[address] [place] [address] PROTHROMBIN TIME AND Collected: 09/14/2017 Status: F Source: [facility] INR 1:03 [facility] REPOSITORY TYPE CODE TESTS RESULT OUT [...] 3.5 MECHANICAL HEART VALVES Performed By: #### [id number] #### [place] [address] PROTHROMBIN TIME AND Collected: 09/02/2017 Status: F Source: [place] 3:00 PM [facility] REPOSITORY TYPE CODE TESTS RESULT [...] 3.5 MECHANICAL HEART VALVES Performed By: #### 162016 #### [facility],[address] [place] [address] PROTHROMBIN TIME AND Collected: 08/19/2017 Status: F Source: [place] 11:17 AM [facility] REPOSITORY TYPE CODE TESTS RESULT [...] 3.5 MECHANICAL HEART VALVES Performed By: #### [id number] #### [place] [address] PROTHROMBIN TIME AND Collected: 08/12/2017 Status: F Source: [place] IN[place] 11:33 AM [facility] REPOSITORY TYPE CODE TESTS RESULT OUT OF REFERENCE UNITS RANGE LAB PROTHROMBIN TIME AND INR(LOINC) PROTHROMBIN TIME AND INR Result Comment: PROTHROMBIN TIME AND INR LAB PT-COUMADIN(LOINC) sec PT-COUMADIN 50.9 LAB INR(LOINC) 0.8 - 1.2 INR High Alert 4.7 Result Comment: { CALLED TO ALFIE/Thad/SAROJ { READ BACK BY ALFIE/PI7518 { TEST REPEATED THE HEMOSIL THROMBOPLASTIN REAGENT [...] 3.5 MECHANICAL HEART VALVES Performed By: #### [id number] #### [facility],[address] [place] [address] ALLERGIES ALLERGIES DATE TYPE / CODE NAME / CODE REACTION SEVERITY SOURCE 05/24/2018 Drug adhesive Rash SV [place] Allergy/247130328(S tape/[id number] [facility] NOMED CT) (RXNORM) Hospital Repository 05/24/2018 Drug paroxetine/F006 Many side SV [place] Allergy/834043875(S 827917[facility] 12/30/2014 Drug No Known Unknown [place] Allergy/209297934(S [facility]ergies[facility] [address] Repository Drug NO KNOWN [place] Class/433470683(SNO ALLERGIES [facility] Main [facility] CT) [place] Repository Miscellaneous No Known Moderate Hong Boothcatherine Allergy/825771690(S Allergies (Severity [facility]) Modifier) Hospital (Qualifier Repository Value) ENCOUNTERS ENCOUNTERS ADMIT/DISCHARGE ACCOUNT ADMITTING ENCOUNTER LOCATION SOURCE NUMBER CLASS 07/28/2018/07/29/19 [id number] Ambulatory [address] Repository 07/12/2018 [id number] Ambulatory [facility] ing:LAB Repository 07/07/2018/07/07/20 [id number] Ambulatory [address] ing:LAB Repository 06/27/2018 [id number] Ambulatory [facility] ing:CVS Repository 06/09/2018 [id number] Ambulatory [facility] ing:OPBD Repository 06/07/2018 [id number] Ambulatory [facility] ing:OPBD Repository 06/07/2018/06/13/20 [id number] Ambulatory [address] ing:LAB Repository 05/24/2018/05/24/20 [id number] Ambulatory BMSBuilding:B [place] [address] [facility] Repository 05/24/2018 [id number] Ambulatory [facility] ing:LAB Repository 05/17/2018 [id number] Ambulatory [facility] ing:LAB Repository 04/27/2018/04/27/20 [id number] Ambulatory [address] Repository 04/27/2018/04/28/20 [id number] Ambulatory [address] Repository 04/20/2018/04/21/20 [id number] Ambulatory [address] Repository 04/19/2018 [id number] Ambulatory BMSBuilding:B [place] Repository 04/18/2018/04/18/20 [id number] JACK KEATING Ambulatory [address] Repository 04/12/2018 [id number] Ambulatory [facility] ing:POLAB3 Repository 03/29/2018/03/29/20 [id number] JACK KEATING Ambulatory [address] Repository 03/29/2018 [id number] Ambulatory BMSBuilding:B [place] Repository 03/25/2018 [id number] Ambulatory [facility] Repository 03/15/2018/03/15/20 [id number] JACK KEATING Ambulatory [address] Repository 02/28/2018 [id number] Ambulatory BMSBuilding:B [place] Repository 02/28/2018/02/29/20 [id number] ZURI, JACK Ambulatory [address] Repository 02/21/2018 [id number] Ambulatory BMSBuilding:[place] Repository 02/21/2018/02/22/20 [id number] ZURI, JACK Ambulatory [address] Repository 02/17/2018 [id number] Ambulatory [facility] ing:POLAB3 Repository 02/16/2018 [id number] Ambulatory BMSBuilding:[place] Repository 02/16/2018/02/17/20 [id number] ZURI, JACK Ambulatory [address] Repository 02/02/2018/02/03/20 [id number] ZURI, JACK Ambulatory [address] Repository 02/02/2018 [id number] Ambulatory BMSBuilding:[place] Repository 01/27/2018 [id number] Ambulatory BMSBuilding:[place] Repository 01/27/2018/01/28/20 [id number] ZURI, JACK Ambulatory [address] Repository 01/26/2018/01/28/20 [id number] Ambulatory [address] Repository 01/25/2018 [id number] Ambulatory BMSBuilding:[place] Repository 01/24/2018/01/25/20 [id number] ZURI, JACK Ambulatory [address] Repository 01/20/2018 [id number] Ambulatory BMSBuilding:[place] Repository 01/20/2018/01/21/20 [id number] ZURI, JACK Ambulatory [address] Repository 01/05/2018 [id number] ZURI, JACK Ambulatory [facility] Repository 12/29/2017 [id number] Ambulatory BMSBuilding:[place] Repository 12/29/2017/12/30/19 [id number] ZURI, JACK Ambulatory [address] Repository 12/03/2017 [id number] Ambulatory [facility] ing:LAB Repository 11/05/2017 [id number] Ambulatory BMSBuilding:[place] Repository 11/04/2017/11/05/19 [id number] ZURI, JACK Ambulatory [address] Repository 10/27/2017/10/29/19 [id number] Ambulatory [address] Repository 10/20/2017/10/22/19 [id number] Ambulatory [address] Repository 10/14/2017 [id number] Ambulatory BMSBuilding:[place] Repository 10/14/2017/10/15/19 [id number] ZURI, JACK Ambulatory [address] Repository 10/13/2017 [id number] Ambulatory [facility] ing:CVS Repository 10/05/2017 [id number] [facility] ing:POLAB3 Repository 10/01/2017/10/02/19 [id number] Ambulatory BMSBuilding:[place] [address] [facility] Repository 10/01/2017 [id number] Ambulatory BMSBuilding:[place] Repository 09/30/2017/10/01/19 [id number] ZURI, JACK Ambulatory [address] Repository 09/14/2017/09/15/19 [id number] ZURI, JACK Ambulatory [address] Repository 09/14/2017 [id number] Ambulatory BMSBuilding:[place] Repository 09/02/2017/09/02/19 [id number] ZURI, JACK Ambulatory [address] Repository 08/19/2017/08/19/19 [id number] ZURI, JACK Ambulatory [address] Repository 08/12/2017/08/12/19 [id number] ZURI, JACK Ambulatory [address] Repository PAYERS PAYERS ENCOUNTER GUARANTOR PAYER SUBSCRIBER SOURCE 07/12/2018 PABLO SHAH A [place] [id number] Insurance:ANTHEMPolicy FLINNERDOB[facility] Number: [id number] [id number] Repository [address]Ojv: (330) Date:8277-49-75JN [phone] () 874901NORRCGJSTEPAN IBRAHIM [address]NF: 07/12/2018 Secondary NOT GIVENUNK [place] Insurance:SELF PAY [facility] Number: Effective Repository Date:2018-07-11 07/07/2018 PABLO A Primary PABLO A [place] [id number] Insurance:ANTHEMPolicy FLINNERDOB: [facility] Number: [id number] [id number] Repository [address]Kix: (330) Date:2607-33-90DK [phone] () [id number], [place] [address]CH: 07/07/2018 Secondary NOT GIVENUNK [place] Insurance:SELF PAY [facility] Number: Effective Repository Date:2018-06-13 06/27/2018 PABLO A Primary PABLO A [place] [id number] Insurance:ANTHEMPolicy FLINNERDOB: [facility] Number: [id number] [id number] Repository 759[address]Vsk: (330) Date:4804-16-95IU [phone] () [id number], [place] [address]JO: 06/27/2018 Secondary NOT GIVENUNK [place] Insurance:SELF PAY [facility] Number: Effective Repository Date:2018-06-21 06/09/2018 PABLO A Primary PABLO A [place] [id number] Insurance:ANTHEMPolicy FLINNERDOB: [facility] Number: [id number], [place] [id number] Repository [address]Fff: (330) Date:9621-97-07ES [phone] () 005872YTUAORWSTEPAN IBRAHIM [address]MJ: 06/09/2018 Secondary NOT GIVENUNK [place] Insurance:SELF PAY [facility] Number: Effective Repository Date:2018-06-06 06/07/2018 PABLO [place] Primary PABLO Rosa [id number] Insurance:ANTHEMPolicy FLINNERDOB: [facility] Number: [id number], [place] [id number] Repository [address]Qqs: (330) Date:4125-09-11JE [phone] () [id number] [place] [address]DG: 06/07/2018 Secondary NOT GIVENUNK [place] Insurance:SELF PAY [facility] Number: Effective Repository Date:2018-04-14 06/07/2018 PABLO [place] Primary PABLO Jasonoster [id number] Insurance:ANTHEMPolicy FLINNERDOB: [facility] Number: [id number], [place] [id number] Repository [address]Lmb: (330) Date:7984-92-88YO [phone] () [id number] [place] [address]XP: 06/07/2018 Secondary NOT GIVENUNK [place] Insurance:SELF PAY [facility] Number: Effective Repository Date:2018-06-07 05/24/2018 PABLO [place] Primary PABLO Rosa [id number] Insurance:ANTHEMPolicy FLINNERDOB: [facility] Number: [id number], [place] [id number] Repository [address]Swa: (330) Date:3336-69-17OU [phone] () [id number] [place] [address]FL: 05/24/2018 Secondary NOT GIVENUNK [place] Insurance:SELF PAY [facility] Number: Effective Repository Date:2018-05-24 05/24/2018 PABLO [place] Primary PABLO Jasonoster [id number] Insurance:ANTHEMPolicy FLINNERDOB: [facility] Number: [id number], [place] [id number] Repository [address]Jnm: (330) Date:0702-33-32XT [phone] () [id number] [place] [address] 29[address]GH: 05/24/2018 Secondary NOT GIVENUNK [place] Insurance:SELF PAY [facility] Number: Effective Repository Date:2018-05-24 05/17/2018 PABLO A Primary PABLO A [place] [id number] Insurance:ANTHEMPolicy [facility] Number: [id number], [place] [id number] Repository [address]Wju: (330) Date:4679-48-97MZ [phone] () [id number] [place] [address]HZ: 05/17/2018 Secondary NOT GIVENUNK [place] Insurance:SELF PAY [facility] Number: Effective Repository Date:2018-05-17 04/19/2018 Pablo A Primary Pablo A [place] [id number] Insurance:ANTHEMPolicy FlinnerDOB: [facility] Number: [id number] Cancer Center Box [id number] [address] Date:9180-45-05DN [address] [address]Wyq: ([phone]) [id number], [place] [phone] () 257[address]KR: 04/19/2018 Secondary NOT GIVENUNK [place] Insurance:SELF PAY [facility] Number: Effective Repository Date:2018-04-19 04/18/2018 CLEMENTINE Luna Primary Insurance:JOAQUÍN Castro FLINNERDOB: [address] ANTHEM FLINNERDOB: [facility] [id number] [facility]The [facility] [id number] Hospital [id number] Number: [address], [facility] Services[facility] [id number] [place] [id number] [facility][1], Date:Plan Name:B2 [place] [id number]: () 04/12/2018 Pablo A Primary Pablo A [place] [id number] Insurance:ANTHEMPolicy FlinnerDOB: [facility] [place] [facility] Number: [id number] Cancer Center Box [id number] Repository [place], [place] Date:3710-95-41YS [address] [address]Zmd: (362) [id number], [place] [phone] () [address]US: 04/12/2018 Secondary NOT GIVENUNK [place] Insurance:SELF PAY [facility] Number: Effective Repository Date:2018-04-12 03/29/2018 CLEMENTINE D Primary Insurance:JOAQUÍN Castro FLINNERDOB: [address] ANTHEM FLINNERDOB: [facility] [id number] Valley Medical Center 5552-43-51TAOHM Hospital [address] Number: [address], Repository [place] [id number] [place] [id number] [facility][1], Date:Plan Name:B2 Ca [id number]: () 03/29/2018 Pablo A Primary Pablo Rosa [id number] Insurance:ANTHEMPolicy [facility] [place] Number: [id number] Cancer Center Box [id number] Repository [address], [place] Date:0166-24-57LU [address] [address]Mam: ([phone]) [id number], [place] [phone] () 14[address]FA: 03/29/2018 Secondary NOT GIVENUNK [place] Insurance:SELF PAY [facility] Number: Effective Repository Date:2018-03-29 03/15/2018 CLEMENTINE D Primary Insurance:JOAQUÍN Castro FLINNERDOB: [address] ANTHEM FLINNERDOB: [facility] [id number] Valley Medical Center 8204-61-35APJEJ Hospital [address] Number: [address], Repository [place] [id number] [place] [id number] [facility][1], Date:Plan Name:B2 Ca [id number]: () 02/28/2018 Pablo A Primary Pablo A [place] [id number] Insurance:ANTHEMPolicy FlinnerDOB: [facility] [place] Number: [id number] Cancer Center Box [id number] Repository [address], [place] Date:3634-94-82HB [address] [address]Qti: (086) 995306MTCUKLSFRASER, [place] [phone] () 98257AN: 02/28/2018 Secondary NOT GIVENUNK [place] Insurance:SELF PAY [facility] Number: Effective Repository Date:2018-02-28 02/28/2018 CLEMENTINE D Primary Insurance:JOAQUÍN Castro FLINNERDOB: [address] ANTHTARYN FLINNERDOB: [facility] [id number] Valley Medical Center 7583-09-76EQKEQ Hospital [address] Number: [address], Repository [place] [id number] [place] [id number] [facility][1], Date:Plan Name:B2 Ca [id number]: () 02/21/2018 Pablo A Primary Pablo Rosa [id number] Insurance:ANTHEMPolicy FlinnerDOB: [facility] Number: [id number] Cancer Center Box [id number] Repository [address], [place] Date:7610-05-80JZ [address] [address]Lhf: [phone]) [id number], [place] [phone] () 91477GV: 02/21/2018 Secondary NOT GIVENUNK [place] Insurance:SELF PAY [facility] Number: Effective Repository Date:2018-02-21 02/21/2018 CLEMENTINE [place] Primary Insurance:JOAQUÍN Castro FLINNERDOB: [address] ANTHTARYN FLINNERDOB: [facility] [id number] OUTPATIENTThe [facility] [id number] Hospital [address] Number: [address], Repository [place] [id number] [place] [id number] [facility][1], Date:Plan Name:B2 [place] [id number]: () 02/17/2018 Pablo Sanabria Primary Pablo Rosa [id number] Insurance:ANTHEMPolicy FlinnerDOB: [facility] [place] Number: [id number] Cancer Center Box [id number] Repository [address], [place] Date:6686-43-19ID [address] [address]Uez: ([phone]) 804209YEFDUTT, [place] [phone] () 66560LR: 02/17/2018 Secondary NOT GIVENUNK [place] Insurance:SELF PAY [facility] Number: Effective Repository Date:2018-02-17 02/16/2018 Pablo Sanabria Primary Pablo Rosa [id number] Insurance:ANTHEMPolicy FlinnerDOB: [facility] [place] Number: [id number] Cancer Center Box [id number] Repository [place], [place] Date:8498-51-62MQ [address] [address]Trp: (398) [id number], [place] [phone] () 49808LF: 02/16/2018 Secondary NOT GIVENUNK [place] Insurance:SELF PAY [facility] Number: Effective Repository Date:2018-02-16 02/16/2018 CLEMENTINE Luna Primary Insurance:JOAQUÍN Castro FLINNERDOB: [address] ANTHEM FLINNERDOB: [facility] [id number] Valley Medical Center 3187-01-23DLRHY Hospital [id number] Number: [address], Repository [place] [id number] [place] [id number] [facility][1], Date:Plan Name:B2 [place] [id number]: () 02/02/2018 CLEMENTINE D Primary Insurance:JOAQUÍN Castro FLINNERDOB: [address] ANTHTARYN FLINNERDOB: [facility] [id number] Valley Medical Center 8527-18-66LBAUO Hospital [address] Number: [address], Repository [place] [id number] [place] [id number] [facility][1], Date:Plan Name:B2 [place] [id number]: () 02/02/2018 Pablo A Primary Pablo Rosa [id number] Insurance:ANTHEMPolicy FlinnerDOB: [facility] Number: [id number] Cancer Center Box [id number] Repository [place], [place] Date:5567-33-95NV [address] [address]Zvz: (477) 101049PYCAWVA, [place] [phone] () 22463PY: 02/02/2018 Secondary NOT GIVENUNK [place] Insurance:SELF PAY [facility] Number: Effective Repository Date:2018-02-02 01/27/2018 Pablo Sanabria Primary Pablo Rosa [id number] Insurance:ANTHEMPolicy FlinnerDOB: [facility] Number: [id number] Cancer Center Box [id number] Repository [address] [place] [address], [place] Date:8999-33-21RG [address] [address]Usq: ([phone]) 521968BJLARUO, [place] [phone] () 555[address]IE: 01/27/2018 Secondary NOT GIVENUNK [place] Insurance:SELF PAY [facility] Number: Effective Repository Date:2018-01-27 01/27/2018 CLEMENTINE Luna Primary Insurance:JOAQUÍN Boothcatherine FLINNERDOB: CROSS [birth year] ANTHEM FLINNERDOB: [facility]019-48-47[facility] [id number] Hospital [address]: [address], Repository [place] [id number] [place] [id number] [facility][1], Date:Plan Name:[facility] [id number]: () 01/25/2018 Pablo Sanabria Primary Pablo Rosa [id number] Insurance:ANTHEMPolicy FlinnerDOB: [facility] Number: [id number] [address] [id number] [address] Date:3545-95-70BG [address]Opn: [phone]) [phone], [place] [phone] () 84766ZI: 01/25/2018 Secondary NOT GIVENUNK [place] Insurance:SELF PAY [facility] Number: Effective Repository Date:2018-01-25 01/24/2018 CLEMENTINE D Primary Insurance:JOAQUÍN Castro FLINNERDOB: CR[address] [birth year] ANTHEM FLINNERDOB: [facility] 1346-49-41QWWest Valley Medical Center 7329-51-06XFELT Hospital [address] Number: [address], Repository [place] [id number] [place] [id number] [facility][1], Date:Plan Name:B2 Ca [id number]: () 01/20/2018 Pablo A Primary Pablogregor Rsoa [id number] Insurance:ANTHEMPolicy FlinnerDOB: [facility] Number: [id number] Cancer Center [address] [id number] [address], [place] Date:5648-45-63UI [facility] 30632Vob: [phone], [place] [phone] () 37611FS: 01/20/2018 Secondary NOT GIVENUNK Shelley Insurance:SELF PAY [facility] Number: Effective Repository Date:2018-01-20 01/20/2018 CLEMENTINE D Primary Insurance:JOAQUÍN Castro FLINNERDOB: CR[address] [birth year] ANTHEM FLINNERDOB: [facility] 3352-79-46POWest Valley Medical Center 1352-89-03KWJFE Hospital [address]: [address], Repository [place] [id number] [place] [id number] [facility][1], Date:Plan Name:B2 Ca [id number]: () 01/05/2018 [facility] D Primary Insurance:JOAQUÍN Castro FLINNERDOB: CR[address] [birth year] ANTHEM FLINNERDOB: [facility] 9577-81-56FZWest Valley Medical Center 4960-43-78DDUWL Hospital [address] Number: [address], Repository [place] [id number] [place] [id number] [facility][1], Date:Plan Name:B2 Ca [id number]: () 12/29/2017 Pablo A Primary Pablo Rosa [id number] Insurance:ANTHEMPolicy FlinnerDOB: [facility] Number: [id number] Cancer Center Box [id number] [address] Date:9409-43-06FY [address] [address]Gvu: [phone], [place] [phone] () 81905MJ: 12/29/2017 Secondary NOT GIVENUNK [place] Insurance:SELF PAY [facility] Number: Effective Repository Date:2017-12-29 12/29/2017 CLEMENTINE Luna Primary Insurance:JOAQUÍN MONTOYAGREGOR [employer] Castro FLINNERDOB: [place] [address] ANTHEM FLINNERDOB: [facility] 3953-89-47NRWest Valley Medical Center 5359-80-73IKZFU Hospital [address] Number: [address], Repository [place] [id number] [place] [id number] [facility][1], Date:Plan Name:B2 Ca [id number]: () 12/03/2017 Pablo A Primary Pablo Sanabria [place] [id number] Insurance:ANTHEMPolicy FlinnerDOB: [facility] Number: [id number] Cancer Center Box [id number] [address], [place] Date:2772-52-04NW [address] [address]Ujz: [phone], [place] [phone] () 49884AE: 12/03/2017 Secondary NOT GIVENUNK [place] Insurance:SELF PAY [facility] Number: Effective Repository Date:2017-12-03 11/05/2017 Pablo A Primary Pablo Jasonoster [id number] Insurance:ANTHEMPolicy FlinnerDOB: [facility] Number: [id number] Cancer Center Box [id number] [address] Date:6427-55-56QU [address] [address]Lkw: [id number], [place] [phone] () 33868JV: 11/05/2017 Secondary NOT GIVENUNK [place] Insurance:SELF PAY [facility] Number: Effective Repository Date:2017-11-05 11/04/2017 CLEMENTINE D Primary Insurance:JOAQUÍN Castro FLINNERDOB: CR[address] [birth year] ANTHEM FLINNERDOB: [facility] [id number] [facility] [id number] Hospital [address] Number: [address], Repository [place] [id number] [place] [id number] [facility][1], Date:Plan Name:B2 Ca [id number]: () 10/14/2017 Pablo A Primary Pablo Jasonoster [id number] Insurance:ANTHEMPolicy FlinnerDOB: Community [place] Number: [id number] Cancer Center Box [id number] [address] Date:2913-94-02AT [address] [address]Jgc: [phone], [place] [phone] () 18122HA: 10/14/2017 Secondary NOT GIVENUNK Shelley Insurance:SELF PAY [facility] Number: Effective Repository Date:2017-10-14 10/14/2017 CLEMENTINE Luna Primary Insurance:JOAQUÍN Castro FLINNERDOB: CR[address] [birth year] ANTHEM FLINNERDOB: [facility] 2559-47-94SWWest Valley Medical Center 0378-20-53ZIGVW Hospital [address] Number: [address], Repository [place] [id number] Ca [id number] [facility][1], Date:Plan Name:B2 Ca [id number]: () 10/13/2017 Pablo A Primary Pablo Rosa [id number] Insurance:ANTHEMPolicy FlinnerDOB: Community [place] Number: [id number] Cancer Center [address] [id number] [address] [address] Date:9554-06-19IR [address] [address]Vpb: [phone], [place] [phone] () 20904HL: 10/13/2017 Secondary NOT GIVENUNK Shelley Insurance:SELF PAY [facility] Number: Effective Repository Date:2017-10-01 10/05/2017 Pablo A Primary Pablo A [place] [id number] Insurance:ANTHEMPolicy FlinnerDOB: [facility] Number: [id number] Cancer Center Box [id number] [address] Date:6351-21-84AE [address] [address]Cya: [phone], [place] [phone] () 71381UC: 10/05/2017 Secondary NOT GIVENUNK Shelley Insurance:SELF PAY [facility] Number: Effective Repository Date:2017-10-05 10/01/2017 Pablo A Primary Pablo A [place] [id number] Insurance:ANTHEMPolicy FlinnerDOB: [facility] Number: [id number] Cancer Center Box [id number] [address] Date:9126-16-42BZ [address] [address]Ylk: [phone], [place] [phone] () 19219RG: 10/01/2017 Secondary NOT GIVENUNK Shelley Insurance:SELF PAY [facility] Number: Effective Repository Date:2017-06-18 10/01/2017 Pablo A Primary Pablo A Shelley [id number] Insurance:ANTHEMPolicy FlinnerDOB: [facility] Number: [id number] Cancer Center [address] [id number] [address] Date:6283-67-61GC [address] [address]Mzd: [phone], [place] [phone] () 67333CQ: 10/01/2017 Secondary NOT GIVENUNK Shelley Insurance:SELF PAY [facility] Number: Effective Repository Date:2017-10-01 09/30/2017 CLEMENTINE D Primary Insurance:JOAQUÍN Castro FLINNERDOB: CR[address] [birth year] ANTHTARYN FLINNERDOB: [facility] 9940-11-41OSWest Valley Medical Center 4264-07-64ZWCBI Hospital [address] Number: [address], Repository [place] [id number] [place] [id number] [facility][1], Date:Plan Name:[facility] [id number]: () 09/14/2017 CLEMENTINE D Primary Insurance:JOAQUÍN Castro FLINNERDOB: CR[address] [birth year] ANTHTARYN FLINNERDOB: [facility] 7811-23-97GAWest Valley Medical Center 3294-68-58ASRDU Hospital [address] Number: [address], Repository [place] [id number] Ca [id number] [facility][1], Date:Plan Name:[facility] [id number]: () 09/14/2017 Pablo A Primary Pablogregor Rosa [id number] Insurance:Ming MosquedaB: [facility] Number: [id number] Cancer Center [address] [id number] [address], [place] Date:5629-96-00KW [address] [address]Sah: [phone], [place] [phone] () 38605JY: 09/14/2017 Secondary NOT GIVENUNK [place] Insurance:SELF PAY [facility] Number: Effective Repository Date:2017-09-14 09/02/2017 CLEMENTINE D Primary Insurance:JOAQUÍN Castro FLINNERDOB: CR[address] [birth year] ANTHTARYN FLINNERDOB: [facility] 2899-08-71COWest Valley Medical Center 3290-27-44EUGMC Hospital [address] Number: [address], Repository [place] [id number] Ca [id number] [facility][1], Date:Plan Name:[facility] [id number]: () 08/19/2017 [facility] Primary Insurance:JOAQUÍN Castro FLINNERDOB: [address] [birth year] TAYLOR WARDDOB: [facility] [id number] Valley Medical Center 0153-00-86TLGLO Hospital [address] Number: MARIA A LeonSAC-OSAGE HOSPITALANILIndiana University Health Saxony [id number] [place] [id number] [facility][1], Date:Plan Name:[facility] [id number]: () 08/12/2017 [facility] Primary Insurance:JOAQUÍN Castro FLINNERDOB: CR[address] [birth year] TAYLOR HWANGNERDOB: [facility] 4543-72-48XHWest Valley Medical Center 8735-51-51TCFLT Hospital [address] Number: MARIA A 194[address]ANIL, [facility] [id number] Ca [id number] [facility][1], Date:Plan Name:[facility] [id number]: ()
== END ==
PROVIDERS: Family Provider Family Medicine Geriatric Medicine; PCP Family Medicine Geriatric Medicine; Referring Provider Physician Assistant Medical; Visit Provider Physician Assistant Medical
DX: I65.22 Occlusion and stenosis of left carotid artery (principal); I77.9 Disorder of arteries and arterioles, unspecified
CPT/HCPCS: 93880

== ENCOUNTER 2018-07-07 13:38 | Outpatient (RCR) | payer BC, SELFPAY ==
[2018-05-24 13:27] VITALS: BMI 27.7
[2018-07-07 14:56] LABS: International Normalized Ratio 2.6; Prothrombin Time (Protime)PT. 27.8 SECONDS (11.7-14.9)
== END 2018-07-07 14:00 | disposition home or self-care (01) ==
LOC: LAB 13:38
PROVIDERS: Family Provider Family Medicine Geriatric Medicine; PCP Family Medicine Geriatric Medicine; Referring Provider Internal Medicine Cardiovascular Disease; Visit Provider Internal Medicine Cardiovascular Disease
DX: Z79.01 Long term (current) use of anticoagulants (principal); Z95.2 Presence of prosthetic heart valve
CPT/HCPCS: 36415; 85610

== ENCOUNTER 2018-08-04 11:39 | Outpatient (RCR) | payer BC, SELFPAY | END 2018-08-04 12:00 | disposition home or self-care (01) | LOC: LAB 11:39 | PROVIDERS: Family Provider Family Medicine Geriatric Medicine; PCP Family Medicine Geriatric Medicine; Referring Provider Internal Medicine Cardiovascular Disease; Visit Provider Internal Medicine Cardiovascular Disease | DX: Z79.01 Long term (current) use of anticoagulants (principal); Z95.2 Presence of prosthetic heart valve ==

== ENCOUNTER 2018-08-11 13:53 | Outpatient (RCR) | payer BC, SELFPAY ==
[2018-05-24 13:27] VITALS: BMI 27.7
[2018-08-04 13:01] LABS: International Normalized Ratio 2.2; Prothrombin Time (Protime)PT. 24.3 SECONDS (11.7-14.9)
[2018-08-11 15:12] LABS: International Normalized Ratio 2.7; Prothrombin Time (Protime)PT. 28.7 SECONDS (11.7-14.9)
== END 2018-08-11 14:00 | disposition home or self-care (01) ==
LOC: LAB 13:53
PROVIDERS: Family Provider Family Medicine Geriatric Medicine; PCP Family Medicine Geriatric Medicine; Referring Provider Internal Medicine Cardiovascular Disease; Visit Provider Internal Medicine Cardiovascular Disease
DX: Z79.01 Long term (current) use of anticoagulants (principal); Z95.2 Presence of prosthetic heart valve
CPT/HCPCS: 36415; 85610

== ENCOUNTER 2018-08-19 11:05 | Emergency (ER) | payer BC, SELFPAY ==
[2018-08-19 11:06] VITALS: BP 166/75; PULSE 71; RESP 16; TEMP 36.4; O2SAT 96; BMI 27.3
--- NOTE | 2018-08-19 11:29 | CT_ITS ---
STUDY: CT BRAIN WITHOUT CONTRAST REASON FOR EXAM: Female, 67 years old. Add injury following a fall. Patient is on Coumadin. RADIATION DOSAGE (If Supplied By Facility): CTDIvol = ( 44.99 ) mGy, DLP = ( 745.49 ) mGycm TECHNIQUE: Transaxial CT imaging of the brain was performed without administration of intravenous contrast material. Individualized dose optimization techniques were used for this CT. COMPARISON: None. FINDINGS: Normal soft tissue structures. Normal calvarium. There is mild cerebral atrophy with widening of the extra-axial spaces and ventricular dilatation. Focal area of the increased linear density in the vertex of the right frontal lobe suggestive of a focal contusion. Normal basal ganglia and thalami. Normal brainstem. Normal cerebellum. There are no findings of an acute ischemic infarction. Normal visualized paranasal sinuses. CT/Brain/Head without Contrast IMPRESSION: Focal hemorrhagic contusion in the vertex of the right frontal lobe. No significant edema is seen. Electronically Signed: Fermin Patterson MD at 12:43 EST , Service support ,
[2018-08-19 13:01] LABS: International Normalized Ratio 3.3; Prothrombin Time (Protime)PT. 33.7 SECONDS (11.7-14.9)
--- NOTE | 2018-08-19 13:10 | NURSING ---
CALLING [facility] FOR TRANSFER
--- NOTE | 2018-08-19 13:11 | ED.VISSUMM ---
- ER Visit Summary Date of Service: 08/19/18 Chief Complaint: Head injury History of Present Illness: The patient is a 67 F who fell down a couple steps this morning in her house after throwing a ball to her dogs. She struck the back of her head. She is currently on Coumadin. She complains of pain over the posterior scalp, but no actual headache. She did not lose consciousness. She said no vision change, nausea, or vomiting. Patient had a mechanical valve placed in 2010 at [facility]. Her goal INR is between 2.5 and 3.5. Physical Examination: Blood pressure is 166/75, other vitals normal. Head and neck examination reveals no obvious external sign of trauma. The posterior parietal scalp is tender to palpation. There is no laceration or heme Aditi. C-spine is nontender. Heart is regular rate and rhythm. Lungs sounds are clear. Abdomen is soft and nontender. Extremity examination reveals good strength and sensation throughout. Neuro exam is normal. Test Results: CT head shows focal hemorrhagic contusion in the vertex of the right frontal lobe. No surrounding edema. INR is 3.3. CBC and chemistry studies are now pending. Emergency Department Course and Treatment: Test results discussed with patient and need for transfer to trauma center discussed. Patient would like to go back to [facility] in that she had her valve placed there. I spoke with Dr. Álvarez in the emergency room for transfer. They requested a CT the C-spine prior to transfer. Treatment Plan: [] Disposition: Transfer Impression: 1. Fall 2. Frontal lobe contusion 3. 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 They are now requesting the patient go to [facility] due to better insurance coverage. I spoke with ED physician at [facility] patient will be transferred there. This note was generated with [employer] dictation software. It may contain incorrect words, spelling, and punctuation that were not noted in review of the chart prior to signing ED Disposition - Plan for ED Patient: Referrals: Leonardo Sotelo Chi, MD [Primary Care Provider] -
--- NOTE | 2018-08-19 13:14 | CT_ITS ---
STUDY: CT CERVICAL SPINE WITHOUT CONTRAST REASON FOR EXAM: Female, 67 years old. Add injury due to a fall. Patient is on Coumadin. RADIATION DOSAGE (If Supplied By Facility): CTDIvol = ( 14.23 ) mGy, DLP = ( 515.46 ) mGycm TECHNIQUE: High resolution transaxial imaging was performed without contrast material. Sagittal and coronal images were reconstructed. Individualized dose optimization techniques were used for this CT. COMPARISON: None FINDINGS: Normal craniovertebral junction. Normal anterior atlantoaxial articulation. Normal odontoid process. Normal cervical lordosis. Normal vertebral bodies and posterior osseous elements. C2-3: Normal endplates. Normal disc height and morphology. Normal central canal and intervertebral neuroforamina. C3-4: Normal endplates. Normal disc height and morphology. Normal central canal and intervertebral neuroforamina. C4-5: Mild degree of disc space narrowing and spondylosis. 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 Uncovertebral arthrosis. No significant stenosis is seen. C5-6: Moderate degree of disc space narrowing. 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 No significant stenosis is seen. C6-7: Mild degree of disc space narrowing. Atherosclerotic calcification of the carotid bifurcations. CT/Spine Cervical without Contras IMPRESSION: Multilevel degenerative changes, as described above. Electronically Signed: Fermin Patterson MD at 13:54 EST , Service support ,
[2018-08-19 13:39] LABS: Absolute Lymphocyte Count 0.89 X10^3/ul (0.83-4.51); Absolute Neutrophil Count 9.5 X10^3/uL (2.0-7.7); Basophil# 0.02 X10^3/uL; Basophil% 0.2 % (0-1); Eosinophil# 0.09 X10^3/uL; Eosinophils% 0.8 % (0-5); Hemoglobin 12.7 g/dl (12.0-15.0); Lymphocyte # 0.89 X10^3/ul (4.0); Lymphocyte % 7.9 % (19-41); Mean Corp Hgb Conc 32.6 g/gl (32-36); Mean Corpuscular Hgb 30.1 pg (27.0-32.0); Mean Corpuscular Volume 92.4 fL (81-99); Mean Platelet Vol. 10.8 fl (6.2-12.0); Monocyte# 0.79 X10^3/uL; Neutrophil # 9.45 X10^3/uL (2.7-7.7); Neutrophil % 83.8 % (47-70); POSITIVE COUNT NO; POSITIVE DIFFERENTIAL NO; POSITIVE MORPHOLOGY NO; Platelet Count 271 K/mm3 (150-450); RBC Distribution Width CV 13.9 % (11.6-14.6); RBC Distribution Width SD 46.7 fl (35.1-43.9); Red Blood Count 4.22 M/mm3 (4.2-5.4); White Blood Count 11.3 K/mm3 (4.4-11.0)
[2018-08-19 13:47] LABS: Anion Gap 6 (5-15); BUN 12 mg/dL (7-18); BUN/Creat Ratio 15.3 RATIO (10-20); Calcium,Total 9.3 mg/dL (8.5-10.1); Chloride 107 mmol/L (98-107); Creatinine, Serum 0.78 mg/dL (0.55-1.02); EST Glomerular Filtration Rate 78 mL/min (>60); Est Glom Filt Rate - Afr Amer 94 mL/min (>60); Estimated Creatinine Clearance 51.65 ml/min; Glucose 103 mg/dL (74-106); Sodium Level 142 mmol/L (136-145)
[2018-08-19 13:53] VITALS: BP 149/68; PULSE 69; RESP 20; TEMP 36.3; O2SAT 95
--- NOTE | 2018-08-19 13:53 | NURSING ---
[facility] COMING FOR PATIENT, ETA IS FROM [place]
[2018-08-19] MEDS: 0.9% Normal Saline 1,000 ML 150 ML IV (13:56)
[2018-08-19 14:03] VITALS: BP 158/66; PULSE 66; RESP 18; O2SAT 95
== END 2018-08-19 14:39 | disposition short-term general hospital (02) ==
PROVIDERS: Emergency Provider Emergency Medicine; Family Provider Family Medicine Geriatric Medicine; PCP Family Medicine Geriatric Medicine
DX: S06.310A Contusion and laceration of right cerebrum without loss of consciousness, initial encounter (principal); I25.10 Atherosclerotic heart disease of native coronary artery without angina pectoris; E78.00 Pure hypercholesterolemia, unspecified; Z72.0 Tobacco use; Z95.4 Presence of other heart-valve replacement; Z79.01 Long term (current) use of anticoagulants; Z79.82 Long term (current) use of aspirin; Z79.899 Other long term (current) drug therapy; W10.9XXA Fall (on) (from) unspecified stairs and steps, initial encounter; Y93.89 Activity, other specified; Y92.008 Other place in unspecified non-institutional (private) residence as the place of occurrence of the external cause; Y99.8 Other external cause status
CPT/HCPCS: 70450; 72125; 80048; 85025; 85610; 96360; 99285; J7030; A4216

== ENCOUNTER 2018-09-02 11:53 | Outpatient (RCR) | payer BC, SELFPAY ==
[2018-05-24 13:27] VITALS: BMI 27.7
[2018-08-26 12:04] LABS: International Normalized Ratio 1.1; Prothrombin Time (Protime)PT. 14.1 SECONDS (11.7-14.9)
[2018-08-29 13:59] LABS: International Normalized Ratio 1.5; Prothrombin Time (Protime)PT. 18.3 SECONDS (11.7-14.9)
[2018-08-31 14:53] LABS: International Normalized Ratio 1.9; Prothrombin Time (Protime)PT. 22.2 SECONDS (11.7-14.9)
[2018-09-02 13:44] LABS: International Normalized Ratio 2.7; Prothrombin Time (Protime)PT. 28.6 SECONDS (11.7-14.9)
== END 2018-09-08 12:56 | disposition home or self-care (01) ==
LOC: LAB 11:53
PROVIDERS: Family Provider Family Medicine Geriatric Medicine; PCP Family Medicine Geriatric Medicine; Referring Provider Internal Medicine Cardiovascular Disease; Visit Provider Internal Medicine Cardiovascular Disease
DX: Z95.2 Presence of prosthetic heart valve (principal); Z79.01 Long term (current) use of anticoagulants
CPT/HCPCS: 36415; 85610

== ENCOUNTER 2018-09-23 11:45 | Outpatient (RCR) | payer BC, SELFPAY ==
[2018-09-09 13:52] LABS: International Normalized Ratio 2.8
[2018-09-23 12:22] LABS: International Normalized Ratio 2.8; Prothrombin Time (Protime)PT. 29.2 SECONDS (11.7-14.9)
== END 2018-09-23 12:45 | disposition home or self-care (01) ==
LOC: LAB 11:45
PROVIDERS: Family Provider Family Medicine Geriatric Medicine; PCP Family Medicine Geriatric Medicine; Referring Provider Internal Medicine Cardiovascular Disease; Visit Provider Internal Medicine Cardiovascular Disease
DX: Z79.01 Long term (current) use of anticoagulants (principal); Z95.2 Presence of prosthetic heart valve
CPT/HCPCS: 36415; 85610

== ENCOUNTER → 2018-10-11 15:31 | Outpatient (CLI) | payer BC, SELFPAY ==
[2018-10-11 17:30] LABS: Absolute Lymphocyte Count 0.97 X10^3/ul (0.83-4.51); Absolute Neutrophil Count 7.6 X10^3/uL (2.0-7.7); Basophil# 0.02 X10^3/uL; Basophil% 0.2 % (0-1); Eosinophil# 0.13 X10^3/uL; Eosinophils% 1.4 % (0-5); Hemoglobin 11.8 g/dl (12.0-15.0); Lymphocyte # 0.97 X10^3/ul (4.0); Lymphocyte % 10.3 % (19-41); Mean Corp Hgb Conc 31.9 g/gl (32-36); Mean Corpuscular Hgb 29.6 pg (27.0-32.0); Mean Corpuscular Volume 92.7 fL (81-99); Mean Platelet Vol. 11.5 fl (6.2-12.0); Monocyte# 0.73 X10^3/uL; Monocyte% 7.7 % (0-10); Neutrophil # 7.58 X10^3/uL (2.7-7.7); Neutrophil % 80.2 % (47-70); Platelet Count 248 K/mm3 (150-450); RBC Distribution Width CV 14.2 % (11.6-14.6); RBC Distribution Width SD 46.8 fl (35.1-43.9); Red Blood Count 3.99 M/mm3 (4.2-5.4); White Blood Count 9.5 K/mm3 (4.4-11.0)
[2018-10-11 17:32] LABS: POSITIVE COUNT NO; POSITIVE DIFFERENTIAL NO; POSITIVE MORPHOLOGY NO
[2018-10-11 17:43] LABS: Vitamin D,25 Hydroxy 39.7 ng/mL (29.95-100.01)
[2018-10-11 17:49] LABS: AST(SGOT) 36 U/L (15-37); Alanine Aminotransfer ALT/SGPT 29 U/L (13-56); Albumin, Serum 3.6 g/dL (3.2-5.0); Alkaline Phosphatase 71 U/L (45-117); Anion Gap 7 (5-15); BUN 13 mg/dL (7-18); BUN/Creat Ratio 17.3 RATIO (10-20); Calcium,Total 8.3 mg/dL (8.5-10.1); Chloride 106 mmol/L (98-107); Creatinine, Serum 0.75 mg/dL (0.55-1.02); EST Glomerular Filtration Rate 82 mL/min (>60); Est Glom Filt Rate - Afr Amer 99 mL/min (>60); Globulin 3.5 g/dL (2.2-4.2); Glucose 99 mg/dL (74-106); Potassium 4.2 mmol/L (3.5-5.1); Protein, Total 7.1 g/dL (6.4-8.2); Sodium Level 139 mmol/L (136-145); Thyroid Stim Hormone (TSH) 1.14 uIU/mL (0.358-3.74)
== END ==
PROVIDERS: Family Provider Family Medicine Geriatric Medicine; PCP Family Medicine Geriatric Medicine; Visit Provider Family Medicine Geriatric Medicine
DX: I10 Essential (primary) hypertension (principal); E55.9 Vitamin D deficiency, unspecified
CPT/HCPCS: 36415; 80053; 82306; 84443; 85025

== ENCOUNTER 2018-10-14 14:05 | Outpatient (RCR) | payer BC, SELFPAY ==
[2018-10-14 16:21] LABS: International Normalized Ratio 2.7; Prothrombin Time (Protime)PT. 29.1 SECONDS (11.7-14.9)
== END 2018-11-08 16:00 | disposition home or self-care (01) ==
LOC: LAB 14:05
PROVIDERS: Family Provider Family Medicine Geriatric Medicine; PCP Family Medicine Geriatric Medicine; Referring Provider Internal Medicine Cardiovascular Disease; Visit Provider Internal Medicine Cardiovascular Disease
DX: Z79.01 Long term (current) use of anticoagulants (principal); Z95.2 Presence of prosthetic heart valve
CPT/HCPCS: 36415; 85610

== ENCOUNTER 2018-11-16 13:24 | Outpatient (RCR) | payer BC, SELFPAY ==
[2018-11-16 14:11] LABS: International Normalized Ratio 2.9; Prothrombin Time (Protime)PT. 30.5 SECONDS (11.7-14.9)
== END 2018-11-16 14:50 | disposition home or self-care (01) ==
LOC: LAB 13:24
PROVIDERS: Family Provider Family Medicine Geriatric Medicine; PCP Family Medicine Geriatric Medicine; Referring Provider Internal Medicine Cardiovascular Disease; Visit Provider Internal Medicine Cardiovascular Disease
DX: Z79.01 Long term (current) use of anticoagulants (principal); Z95.2 Presence of prosthetic heart valve
CPT/HCPCS: 36415; 85610

== ENCOUNTER 2018-12-15 10:57 | Outpatient (RCR) | payer BC, SELFPAY ==
[2018-12-10 08:36] VITALS: BMI 27.3
[2018-12-15 11:34] LABS: International Normalized Ratio 2.5; Prothrombin Time (Protime)PT. 26.6 SECONDS (11.7-14.9)
== END 2018-12-15 11:00 | disposition home or self-care (01) ==
LOC: LAB 10:57
PROVIDERS: Family Provider Family Medicine Geriatric Medicine; PCP Family Medicine Geriatric Medicine; Referring Provider Internal Medicine Cardiovascular Disease; Visit Provider Internal Medicine Cardiovascular Disease
DX: Z79.01 Long term (current) use of anticoagulants (principal); Z95.2 Presence of prosthetic heart valve
CPT/HCPCS: 36415; 85610

== ENCOUNTER 2019-01-16 11:58 | Outpatient (RCR) | payer BC, SELFPAY ==
[2019-01-09 08:58] VITALS: BMI 28.1
[2019-01-16 12:54] LABS: International Normalized Ratio 3.1; Prothrombin Time (Protime)PT. 32.2 SECONDS (11.7-14.9)
== END 2019-02-08 06:32 | disposition home or self-care (01) ==
LOC: LAB 11:58
PROVIDERS: Family Provider Family Medicine Geriatric Medicine; PCP Family Medicine Geriatric Medicine; Referring Provider Internal Medicine Cardiovascular Disease; Visit Provider Internal Medicine Cardiovascular Disease
DX: Z79.01 Long term (current) use of anticoagulants (principal); Z95.2 Presence of prosthetic heart valve
CPT/HCPCS: 36415; 85610

== ENCOUNTER 2019-02-13 13:08 | Outpatient (RCR) | payer BC, SELFPAY ==
[2019-01-09 08:58] VITALS: BMI 28.1
[2019-02-13 13:55] LABS: International Normalized Ratio 3.1; Prothrombin Time (Protime)PT. 31.8 SECONDS (11.7-14.9)
== END 2019-02-13 16:00 | disposition home or self-care (01) ==
LOC: LAB 13:08
PROVIDERS: Family Provider Family Medicine Geriatric Medicine; PCP Family Medicine Geriatric Medicine; Referring Provider Internal Medicine Cardiovascular Disease; Visit Provider Internal Medicine Cardiovascular Disease
DX: Z79.01 Long term (current) use of anticoagulants (principal); Z95.2 Presence of prosthetic heart valve
CPT/HCPCS: 36415; 85610

== ENCOUNTER 2019-03-30 12:36 | Outpatient (RCR) | payer BC, SELFPAY ==
[2019-01-09 08:58] VITALS: BMI 28.1
[2019-03-16 13:55] LABS: Prothrombin Time (Protime)PT. 36.6 SECONDS (11.7-14.9)
[2019-03-16 13:59] LABS: International Normalized Ratio 3.7
[2019-03-30 14:28] LABS: International Normalized Ratio 2.8; Prothrombin Time (Protime)PT. 29.2 SECONDS (11.7-14.9)
== END 2019-03-30 14:00 | disposition home or self-care (01) ==
LOC: LAB 12:36
PROVIDERS: Family Provider Family Medicine Geriatric Medicine; PCP Family Medicine Geriatric Medicine; Referring Provider Internal Medicine Cardiovascular Disease; Visit Provider Internal Medicine Cardiovascular Disease
DX: Z79.01 Long term (current) use of anticoagulants (principal); Z95.2 Presence of prosthetic heart valve
CPT/HCPCS: 36415; 85610

== ENCOUNTER → 2019-04-13 | Outpatient (CLI) | payer BC, SELFPAY ==
[2019-01-09 08:58] VITALS: BMI 28.1
[2019-04-13 16:42] LABS: Absolute Lymphocyte Count 1.33 X10^3/uL (0.83-4.51); Absolute Neutrophil Count 6.4 X10^3/uL (2.0-7.7); Basophil# 0.05 X10^3/uL; Basophil% 0.6 % (0-1); Eosinophil# 0.15 X10^3/uL; Eosinophils% 1.7 % (0-5); Hematocrit 36.1 % (37-47); Hemoglobin 11.4 g/dL (12.0-15.0); Lymphocyte # 1.33 X10^3/ul (4.0); Lymphocyte % 15.3 % (19-41); Mean Corp Hgb Conc 31.6 g/dL (32-36); Mean Corpuscular Hgb 29.5 pg (27.0-32.0); Mean Corpuscular Volume 93.5 fL (81-99); Mean Platelet Vol. 11.6 fl (6.2-12.0); Monocyte# 0.74 X10^3/uL; Monocyte% 8.5 % (0-10); NRBC Flagged by Analyzer 0 % (0-5); Neutrophil % 73.6 % (47-70); Platelet Count 256 K/mm3 (150-450); RBC Distribution Width CV 13.9 % (11.6-14.6); RBC Distribution Width SD 47.1 fl (35.1-43.9); Red Blood Count 3.86 M/mm3 (4.2-5.4); White Blood Count 8.7 K/mm3 (4.4-11.0)
[2019-04-13 17:20] LABS: AST(SGOT) 33 U/L (15-37); Alanine Aminotransfer ALT/SGPT 25 U/L (13-56); Albumin, Serum 3.7 g/dL (3.2-5.0); Alkaline Phosphatase 78 U/L (45-117); Anion Gap 8 (5-15); BUN 18 mg/dL (7-18); BUN/Creat Ratio 20.7 RATIO (10-20); Calcium,Total 9.1 mg/dL (8.5-10.1); Chloride 105 mmol/L (98-107); Creatinine, Serum 0.87 mg/dL (0.55-1.02); EST Glomerular Filtration Rate 69 mL/min (>60); Est Glom Filt Rate - Afr Amer 84 mL/min (>60); Globulin 3.6 g/dL (2.2-4.2); Glucose 105 mg/dL (74-106); Potassium 4.3 mmol/L (3.5-5.1); Protein, Total 7.3 g/dL (6.4-8.2); Sodium Level 139 mmol/L (136-145); Thyroid Stim Hormone (TSH) 0.88 uIU/mL (0.358-3.74)
== END | disposition home or self-care (01) ==
LOC: POLAB3 13:06
PROVIDERS: Family Provider Family Medicine Geriatric Medicine; PCP Family Medicine Geriatric Medicine; Visit Provider Family Medicine Geriatric Medicine
DX: I10 Essential (primary) hypertension (principal); E55.9 Vitamin D deficiency, unspecified
CPT/HCPCS: 36415; 80053; 82306; 84443; 85025

== ENCOUNTER 2019-04-26 12:24 | Outpatient (RCR) | payer BC, SELFPAY ==
[2019-01-09 08:58] VITALS: BMI 28.1
[2019-04-26 13:40] LABS: International Normalized Ratio 2.7; Prothrombin Time (Protime)PT. 28.8 SECONDS (11.7-14.9)
== END 2019-04-26 18:00 | disposition home or self-care (01) ==
LOC: LAB 12:24
PROVIDERS: Family Provider Family Medicine Geriatric Medicine; PCP Family Medicine Geriatric Medicine; Referring Provider Internal Medicine Cardiovascular Disease; Visit Provider Internal Medicine Cardiovascular Disease
DX: Z79.01 Long term (current) use of anticoagulants (principal); Z95.2 Presence of prosthetic heart valve
CPT/HCPCS: 36415; 85610

== ENCOUNTER 2019-05-17 13:30 | Outpatient (RCR) | payer BC, SELFPAY ==
[2019-01-09 08:58] VITALS: BMI 28.1
[2019-05-17 15:06] LABS: International Normalized Ratio 2.6; Prothrombin Time (Protime)PT. 28.2 SECONDS (11.7-14.9)
== END 2019-05-17 18:00 | disposition home or self-care (01) ==
LOC: LAB 13:30
PROVIDERS: Family Provider Family Medicine Geriatric Medicine; PCP Family Medicine Geriatric Medicine; Referring Provider Internal Medicine Cardiovascular Disease; Visit Provider Internal Medicine Cardiovascular Disease
DX: Z79.01 Long term (current) use of anticoagulants (principal); Z95.2 Presence of prosthetic heart valve
CPT/HCPCS: 36415; 85610

== ENCOUNTER 2019-07-07 11:43 | Outpatient (RCR) | payer BC, SELFPAY ==
[2019-01-09 08:58] VITALS: BMI 28.1
[2019-06-14 13:07] LABS: International Normalized Ratio 3.3
[2019-07-07 12:57] LABS: International Normalized Ratio 3.5; Prothrombin Time (Protime)PT. 35.7 SECONDS (11.7-14.9)
== END 2019-07-07 18:00 | disposition home or self-care (01) ==
LOC: LAB 11:43
PROVIDERS: Family Provider Family Medicine Geriatric Medicine; PCP Family Medicine Geriatric Medicine; Referring Provider Internal Medicine Cardiovascular Disease; Visit Provider Internal Medicine Cardiovascular Disease
DX: Z79.01 Long term (current) use of anticoagulants (principal); Z95.2 Presence of prosthetic heart valve
CPT/HCPCS: 36415; 85610

== ENCOUNTER → 2019-07-13 10:52 | Outpatient (CLI) | payer BC, SELFPAY ==
[2019-01-09 08:58] VITALS: BMI 28.1
--- NOTE | 2019-07-13 10:55 | ECHOD_ITS ---
Reason For Study: H/O MVR (ST NIKOLAI 2010) Procedure This was a 2D Doppler, Color Flow transthoracic echocardiogram. Exam performed in department. Left Ventricle Normal LV size. Left ventricular systolic function is normal. The estimated ejection fraction is 60 %. No regional wall motion abnormalities noted. Right Ventricle Normal RV size. Normal systolic function. Atria The left atrium is mildly enlarged. Normal right atrium. Mitral Valve Mean transmitral valve gradient 4 mmHg. Stable appearing mechanical mitral valve apparatus. Tricuspid Valve Normal tricuspid valve. Mild to moderate (1-2+) tricuspid valve insufficiency. Pulmonary artery systolic pressure is 48 mmHg. Aortic Valve Normal aortic valve. Pulmonic Valve The pulmonic valve is not well visualized. Great Vessels Normal aortic root. The pulmonary artery is normal size. Normal inferior vena cava. Pericardium/Pleural No pericardial effusion. MMode/2D Measurements & Calculations LVIDd: 5.2 cm IVSd: 0.71 cm Ao root diam: 2.7 cm LVIDs: 3.2 cm LVPWd: 0.94 cm RVDd: 3.7 cm FS: 38.8 % LAV(MOD-bp): 69.2 ml LA A4 area: 22.7 cm2 LA dimension(2D): 4.7 cm LAV(MOD-bp) Indexed: 43.1 ml/m2 LAV(MOD-sp2): 61.4 ml LAV(MOD-sp4): 75.6 ml RA A4 area: 14.6 cm2 Time Measurements MV dec time: 0.19 sec Doppler Measurements & Calculations MV E max jackson: 203.8 cm/sec MV V2 max: 213.1 cm/sec MV P1/2t max jackson: 212.7 cm/sec MV A max jackson: 36.4 cm/sec MV max P.2 mmHg MV P1/2t: 51.1 msec MV E/A: 5.6 MV V2 mean: 82.1 cm/sec MV dec slope: 1220 cm/sec2 MV mean P.7 mmHg MV V2 VTI: 44.4 cm MVA(P1/2t): 4.3 cm2 Ao V2 max: 124.8 cm/sec LV V1 max: 96.3 cm/sec PA V2 max: 100.8 cm/sec Ao max P.2 mmHg LV V1 max P.7 mmHg TR max jackson: 330.1 cm/sec TR max P.1 mmHg Interpretation Summary Normal LV size. Left ventricular systolic function is normal. The estimated ejection fraction is 60 %. Pulmonary artery systolic pressure is 48 mmHg. Stable appearing mechanical mitral valve apparatus. Compared to the previous the pulmonary presures are better. Ordering Physician: Lui Wilkerson Referring Physician: Leonardo Sotelo Chi Performed By: Suzanne Rowland, GUS, RVT
== END ==
PROVIDERS: Family Provider Family Medicine Geriatric Medicine; PCP Family Medicine Geriatric Medicine; Referring Provider Internal Medicine Hematology & Oncology; Visit Provider Internal Medicine Hematology & Oncology
DX: T82.897A Other specified complication of cardiac prosthetic devices, implants and grafts, initial encounter (principal); D59.4 Other nonautoimmune hemolytic anemias; Z95.2 Presence of prosthetic heart valve
CPT/HCPCS: 93306

== ENCOUNTER 2019-08-04 15:47 | Outpatient (RCR) | payer BC, SELFPAY ==
[2019-01-09 08:58] VITALS: BMI 28.1
[2019-08-04 13:57] VITALS: BMI 27.5
[2019-08-04 18:01] LABS: International Normalized Ratio 3.3; Prothrombin Time (Protime)PT. 34.1 SECONDS (11.7-14.9)
== END 2019-08-04 18:00 | disposition home or self-care (01) ==
LOC: LAB 15:47
PROVIDERS: Family Provider Family Medicine Geriatric Medicine; PCP Family Medicine Geriatric Medicine; Referring Provider Internal Medicine Cardiovascular Disease; Visit Provider Internal Medicine Cardiovascular Disease
DX: Z79.01 Long term (current) use of anticoagulants (principal); Z95.2 Presence of prosthetic heart valve
CPT/HCPCS: 36415; 85610

== ENCOUNTER → 2019-08-14 | Outpatient (CLI) | payer BC, SELFPAY ==
[2019-08-04 13:57] VITALS: BMI 27.5
--- NOTE | 2019-08-14 12:51 | CDU_ITS ---
Reason For Study: Carotid stenosis Rt. Velocities/BP Lt. Velocities/BP Prox CCA 96.9/16 cm/sec. Prox CCA 93.7/22.5 cm/sec. Mid CCA 72.1/18.6 cm/sec. Mid CCA 82.7/20.6 cm/sec. Dist CCA 83.9/10.8 cm/sec. Dist CCA 82.7/24.3 cm/sec. Prox ICA 187.3/44.8 cm/sec. Prox ICA 240.1/62.4 cm/sec. Mid ICA 202.8/44.8 cm/sec. Mid ICA 194.9/49.4 cm/sec. Dist ICA 84.6/15.2 cm/sec. Dist ICA 90.7/24.8 cm/sec. Rt. ICA/CCA = 2.4. Lt. ICA/CCA = 2.9. Prox ECA 156.5/16 cm/sec. Prox ECA 187.3/16.3 cm/sec. Rt. Vert. 52.2/20.1 cm/sec. Lt. Vert. 63/12.6 cm/sec. Right Extracranial There is homogeneous, smooth atherosclerotic plaque noted in the right common carotid artery. There is heterogeneous, irregular atherosclerotic plaque noted in the right internal carotid artery. There is heterogeneous, irregular atherosclerotic plaque noted in the right external carotid artery. Antegrade flow is noted in the right vertebral artery. Left Extracranial There is homogeneous, smooth atherosclerotic plaque noted in the left common carotid artery. There is heterogeneous, irregular atherosclerotic plaque noted in the left internal carotid artery. There is heterogeneous, irregular atherosclerotic plaque noted in the left external carotid artery. Antegrade flow is noted in the left vertebral artery. Procedure Carotid Duplex 36615. Exam performed in department. Interpretation Summary Moderate (50-69%) stenosis right extracranial internal carotid. Moderate (50-69%) stenosis left extracranial internal carotid. Flow within the vertebral arteries is antegrade bilaterally. Ordering Physician: Argelia Eid Referring Physician: Leonardo Sotelo Chi Performed By: Michelle Naqvi RVT
== END | disposition home or self-care (01) ==
LOC: CVS 12:51
PROVIDERS: PCP Family Medicine Geriatric Medicine; Referring Provider Physician Assistant Medical; Visit Provider Physician Assistant Medical
DX: I65.29 Occlusion and stenosis of unspecified carotid artery (principal); R09.89 Other specified symptoms and signs involving the circulatory and respiratory systems
CPT/HCPCS: 93880

== ENCOUNTER 2019-08-30 11:32 | Outpatient (RCR) | payer BC, SELFPAY ==
[2019-08-23 11:10] LABS: Prothrombin Time (Protime)PT. 39.9 SECONDS (11.7-14.9)
[2019-08-23 11:27] LABS: International Normalized Ratio 4.1
[2019-08-30 12:31] LABS: International Normalized Ratio 2.7; Prothrombin Time (Protime)PT. 29.1 SECONDS (11.7-14.9)
== END 2019-08-30 18:00 | disposition home or self-care (01) ==
LOC: LAB 11:32
PROVIDERS: Family Provider Family Medicine Geriatric Medicine; PCP Family Medicine Geriatric Medicine; Referring Provider Internal Medicine Cardiovascular Disease; Visit Provider Internal Medicine Cardiovascular Disease
DX: Z79.01 Long term (current) use of anticoagulants (principal); Z95.2 Presence of prosthetic heart valve
CPT/HCPCS: 36415; 85610

== ENCOUNTER 2019-09-27 12:32 | Outpatient (RCR) | payer BC, SELFPAY ==
[2019-09-13 12:35] LABS: International Normalized Ratio 4.4
[2019-09-13 13:25] LABS: Prothrombin Time (Protime)PT. 42.3 SECONDS (11.7-14.9)
[2019-09-27 13:57] LABS: International Normalized Ratio 3.2; Prothrombin Time (Protime)PT. 32.9 SECONDS (11.7-14.9)
== END 2019-09-27 18:00 | disposition home or self-care (01) ==
LOC: LAB 12:32
PROVIDERS: Family Provider Family Medicine Geriatric Medicine; PCP Family Medicine Geriatric Medicine; Referring Provider Internal Medicine Cardiovascular Disease; Visit Provider Internal Medicine Cardiovascular Disease
DX: Z79.01 Long term (current) use of anticoagulants (principal); Z95.2 Presence of prosthetic heart valve
CPT/HCPCS: 36415; 85610

== ENCOUNTER 2019-11-08 14:26 | Outpatient (RCR) | payer BC, SELFPAY ==
[2019-10-17 15:37] LABS: International Normalized Ratio 3.1; Prothrombin Time (Protime)PT. 31.3 SECONDS (11.7-14.9)
[2019-11-08 15:00] LABS: International Normalized Ratio 3.4; Prothrombin Time (Protime)PT. 33.9 SECONDS (11.7-14.9)
== END 2019-11-09 18:00 | disposition home or self-care (01) ==
LOC: LAB 14:26
PROVIDERS: Family Provider Family Medicine Geriatric Medicine; PCP Family Medicine Geriatric Medicine; Referring Provider Internal Medicine Cardiovascular Disease; Visit Provider Internal Medicine Cardiovascular Disease
DX: Z79.01 Long term (current) use of anticoagulants (principal); Z95.2 Presence of prosthetic heart valve
CPT/HCPCS: 36415; 85610

== ENCOUNTER 2019-12-06 13:22 | Outpatient (RCR) | payer BC, SELFPAY ==
[2019-12-06 14:44] LABS: International Normalized Ratio 3.1; Prothrombin Time (Protime)PT. 31.7 SECONDS (11.7-14.9)
== END 2019-12-06 18:00 | disposition home or self-care (01) ==
LOC: LAB 13:22
PROVIDERS: Family Provider Family Medicine Geriatric Medicine; PCP Family Medicine Geriatric Medicine; Referring Provider Internal Medicine Cardiovascular Disease; Visit Provider Internal Medicine Cardiovascular Disease
DX: Z95.2 Presence of prosthetic heart valve (principal); Z79.01 Long term (current) use of anticoagulants
CPT/HCPCS: 36415; 85610

== ENCOUNTER 2020-01-03 14:37 | Outpatient (RCR) | payer BC, SELFPAY ==
[2020-01-03 15:40] LABS: Prothrombin Time (Protime)PT. 30.5 SECONDS (11.7-14.9)
== END 2020-01-03 18:00 | disposition home or self-care (01) ==
LOC: LAB 14:37
PROVIDERS: Family Provider Family Medicine Geriatric Medicine; PCP Family Medicine Geriatric Medicine; Referring Provider Internal Medicine Cardiovascular Disease; Visit Provider Internal Medicine Cardiovascular Disease
DX: Z79.01 Long term (current) use of anticoagulants (principal); Z95.2 Presence of prosthetic heart valve
CPT/HCPCS: 36415; 85610

== ENCOUNTER 2020-02-01 12:55 | Outpatient (RCR) | payer BC, SELFPAY ==
[2020-02-01 13:37] LABS: International Normalized Ratio 2.9; Prothrombin Time (Protime)PT. 29.7 SECONDS (11.7-14.9)
== END 2020-02-01 18:00 | disposition home or self-care (01) ==
LOC: LAB 12:55
PROVIDERS: Family Provider Family Medicine Geriatric Medicine; PCP Family Medicine Geriatric Medicine; Referring Provider Internal Medicine Cardiovascular Disease; Visit Provider Internal Medicine Cardiovascular Disease
DX: Z79.01 Long term (current) use of anticoagulants (principal); Z95.2 Presence of prosthetic heart valve
CPT/HCPCS: 36415; 85610

== ENCOUNTER 2020-02-29 14:28 | Outpatient (RCR) | payer BC, SELFPAY ==
[2020-02-29 13:55] VITALS: BMI 27.1
[2020-02-29 14:50] LABS: International Normalized Ratio 3.6; Prothrombin Time (Protime)PT. 35.7 SECONDS (11.7-14.9)
== END 2020-03-11 18:00 | disposition home or self-care (01) ==
LOC: LAB 14:28
PROVIDERS: Family Provider Family Medicine Geriatric Medicine; PCP Family Medicine Geriatric Medicine; Referring Provider Internal Medicine Cardiovascular Disease; Visit Provider Internal Medicine Cardiovascular Disease
DX: Z79.01 Long term (current) use of anticoagulants (principal); Z95.2 Presence of prosthetic heart valve
CPT/HCPCS: 36415; 85610

== ENCOUNTER 2020-03-20 13:39 | Outpatient (RCR) | payer BC, SELFPAY ==
[2020-03-20 14:40] LABS: International Normalized Ratio 3.3; Prothrombin Time (Protime)PT. 33.2 SECONDS (11.7-14.9)
== END 2020-03-20 18:00 | disposition home or self-care (01) ==
LOC: LAB 13:39
PROVIDERS: Family Provider Family Medicine Geriatric Medicine; PCP Family Medicine Geriatric Medicine; Referring Provider Internal Medicine Cardiovascular Disease; Visit Provider Internal Medicine Cardiovascular Disease
DX: Z95.2 Presence of prosthetic heart valve (principal); Z79.01 Long term (current) use of anticoagulants
CPT/HCPCS: 36415; 85610

== ENCOUNTER → 2020-04-15 | Outpatient (CLI) | payer BC, SELFPAY ==
[2020-04-15 17:12] LABS: Absolute Neutrophil Count 6.7 X10^3/uL (2.0-7.7); Basophil# 0.03 X10^3/uL; Basophil% 0.3 % (0-1); Eosinophil# 0.11 X10^3/uL; Eosinophils% 1.2 % (0-5); Hematocrit 34.2 % (37-47); Lymphocyte % 15.6 % (19-41); Mean Corp Hgb Conc 32.2 g/dL (32-36); Mean Corpuscular Hgb 28.7 pg (27.0-32.0); Mean Corpuscular Volume 89.3 fL (81-99); Mean Platelet Vol. 11.9 fl (6.2-12.0); Monocyte# 0.69 X10^3/uL; Monocyte% 7.7 % (0-10); NRBC Flagged by Analyzer 0 % (0-5); Neutrophil # 6.72 X10^3/uL (2.7-7.7); Neutrophil % 74.9 % (47-70); Platelet Count 278 K/mm3 (150-450); RBC Distribution Width CV 14.6 % (11.6-14.6); RBC Distribution Width SD 47.3 fl (35.1-43.9); Red Blood Count 3.83 M/mm3 (4.2-5.4)
[2020-04-15 17:38] LABS: AST(SGOT) 33 U/L (15-37); Alanine Aminotransfer ALT/SGPT 22 U/L (13-56); Albumin, Serum 3.6 g/dL (3.2-5.0); Alkaline Phosphatase 88 U/L (45-117); Anion Gap 4 (5-15); BUN 26 mg/dL (7-18); BUN/Creat Ratio 24.1 RATIO (10-20); Calcium,Total 9.3 mg/dL (8.5-10.1); Chloride 108 mmol/L (98-107); Creatinine, Serum 1.08 mg/dL (0.55-1.02); EST Glomerular Filtration Rate 54 mL/min (>60); Est Glom Filt Rate - Afr Amer 65 mL/min (>60); Globulin 3.7 g/dL (2.2-4.2); Glucose 110 mg/dL (74-106); Potassium 4.3 mmol/L (3.5-5.1); Protein, Total 7.3 g/dL (6.4-8.2); Sodium Level 139 mmol/L (136-145); Thyroid Stim Hormone (TSH) 1.14 uIU/mL (0.358-3.74)
== END | disposition home or self-care (01) ==
LOC: POLAB3 13:41
PROVIDERS: PCP Family Medicine Geriatric Medicine; Visit Provider Family Medicine Geriatric Medicine
DX: E55.9 Vitamin D deficiency, unspecified (principal); I10 Essential (primary) hypertension; E78.5 Hyperlipidemia, unspecified
CPT/HCPCS: 36415; 80053; 82306; 84443; 85025

== ENCOUNTER 2020-04-30 11:59 | Outpatient (RCR) | payer BC, SELFPAY ==
[2020-04-17 12:39] LABS: International Normalized Ratio 2.8; Prothrombin Time (Protime)PT. 29.1 SECONDS (11.7-14.9)
[2020-04-30 12:38] LABS: International Normalized Ratio 3.1; Prothrombin Time (Protime)PT. 31.2 SECONDS (11.7-14.9)
== END 2020-04-30 18:00 | disposition home or self-care (01) ==
LOC: LAB 11:59
PROVIDERS: Family Provider Family Medicine Geriatric Medicine; PCP Family Medicine Geriatric Medicine; Referring Provider Internal Medicine Cardiovascular Disease; Visit Provider Internal Medicine Cardiovascular Disease
DX: Z95.2 Presence of prosthetic heart valve (principal); Z79.01 Long term (current) use of anticoagulants
CPT/HCPCS: 36415; 85610

== ENCOUNTER 2020-06-10 14:15 | Outpatient (RCR) | payer BC, SELFPAY ==
[2020-05-29 17:35] LABS: Prothrombin Time (Protime)PT. 44.5 SECONDS (11.7-14.9)
[2020-05-29 17:44] LABS: International Normalized Ratio 4.7
[2020-06-03 15:10] LABS: International Normalized Ratio 2.9; Prothrombin Time (Protime)PT. 30.2 SECONDS (11.7-14.9)
[2020-06-10 14:38] LABS: Prothrombin Time (Protime)PT. 38.4 SECONDS (11.7-14.9)
[2020-06-10 14:52] LABS: International Normalized Ratio 3.9
== END 2020-06-10 18:00 | disposition home or self-care (01) ==
LOC: LAB 14:15
PROVIDERS: Family Provider Family Medicine Geriatric Medicine; PCP Family Medicine Geriatric Medicine; Referring Provider Internal Medicine Cardiovascular Disease; Visit Provider Internal Medicine Cardiovascular Disease
DX: Z95.2 Presence of prosthetic heart valve (principal); Z79.01 Long term (current) use of anticoagulants
CPT/HCPCS: 36415; 85610

== ENCOUNTER 2020-07-01 13:23 | Outpatient (RCR) | payer BC, SELFPAY ==
[2020-06-17 14:35] LABS: Prothrombin Time (Protime)PT. 35.4 SECONDS (11.7-14.9)
[2020-06-17 14:44] LABS: International Normalized Ratio 3.6
[2020-07-01 14:28] LABS: International Normalized Ratio 2.6; Prothrombin Time (Protime)PT. 27.7 SECONDS (11.7-14.9)
== END 2020-07-01 18:00 | disposition home or self-care (01) ==
LOC: LAB 13:23
PROVIDERS: Family Provider Family Medicine Geriatric Medicine; PCP Family Medicine Geriatric Medicine; Referring Provider Internal Medicine Cardiovascular Disease; Visit Provider Internal Medicine Cardiovascular Disease
DX: Z95.2 Presence of prosthetic heart valve (principal); Z79.01 Long term (current) use of anticoagulants
CPT/HCPCS: 36415; 85610

== ENCOUNTER 2020-07-29 11:06 | Outpatient (RCR) | payer OTHER, SELFPAY ==
[2020-07-15 15:08] LABS: International Normalized Ratio 2.3; Prothrombin Time (Protime)PT. 24.9 SECONDS (11.7-14.9)
[2020-07-29 12:16] LABS: International Normalized Ratio 2.7; Prothrombin Time (Protime)PT. 28.2 SECONDS (11.7-14.9)
== END 2020-07-29 18:00 | disposition home or self-care (01) ==
LOC: LAB 11:06
PROVIDERS: Family Provider Family Medicine Geriatric Medicine; PCP Family Medicine Geriatric Medicine; Referring Provider Internal Medicine Cardiovascular Disease; Visit Provider Internal Medicine Cardiovascular Disease
DX: Z95.2 Presence of prosthetic heart valve (principal); Z79.01 Long term (current) use of anticoagulants
CPT/HCPCS: 36415; 85610

== ENCOUNTER 2020-08-28 13:27 | Outpatient (RCR) | payer OTHER, SELFPAY ==
[2020-08-28 14:40] LABS: International Normalized Ratio 2.9; Prothrombin Time (Protime)PT. 30.2 SECONDS (11.7-14.9)
== END 2020-08-28 18:00 | disposition home or self-care (01) ==
LOC: LAB 13:27
PROVIDERS: Family Provider Family Medicine Geriatric Medicine; PCP Family Medicine Geriatric Medicine; Referring Provider Internal Medicine Cardiovascular Disease; Visit Provider Internal Medicine Cardiovascular Disease
DX: Z95.2 Presence of prosthetic heart valve (principal); Z79.01 Long term (current) use of anticoagulants
CPT/HCPCS: 36415; 85610

== ENCOUNTER → 2020-09-05 12:36 | Outpatient (CLI) | payer OTHER, SELFPAY ==
--- NOTE | 2020-09-05 12:39 | CDU_ITS ---
Reason For Study: carotid stenosis Rt. Velocities/BP Lt. Velocities/BP Prox CCA 99.5/23.9 cm/sec. Prox CCA 90.4/23.4 cm/sec. Mid CCA 70.8/22.6 cm/sec. Mid CCA 97.0/25.6 cm/sec. Dist CCA 66.9/17.3 cm/sec. Dist CCA 101.1/28.6 cm/sec. Prox ICA 175.5/52.7 cm/sec. Prox ICA 299.3/67.9 cm/sec. Mid ICA 282.2/59.2 cm/sec. Mid ICA 252.2/60.0 cm/sec. Dist ICA 165.8/36.5 cm/sec. Dist ICA 133.9/35.3 cm/sec. Rt. ICA/CCA = 4.0. Lt. ICA/CCA = 3.1. Prox ECA 259.5/13.9 cm/sec. Prox ECA 230.4/26.8 cm/sec. Rt. Vert. 32.2/11.3 cm/sec. Lt. Vert. 101/24.3 cm/sec. Right Extracranial There is homogeneous, smooth atherosclerotic plaque noted in the right common carotid artery. There is heterogeneous, irregular atherosclerotic plaque noted in the right internal carotid artery. There is heterogeneous, irregular atherosclerotic plaque noted in the right external carotid artery. Antegrade flow is noted in the right vertebral artery. Left Extracranial There is heterogeneous, irregular atherosclerotic plaque noted in the left common carotid artery. There is heterogeneous, irregular atherosclerotic plaque noted in the left internal carotid artery. There is heterogeneous, irregular atherosclerotic plaque noted in the left external carotid artery. Antegrade flow is noted in the left vertebral artery. Procedure Carotid Duplex 97924. This is a Carotid Duplex examination using B-mode, color flow and specral Doppler. The exam was diagnostic. Interpretation Summary Moderate (50-69%) stenosis right extracranial internal carotid. Severe (>70%) stenosis left extracranial internal carotid. Flow within the vertebral arteries is antegrade bilaterally. Ordering Physician: Curtis Joshi Performed By: Huseyin Maria RVT
== END ==
PROVIDERS: PCP Family Medicine Geriatric Medicine; Referring Provider Surgery Vascular Surgery; Visit Provider Surgery Vascular Surgery
DX: I65.23 Occlusion and stenosis of bilateral carotid arteries (principal)
CPT/HCPCS: 93880

== ENCOUNTER 2020-09-25 08:53 | Outpatient (RCR) | payer OTHER, SELFPAY ==
[2020-09-25 11:09] LABS: International Normalized Ratio 3.5; Prothrombin Time (Protime)PT. 34.8 SECONDS (11.7-14.9)
== END 2020-09-25 18:00 | disposition home or self-care (01) ==
LOC: LAB 08:53
PROVIDERS: Family Provider Family Medicine Geriatric Medicine; PCP Family Medicine Geriatric Medicine; Referring Provider Internal Medicine Cardiovascular Disease; Visit Provider Internal Medicine Cardiovascular Disease
DX: Z95.2 Presence of prosthetic heart valve (principal); Z79.01 Long term (current) use of anticoagulants
CPT/HCPCS: 36415; 85610

== ENCOUNTER → 2020-10-03 15:09 | Outpatient (CLI) | payer OTHER, SELFPAY ==
[2020-10-03 14:43] VITALS: BMI 26.7
[2020-10-03 17:29] LABS: Absolute Neutrophil Count 6.3 X10^3/uL (2.0-7.7); Basophil# 0.04 X10^3/uL; Basophil% 0.4 % (0-1); Eosinophil# 0.17 X10^3/uL; Eosinophils% 1.9 % (0-5); Hemoglobin 10.2 g/dL (12.0-15.0); Lymphocyte % 16.5 % (19-41); Mean Corp Hgb Conc 30.9 g/dL (32-36); Mean Corpuscular Hgb 28.1 pg (27.0-32.0); Mean Corpuscular Volume 90.9 fL (81-99); Mean Platelet Vol. 11.8 fl (6.2-12.0); Monocyte# 1.03 X10^3/uL; Monocyte% 11.3 % (0-10); NRBC Flagged by Analyzer 0 % (0-5); Neutrophil # 6.33 X10^3/uL (2.7-7.7); Neutrophil % 69.7 % (47-70); Platelet Count 282 K/mm3 (150-450); RBC Distribution Width CV 15.4 % (11.6-14.6); RBC Distribution Width SD 50.8 fl (35.1-43.9); Red Blood Count 3.63 M/mm3 (4.2-5.4); White Blood Count 9.1 K/mm3 (4.4-11.0)
[2020-10-03 18:07] LABS: AST(SGOT) 27 U/L (15-37); Alanine Aminotransfer ALT/SGPT 21 U/L (13-56); Albumin, Serum 3.5 g/dL (3.2-5.0); Alkaline Phosphatase 89 U/L (45-117); Bilirubin, Direct 0.24 mg/dL (0.00-0.30); Cholesterol 121 mg/dL (200); Globulin 3.5 g/dL (2.2-4.2); High Density Lipoprotein 52 mg/dL; Triglycerides 122 mg/dL; Very Low Density Lipoprotein 24 mg/dL (5-40)
== END ==
PROVIDERS: PCP Family Medicine Geriatric Medicine; Visit Provider Internal Medicine Cardiovascular Disease
DX: E78.00 Pure hypercholesterolemia, unspecified (principal); Z95.1 Presence of aortocoronary bypass graft; Z95.2 Presence of prosthetic heart valve
CPT/HCPCS: 36415; 80061; 80076; 85025

== ENCOUNTER → 2020-10-14 14:30 | Outpatient (CLI) | payer OTHER, SELFPAY ==
[2020-10-03 14:43] VITALS: BMI 26.7
[2020-10-14 17:16] LABS: Absolute Lymphocyte Count 1.55 X10^3/uL (0.83-4.51); Basophil# 0.04 X10^3/uL; Basophil% 0.5 % (0-1); Eosinophil# 0.17 X10^3/uL; Hematocrit 33.7 % (37-47); Hemoglobin 10.3 g/dL (12.0-15.0); Lymphocyte # 1.55 X10^3/ul (4.0); Lymphocyte % 17.9 % (19-41); Mean Corp Hgb Conc 30.6 g/dL (32-36); Mean Corpuscular Hgb 27.4 pg (27.0-32.0); Mean Corpuscular Volume 89.6 fL (81-99); Mean Platelet Vol. 11.3 fl (6.2-12.0); Monocyte# 0.87 X10^3/uL; Monocyte% 10.1 % (0-10); NRBC Flagged by Analyzer 0 % (0-5); Neutrophil % 69.3 % (47-70); Platelet Count 295 K/mm3 (150-450); RBC Distribution Width CV 15.5 % (11.6-14.6); RBC Distribution Width SD 50.1 fl (35.1-43.9); Red Blood Count 3.76 M/mm3 (4.2-5.4); White Blood Count 8.7 K/mm3 (4.4-11.0)
[2020-10-14 17:35] LABS: Vitamin D,25 Hydroxy 32.1 ng/mL
[2020-10-14 17:44] LABS: ALB/GLOB Ratio 0.9 RATIO (0.9-2.4); AST(SGOT) 25 U/L (15-37); Alanine Aminotransfer ALT/SGPT 21 U/L (13-56); Albumin, Serum 3.4 g/dL (3.2-5.0); Alkaline Phosphatase 89 U/L (45-117); Anion Gap 5 (5-15); BUN 17 mg/dL (7-18); Chloride 106 mmol/L (98-107); EST Glomerular Filtration Rate 59 mL/min (>60); Est Glom Filt Rate - Afr Amer 71 mL/min (>60); Globulin 3.7 g/dL (2.2-4.2); Glucose 114 mg/dL (74-106); Potassium 3.3 mmol/L (3.5-5.1); Protein, Total 7.1 g/dL (6.4-8.2); Sodium Level 141 mmol/L (136-145); Thyroid Stim Hormone (TSH) 0.88 uIU/mL (0.358-3.74)
== END ==
PROVIDERS: PCP Family Medicine Geriatric Medicine; Visit Provider Family Medicine Geriatric Medicine
DX: E55.9 Vitamin D deficiency, unspecified (principal); I10 Essential (primary) hypertension
CPT/HCPCS: 36415; 80053; 82306; 84443; 85025

== ENCOUNTER → 2020-10-18 07:00 | Outpatient (CLI) | payer OTHER, SELFPAY ==
[2020-10-03 14:43] VITALS: BMI 26.7
--- NOTE | 2020-10-18 12:54 | STRESSREP ---
Stress Test Report Pharmacologic myocardial perfusion stress test. 70-year-old lady with a history of coronary artery disease status post coronary bypass surgery in 2011. Stress protocol: Resting EKG demonstrates normal sinus rhythm with a rate of 77 bpm normal intervals are noted resting blood pressure is 142/80 mmHg. 0.4 mg of regadenoson was infused per usual protocol followed by rapid venous saline flush injection continuous nuclear monitoring technician was performed. The maximum heart rate attained was 86 bpm which was 56% maximum predicted heart rate the maximum workload was 1 metabolic equivalent. At rest there were no ST or T wave changes noted to suggest abnormal flow reserve and at peak infusion nonspecific ST changes were noted with did not meet the criteria for ischemia. The final blood pressure was 148/68 mmHg. Myocardial perfusion protocol. 10.8 mCi of technetium 99m sestamibi was injected at rest. 0.4 mg of regadenoson was infused per usual protocol. Peak infusion 33.2 mCi of technetium 99m sestamibi was injected stress images were obtained stress and rest images were reconstructed and compared in the short axis vertical long horizontal long axis. Gated images were also obtained Perfusion SPECT analysis: Review of the stress images demonstrate normal uptake of tracer noted in all areas of the myocardium. The resting images similar demonstrate normal uptake of tracer noted in all areas of myocardium. No areas of reversibility are noted suggest ischemia and no previous infarct is noted. Gated SPECT analysis: The gated ejection fraction is 85%. Conclusion: Normal pharmacologic myocardial perfusion stress test. Preserved ejection fraction.
== END ==
PROVIDERS: PCP Family Medicine Geriatric Medicine; Referring Provider Internal Medicine Cardiovascular Disease; Visit Provider Internal Medicine Cardiovascular Disease
DX: I25.10 Atherosclerotic heart disease of native coronary artery without angina pectoris (principal); Z95.1 Presence of aortocoronary bypass graft
CPT/HCPCS: 78452; 93017; A9500; A4216; J2785

== ENCOUNTER → 2020-10-23 15:32 | Outpatient (CLI) | payer OTHER, SELFPAY ==
[2020-10-03 14:43] VITALS: BMI 26.7
[2020-10-23 16:14] LABS: Absolute Lymphocyte Count 1.17 X10^3/uL (0.83-4.51); Absolute Neutrophil Count 6.9 X10^3/uL (2.0-7.7); Basophil# 0.06 X10^3/uL; Basophil% 0.6 % (0-1); Eosinophil# 0.22 X10^3/uL; Eosinophils% 2.3 % (0-5); Hematocrit 31.7 % (37-47); Hemoglobin 9.8 g/dL (12.0-15.0); Lymphocyte # 1.17 X10^3/ul (0.83-4.51); Lymphocyte % 12.4 % (19-41); Mean Corp Hgb Conc 30.9 g/dL (32-36); Mean Corpuscular Hgb 27.3 pg (27.0-32.0); Mean Corpuscular Volume 88.3 fL (81-99); Mean Platelet Vol. 11.1 fl (6.2-12.0); Monocyte# 1.01 X10^3/uL; Monocyte% 10.7 % (0-10); NRBC Flagged by Analyzer 0 % (0-5); Neutrophil # 6.92 X10^3/uL (2.7-7.7); Neutrophil % 73.7 % (47-70); Platelet Count 356 K/mm3 (150-450); RBC Distribution Width CV 14.9 % (11.6-14.6); RBC Distribution Width SD 48.2 fl (35.1-43.9); Red Blood Count 3.59 M/mm3 (4.2-5.4); White Blood Count 9.4 K/mm3 (4.4-11.0)
[2020-10-23 16:25] LABS: BUN 19 mg/dL (7-18); Creatinine, Serum 1.04 mg/dL (0.55-1.02); Glucose 97 mg/dL (74-106)
[2020-10-23 16:26] LABS: Anion Gap 4 (5-15); BUN/Creat Ratio 18.3 RATIO (10-20); Calcium,Total 9.3 mg/dL (8.5-10.1); Chloride 103 mmol/L (98-107); EST Glomerular Filtration Rate 56 mL/min (>60); Est Glom Filt Rate - Afr Amer 68 mL/min (>60); Ferritin 139 ng/mL (8-252); Iron 27 ug/dL (50-170); Iron Binding Capacity,Total 302 ug/dL (250-450); Potassium 4.1 mmol/L (3.5-5.1); Sodium Level 138 mmol/L (136-145)
== END ==
PROVIDERS: PCP Family Medicine Geriatric Medicine; Visit Provider Family Medicine Geriatric Medicine
DX: E87.6 Hypokalemia (principal)
CPT/HCPCS: 36415; 80048; 82728; 83540; 83550; 85025

== ENCOUNTER 2020-10-23 15:33 | Outpatient (RCR) | payer OTHER, SELFPAY ==
[2020-10-03 14:43] VITALS: BMI 26.7
[2020-10-23 16:26] LABS: International Normalized Ratio 2.8
== END 2020-10-23 18:00 | disposition home or self-care (01) ==
LOC: LAB 15:33
PROVIDERS: Family Provider Family Medicine Geriatric Medicine; PCP Family Medicine Geriatric Medicine; Referring Provider Internal Medicine Cardiovascular Disease; Visit Provider Internal Medicine Cardiovascular Disease
DX: Z95.2 Presence of prosthetic heart valve (principal); Z79.01 Long term (current) use of anticoagulants
CPT/HCPCS: 36415; 85610

== ENCOUNTER 2020-11-29 10:33 | Outpatient (RCR) | payer OTHER, SELFPAY ==
[2020-10-03 14:43] VITALS: BMI 26.7
[2020-11-29 12:11] LABS: Hemoglobin 10.9 g/dL (12.0-15.0)
[2020-11-29 12:39] LABS: International Normalized Ratio 3.2; Prothrombin Time (Protime)PT. 31.8 SECONDS (11.7-14.9)
== END 2020-11-29 18:00 | disposition home or self-care (01) ==
LOC: LAB 10:33
PROVIDERS: Family Provider Family Medicine Geriatric Medicine; PCP Family Medicine Geriatric Medicine; Referring Provider Internal Medicine Cardiovascular Disease; Visit Provider Internal Medicine Cardiovascular Disease
DX: Z95.2 Presence of prosthetic heart valve (principal); Z79.01 Long term (current) use of anticoagulants
CPT/HCPCS: 36415; 85014; 85018; 85610

== ENCOUNTER 2020-12-31 10:53 | Outpatient (RCR) | payer OTHER, SELFPAY ==
[2020-10-03 14:43] VITALS: BMI 26.7
[2020-12-31 11:28] LABS: International Normalized Ratio 3.4; Prothrombin Time (Protime)PT. 33.5 SECONDS (11.7-14.9)
== END 2020-12-31 18:00 | disposition home or self-care (01) ==
LOC: LAB 10:53
PROVIDERS: Family Provider Family Medicine Geriatric Medicine; PCP Family Medicine Geriatric Medicine; Referring Provider Internal Medicine Cardiovascular Disease; Visit Provider Internal Medicine Cardiovascular Disease
DX: Z95.2 Presence of prosthetic heart valve (principal); Z79.01 Long term (current) use of anticoagulants
CPT/HCPCS: 36415; 85610

== ENCOUNTER 2021-02-06 15:05 | Outpatient (RCR) | payer MEDICARE, SELFPAY ==
[2020-10-03 14:43] VITALS: BMI 26.7
[2021-02-06 17:44] LABS: International Normalized Ratio 3.5; Prothrombin Time (Protime)PT. 34.5 SECONDS (11.7-14.9)
== END 2021-02-06 18:00 | disposition home or self-care (01) ==
LOC: LAB 15:05
PROVIDERS: Family Provider Family Medicine Geriatric Medicine; PCP Family Medicine Geriatric Medicine; Referring Provider Internal Medicine Cardiovascular Disease; Visit Provider Internal Medicine Cardiovascular Disease
DX: Z95.2 Presence of prosthetic heart valve (principal); Z79.01 Long term (current) use of anticoagulants
CPT/HCPCS: 36415; 85610

== ENCOUNTER 2021-03-06 16:24 | Outpatient (RCR) | payer MEDICARE, SELFPAY ==
[2020-10-03 14:43] VITALS: BMI 26.7
[2021-03-06 17:49] LABS: International Normalized Ratio 3.2; Prothrombin Time (Protime)PT. 32.2 SECONDS (11.7-14.9)
== END 2021-03-06 18:00 | disposition home or self-care (01) ==
LOC: LAB 16:24
PROVIDERS: Family Provider Family Medicine Geriatric Medicine; PCP Family Medicine Geriatric Medicine; Referring Provider Internal Medicine Cardiovascular Disease; Visit Provider Internal Medicine Cardiovascular Disease
DX: Z95.2 Presence of prosthetic heart valve (principal); Z79.01 Long term (current) use of anticoagulants
CPT/HCPCS: 36415; 85610

== ENCOUNTER 2021-04-04 15:04 | Outpatient (RCR) | payer MEDICARE, SELFPAY ==
[2021-03-11 19:57] VITALS: BMI 26.7
[2021-04-04 17:06] LABS: International Normalized Ratio 2.4
== END 2021-04-11 14:26 | disposition home or self-care (01) ==
LOC: LAB 15:04
PROVIDERS: Family Provider Family Medicine Geriatric Medicine; PCP Family Medicine Geriatric Medicine; Referring Provider Internal Medicine Cardiovascular Disease; Visit Provider Internal Medicine Cardiovascular Disease
DX: Z95.2 Presence of prosthetic heart valve (principal); Z79.01 Long term (current) use of anticoagulants
CPT/HCPCS: 36415; 85610

== ENCOUNTER 2021-04-18 14:27 | Outpatient (RCR) | payer MEDICARE, SELFPAY ==
[2021-04-18 14:27] VITALS: BMI 26.7
[2021-04-18 15:29] LABS: International Normalized Ratio 3.3
== END 2021-05-11 03:30 | disposition home or self-care (01) ==
LOC: LAB 14:27
PROVIDERS: Family Provider Family Medicine Geriatric Medicine; PCP Family Medicine Geriatric Medicine; Referring Provider Internal Medicine Cardiovascular Disease; Visit Provider Internal Medicine Cardiovascular Disease
DX: Z95.2 Presence of prosthetic heart valve (principal); Z79.01 Long term (current) use of anticoagulants
CPT/HCPCS: 36415; 85610

== ENCOUNTER → 2021-04-21 14:48 | Outpatient (CLI) | payer MEDICARE, SELFPAY ==
[2021-04-21 17:04] LABS: Absolute Lymphocyte Count 1.34 X10^3/uL (0.83-4.51); Absolute Neutrophil Count 5.8 X10^3/uL (2.0-7.7); Basophil# 0.03 X10^3/uL; Basophil% 0.4 % (0-1); Eosinophils% 1.3 % (0-5); Hematocrit 33.3 % (37-47); Hemoglobin 10.7 g/dL (12.0-15.0); Lymphocyte # 1.34 X10^3/ul (0.83-4.51); Mean Corp Hgb Conc 32.1 g/dL (32-36); Mean Corpuscular Hgb 29.3 pg (27.0-32.0); Mean Corpuscular Volume 91.2 fL (81-99); Mean Platelet Vol. 11.8 fl (6.2-12.0); Monocyte# 0.64 X10^3/uL; Monocyte% 8.1 % (0-10); NRBC Flagged by Analyzer 0 % (0-5); Neutrophil # 5.77 X10^3/uL (2.7-7.7); Neutrophil % 72.9 % (47-70); Platelet Count 260 K/mm3 (150-450); RBC Distribution Width CV 14.6 % (11.6-14.6); RBC Distribution Width SD 48.7 fl (35.1-43.9); Red Blood Count 3.65 M/mm3 (4.2-5.4); White Blood Count 7.9 K/mm3 (4.4-11.0)
[2021-04-21 17:15] LABS: ALB/GLOB Ratio 0.9 RATIO (0.9-2.4); AST(SGOT) 26 U/L (15-37); Alanine Aminotransfer ALT/SGPT 20 U/L (13-56); Albumin, Serum 3.4 g/dL (3.2-5.0); Alkaline Phosphatase 88 U/L (45-117); Anion Gap 7 (5-15); BUN 26 mg/dL (7-18); BUN/Creat Ratio 25.2 RATIO (10-20); Calcium,Total 9.4 mg/dL (8.5-10.1); Chloride 106 mmol/L (98-107); Creatinine, Serum 1.03 mg/dL (0.55-1.02); EST Glomerular Filtration Rate 57 mL/min (>60); Est Glom Filt Rate - Afr Amer 68 mL/min (>60); Globulin 3.8 g/dL (2.2-4.2); Glucose 105 mg/dL (74-106); Potassium 4.3 mmol/L (3.5-5.1); Protein, Total 7.2 g/dL (6.4-8.2); Sodium Level 141 mmol/L (136-145); Thyroid Stim Hormone (TSH) 0.97 uIU/mL (0.358-3.74)
== END ==
PROVIDERS: PCP Family Medicine Geriatric Medicine; Visit Provider Family Medicine Geriatric Medicine
DX: E55.9 Vitamin D deficiency, unspecified (principal); I10 Essential (primary) hypertension
CPT/HCPCS: 36415; 80053; 82306; 84443; 85025

== ENCOUNTER 2021-05-21 13:59 | Outpatient (RCR) | payer MEDICARE, SELFPAY ==
[2021-05-11 03:30] VITALS: BMI 26.7
[2021-05-21 14:50] LABS: International Normalized Ratio 2.7; Prothrombin Time (Protime)PT. 27.8 SECONDS (11.7-14.9)
== END 2021-06-10 18:00 | disposition home or self-care (01) ==
LOC: LAB 13:59
PROVIDERS: Family Provider Family Medicine Geriatric Medicine; PCP Family Medicine Geriatric Medicine; Referring Provider Internal Medicine Cardiovascular Disease; Visit Provider Internal Medicine Cardiovascular Disease
DX: Z95.2 Presence of prosthetic heart valve (principal); Z79.01 Long term (current) use of anticoagulants
CPT/HCPCS: 36415; 85610

== ENCOUNTER 2021-06-20 13:26 | Outpatient (RCR) | payer MEDICARE, SELFPAY ==
[2021-06-11 02:11] VITALS: BMI 26.7
[2021-06-20 14:45] LABS: Prothrombin Time (Protime)PT. 30.1 SECONDS (11.7-14.9)
== END 2021-07-12 18:00 | disposition home or self-care (01) ==
LOC: LAB 13:26
PROVIDERS: Family Provider Family Medicine Geriatric Medicine; PCP Family Medicine Geriatric Medicine; Referring Provider Internal Medicine Cardiovascular Disease; Visit Provider Internal Medicine Cardiovascular Disease
DX: Z95.2 Presence of prosthetic heart valve (principal); Z79.01 Long term (current) use of anticoagulants
CPT/HCPCS: 36415; 85610

== ENCOUNTER 2021-08-05 13:26 | Outpatient (RCR) | payer MEDICARE, SELFPAY ==
[2021-07-13 03:44] VITALS: BMI 26.7
[2021-07-21 13:35] LABS: International Normalized Ratio 4.2
[2021-08-05 14:24] LABS: Prothrombin Time (Protime)PT. 40.5 SECONDS (11.7-14.9)
[2021-08-05 14:27] LABS: International Normalized Ratio 4.3
== END 2021-08-11 18:00 | disposition home or self-care (01) ==
LOC: LAB 13:26
PROVIDERS: Family Provider Family Medicine Geriatric Medicine; PCP Family Medicine Geriatric Medicine; Referring Provider Internal Medicine Cardiovascular Disease; Visit Provider Internal Medicine Cardiovascular Disease
DX: I48.0 Paroxysmal atrial fibrillation (principal)
CPT/HCPCS: 36415; 85610

== ENCOUNTER 2021-09-08 16:11 | Outpatient (RCR) | payer MEDICARE, SELFPAY ==
[2021-08-11 22:46] VITALS: BMI 26.7
[2021-08-12 13:29] LABS: International Normalized Ratio 2.4; Prothrombin Time (Protime)PT. 25.2 SECONDS (11.7-14.9)
[2021-08-19 13:44] LABS: International Normalized Ratio 2.9; Prothrombin Time (Protime)PT. 29.7 SECONDS (11.7-14.9)
[2021-09-08 17:17] LABS: International Normalized Ratio 3.5; Prothrombin Time (Protime)PT. 34.6 SECONDS (11.7-14.9)
== END 2021-09-08 18:00 | disposition home or self-care (01) ==
LOC: LAB 16:11
PROVIDERS: Family Provider Family Medicine Geriatric Medicine; PCP Family Medicine Geriatric Medicine; Referring Provider Internal Medicine Cardiovascular Disease; Visit Provider Internal Medicine Cardiovascular Disease
DX: Z95.2 Presence of prosthetic heart valve (principal); Z79.01 Long term (current) use of anticoagulants
CPT/HCPCS: 36415; 85610

== ENCOUNTER 2021-09-30 16:11 | Outpatient (RCR) | payer MEDICARE, SELFPAY ==
[2021-09-09 09:29] VITALS: BMI 26.7
[2021-09-30 16:53] LABS: International Normalized Ratio 2.5; Prothrombin Time (Protime)PT. 26.6 SECONDS (11.7-14.9)
== END 2021-10-09 18:00 | disposition home or self-care (01) ==
LOC: LAB 16:11
PROVIDERS: Family Provider Family Medicine Geriatric Medicine; PCP Family Medicine Geriatric Medicine; Referring Provider Internal Medicine Cardiovascular Disease; Visit Provider Internal Medicine Cardiovascular Disease
DX: D50.9 Iron deficiency anemia, unspecified (principal); Z95.2 Presence of prosthetic heart valve; Z79.01 Long term (current) use of anticoagulants
CPT/HCPCS: 36415; 85610

== ENCOUNTER 2021-10-31 14:01 | Outpatient (RCR) | payer MEDICARE, SELFPAY ==
[2021-10-10 01:22] VITALS: BMI 26.7
[2021-10-31 14:39] LABS: International Normalized Ratio 2.3
== END 2021-10-31 18:00 | disposition home or self-care (01) ==
LOC: LAB 14:01
PROVIDERS: Family Provider Family Medicine Geriatric Medicine; PCP Family Medicine Geriatric Medicine; Referring Provider Internal Medicine Cardiovascular Disease; Visit Provider Internal Medicine Cardiovascular Disease
DX: Z95.2 Presence of prosthetic heart valve; Z79.01 Long term (current) use of anticoagulants
CPT/HCPCS: 36415; 85610

== ENCOUNTER → 2021-11-20 | Outpatient (CLI) | payer MEDICARE, SELFPAY ==
[2021-11-20 12:18] LABS: Absolute Lymphocyte Count 0.91 X10^3/uL (0.83-4.51); Absolute Neutrophil Count 6.4 X10^3/uL (2.0-7.7); Basophil# 0.04 X10^3/uL; Basophil% 0.5 % (0-1); Eosinophil# 0.16 X10^3/uL; Eosinophils% 1.9 % (0-5); Hematocrit 32.5 % (37-47); Hemoglobin 10.7 g/dL (12.0-15.0); Lymphocyte # 0.91 X10^3/ul (0.83-4.51); Mean Corp Hgb Conc 32.9 g/dL (32-36); Mean Corpuscular Hgb 29.6 pg (27.0-32.0); Mean Platelet Vol. 11.3 fl (6.2-12.0); Monocyte% 8.5 % (0-10); NRBC Flagged by Analyzer 0 % (0-5); Neutrophil # 6.44 X10^3/uL (2.7-7.7); Neutrophil % 77.7 % (47-70); Platelet Count 234 K/mm3 (150-450); RBC Distribution Width CV 13.8 % (11.6-14.6); Red Blood Count 3.61 M/mm3 (4.2-5.4); White Blood Count 8.3 K/mm3 (4.4-11.0)
[2021-11-20 12:28] LABS: Vitamin D,25 Hydroxy 39.8 ng/mL
[2021-11-20 12:40] LABS: ALB/GLOB Ratio 0.9 RATIO (0.9-2.4); AST(SGOT) 33 U/L (15-37); Alanine Aminotransfer ALT/SGPT 25 U/L (13-56); Albumin, Serum 3.5 g/dL (3.2-5.0); Alkaline Phosphatase 97 U/L (45-117); Anion Gap 5 (5-15); BUN 32 mg/dL (7-18); BUN/Creat Ratio 33.2 RATIO (10-20); Calcium,Total 9.3 mg/dL (8.5-10.1); Chloride 106 mmol/L (98-107); Creatinine, Serum 0.96 mg/dL (0.55-1.02); EST Glomerular Filtration Rate 61 mL/min (>60); Est Glom Filt Rate - Afr Amer 74 mL/min (>60); Globulin 3.7 g/dL (2.2-4.2); Glucose 92 mg/dL (74-106); Potassium 5.1 mmol/L (3.5-5.1); Protein, Total 7.2 g/dL (6.4-8.2); Sodium Level 137 mmol/L (136-145); Thyroid Stim Hormone (TSH) 1.04 uIU/mL (0.358-3.74)
== END | disposition home or self-care (01) ==
LOC: POLAB3 11:18
PROVIDERS: PCP Family Medicine Geriatric Medicine; Visit Provider Family Medicine Geriatric Medicine
DX: I10 Essential (primary) hypertension (principal); E55.9 Vitamin D deficiency, unspecified
CPT/HCPCS: 36415; 80053; 82306; 84443; 85025

== ENCOUNTER 2021-12-05 15:06 | Outpatient (RCR) | payer MEDICARE, SELFPAY ==
[2021-11-09 02:51] VITALS: BMI 26.7
[2021-11-14 16:17] LABS: International Normalized Ratio 3.4; Prothrombin Time (Protime)PT. 34.2 SECONDS (11.7-14.9)
[2021-12-05 16:30] LABS: International Normalized Ratio 3.3
== END 2021-12-05 18:00 | disposition home or self-care (01) ==
LOC: LAB 15:06
PROVIDERS: Family Provider Family Medicine Geriatric Medicine; PCP Family Medicine Geriatric Medicine; Referring Provider Internal Medicine Cardiovascular Disease; Visit Provider Internal Medicine Cardiovascular Disease
DX: Z79.01 Long term (current) use of anticoagulants; Z95.2 Presence of prosthetic heart valve
CPT/HCPCS: 36415; 85610

== ENCOUNTER 2022-01-02 12:58 | Outpatient (RCR) | payer MEDICARE, SELFPAY ==
[2021-12-09 20:28] VITALS: BMI 26.7
[2022-01-02 13:44] LABS: International Normalized Ratio 2.8; Prothrombin Time (Protime)PT. 29.4 SECONDS (11.7-14.9)
== END 2022-01-02 23:59 | disposition home or self-care (01) ==
LOC: LAB 12:58
PROVIDERS: Family Provider Family Medicine Geriatric Medicine; PCP Family Medicine Geriatric Medicine; Referring Provider Internal Medicine Cardiovascular Disease; Visit Provider Internal Medicine Cardiovascular Disease
DX: Z79.01 Long term (current) use of anticoagulants (principal); Z95.2 Presence of prosthetic heart valve
CPT/HCPCS: 36415; 85610

== ENCOUNTER → 2022-01-26 | Outpatient (CLI) | payer MEDICARE, SELFPAY ==
--- NOTE | 2022-01-26 12:50 | CDU_ITS ---
Reason For Study: Carotid Stenosis Rt. Velocities/BP Lt. Velocities/BP Prox CCA 74/18 cm/sec. Prox CCA 75/20 cm/sec. Mid CCA 63/11 cm/sec. Mid CCA 72/20 cm/sec. Dist CCA 87/15 cm/sec. Dist CCA 85/26 cm/sec. Prox ICA 244/57 cm/sec. Prox ICA 285/49 cm/sec. Mid ICA 230/46 cm/sec. Mid ICA 215/38 cm/sec. Dist ICA 111/25 cm/sec. Dist ICA 107/32 cm/sec. Rt. ICA/CCA = 3.9. Lt. ICA/CCA = 3.95. Prox ECA 191/15 cm/sec. Prox ECA 283/8 cm/sec. Rt. Vert. 18/8 cm/sec. Lt. Vert. 138/21 cm/sec. Right Extracranial There is heterogeneous, irregular atherosclerotic plaque noted in the right common carotid artery. There is heterogeneous, irregular atherosclerotic plaque noted in the right internal carotid artery. There is heterogeneous, irregular atherosclerotic plaque noted in the right external carotid artery. Pre-steal waveform noted Rt Vert A. Left Extracranial There is heterogeneous, irregular atherosclerotic plaque noted in the left common carotid artery. There is heterogeneous, irregular atherosclerotic plaque noted in the left internal carotid artery. There is heterogeneous, irregular atherosclerotic plaque noted in the left external carotid artery. Antegrade flow is noted in the left vertebral artery. Procedure Carotid Duplex 32196. This is a Carotid Duplex examination using B-mode, color flow and specral Doppler. Exam performed in department. Known >70% stenosis b/l. VL/Carotid Duplex Ultrasound Interpretation Summary Moderate (50-69%) stenosis right extracranial internal carotid. Moderate (50-69 %) stenosis left extracranial internal carotid. Flow within the right verterbral artery is bidir ectional, consistent with a subclavian steal phenomenon. Flow within the left verterbral artery is a ntegrade. Ordering Physician: Curtis Joshi Referring Physician: Leonardo Sotelo Chi Performed By: Casi Kendall RDCS, RVT
== END | disposition home or self-care (01) ==
PROVIDERS: PCP Family Medicine Geriatric Medicine; Referring Provider Surgery Vascular Surgery; Visit Provider Surgery Vascular Surgery
DX: I65.23 Occlusion and stenosis of bilateral carotid arteries (principal)
CPT/HCPCS: 93880

== ENCOUNTER 2022-01-30 12:34 | Outpatient (RCR) | payer MEDICARE, SELFPAY ==
[2022-01-09 06:48] VITALS: BMI 26.7
[2022-01-30 14:38] LABS: International Normalized Ratio 2.5; Prothrombin Time (Protime)PT. 26.9 SECONDS (11.7-14.9)
== END 2022-02-08 02:07 | disposition home or self-care (01) ==
LOC: LAB 12:34
PROVIDERS: Family Provider Family Medicine Geriatric Medicine; PCP Family Medicine Geriatric Medicine; Referring Provider Internal Medicine Cardiovascular Disease; Visit Provider Internal Medicine Cardiovascular Disease
DX: Z79.01 Long term (current) use of anticoagulants (principal); Z95.2 Presence of prosthetic heart valve
CPT/HCPCS: 36415; 85610

== ENCOUNTER 2022-03-04 15:02 | Outpatient (RCR) | payer MEDICARE, SELFPAY ==
[2022-02-08 02:07] VITALS: BMI 26.7
[2022-03-04 17:08] LABS: International Normalized Ratio 2.2; Prothrombin Time (Protime)PT. 24.2 SECONDS (11.7-14.9)
== END 2022-03-04 18:00 | disposition home or self-care (01) ==
LOC: LAB 15:02
PROVIDERS: Family Provider Family Medicine Geriatric Medicine; PCP Family Medicine Geriatric Medicine; Referring Provider Internal Medicine Cardiovascular Disease; Visit Provider Internal Medicine Cardiovascular Disease
DX: Z79.01 Long term (current) use of anticoagulants (principal); Z95.2 Presence of prosthetic heart valve
CPT/HCPCS: 36415; 85610

== ENCOUNTER 2022-03-18 14:00 | Outpatient (RCR) | payer MEDICARE, SELFPAY ==
[2022-03-11 22:43] VITALS: BMI 26.7
[2022-03-18 14:51] LABS: International Normalized Ratio 2.6; Prothrombin Time (Protime)PT. 27.3 SECONDS (11.7-14.9)
== END 2022-03-18 18:00 | disposition home or self-care (01) ==
LOC: LAB 14:00
PROVIDERS: Family Provider Family Medicine Geriatric Medicine; PCP Family Medicine Geriatric Medicine; Referring Provider Internal Medicine Cardiovascular Disease; Visit Provider Internal Medicine Cardiovascular Disease
DX: Z79.01 Long term (current) use of anticoagulants (principal); Z95.2 Presence of prosthetic heart valve
CPT/HCPCS: 36415; 85610

== ENCOUNTER → 2022-04-23 | Outpatient (CLI) | payer MEDICARE, SELFPAY ==
[2022-04-23 12:22] LABS: Absolute Lymphocyte Count 1.26 X10^3/uL (0.83-4.51); Basophil# 0.06 X10^3/uL; Basophil% 0.6 % (0-1); Eosinophil# 0.14 X10^3/uL; Eosinophils% 1.5 % (0-5); Hemoglobin 11.3 g/dL (12.0-15.0); Lymphocyte # 1.26 X10^3/ul (0.83-4.51); Lymphocyte % 13.4 % (19-41); Mean Corp Hgb Conc 32.3 g/dL (32-36); Mean Corpuscular Hgb 29.5 pg (27.0-32.0); Mean Corpuscular Volume 91.4 fL (81-99); Monocyte# 0.88 X10^3/uL; Monocyte% 9.4 % (0-10); NRBC Flagged by Analyzer 0 % (0-5); Neutrophil # 7.02 X10^3/uL (2.7-7.7); Neutrophil % 74.8 % (47-70); Platelet Count 245 K/mm3 (150-450); RBC Distribution Width CV 14.5 % (11.6-14.6); RBC Distribution Width SD 48.4 fl (35.1-43.9); Red Blood Count 3.83 M/mm3 (4.2-5.4); White Blood Count 9.4 K/mm3 (4.4-11.0)
[2022-04-23 12:55] LABS: Vitamin D,25 Hydroxy 45.3 ng/mL
[2022-04-23 13:30] LABS: ALB/GLOB Ratio 0.9 RATIO (0.9-2.4); AST(SGOT) 42 U/L (15-37); Alanine Aminotransfer ALT/SGPT 27 U/L (13-56); Albumin, Serum 3.6 g/dL (3.2-5.0); Alkaline Phosphatase 106 U/L (45-117); Anion Gap 7 (5-15); BUN 21 mg/dL (7-18); BUN/Creat Ratio 21.5 RATIO (10-20); Calcium,Total 9.5 mg/dL (8.5-10.1); Chloride 107 mmol/L (98-107); Creatinine, Serum 0.98 mg/dL (0.55-1.02); EST Glomerular Filtration Rate 60 mL/min (>60); Est Glom Filt Rate - Afr Amer 73 mL/min (>60); Glucose 111 mg/dL (74-106); Potassium 4.6 mmol/L (3.5-5.1); Protein, Total 7.6 g/dL (6.4-8.2); Sodium Level 139 mmol/L (136-145); Thyroid Stim Hormone (TSH) 1.61 uIU/mL (0.358-3.74)
== END | disposition home or self-care (01) ==
LOC: POLAB3 09:33
PROVIDERS: PCP Family Medicine Geriatric Medicine; Visit Provider Family Medicine Geriatric Medicine
DX: I10 Essential (primary) hypertension (principal); E55.9 Vitamin D deficiency, unspecified
CPT/HCPCS: 36415; 80053; 82306; 84443; 85025

== ENCOUNTER 2022-04-30 13:04 | Outpatient (RCR) | payer MEDICARE, SELFPAY ==
[2022-04-10 20:34] VITALS: BMI 26.7
[2022-04-16 12:34] LABS: International Normalized Ratio 3.9; Prothrombin Time (Protime)PT. 38.3 SECONDS (11.7-14.9)
[2022-04-30 13:49] LABS: International Normalized Ratio 3.1; Prothrombin Time (Protime)PT. 31.8 SECONDS (11.7-14.9)
== END 2022-04-30 18:00 | disposition home or self-care (01) ==
LOC: LAB 13:04
PROVIDERS: Family Provider Family Medicine Geriatric Medicine; PCP Family Medicine Geriatric Medicine; Referring Provider Internal Medicine Cardiovascular Disease; Visit Provider Internal Medicine Cardiovascular Disease
DX: Z79.01 Long term (current) use of anticoagulants (principal); Z95.2 Presence of prosthetic heart valve
CPT/HCPCS: 36415; 85610

== ENCOUNTER 2022-05-21 11:34 | Outpatient (RCR) | payer MEDICARE, SELFPAY ==
[2022-05-12 09:25] VITALS: BMI 26.7
[2022-05-21 12:35] LABS: Prothrombin Time (Protime)PT. 30.5 SECONDS (11.7-14.9)
== END 2022-06-10 18:00 | disposition home or self-care (01) ==
LOC: LAB 11:34
PROVIDERS: Family Provider Family Medicine Geriatric Medicine; PCP Family Medicine Geriatric Medicine; Referring Provider Internal Medicine Cardiovascular Disease; Visit Provider Internal Medicine Cardiovascular Disease
DX: Z79.01 Long term (current) use of anticoagulants (principal); Z95.2 Presence of prosthetic heart valve
CPT/HCPCS: 36415; 85610

== ENCOUNTER 2022-06-30 11:38 | Outpatient (RCR) | payer MEDICARE, SELFPAY ==
[2022-06-10 22:50] VITALS: BMI 26.7
[2022-06-30 12:03] LABS: Prothrombin Time (Protime)PT. 38.9 SECONDS (11.7-14.9)
== END 2022-06-30 18:00 | disposition home or self-care (01) ==
LOC: LAB 11:38
PROVIDERS: Family Provider Family Medicine Geriatric Medicine; PCP Family Medicine Geriatric Medicine; Referring Provider Internal Medicine Cardiovascular Disease; Visit Provider Internal Medicine Cardiovascular Disease
DX: Z79.01 Long term (current) use of anticoagulants (principal); Z95.2 Presence of prosthetic heart valve
CPT/HCPCS: 36415; 85610

== ENCOUNTER 2022-07-15 12:36 | Outpatient (RCR) | payer MEDICARE, SELFPAY ==
[2022-07-12 00:48] VITALS: BMI 26.7
[2022-07-15 13:43] LABS: International Normalized Ratio 3.2; Prothrombin Time (Protime)PT. 32.5 SECONDS (11.7-14.9)
== END 2022-07-15 14:00 | disposition home or self-care (01) ==
LOC: LAB 12:36
PROVIDERS: Family Provider Family Medicine Geriatric Medicine; PCP Family Medicine Geriatric Medicine; Referring Provider Internal Medicine Cardiovascular Disease; Visit Provider Internal Medicine Cardiovascular Disease
DX: Z79.01 Long term (current) use of anticoagulants (principal); Z95.2 Presence of prosthetic heart valve
CPT/HCPCS: 36415; 85610

== ENCOUNTER 2022-09-02 12:53 | Outpatient (RCR) | payer MEDICARE, SELFPAY ==
[2022-08-12 08:02] VITALS: BMI 26.7
[2022-08-14 14:38] LABS: International Normalized Ratio 4.4; Prothrombin Time (Protime)PT. 41.9 SECONDS (11.7-14.9)
[2022-08-18 15:13] LABS: International Normalized Ratio 3.3; Prothrombin Time (Protime)PT. 33.4 SECONDS (11.7-14.9)
[2022-09-02 14:03] LABS: International Normalized Ratio 4.6
== END 2022-09-02 18:00 | disposition home or self-care (01) ==
LOC: LAB 12:53
PROVIDERS: Family Provider Family Medicine Geriatric Medicine; PCP Family Medicine Geriatric Medicine; Referring Provider Internal Medicine Cardiovascular Disease; Visit Provider Internal Medicine Cardiovascular Disease
DX: Z79.01 Long term (current) use of anticoagulants (principal); Z95.2 Presence of prosthetic heart valve
CPT/HCPCS: 36415; 85610

== ENCOUNTER 2022-09-23 11:16 | Outpatient (RCR) | payer MEDICARE, SELFPAY ==
[2022-09-08 19:55] VITALS: BMI 26.7
[2022-09-09 14:01] LABS: International Normalized Ratio 2.5; Prothrombin Time (Protime)PT. 26.4 SECONDS (11.7-14.9)
[2022-09-23 11:50] LABS: International Normalized Ratio 2.6; Prothrombin Time (Protime)PT. 27.9 SECONDS (11.7-14.9)
== END 2022-10-09 21:40 | disposition home or self-care (01) ==
LOC: LAB 11:16
PROVIDERS: Family Provider Family Medicine Geriatric Medicine; PCP Family Medicine Geriatric Medicine; Referring Provider Internal Medicine Cardiovascular Disease; Visit Provider Internal Medicine Cardiovascular Disease
DX: Z79.01 Long term (current) use of anticoagulants (principal); Z95.2 Presence of prosthetic heart valve
CPT/HCPCS: 36415; 85610

== ENCOUNTER 2022-10-22 10:51 | Outpatient (RCR) | payer MEDICARE, SELFPAY ==
[2022-10-09 21:41] VITALS: BMI 26.7
[2022-10-22 11:39] LABS: International Normalized Ratio 2.7
[2022-10-22 13:10] LABS: Absolute Lymphocyte Count 0.98 X10^3/uL (0.83-4.51); Basophil# 0.05 X10^3/uL; Basophil% 0.6 % (0-1); Eosinophils% 1.1 % (0-5); Hematocrit 35.8 % (37-47); Hemoglobin 11.3 g/dL (12.0-15.0); Lymphocyte # 0.98 X10^3/ul (0.83-4.51); Mean Corp Hgb Conc 31.6 g/dL (32-36); Mean Corpuscular Hgb 29.9 pg (27.0-32.0); Mean Corpuscular Volume 94.7 fL (81-99); Mean Platelet Vol. 11.6 fl (6.2-12.0); Monocyte# 0.71 X10^3/uL; NRBC Flagged by Analyzer 0 % (0-5); Neutrophil # 7.03 X10^3/uL (2.7-7.7); Platelet Count 228 K/mm3 (150-450); RBC Distribution Width CV 14.4 % (11.6-14.6); RBC Distribution Width SD 49.5 fl (35.1-43.9); Red Blood Count 3.78 M/mm3 (4.2-5.4); White Blood Count 8.9 K/mm3 (4.4-11.0)
[2022-10-22 13:24] LABS: Vitamin D,25 Hydroxy 39.5 ng/mL
[2022-10-22 13:40] LABS: ALB/GLOB Ratio 1.2 RATIO (0.9-2.4); AST(SGOT) 52 U/L (15-37); Alanine Aminotransfer ALT/SGPT 29 U/L (13-56); Albumin, Serum 3.9 g/dL (3.2-5.0); Alkaline Phosphatase 98 U/L (45-117); Anion Gap 7 (5-15); BUN 25 mg/dL (7-18); BUN/Creat Ratio 23.4 RATIO (10-20); Calcium,Total 9.6 mg/dL (8.5-10.1); Chloride 106 mmol/L (98-107); Creatinine, Serum 1.07 mg/dL (0.55-1.02); EST Glomerular Filtration Rate 54 mL/min (>60); Est Glom Filt Rate - Afr Amer 65 mL/min (>60); Globulin 3.2 g/dL (2.2-4.2); Glucose 96 mg/dL (74-106); Potassium 4.7 mmol/L (3.5-5.1); Protein, Total 7.1 g/dL (6.4-8.2); Sodium Level 138 mmol/L (136-145); Thyroid Stim Hormone (TSH) 1.07 uIU/mL (0.358-3.74)
== END 2022-11-08 01:07 | disposition home or self-care (01) ==
LOC: LAB 10:51
PROVIDERS: Family Provider Family Medicine Geriatric Medicine; PCP Family Medicine Geriatric Medicine; Referring Provider Internal Medicine Cardiovascular Disease; Visit Provider Internal Medicine Cardiovascular Disease
DX: Z79.01 Long term (current) use of anticoagulants (principal); Z95.2 Presence of prosthetic heart valve; E55.9 Vitamin D deficiency, unspecified; I10 Essential (primary) hypertension
CPT/HCPCS: 36415; 80053; 82306; 84443; 85025; 85610

== ENCOUNTER 2022-12-02 15:12 | Outpatient (RCR) | payer MEDICARE, SELFPAY ==
[2022-11-08 01:07] VITALS: BMI 26.7
[2022-11-19 14:42] LABS: International Normalized Ratio 2.3; Prothrombin Time (Protime)PT. 25.3 SECONDS (11.7-14.9)
[2022-12-02 16:12] LABS: International Normalized Ratio 2.8; Prothrombin Time (Protime)PT. 29.9 SECONDS (11.7-14.9)
== END 2022-12-02 17:00 | disposition home or self-care (01) ==
LOC: LAB 15:12
PROVIDERS: Family Provider Family Medicine Geriatric Medicine; PCP Family Medicine Geriatric Medicine; Referring Provider Internal Medicine Cardiovascular Disease; Visit Provider Internal Medicine Cardiovascular Disease
DX: Z79.01 Long term (current) use of anticoagulants (principal); Z95.2 Presence of prosthetic heart valve
CPT/HCPCS: 36415; 85610

== ENCOUNTER 2022-12-24 14:14 | Outpatient (RCR) | payer MEDICARE, SELFPAY ==
[2022-12-10 08:12] VITALS: BMI 26.7
[2022-12-24 14:46] LABS: International Normalized Ratio 2.7; Prothrombin Time (Protime)PT. 29.1 SECONDS (11.7-14.9)
== END 2022-12-24 18:00 | disposition home or self-care (01) ==
LOC: LAB 14:14
PROVIDERS: Family Provider Family Medicine Geriatric Medicine; PCP Family Medicine Geriatric Medicine; Referring Provider Internal Medicine Cardiovascular Disease; Visit Provider Internal Medicine Cardiovascular Disease
DX: Z79.01 Long term (current) use of anticoagulants (principal); Z95.2 Presence of prosthetic heart valve
CPT/HCPCS: 36415; 85610

== ENCOUNTER 2023-01-19 14:57 | Emergency (ER) | payer MEDICARE, SELFPAY ==
[2023-01-19 14:57] VITALS: BP 135/52; PULSE 46; RESP 18; TEMP 36.6; O2SAT 97; BMI 25.2
--- NOTE | 2023-01-19 15:18 | CT_ITS ---
STUDY: CT BRAIN WITHOUT CONTRAST REASON FOR EXAM: Female, 72 years old. fall, head injury RADIATION DOSAGE (If Supplied By Facility): CTDIvol = ( 44.99 ) mGy, DLP = ( 745.49 ) mGycm TECHNIQUE: Transaxial CT imaging of the brain was performed without administration of intravenous contrast material. Individualized dose optimization techniques were used for this CT. COMPARISON: No relevant priors. FINDINGS: Normal soft tissue structures. Normal calvarium. Calcific plaquing of the cavernous carotids. Mild atrophy and periventricular white matter ischemic changes.. Tiny parenchymal calcifications in the right parietal lobe possibly due to old inflammatory disease or vascular. Normal basal ganglia and thalami. Normal brainstem. Normal cerebellum. There is no intracranial hemorrhage. There are no findings of an acute ischemic infarction. Normal visualized paranasal sinuses. CT/Brain/Head without Contrast IMPRESSION: Mild atrophy and periventricular white matter ischemic changes. No evidence for acute intracranial hemorrhage Electronically Signed: Jonathan Phelps MD at 16:31 EDT ,
--- NOTE | 2023-01-19 15:18 | CT_ITS ---
STUDY: CT CERVICAL SPINE WITHOUT CONTRAST REASON FOR EXAM: Female, 72 years old. head injury, neck pain RADIATION DOSAGE (If Supplied By Facility): CTDIvol = ( 17.13 ) mGy, DLP = ( 328.28 ) mGycm TECHNIQUE: High resolution transaxial imaging was performed without contrast material. Sagittal and coronal images were reconstructed. Individualized dose optimization techniques were used for this CT. COMPARISON: None FINDINGS: Normal craniovertebral junction. Normal anterior atlantoaxial articulation. Normal odontoid process. Normal cervical lordosis. Normal vertebral bodies and posterior osseous elements. C2-3: Normal endplates. Normal disc height and morphology. Normal central canal and intervertebral neuroforamina. C3-4: Narrowed disc space and minor endplate spurring.. Normal central canal. Mild left neural foraminal stenosis secondary to bony hypertrophy. C4-5: Narrowed disc space and minor endplate spurring.. Normal central canal. Mild right neural foraminal encroachment secondary to bony hypertrophy C5-6: Narrowed disc space and minor endplate spurring.. Normal central canal and intervertebral neuroforamina. C6-7: Normal endplates. Normal disc height and morphology. Normal central canal and intervertebral neuroforamina. C7-T1: Normal endplates. Normal disc height and morphology. Normal central canal and intervertebral neuroforamina. 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 No acute fracture or other significant bony pathology. Electronically Signed: Jonathan Phelps MD at 16:34 EDT ,
--- NOTE | 2023-01-19 15:25 | EDS_ITS ---
HPI HPI - Fall History of Present Illness Chief Complaint: Fall Informant: patient Narrative Narrative: Patient is a 9-year-old female with history of mechanical valve on chronic Coumadin therapy and a history of prior head injury with intracranial hemorrhage presenting for fall and head injury. Patient also has a history of vertigo. She stood on a chair to try to get at a spider when she looked up and became dizzy. This caused her to fall backwards. She fell off the chair landing on her buttocks on the laminate floor and then her head hit the ground. She denies any loss of consciousness. She came to the ER for evaluation because of her prior intracranial hemorrhage and knowing that she needed to be evaluated. Her last INR check was a couple weeks ago. She states he has a mild pressure around her forehead but denies a true headache. Denies any vision changes, nausea or vomiting. Is having some mild buttock/lower back pain associate with the fall. She denies any other complaints at this time. [facility] Medical History Anemia Atherosclerotic heart disease of [place] coronary artery without angina pectoris BPV (benign positional vertigo) Carotid artery stenosis Hyperlipidemia Nicotine dependence Non-autoimmune hemolytic anemia, unspecified Nonrheumatic mitral valve regurgitation Premature ventricular contractions Right carotid bruit Secondary pulmonary arterial hypertension Home Medications aspirin 81 mg chewable tablet 81 mg PO DAILY@0800 12/30/14 [History Last Taken 12/30/14] escitalopram oxalate 20 mg tablet 20 mg PO DAILY 12/30/14 [History Last Taken 12/30/14] folic acid 1 mg tablet 1 mg PO DAILY 90 days ##90 10/01/17 [History Last Taken Unknown] ascorbic acid (vitamin C) 500 mg tablet 500 mg PO BID 12/01/18 [History Last Taken Unknown] cholecalciferol (vitamin D3) 25 mcg (1,000 unit) capsule 25 mcg PO DAILY 02/10 [History Last Taken Unknown] furosemide 40 mg tablet 40 mg PO DAILY #90 tabs 10/20/21 [Rx Last Taken Unknown] potassium chloride 20 mEq tablet,extended release(part/cryst) (Klor-Con M) 20 meq PO DAILY 02/05/22 [History Last Taken Unknown] warfarin 1 mg tablet 1 mg PO .COMPLEX #90 tabs 07/17/22 [Rx Last Taken Unknown] warfarin 5 mg tablet 5 mg PO .COMPLEX #90 tabs 07/17/22 [Rx Last Taken Unknown] metoprolol tartrate 25 mg tablet 12.5 mg PO BID 11/12/22 [History Last Taken Unknown] rosuvastatin 20 mg tablet 20 mg PO DAILY 11/12/22 [History Last Taken Unknown] Allergy/AdvReac Type Severity Reaction Status Date / Time adhesive tape AdvReac Severe Rash Verified 01/19/23 14:59 paroxetine [From Paxil] AdvReac Severe Many side Verified 01/19/23 14:59 effects Family History Mother Myocardial infarction CAD (coronary artery disease) Hx CABG Father Pulmonary fibrosis Surgical History H/O coronary artery bypass surgery (03/10/11) Hx of mitral valve replacement with mechanical valve (03/10/11) Social History Smoking Status: Light Smoker (<10/day) Tobacco: How many years used: 46 alcohol intake: current alcohol intake frequency: holidays/special occasions only Alcohol type: beer substance use type: does not use caffeine: Yes Type: tea what type of physical activity do you participate in: none seatbelt use: always do you feel safe at home: Yes ROS ROS ED Constitutional Constitutional ED: Denies chills or fever(s) Eyes Eyes: Denies blurry vision or change in vision Gastrointestinal Gastrointestinal: Denies nausea or vomiting Musculoskeletal Musculoskeletal: Reports back pain; Denies arthralgias, myalgias or neck pain Integumentary Denies rash Neurologic Neurologic: Reports headache(s); Denies paresthesias or weakness Psychiatric Psychiatric: Denies anxiety Hematologic/Lymphatic Hematologic/Lymphatic: Reports easy bleeding and easy bruising EXAM Physical Exam Const Vital Signs: 01/19/23 14:57 01/19/23 15:19 Temperature 97.8 F Temperature Source Temporal Pulse Rate 46 L Respiratory Rate 18 Respiratory Effort Normal Blood Pressure 135/52 H Blood Pressure Mean 79 Pulse Ox 97 Oxygen Delivery Method Room Air Room Air Positive well nourished and well developed General Appearance ED: well developed and NAD HEENT HEENT Narrative: Normocephalic. Small cephalhematoma present over the back right of the scalp Eyes PERRL and EOMs intact bilaterally Neck full ROM and supple General: Negative for tenderness Chest Wall inspection of chest normal and palpation of chest normal Resp normal respiratory effort and clear to auscultation bilaterally Cardio regular rate and regular rhythm Back/Spine Back/Spine Narrative: No midline tenderness. Normal range of motion. Neuro oriented x3, CN's II-XII intact bilaterally, moves all extremities, no focal motor deficits and no sensory deficits noted Cassy Coma Scale: document GCS findings Spontaneous Obeys Commands Oriented 15 Sensorium / Orientation: alert Psych mental status grossly normal and thought process normal Skin Rashes: no rashes Trauma: Negative for abrasion MDM MDM MDM Narrative Medical decision making narrative: Evaluate for closed head injury after fall. Patient is anticoagulation with Coumadin. We will check her INR is is not been checked in a couple days. Differential diagnosis includes head contusion, intracranial trauma, skull fracture and C-spine fracture. She has no other significant injuries from the fall reported. Given Tylenol for low back pain. She does not have any bony tenderness. Pelvis is stable. I do not think imaging is indicated at this time. INR is therapeutic at 2.8. CT of the brain as well as C-spine does not show any acute fracture or intracranial process. Patient be discharged home. Counseled to avoid high risk activities such as standing on top of a chair. Given return precautions. Lab Data Labs: Laboratory Results - last 24 hr 01/19/23 15:40 PT 30.2 H INR 2.8 Radiography Diagnostic Testing: Clinical Impression(s) from Imaging Studies Brain CT 01/19/23 15:18 IMPRESSION: Mild atrophy and periventricular white matter ischemic changes. No evidence for acute intracranial hemorrhage Electronically Signed: Jonathan Phelps MD at 16:31 EDT , Cervical Spine CT 01/19/23 15:18 IMPRESSION: Moderate spondylosis. No acute fracture or other significant bony pathology. Electronically Signed: Jonathan Phelps MD at 16:34 EDT , Discharge Plan Triage Chief Complaint: Fall ED Provider: Aliya Collazo Dx/Rx/DC Orders Clinical Impression: nursing home (current) use of anticoagulants, CHI (closed head injury) Instructions: ED Back Pain (Acute or Chronic), ED Head Injury (Adult) Prescriptions: No Action folic acid 1 mg tablet 1 mg PO DAILY 90 Days Qty: 90 Patient Comments: TAKE ONE TABLET BY MOUTH EVERY DAY cholecalciferol (vitamin D3) 25 mcg (1,000 unit) capsule 25 mcg PO DAILY potassium chloride [Klor-Con M20] 20 mEq tablet,ER particles/crystals 20 meq PO DAILY Patient Comments: TAKE 1 TABLET BY MOUTH EVERY DAY metoprolol tartrate 25 mg tablet 12.5 mg PO BID rosuvastatin 20 mg tablet 20 mg PO DAILY aspirin 81 MG tablet,chewable 81 mg PO DAILY@0800 escitalopram oxalate 20 MG tablet 20 mg PO DAILY ascorbic acid (vitamin C) 500 mg tablet 500 mg PO BID furosemide 40 mg tablet 40 mg PO DAILY Qty: 90 3RF warfarin 5 mg tablet 5 mg PO .COMPLEX Qty: 90 3RF Protocol: Dose Management Condition: Wednesday Dose/Route: 5 mg Instruction: 1 x 5 mg tablet Condition: Wednesday Dose/Route: 3.5 mg Instruction: 3.5 x 1 mg tablets Condition: Wednesday Dose/Route: 3.5 mg Instruction: 3.5 x 1 mg tablets Condition: Wednesday Dose/Route: 3.5 mg Instruction: 3.5 x 1 mg tablets Condition: Dose/Route: 3.5 mg Instruction: 3.5 x 1 mg tablets Condition: Wednesday Dose/Route: 5 mg Instruction: 1 x 5 mg tablet Condition: Wednesday Dose/Route: 5 mg Instruction: 1 x 5 mg tablet Protocol Text: Adjustment Start Date: 12/24/22 INR Value: 2.7 INR Date: 12/24/22 Recheck Date: 01/21/23 Rx Instructions: 5 mg orally 1/2 tablet with a 1 mg tablet on Wed, , Wed to = 2.5 mg: take a 5 mg tablet Wed,, , Wed; or as directed; warfarin 1 mg tablet 1 mg PO .COMPLEX Qty: 90 3RF Protocol: Dose Management Condition: Wednesday Dose/Route: 5 mg Instruction: 1 x 5 mg tablet Condition: Wednesday Dose/Route: 3.5 mg Instruction: 3.5 x 1 mg tablets Condition: Wednesday Dose/Route: 3.5 mg Instruction: 3.5 x 1 mg tablets Condition: Wednesday Dose/Route: 3.5 mg Instruction: 3.5 x 1 mg tablets Condition: Dose/Route: 3.5 mg Instruction: 3.5 x 1 mg tablets Condition: Wednesday Dose/Route: 5 mg Instruction: 1 x 5 mg tablet Condition: Wednesday Dose/Route: 5 mg Instruction: 1 x 5 mg tablet Protocol Text: Adjustment Start Date: 12/24/22 INR Value: 2.7 INR Date: 12/24/22 Recheck Date: 01/21/23 Rx Instructions: Take 1 tablet with 1/2 of a 5 mg tablet on Wed, , Wed to = 3.5 mg (take a 5 mg tablet all other days of the week, or as directed). Primary Care Provider: Leonardo Sotelo Chi Referrals: Leonardo Sotelo Chi, MD [Primary Care Provider] - Activity Restrictions/Additional Instructions: Your INR today was 2.8. Your CT did not show any signs of acute skull fracture, neck fracture or bleeding around the brain. Disposition Disposition: Home, Self Care Discharge Date/Time: 01/19/23 17:26
[2023-01-19] MEDS: Acetaminophen 325 MG Tablet 650 MG PO (15:36)
[2023-01-19 15:58] LABS: International Normalized Ratio 2.8; Prothrombin Time (Protime)PT. 30.2 SECONDS (11.7-14.9)
== END 2023-01-19 17:26 | disposition home or self-care (01) ==
PROVIDERS: Emergency Provider Emergency Medicine; PCP Family Medicine Geriatric Medicine; Visit Provider Emergency Medicine
DX: S09.90XA Unspecified injury of head, initial encounter (principal); F17.200 Nicotine dependence, unspecified, uncomplicated; Z79.01 Long term (current) use of anticoagulants; I25.10 Atherosclerotic heart disease of native coronary artery without angina pectoris; E78.5 Hyperlipidemia, unspecified; Z95.2 Presence of prosthetic heart valve; R42 Dizziness and giddiness; R51.9 Headache, unspecified; W07.XXXA Fall from chair, initial encounter
CPT/HCPCS: 70450; 72125; 85610; 99282

== ENCOUNTER 2023-02-18 16:38 | Outpatient (RCR) | payer MEDICARE, SELFPAY ==
[2023-01-08 21:22] VITALS: BMI 26.7
[2023-02-18 17:16] LABS: International Normalized Ratio 3.5; Prothrombin Time (Protime)PT. 35.4 SECONDS (11.7-14.9)
== END 2023-02-18 18:00 | disposition home or self-care (01) ==
LOC: LAB 16:38
PROVIDERS: Family Provider Family Medicine Geriatric Medicine; PCP Family Medicine Geriatric Medicine; Referring Provider Internal Medicine Cardiovascular Disease; Visit Provider Internal Medicine Cardiovascular Disease
DX: Z79.01 Long term (current) use of anticoagulants (principal); Z95.2 Presence of prosthetic heart valve
CPT/HCPCS: 36415; 85610

== ENCOUNTER 2023-03-16 12:00 | Outpatient (RCR) | payer MEDICARE, SELFPAY ==
[2023-03-11 22:08] VITALS: BMI 26.7
[2023-03-16 13:22] LABS: International Normalized Ratio 2.6; Prothrombin Time (Protime)PT. 28.3 SECONDS (11.7-14.9)
== END 2023-03-16 18:00 | disposition home or self-care (01) ==
LOC: LAB 12:00
PROVIDERS: Family Provider Family Medicine Geriatric Medicine; PCP Family Medicine Geriatric Medicine; Referring Provider Internal Medicine Cardiovascular Disease; Visit Provider Internal Medicine Cardiovascular Disease
DX: Z79.01 Long term (current) use of anticoagulants (principal); Z95.2 Presence of prosthetic heart valve
CPT/HCPCS: 36415; 85610

== ENCOUNTER → 2023-03-30 | Outpatient (CLI) | payer MEDICARE, SELFPAY ==
--- NOTE | 2023-03-30 14:45 | CDU_ITS ---
Version 2 Reason For Study: carotid stenosis Rt. Velocities/BP Lt. Velocities/BP Prox CCA 86.3/17 cm/sec. Prox CCA 76.5/21.2 cm/sec. Mid CCA 80.6/20.1 cm/sec. Mid CCA 82.6/24.9 cm/sec. Dist CCA 76.8/16.3 cm/sec. Dist CCA 80.2/22.5 cm/sec. Prox ICA 230.5/65.6 cm/sec. Prox ICA 256.4/70.9 cm/sec. Mid ICA 240.2/46.2 cm/sec. Mid ICA 284.3/38.5 cm/sec. Dist ICA 102.8/22.5 cm/sec. Dist ICA 95.1/29.2 cm/sec. Rt. ICA/CCA = 3.0. Lt. ICA/CCA = 3.4. Prox ECA 288.7/23.6 cm/sec. Prox ECA 566.3/53.2 cm/sec. Lt. Vert. 115.6/17.0 cm/sec. Right Extracranial There is homogeneous, smooth atherosclerotic plaque noted in the right common carotid artery. There is heterogeneous, irregular atherosclerotic plaque noted in the right internal carotid artery. There is heterogeneous, irregular atherosclerotic plaque noted in the right external carotid artery. Retrograde flow is noted in the vertebral artery. Left Extracranial There is heterogeneous, irregular atherosclerotic plaque noted in the left common carotid artery. There is heterogeneous, irregular atherosclerotic plaque noted in the left internal carotid artery. There is heterogeneous, irregular atherosclerotic plaque noted in the left external carotid artery. Antegrade flow is noted in the left vertebral artery. Procedure Carotid Duplex [id number]. This is a Carotid Duplex examination using B-mode, color flow and specral Doppler. The exam was diagnostic. Exam performed in department. VL/Carotid Duplex Ultrasound Interpretation Summary Severe (>70%) stenosis right extracranial internal carotid. Severe (>70%) steno sis left extracranial internal carotid. 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 Flow within the left verterbral artery is antegrad e. Ordering Physician: Curtis Joshi Performed By: Huseyin Maria RVT
== END | disposition home or self-care (01) ==
LOC: CVS 14:41
PROVIDERS: PCP Family Medicine Geriatric Medicine; Referring Provider Surgery Vascular Surgery; Visit Provider Surgery Vascular Surgery
DX: I65.23 Occlusion and stenosis of bilateral carotid arteries (principal)
CPT/HCPCS: 93880

== ENCOUNTER → 2023-04-13 | Outpatient (CLI) | payer MEDICARE, SELFPAY ==
[2023-04-13 12:45] LABS: Absolute Lymphocyte Count 1.07 X10^3/uL (0.83-4.51); Absolute Neutrophil Count 7.1 X10^3/uL (2.0-7.7); Basophil# 0.07 X10^3/uL; Basophil% 0.8 % (0-1); Eosinophil# 0.16 X10^3/uL; Eosinophils% 1.8 % (0-5); Hemoglobin 10.6 g/dL (12.0-15.0); Lymphocyte # 1.07 X10^3/ul (0.83-4.51); Lymphocyte % 11.8 % (19-41); Mean Corp Hgb Conc 32.1 g/dL (32-36); Mean Corpuscular Hgb 32.2 pg (27.0-32.0); Mean Corpuscular Volume 100.3 fL (81-99); Mean Platelet Vol. 11.4 fl (6.2-12.0); Monocyte# 0.67 X10^3/uL; Monocyte% 7.4 % (0-10); NRBC Flagged by Analyzer 0 % (0-5); Neutrophil # 7.06 X10^3/uL (2.7-7.7); Platelet Count 199 K/mm3 (150-450); RBC Distribution Width CV 14.2 % (11.6-14.6); RBC Distribution Width SD 51.8 fl (35.1-43.9); Red Blood Count 3.29 M/mm3 (4.2-5.4); White Blood Count 9.1 K/mm3 (4.4-11.0)
[2023-04-13 12:54] LABS: International Normalized Ratio 2.4; Prothrombin Time (Protime)PT. 26.6 SECONDS (11.7-14.9)
[2023-04-13 12:58] LABS: Vitamin D,25 Hydroxy 51.3 ng/mL
[2023-04-13 13:17] LABS: ALB/GLOB Ratio 1.1 RATIO (0.9-2.4); AST(SGOT) 51 U/L (15-37); Alanine Aminotransfer ALT/SGPT 22 U/L (13-56); Albumin, Serum 3.5 g/dL (3.2-5.0); Alkaline Phosphatase 80 U/L (45-117); Anion Gap 6 (5-15); BUN 31 mg/dL (7-18); BUN/Creat Ratio 26.1 RATIO (10-20); Chloride 107 mmol/L (98-107); Creatinine, Serum 1.19 mg/dL (0.55-1.02); EST Glomerular Filtration Rate 48 mL/min (>60); Est Glom Filt Rate - Afr Amer 58 mL/min (>60); Globulin 3.3 g/dL (2.2-4.2); Glucose 91 mg/dL (74-106); Potassium 4.7 mmol/L (3.5-5.1); Protein, Total 6.8 g/dL (6.4-8.2); Sodium Level 137 mmol/L (136-145); Thyroid Stim Hormone (TSH) 1.02 uIU/mL (0.358-3.74)
== END | disposition home or self-care (01) ==
LOC: POLAB3 11:18
PROVIDERS: PCP Family Medicine Geriatric Medicine; Visit Provider Family Medicine Geriatric Medicine
DX: I10 Essential (primary) hypertension (principal); E55.9 Vitamin D deficiency, unspecified; Z79.01 Long term (current) use of anticoagulants; Z95.2 Presence of prosthetic heart valve
CPT/HCPCS: 36415; 80053; 82306; 84443; 85025; 85610

== ENCOUNTER 2023-04-21 12:53 | Outpatient (RCR) | payer MEDICARE, SELFPAY ==
[2023-04-11 01:48] VITALS: BMI 26.7
[2023-04-21 13:39] LABS: International Normalized Ratio 2.6; Prothrombin Time (Protime)PT. 27.8 SECONDS (11.7-14.9)
== END 2023-04-21 18:00 | disposition home or self-care (01) ==
LOC: LAB 12:53
PROVIDERS: Family Provider Family Medicine Geriatric Medicine; PCP Family Medicine Geriatric Medicine; Referring Provider Internal Medicine Cardiovascular Disease; Visit Provider Internal Medicine Cardiovascular Disease
DX: Z79.01 Long term (current) use of anticoagulants (principal); Z95.2 Presence of prosthetic heart valve
CPT/HCPCS: 85610

== ENCOUNTER 2023-06-08 11:47 | Outpatient (RCR) | payer MEDICARE, SELFPAY ==
[2023-05-11 23:25] VITALS: BMI 26.7
[2023-05-14 14:00] LABS: International Normalized Ratio 2.4; Prothrombin Time (Protime)PT. 26.1 SECONDS (11.7-14.9)
[2023-06-08 12:38] LABS: International Normalized Ratio 2.6; Prothrombin Time (Protime)PT. 28.2 SECONDS (11.7-14.9)
== END 2023-06-10 18:00 | disposition home or self-care (01) ==
LOC: LAB 11:47
PROVIDERS: Family Provider Family Medicine Geriatric Medicine; PCP Family Medicine Geriatric Medicine; Referring Provider Internal Medicine Cardiovascular Disease; Visit Provider Internal Medicine Cardiovascular Disease
DX: Z79.01 Long term (current) use of anticoagulants (principal); Z95.2 Presence of prosthetic heart valve
CPT/HCPCS: 36415; 85610

== ENCOUNTER 2023-07-08 13:55 | Outpatient (RCR) | payer MEDICARE, SELFPAY ==
[2023-06-11 03:08] VITALS: BMI 26.7
[2023-07-08 16:13] LABS: International Normalized Ratio 3.3; Prothrombin Time (Protime)PT. 34.3 SECONDS (11.7-14.9)
== END 2023-07-11 18:00 | disposition home or self-care (01) ==
LOC: LAB 13:55
PROVIDERS: Family Provider Family Medicine Geriatric Medicine; PCP Family Medicine Geriatric Medicine; Referring Provider Internal Medicine Cardiovascular Disease; Visit Provider Internal Medicine Cardiovascular Disease
DX: Z79.01 Long term (current) use of anticoagulants (principal); Z95.2 Presence of prosthetic heart valve
CPT/HCPCS: 36415; 85610

== ENCOUNTER → 2023-07-16 | Outpatient (CLI) | payer MEDICARE, SELFPAY ==
--- OUTSIDE RECORDS SUMMARY | 2023-07-16 14:22 | XMS RPT_ITS | CCD ---
Author Name Unknown Address [address] [place] [address] Organization [facility] Care Team Providers Care Rehab Director Occupational Therapist Name Role Phone Shaylee RN, Sheyla A Unavailable Unavailable Shaylee RN, Sheyla A Unavailable Unavailable Ruddy Nurse Unavailable Unavailable Shaylee RN, Sheyla A Unavailable Unavailable Luis Eduardo Gage Y Unavailable Unavailable Shaylee RN, Sheyla A Unavailable Unavailable Regis RN, Siobhan M Unavailable Unavailpower June RN, Sheyla A Unavailable Unavailable Shaylee COYNE, Sheyla A Unavailable Unavailable Shaylee COYNE, Sheyla A Unavailable Unavailable Shaylee COYNE, Sheyla A Unavailable Unavailable MILE, TANK-CHI Primary Care Unavailable YONI NOWAK Admitting Unavailable YONI NOWAK Attending Unavailable ALLEN WALSH Consulting Unavailable LAIQ, ZENAB Consulting Unavailable ONWSHERRI HUGHESE Consulting Unavailable THADDEUS WEI Attending Unavailable IMCA Referring Unavailable MILE, TANK-CHI Primary Care Unavailable Shaylee COYNE, Sheyla Sanabria Unavailable Unavailable ALLEN BAKER Admitting Unavailable TANK TREADWELL MD Consulting Unavailable ALLEN BAKER Attending Unavailable ALLEN BAKER Primary Care Unavailable PROVIDER, UNKNOWN Consulting Unavailable PROVIDER, UNKNOWN Consulting Unavailable Anthony COYNE, Argelia Maldonado Unavailable Mile, Tank Chi Primary Care Provider Mile, Tank Chi Primary Care Provider Mile, Tank Chi Primary Care Provider [phone] Lui Wilkerson DO Unavailable Zuri, Jack S Unavailable Zuri, Jack S Unavailable Jack Keating MD S Unavailable LUI WILKERSON Referring Unavailable MILE, TANK CHI Primary Care Unavailable LUI WILKERSON Referring Unavailable MILE, TANK CHI Primary Care Unavailable LUI WILKERSON Attending Unavailable LUI WILKERSON Referring Unavailable MILE, TANK CHI Primary Care Unavailable LUI WILKERSON Referring Unavailable MILE, TANK CHI Primary Care Unavailable LUI WILKERSON Referring Unavailable MILE, TANK CHI Primary Care Unavailable MILE, TANK CHI Primary Care Unavailable LUI WILKERSON Referring Unavailable MILE, TANK CHI Primary Care Unavailable LUI WILKERSON Referring Unavailable MILE, TANK CHI Primary Care Unavailable LUI WILKERSON Attending Unavailable LUI WILKERSON Referring Unavailable Allergies Allergy Classification Reported Allergen(s) Allergy Type Date of Onset Reaction(s) Facility (13 sources) Adhesive Tape; Translations: [ADHESIVE BANDAGES] allergy to substance 1 Rash [facility] Work Phone: [phone] (13 sources) PARoxetine drug allergy 1 many side effects [facility] Work Phone: [phone] Medications Completed/Discontinued Medications Medication Drug Class(es) Dates Sig (Normalized) Sig (Original) acetaminophen 500 mg / diphenhydrAMINE hydrochloride 25 mg oral tablet (20 sources) Histamine-1 Receptor Antagonist Start: 04-07-2011 End: 03-31-2016 take 1 tablet by mouth at bedtime TYLENOL PM EXTRA STRENGTH 500-25 MG TABS One tablet by mouth at bedtime. DIPHENHYDRAMINE-A PAP (SLEEP) [id number] Siobhan Stacy RN Problems Active Problems Problem Classification Problem Date Documented Date Episodic/Chronic Acute cerebrovascular disease (14 sources) Cerebral hemorrhage; Translations: [Nontraumatic intracerebral hemorrhage, unspecified] Onset: 08-19-2018 08-25-2018 Chronic Cardiac dysrhythmias (20 sources) Premature beats; Translations: [Ventricular premature beats] Onset: 11-17-2010 Resolved: 03-26-2016 11-17-2010 Chronic Coronary atherosclerosis and other heart disease (20 sources) Atherosclerotic heart disease of [place] coronary artery without angina pectoris; Translations: [Coronary arteriosclerosis] Onset: 04-07-2011 09-23-2016 Chronic Deficiency and other anemia (9 sources) Non-autoimmune hemolytic anemia; Translations: [Other nonautoimmune hemolytic anemias] Chronic Deficiency and other anemia (14 sources) Hemolytic anemia; Translations: [Hereditary hemolytic anemia, unspecified] Onset: 02-16-2017 02-16-2017 Chronic Deficiency and other anemia (1 source) Other nonautoimmune hemolytic anemias; Translations: [Other non-autoimmune hemolytic anemias (HCC)] Onset: 02-16-2017 Chronic Disorders of lipid metabolism (13 sources) Hyperlipidemia; Translations: [Hyperlipidemia, unspecified] Onset: 11-17-2010 11-17-2010 Chronic Heart valve disorders (20 sources) Mitral valve disorder; Translations: [Heart valve replaced by other means] Onset: 11-17-2010 Resolved: 03-26-2017 11-17-2010 Chronic Other lower respiratory disease (4 sources) Nodule of lung; Translations: [Solitary pulmonary nodule] 03-01-2023 Episodic Other lower respiratory disease (1 source) Multiple nodules of lung; Translations: [Other nonspecific abnormal finding of lung field] 03-09-2023 Episodic Other lower respiratory disease (1 source) Other nonspecific abnormal finding of lung field; Translations: [Lung nodules] Onset: 06-28-2023 Episodic Other lower respiratory disease (1 source) Solitary pulmonary nodule; Translations: [Lung nodule] Onset: 06-02-2023 Episodic Pulmonary heart disease (13 sources) Other secondary pulmonary hypertension; Translations: [Other secondary pulmonary hypertension] Onset: 01-02-2016 01-02-2016 Chronic Screening or history of mental health and substance abuse (13 sources) Tobacco dependence syndrome; Translations: [Nicotine dependence, unspecified, uncomplicated] Onset: 06-06-2014 06-06-2014 Chronic Substance-related disorders (17 sources) Nicotine dependence; Translations: [Nicotine dependence, unspecified, uncomplicated] Onset: 08-20-2018 08-25-2018 Chronic Unclassified (12 sources) Long-term drug therapy; Translations: [Long-term (current) use of other medications] Onset: 07-03-2011 07-03-2011 Unclassified (6 sources) Warfarin therapy started; Translations: [jail (current) use of anticoagulants] Onset: 05-24-2015 05-24-2015 Unclassified (3 sources) History of mechanical mitral valve replacement; Translations: [Presence of prosthetic heart valve] Onset: 12-31-2015 12-31-2015 Past or Other Problems Problem Classification Problem Date Documented Da te Episodic/Chronic Cardiac dysrhythmias (20 sources) Palpitations; Translations: [Palpitations] Onset: 11-17-2010 Resolved: 03-26-2016 11-17-2010 Episodic Coronary atherosclerosis and other heart disease (13 sources) Presence of aortocoronary bypass graft; Translations: [Presence of aortocoronary bypass graft] Onset: 04-07-2011 04-07-2011 Episodic Deficiency and other anemia (13 sources) Anemia; Translations: [Anemia, unspecified] Onset: 10-16-2015 10-16-2015 Episodic Nonspecific chest pain (20 sources) Tight chest; Translations: [Chest pain, unspecified] Onset: 04-07-2011 Resolved: 03-26-2016 03-26-2016 Episodic Other aftercare (20 sources) Long-term (current) use of other medications; Translations: [Other terminal make up operator (current) drug therapy] Onset: 07-03-2011 07-03-2011 Episodic Other aftercare (14 sources) Long-term current use of anticoagulant; Translations: [jail (current) use of anticoagulants] Onset: 08-23-2018 08-25-2018 Episodic Other circulatory disease (13 sources) Carotid bruit; Translations: [Other specified symptoms and signs involving the circulatory and respiratory systems] Onset: 09-28-2016 09-28-2016 Episodic Other lower respiratory disease (13 sources) Dyspnea; Translations: [Shortness of breath] Onset: 05-10-2012 05-10-2012 Episodic Other nervous system disorders (20 sources) Disorders of accessory [11th] nerve; Translations: [Open and other replacement of mitral valve] Onset: 02-21-2014 Resolved: 03-26-2016 02-21-2014 Episodic Other nutritional; endocrine; and metabolic disorders (20 sources) Body mass index (BMI) 26.0-26.9, adult; Translations: [Body mass index (BMI) 25.0-25.9, adult] Onset: 12-11-2014 Resolved: 12-31-2015 09-28-2016 Episodic Other nutritional; endocrine; and metabolic disorders (4 sources) Body mass index (BMI) 25.0-25.9, adult; Translations: [Body mass index (BMI) 25.0-25.9, adult] Onset: 12-11-2014 Resolved: 12-31-2015 12-31-2015 Episodic Unclassified (16 sources) Other specified postprocedural states; Translations: [Body mass index (BMI) 25.0-25.9, adult] Onset: 12-11-2014 Resolved: 12-31-2015 05-22-2015 Episodic Unclassified (3 sources) History of heart valve repair; Translations: [Other specified postprocedural states] Onset: 05-22-2015 05-22-2015 Unclassified (1 source) Nontraumatic intracranial hemorrhage, unspecified Onset: 08-19-2018 Unclassified (2 sources) Finding of body mass index; Translations: [Body mass index (BMI) 25.0-25.9, adult] Onset: 12-11-2014 Resolved: 12-31-2015 12-11-2014 Results Test Name Value Interpretation Reference Range Facil ity Vital Signs Date Time Vital Sign Value Performing Clinician Facility 03-01-2023 16:08-0400 Body height 154 cm Lui YieldBuildi DO Work Phone: [facility] 03-01-2023 16:08-0400 Body temperature 97.81 [degF] Lui YieldBuildi DO Work Phone: [facility] 03-01-2023 16:08-0400 Body weight 59.19 kg Lui Masci DO Work Phone: [facility] 03-01-2023 16:08-0400 Diastolic blood pressure 49 mm[Hg] Lui Masci DO Work Phone: [facility] 03-01-2023 16:08-0400 Heart rate 62 /min Lui YieldBuildi DO Work Phone: [facility] 03-01-2023 16:08-0400 SaO2% (BldA) [Mass fraction] 98 % Lui Masci DO Work Phone: [facility] 03-01-2023 16:08-0400 Systolic blood pressure 73 mm[Hg] Lui Masci DO Work Phone: [facility] 2022 15:41-0500 Body height 156 cm Lui Masci DO Work Phone: [facility] 2022 15:41-0500 Body temperature 98.2 [degF] Lui Masci DO Work Phone: [facility] 2022 15:41-0500 Body weight 59.42 kg Lui Masci DO Work Phone: [facility] 2022 15:41-0500 Diastolic blood pressure 56 mm[Hg] Lui Masci DO Work Phone: [facility] 2022 15:41-0500 Heart rate 60 /min Lui Masci DO Work Phone: [facility] 2022 15:41-0500 Systolic blood pressure 110 mm[Hg] Lui Masci DO Work Phone: [facility] 03-02-2022 15:41-0400 Body height 153.5 cm Lui Masci DO Work Phone: [facility] 03-02-2022 15:41-0400 Body temperature 97.81 [degF] Lui Masci DO Work Phone: [facility] 03-02-2022 15:41-0400 Body weight 58.29 kg Lui Masci DO Work Phone: [facility] 03-02-2022 15:41-0400 Diastolic blood pressure 53 mm[Hg] Lui Masci DO Work Phone: [facility] 03-02-2022 15:41-0400 Heart rate 63 /min Lui Masci DO Work Phone: [facility] 03-02-2022 15:41-0400 SaO2% (BldA) [Mass fraction] 96 % Lui Masci DO Work Phone: [facility] 03-02-2022 15:41-0400 Systolic blood pressure 106 mm[Hg] Lui Masci DO Work Phone: [facility] 03-30-2017 13:48-0400 BMI (Body Mass Index) 26.26 kg/m2 [facility] Work Phone: 03-30-2017 13:48-0400 BP Diastolic 44 mm[Hg] [facility] Work Phone: 03-30-2017 13:48-0400 BP Systolic 102 mm[Hg] [facility] Work Phone: 03-30-2017 13:48-0400 Height 154.94 cm [facility] Work Phone: 03-30-2017 13:48-0400 Pulse (Heart Rate) 60 /min [facility] Work Phone: 03-30-2017 13:48-0400 Respiratory Rate 20 /min [facility] Work Phone: 03-30-2017 13:48-0400 Weight 63.05 kg [facility] Work Phone: 09-28-2016 12:58-0400 BMI (Body Mass Index) 26.26 kg/m2 Sheyla June RN [facility] Work Phone: 09-28-2016 12:58-0400 Body weight 63.05 kg Argelia Cruz RN [facility] Work Phone: 09-28-2016 12:58-0400 BP Diastolic 48 mm[Hg] Sheyla June RN [facility] Work Phone: 09-28-2016 12:58-0400 BP Systolic 100 mm[Hg] Sheyla June RN [facility] Work Phone: 09-28-2016 12:58-0400 Height 154.94 cm Sheyla June RN [facility] Work Phone: 09-28-2016 12:58-0400 Pulse (Heart Rate) 82 /min Sheyla June RN [facility] Work Phone: 09-28-2016 12:58-0400 Respiratory Rate 18 /min Sheyla June RN [facility] Work Phone: 09-28-2016 12:58-0400 Weight 63.05 kg Sheyla June RN [facility] Work Phone: 03-31-2016 11:24-0400 BP Diastolic 48 mm[Hg] Sheyla June RN [facility] Work Phone: [phone] 11:24-0400 BP Systolic 100 mm[Hg] Sheyla June RN [facility] Work Phone: 03-31-2016 11:24-0400 BSA (Body Surface Area) 1.57 m2 Sheyla June RN [facility] Work Phone: 11-20-2015 14:52-0400 Pulse Oximetry 98 % Sheyla June RN [facility] Work Phone: 10-16-2015 11:38-0400 Body Temperature 98.2 [degF] Sheyla June RN [facility] Work Phone: 10-16-2015 11:38-0400 Pulse Oximetry 97 % Sheyla June RN [facility] Work Phone: 02-21-2014 16:05-0400 Heart rate 416 ms [facility] Work Phone: 02-21-2014 16:05-0400 Heart rate 65 /min Argelia Cruz RN [facility] Work Phone: Encounters Encounter Date Encounter Type Care Provider Facility Start: 06-28-2023 ambulatory LUI WILKERSON Facility:[facility] Start: 06-07-2023 Telephone encounter Lui smith DO Work Phone: Hematology/Oncology Procedures Date Procedure Procedure Detail Performing Clinician Start: 06-02-2023 Antihuman globulin d irect each antiserum Lui Wilkerson DO Work Phone: Start: 06-02-2023 Blood count complete auto&auto difrntl wbc Lui Wilkerson DO Work Phone: Start: 03-05-2023 Ct thorax w/o contra st material Lui Wilkerson DO Work Phone: Start: 12-28-2019 Adult depression scr eening assessment Lui Wilkerson DO Work Phone: Start: 03-30-2017 End: 03-30-2017 Follow Up Appt 6 months Chrissy Cason Start: 03-30-2017 End: 03-30-2017 ADOLFO Keating MD Start: 03-30-2017 End: 03-30-2017 Follow Up Appt 6 months Chrissy Cason Start: 03-30-2017 End: 03-30-2017 ADOLFO Keating MD Start: 09-28-2016 End: 10-07-2016 Carotid duplex Argelia Eid PA-C Work Phone: Start: 09-28-2016 End: 09-28-2016 BRICK POINTER Argelia Eid PA-C Work Phone: Start: 09-28-2016 End: 09-28-2016 Follow Up Appt 6 months Argelia leblanc PA-C Work Phone: Start: 09-28-2016 End: 09-28-2016 Documentation of current medications Argelia Cruz RN Start: 09-28-2016 End: 10-07-2016 Carotid duplex Argelia Eid PA-C Work Phone: Start: 09-28-2016 End: 09-28-2016 FAREED Eid PA-C Work Phone: Start: 09-28-2016 End: 09-28-2016 Follow Up Appt 6 months Argelia leblanc PA-C Work Phone: Start: 03-31-2016 End: 09-23-2016 Follow Up Appt 6 months Chrissy Cason Start: 03-31-2016 End: 03-31-2016 INR in Platelet poor plasma by Coagulation assay Jack Keating MD Start: 03-31-2016 End: 09-23-2016 ADOLFO Keating MD Start: 03-31-2016 End: 03-31-2016 Smoking cessation education Argelia musa RN Start: 03-31-2016 End: 03-31-2016 Coagulation factor induced.INR assay in platelet poor plasma Jack Keating MD Start: 03-31-2016 End: 09-23-2016 Follow Up Appt 6 months Chrissy Cason Start: 03-31-2016 End: 09-23-2016 MMM Jack Keating MD Start: 12-31-2015 End: 01-01-2016 *BMP Argelia Eid PA-C Work Phone: Start: 12-31-2015 End: 01-01-2016 *CBC with Differential Argelia gli PA-C Work Phone: Start: 12-31-2015 End: 09-23-2016 Chest x-ray Argelia Eid PA-C Work Phone: Start: 12-31-2015 End: 09-23-2016 BRICK POINTER Argelia Eid PA-C Work Phone: Start: 12-31-2015 End: 09-23-2016 Follow Up Appt 3 months Argelia leblanc PA-C Work Phone: Start: 12-31-2015 End: 01-01-2016 *BMP Argelia Eid PA-C Work Phone: Start: 12-31-2015 End: 01-01-2016 *CBC with Differential Argelia gil PA-C Work Phone: Start: 12-31-2015 End: 09-23-2016 Chest x-ray Argelia Eid PA-C Work Phone: Start: 12-31-2015 End: 09-23-2016 BRICK POINTER Argelia Eid PA-C Work Phone: Start: 12-31-2015 End: 09-23-2016 Follow Up Appt 3 months Argelia leblanc PA-C Work Phone: Start: 11-20-2015 End: 11-21-2015 *CBC with Differential Jack Keating MD Start: 11-20-2015 End: 12-16-2015 Echocardiography Jack Keating MD Start: 11-20-2015 End: 12-25-2015 Follow Up Appt 3 months Chrissy Cason Start: 11-20-2015 End: 11-21-2015 INR in Platelet poor plasma by Coagulation assay Jack Keating MD Start: 11-20-2015 End: 12-25-2015 MMM Jack Keating MD Start: 11-20-2015 End: 11-21-2015 Natriuretic peptide B [Mass/volume] in Blood Jack Keating MD Start: 11-20-2015 End: 12-16-2015 Nuclear stress test -exercise Jack Arita MD Start: 11-20-2015 End: 11-21-2015 *CBC with Differential Jack Keating MD Start: 11-20-2015 End: 11-21-2015 BNP Jack Keating MD Start: 11-20-2015 End: 11-21-2015 Coagulation factor induced.INR assay in platelet poor plasma Jack Keating MD Start: 11-20-2015 End: 12-16-2015 Echocardiography Jack Keating MD Start: 11-20-2015 End: 12-25-2015 Follow Up Appt 3 months Chrissy Cason Start: 11-20-2015 End: 12-25-2015 ADOLFO Keating MD Start: 11-20-2015 End: 12-16-2015 Nuclear stress test -exercise Jack Arita MD Start: 10-17-2015 End: 10-17-2015 INR in Platelet poor plasma by Coagulation assay Jack Keating MD Start: 10-17-2015 End: 10-17-2015 Coagulation factor induced.INR assay in platelet poor plasma Jack Keating MD Start: 06-28-2015 End: 06-28-2015 Follow Up Appt 6 months Chrissy Cason Start: 06-28-2015 End: 06-28-2015 ADOLFO Keating MD Start: 06-28-2015 End: 06-28-2015 Follow Up Appt 6 months Chrissy Cason Start: 06-28-2015 End: 06-28-2015 [facility] Jack Keating MD Start: 05-24-2015 End: 05-24-2015 INR in Platelet poor plasma by Coagulation assay Jack Keating MD Start: 05-24-2015 End: 05-24-2015 Coagulation factor induced.INR assay in platelet poor plasma Jack Keating MD Start: 05-22-2015 End: 05-22-2015 INR in Platelet poor plasma by Coagulation assay Jack Keating MD Start: 05-22-2015 End: 05-22-2015 Nurse, Teaching, Wound Check (no charge) Jack Keating MD Start: 05-22-2015 End: 05-22-2015 Coagulation factor induced.INR assay in platelet poor plasma Jack Keating MD Start: 05-22-2015 End: 05-22-2015 Nurse, Teaching, Wound Check (no charge) Jack Keating MD Start: 12-11-2014 End: 12-11-2014 BRICK POINTER Argelia Eid PA-C Work Phone: Start: 12-11-2014 End: 12-12-2014 Documentation of current medications Argelia Eid PA-C Work Phone: Start: 12-11-2014 End: 12-11-2014 Follow Up Appt 6 months Argelia leblanc PA-C Work Phone: Start: 12-11-2014 End: 12-12-2014 Smoking cessation education Argelia Laureano PA-C Work Phone: Start: 12-11-2014 End: 12-11-2014 BRICK POINTER Argelia Eid PA-C Work Phone: Start: 12-11-2014 End: 12-12-2014 Documentation of current medications Argelia Eid PA-C Work Phone: Start: 12-11-2014 End: 12-11-2014 Follow Up Appt 6 months Argelia leblanc PA-C Work Phone: Start: 12-11-2014 End: 12-12-2014 Smoking cessation education Argelia Laureano PA-C Work Phone: Start: 06-06-2014 End: 06-06-2014 Follow Up Appt 6 months Chrissy Cason Start: 06-06-2014 End: 06-06-2014 ADOLFO Keating MD Start: 06-06-2014 End: 06-06-2014 Follow Up Appt 6 months Chrissy Cason Start: 06-06-2014 End: 06-06-2014 ADOLFO Keating MD Start: 02-21-2014 End: 02-22-2014 *BMP Argelia Eid PA-C Work Phone: Start: 02-21-2014 End: 02-22-2014 CBC W Auto Differential panel - Blood Argelia Eid PA-C Work Phone: Start: 02-21-2014 End: 02-21-2014 BRICK POINTER Argelia Eid PA-C Work Phone: Start: 02-21-2014 End: 02-21-2014 Ecg routine ecg w/least 12 lds w/i&r Argelia Eid PA-C Work Phone: Start: 02-21-2014 End: 02-27-2014 Echocardiography Argelia Eid PA-C Work Phone: Start: 02-21-2014 End: 02-21-2014 Follow Up Appt 3 months Argelia leblanc PA-C Work Phone: Start: 02-21-2014 End: 02-21-2014 INR in Platelet poor plasma by Coagulation assay Argelia Eid PA-C Work Phone: Start: 02-21-2014 End: 02-28-2014 Nuclear stress test -exercise Argelia Eid PA-C Work Phone: Start: 02-21-2014 End: 02-22-2014 *BMP Argelia Eid PA-C Work Phone: Start: 02-21-2014 End: 02-22-2014 CBC W Auto Differential panel - Blood Argelia Eid PA-C Work Phone: Start: 02-21-2014 End: 02-21-2014 Coagulation factor induced.INR assay in platelet poor plasma Argelia Eid PA-C Work Phone: Start: 02-21-2014 End: 02-21-2014 BRICK POINTER Argelia Eid PA-C Work Phone: Start: 02-21-2014 End: 02-27-2014 Echocardiography Argelia Eid PA-C Work Phone: Start: 02-21-2014 End: 02-21-2014 Electrocardiogram, complete Argelia Laureano PA-C Work Phone: Start: 02-21-2014 End: 02-21-2014 Follow Up Appt 3 months Argelia leblanc PA-C Work Phone: Start: 02-21-2014 End: 02-28-2014 Nuclear stress test -exercise Argelia Eid PA-C Work Phone: Start: 08-22-2013 End: 08-22-2013 Follow Up Appt 6 months Chrissy Cason Start: 08-22-2013 End: 08-22-2013 ADOLFO Keating MD Start: 08-22-2013 End: 08-22-2013 Follow Up Appt 6 months Chrissy Cason Start: 08-22-2013 End: 08-22-2013 ADOLFO Keating MD Start: 02-13-2013 End: 02-13-2013 BRICK POINTER Argelia Eid PA-C Work Phone: Start: 02-13-2013 End: 02-13-2013 Ecg routine ecg w/least 12 lds w/i&r Argelia Eid PA-C Work Phone: Start: 02-13-2013 End: 02-13-2013 Follow Up Appt 6 months Argelia leblanc PA-C Work Phone: Start: 02-13-2013 End: 02-13-2013 BRICK POINTER Argelia Eid PA-C Work Phone: Start: 02-13-2013 End: 02-13-2013 Electrocardiogram, complete Argelia Laureano PA-C Work Phone: Start: 02-13-2013 End: 02-13-2013 Follow Up Appt 6 months Argelia leblanc PA-C Work Phone: Start: 08-03-2012 End: 08-03-2012 Follow Up Appt 6 months Chrissy Cason Start: 08-03-2012 End: 08-03-2012 Follow Up Appt 6 months Chrissy Cason Start: 05-10-2012 End: 05-17-2012 Echocardiography Jack Keating MD Start: 05-10-2012 End: 05-10-2012 Follow Up Appt 4 months Chrissy Cason Start: 05-10-2012 End: 05-17-2012 Echocardiography Jack Keating MD Start: 05-10-2012 End: 05-10-2012 Follow Up Appt 4 months Chrissy Cason Start: 01-26-2012 End: 01-26-2012 Follow Up Appt 6 months Chrissy Cason Start: 01-26-2012 End: 01-26-2012 Follow Up Appt 6 months Chrissy Cason Start: 01-04-2012 End: 09-22-2012 *Hepatic Function Panel Chrissy Cason Start: 01-04-2012 End: 09-22-2012 Lipid 1996 panel - Serum or Plasma Jack Keating MD Start: 01-04-2012 End: 09-22-2012 *Hepatic Function Panel Chrissy Cason Start: 01-04-2012 End: 09-22-2012 Lipid panel [AGGREGATE] Chrissy Cason Start: 07-08-2011 End: 07-08-2011 Follow Up Appt 6 months Chrissy Cason Start: 07-08-2011 End: 07-08-2011 Follow Up Appt 6 months Chrissy Cason Plan of Treatment Date Care Activity Detail Author Start: 06-02-2026 Diabetes Screening Diabetes Screenin [facility] Start: 02-22-2026 DIABETES SCREEN DIABETES SCREEN [facility] Start: 02-22-2026 Diabetes Screening Diabetes Screenin g [facility] Start: 08-26-2025 DIABETES SCREEN DIABETES SCREEN [facility] Start: 06-02-2025 DIABETES SCREEN DIABETES SCREEN [facility] Start: 03-02-2025 DIABETES SCREEN DIABETES SCREEN [facility] Start: 12-09-2024 DIABETES SCREEN DIABETES SCREEN [facility] Start: 09-15-2024 DIABETES SCREEN DIABETES SCREEN [facility] Start: 03-05-2024 Influenza vaccination [facility] Start: 03-12-2023 Covid-19 Vaccine ( season) Covid-19 Vaccine () [facility] Start: 03-12-2023 Influenza vaccination C [facility] Start: 08-26-2022 End: 10-26-2022 CBC W Auto Differential panel - Blood CBC + DIFF Lab STAT Other non-autoimmune hemolytic anemias (HCC) Expected: 08/26/2022, Expires: 10/26/2022 [facility] Work Phone: Immunizations Immunization Date Immunization Notes Care Provider Cyril smith 04-08-2021 influenza virus vacc ine, unspecified formulation Ct (I-Stat) Work Phone: [facility] Payers Date Payer Category Payer Medicare [employer] MEDICARE A ETNA MEDICARE PPO [id number] 2021-Present [phone] [address] [place] [address] PPO [id number] 2021 Medicare [employer] MEDICARE A ETNA MEDICARE PPO [id number] 2021-Present [phone] [address] [place] [address] PPO [id number] 2021 Medicare [id number] 1950 Unknown [id number] 1950 Unknown [id number] 1950 Unknown [id number] Unknown [id number] Unknown [id number] Social History Date Type Detail Facility Start: 01-27-2017 End: 10-26-2018 Tobacco smoking status NHIS Occasional tobacco smoker [facility] History of tobacco use Cigarette Smoker C [facility] Start: 01-27-2017 End: 11-30-2022 Cigarettes smoked current (pack per day) - Reported 1 [facility] Start: 01-27-2017 End: 10-26-2018 Tobacco use and exposure Smokeless tobacco non-user [facility] Start: 09-15-2021 End: 03-01-2023 Alcohol intake Ex-drinker (finding) [facility] Start: 01-27-2017 History SDOH Alcohol Comment socially [facility] Start: 10-26-2018 Tobacco Comment Pt has cut stacy k to 1/4 pack daily. [facility] Start: 1950 Sex Assigned At Not on file C [facility] Start: 02-20-2022 End: 03-02-2022 Exposure to SARS-CoV-2 (event) Not sure [facility] Start: 11-30-2022 End: 03-01-2023 Tobacco use panel [facility] Adult Depression Screening Assessment 0 [facility] Clinical Notes 08-23-2018 to 06-28-2023 Telephone Encounter - Imelda Morse - 06/07/2023 10:52 AM ESTTelephone Encounter - Janice Owens LPN - 06/07/2023 7:57 AM ESTTelephone Encounter - Janice Owens LPN - 06/07/2023 7:57 AM EST Note Date & Type Note Facility 06-28-2023 Note HNO ID: [id number] Author: Lili Barreto RT(R) Service: ? Author Type: Import Export Coordinator Type: Progress Notes Filed: 06/28/2023 3:35 PM Note Text: Radiology Service Progress Note PATIENT NAME: Clementine Cortes DATE OF SERVICE: June 28, 2023 TIME: 3:35 PM PATIENT IDENTITY VERIFICATION COMPLETED USING TWO (2) IDENTIFIERS: Name and Date of confirmed by patient verbally. FALL SCREENING: Has the patient had 2 falls in the last year or 1 fall with injury or currently using an Ambulatory Assistive Device (Walker, Cane, Wheelchair, Crutches, etc.)? No PATIENT GENDER DATA: Female. status: : No status: NO. PATIENT RELEVANT IMPLANT DATA REVIEWED: Yes RADIOLOGY DEPARTMENT: CT; Exam(s) Completed: Chest PERIPHERAL IV DATA: Not applicable SIGNED BY: RT Osito(R) June 28, 2023 3:35 PM [facility] 06-07-2023 Miscellaneous Notes Message relayed to patient Left message for patient to contact office. Echo report sent to scanning and placed in Dr. Wilkerson's mailbox for review. Janice Owens LPN ----- Message from Lui Wilkerson DO sent at 06/06/2023 3:03 PM EST ----- Let her know lab work and kidney function stable. Okay to recheck in August as scheduled. Can we get her most recent echocardiogram report from [facility]? Thank you. Lui Wilkerson DO documented in this encounter [facility] 06-07-2023 Note HNO ID: [id number] Author: Lui Wilkerson DO Service: ? Author Type: Physician Type: Progress Notes Filed: 06/07/2023 6:06 AM Note Text: No office visit was scheduled. Lui Wilkerson DO [facility] 06-07-2023 History of Presen t illness Narrative No office visit was scheduled. Lui Wilkerson DO documented in this encounter [facility] 06-06-2023 Miscellaneous Notes Let her know lab work and kidney function stable. Okay to recheck in August as scheduled. Can we get her most recent echocardiogram report from [facility]? Thank you. Lui Wilkerson DO documented in this encounter [facility] 03-10-[address] as requested with patient Patient is aware of all information. PSS- please contact patient to schedule CT chest as directed below. Janice Owens LPN Left message asking patient to contact office for results and scheduling. Janice Owens LPN Can let her know that the CT scan revealed an 8 mm nodule at the very bottom of her left lung. This may be benign so recommendation is to repeat CT chest in 3 months. Lui Wilkerson DO documented in this encounter [facility] 03-05-2023 Note HNO ID: [id number] Author: Lili Barreto, RT(R) Service: ? Author Type: Import Export Coordinator Type: Progress Notes Filed: 03/05/2023 2:56 PM Note Text: Radiology Service Progress Note PATIENT NAME: Clementine Cortes DATE OF SERVICE: March 05, 2023 TIME: 2:56 PM PATIENT IDENTITY VERIFICATION COMPLETED USING TWO (2) IDENTIFIERS: Name and Date of confirmed by patient verbally. FALL SCREENING: Has the patient had 2 falls in the last year or 1 fall with injury or currently using an Ambulatory Assistive Device (Walker, Cane, Wheelchair, Crutches, etc.)? No PATIENT GENDER DATA: Female. status: : No status: NO. PATIENT RELEVANT IMPLANT DATA REVIEWED: Yes RADIOLOGY DEPARTMENT: CT; Exam(s) Completed: Chest PERIPHERAL IV DATA: Not applicable SIGNED BY: RT Osito(R) March 05, 2023 2:56 PM [facility] 03-05-2023 History of Presen t illness Narrative Radiology Service Progress Note PATIENT NAME: Clementine Cortes DATE OF SERVICE: March 05, 2023 TIME: 2:56 PM PATIENT IDENTITY VERIFICATION COMPLETED USING TWO (2) IDENTIFIERS: Name and Date of confirmed by patient verbally. FALL SCREENING: Has the patient had 2 falls in the last year or 1 fall with injury or currently using an Ambulatory Assistive Device (Walker, Cane, Wheelchair, Crutches, etc.)? No PATIENT GENDER DATA: Female. status: : No status: NO. PATIENT RELEVANT IMPLANT DATA REVIEWED: Yes RADIOLOGY DEPARTMENT: CT; Exam(s) Completed: Chest PERIPHERAL IV DATA: Not applicable SIGNED BY: RT Osito(R) March 05, 2023 2:56 PM documented in this encounter [facility] 03-02-2023 Miscellaneous Notes Patient informed and scheduled LM for patient to return call. When patient calls, please advise of Dr. Wilkerson's office and scheduled CT Chest accordingly. Sakshi Barroso Can let her know I checked the [facility] electronic record and I cannot find any chest imaging on her since a chest x-ray done in 2016. Therefore please schedule her for CT chest without IV contrast. Lui Wilkerson DO documented in this encounter [facility] 03-01-2023 Note HNO ID: [id number] Author: Lui Wilkerson DO Service: ? Author Type: Physician Type: Progress Notes Filed: 03/01/2023 7:32 PM Note Text: Diagnosis: 1) Mechanical hemolytic anemia. HPI: Patient is a 72-year-old female who has a past medical history [...] was 94.9 and the MCH was 30.8. Iron studies from January 2016. Total iron was [...] Presents for ongoing hematologic management. Interim history: She offers no complaints today. Smoking about 10 cigs a day. No exertional chest pain/pressure. Suction-like feeling in heart resolved. AREVALO not subjectively worse over the last year. No LE swelling. Occasional orthostasis. Appetite normal. No unusual bleeding or unexplained bruises. PMH, medications and allergies as below personally reviewed by me today. Any changes documented in appropriate section. ROS: Constitutional: Denies episodes of fever and night sweats. Neuro: Denies VALDIVIA, vertigo, dizziness and imbalance. Denies symptoms of neuropathy. HEENT: No recent change in voice, vision or hearing. Resp: No cough, wheeze or sputum production. CVS: See above. GI: Denies dysgeusia. Denies symptoms of stomatitis. Denies dysphagia and odynophagia. Denies reflux, n/v, change in bowel habits. : Denies dysuria or gross hematuria. Endo: Denies hot flashes. Denies polyuria and polydipsia. Denies heat and cold intolerance. Derm: Denies rash. Denies jaundice and diffuse pruritis. Heme: See above. Psych: Normal mood. PHYSICAL EXAM: Vitals: Blood pressure (!) 73/49, pulse 62, temperature 36.6 ?C (97.8 ?F), height 154 cm (5' 0.63 ), weight 59.2 kg (130 lb 8 oz), SpO2 98 %. Well-appearing and in no acute distress. EYES: Sclerae are anicteric bilaterally. NECK: Supple. RESPIRATORY: Inspiratory breath sounds are of normal intensity in all moss. No rales, wheezes or rhonchi. CARDIOVASCULAR: Rhythm is regular. Valve click. There is no gallop or murmur. ABDOMEN: The abdomen is nondistended. No palpable splenomegaly. Extremities: No swelling or edema. SKIN: No jaundice or rash. No petechiae. 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 No focal motor weakness. MUSCULOSKELETAL: No muscle wasting. LABS: Component Latest Ref Rng AND Units 02/22/2023 WBC 3.70 - 11.00 k/uL 10.12 RBC 3.90 - 5.20 m/uL 3.32 (L) Hemoglobin 11.5 - 15.5 g/dL 10.3 (L) Hematocrit 36.0 - 46.0 % 31.8 (L) MCV 80.0 - 100.0 fL 95.8 MCH 26.0 - 34.0 pg 31.0 MCHC 30.5 - 36.0 g/dL 32.4 RDW-CV 11.5 - 15.0 % 15.0 Platelet Count 150 - 400 k/uL 209 MPV 9.0 - 12.7 fL 10.6 Neut% % 75.9 Abs Neut (ANC) 1.45 - 7.50 k/uL 7.68 (H) Lymph% % 13.9 Abs Lymph 1.00 - 4.00 k/uL 1.41 Louisa% % 8.2 Abs Louisa <0.87 k/uL 0.83 Eosin% % 1.1 Abs Eosin <0.46 k/uL 0.11 Baso% % 0.6 Abs Baso <0.11 k/uL 0.06 Immature Gran % % 0.3 IMMATURE GRANS (ABS) <0.10 k/uL 0.03 NRBC /100 WBC 0.0 Absolute nRBC <0.01 k/uL <0.01 DTYPE Auto Protein, Total 6.3 - 8.0 g/dL 6.8 Albumin 3.9 - 4.9 g/dL 4.0 Calcium 8.5 - 10.2 mg/dL 9.5 Bilirubin, Total 0.2 - 1.3 mg/dL 1.0 Alkaline Phosphatase 34 - 123 U/L 87 AST 13 - 35 U/L 40 (H) ALT 7 - 38 U/L 18 Glucose 74 - 99 mg/dL 82 BUN 7 - 21 mg/dL 25 (H) Creatinine 0.58 - 0.96 mg/dL 1.06 (H) Sodium 136 - 144 mmol/L 138 Potassium 3.7 - 5.1 mmol/L 5.0 Chloride 97 - 105 mmol/L 105 CO2 22 - 30 mmol/L 26 Anion Gap 9 - 18 mmol/L 7 (L) eGFR >=60 mL/min/1.73mA? 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 -Patient has history of mechanical mitral valve replacement. Previously discussed with Dr. Keating. Since she remains asymptomatic and well compensated, no indication for surgical intervention at this time. -Again addressed smoking cessation again today. She is not psychologically motivated to quit and continues to smoke 1/2 ppd. -Reviewed labs with her. Stable Hgb over the last ye (more content not included)... [facility] 03-01-2023 History of Presen t illness Narrative Diagnosis: 1) Mechanical hemolytic anemia. HPI: Patient is a 72-year-old female who has a past medical history [...] was 94.9 and the MCH was 30.8. Iron studies from January 2016. Total iron was [...] Presents for ongoing hematologic management. Interim history: She offers no complaints today. Smoking about 10 cigs a day. No exertional chest pain/pressure. Suction-like feeling in heart resolved. AREVALO not subjectively worse over the last year. No LE swelling. Occasional orthostasis. Appetite normal. No unusual bleeding or unexplained bruises. PMH, medications and allergies as below personally reviewed by me today. Any changes documented in appropriate section. ROS: Constitutional: Denies episodes of fever and night sweats. Neuro: Denies VALDIVIA, vertigo, dizziness and imbalance. Denies symptoms of neuropathy. HEENT: No recent change in voice, vision or hearing. Resp: No cough, wheeze or sputum production. CVS: See above. GI: Denies dysgeusia. Denies symptoms of stomatitis. Denies dysphagia and odynophagia. Denies reflux, n/v, change in bowel habits. : Denies dysuria or gross hematuria. Endo: Denies hot flashes. Denies polyuria and polydipsia. Denies heat and cold intolerance. Derm: Denies rash. Denies jaundice and diffuse pruritis. Heme: See above. Psych: Normal mood. PHYSICAL EXAM: Vitals: Blood pressure (!) 73/49, pulse 62, temperature 36.6 C (97.8 F), height 154 cm (5' 0.63 ), weight 59.2 kg (130 lb 8 oz), SpO2 98 %. Well-appearing and in no acute distress. EYES: Sclerae are anicteric bilaterally. NECK: Supple. RESPIRATORY: Inspiratory breath sounds are of normal intensity in all moss. No rales, wheezes or rhonchi. CARDIOVASCULAR: Rhythm is regular. Valve click. There is no gallop or murmur. ABDOMEN: The abdomen is nondistended. No palpable splenomegaly. Extremities: No swelling or edema. SKIN: No jaundice or rash. No petechiae. 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 No focal motor weakness. MUSCULOSKELETAL: No muscle wasting. LABS: Component Latest Ref Rng & Units 02/22/2023 WBC 3.70 - 11.00 k/uL 10.12 RBC 3.90 - 5.20 m/uL 3.32 (L) Hemoglobin 11.5 - 15.5 g/dL 10.3 (L) Hematocrit 36.0 - 46.0 % 31.8 (L) MCV 80.0 - 100.0 fL 95.8 MCH 26.0 - 34.0 pg 31.0 MCHC 30.5 - 36.0 g/dL 32.4 RDW-CV 11.5 - 15.0 % 15.0 Platelet Count 150 - 400 k/uL 209 MPV 9.0 - 12.7 fL 10.6 Neut% % 75.9 Abs Neut (ANC) 1.45 - 7.50 k/uL 7.68 (H) Lymph% % 13.9 Abs Lymph 1.00 - 4.00 k/uL 1.41 Louisa% % 8.2 Abs Louisa <0.87 k/uL 0.83 Eosin% % 1.1 Abs Eosin <0.46 k/uL 0.11 Baso% % 0.6 Abs Baso <0.11 k/uL 0.06 Immature Gran % % 0.3 IMMATURE GRANS (ABS) <0.10 k/uL 0.03 NRBC /100 WBC 0.0 Absolute nRBC <0.01 k/uL <0.01 DTYPE Auto Protein, Total 6.3 - 8.0 g/dL 6.8 Albumin 3.9 - 4.9 g/dL 4.0 Calcium 8.5 - 10.2 mg/dL 9.5 Bilirubin, Total 0.2 - 1.3 mg/dL 1.0 Alkaline Phosphatase 34 - 123 U/L 87 AST 13 - 35 U/L 40 (H) ALT 7 - 38 U/L 18 Glucose 74 - 99 mg/dL 82 BUN 7 - 21 mg/dL 25 (H) Creatinine 0.58 - 0.96 mg/dL 1.06 (H) Sodium 136 - 144 mmol/L 138 Potassium 3.7 - 5.1 mmol/L 5.0 Chloride 97 - 105 mmol/L 105 CO2 22 - 30 mmol/L 26 Anion Gap 9 - 18 mmol/L 7 (L) eGFR >=60 mL/min/1.73m 57 (L) Retic % 0.4 - 2.0 % 5.1 (H) Abs Retic 0.018 - 0.100 M/uL 0.169 (H) LD 135 - 214 U/L 1,396 (H) Haptoglobin 31 - 238 mg/dL <10 (L) DAGT, Polyspecific AHG Negative ASSESSMENT/PLAN: (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 -Patient has history of mechanical mitral valve replacement. Previously discussed with Dr. Keating. Since she remains asymptomatic and well compensated, no indication for surgical intervention at this time. -Again addressed smoking cessation again today. She is not psychologically motivated to quit and continues to smoke 1/2 ppd. -Reviewed labs with her. Stable Hgb over the last year. -She has a long history of smoking and endorsed today she used to get serial CXR or CT chest for a pulmonary nodule, but after it being stable for some time, surveillance was stopped. Reviewed EMR through [facility]. No chest imaging since CXR in 2016. Plan: -Continue iron and folic acid supplementation. -She will continue regular follow-up with Dr. Keating. -Will continue to address smoking cessation at future visits. -Recommended lung cancer screening CT chest due to high LDH and long history of smoking. -Lab work in 3 months. -Office visit in 6 months. Portions of this documentation were copied and pasted from previous office visit notes in order to provide a cohesive continuity of the history. The note has been reviewed and edited and updated as necessary. I spent a total of 25 minutes on the date of the service which included preparing to see the patient, [id number] patient care, completing clinical documentation, obtaining and/or reviewing separately obtained history, performing a medically appropriate examination, counseling and educating the patient/family/caregiver, ordering medications, tests, or procedures, communicating with other HCPs (not separately reported), and communicating results to the patient/family/caregiver. Lui Wilkerson DO documented in this encounter [facility] 2022 Note HNO ID: [id number] Author: Lui Wilkerson DO Service: ? Author Type: Physician Type: Progress Notes Filed: 2022 4:17 PM Note Text: Diagnosis: 1) Mechanical hemolytic anemia. HPI: Patient is a 72-year-old female who has a past medical history [...] was 94.9 and the MCH was 30.8. Iron studies from January 2016. Total iron was [...] Presents for ongoing hematologic management. Interim history: She offers no complaints today. Has her mother in a [place]--has dementia and had been caring for her at her home. Smoking 6-7 cigs a day. No exertion chest pain. Has noticed lately feeling MVP--feels like suction feeling in her heart. Had it frequently prior to mitral valve replacement. Lasts few seconds. Doesn't make her short of breath. Notices more if tired, but no particular trigger. PMH, medications and allergies as below personally reviewed by me today. Any changes documented in appropriate section. ROS: Constitutional: Denies episodes of fever and night sweats. Neuro: Denies VALDIVIA, vertigo, dizziness and imbalance. Denies symptoms of neuropathy. HEENT: No recent change in voice, vision or hearing. Resp: No cough, wheeze or sputum production. CVS: See above. GI: Denies dysgeusia. Denies symptoms of stomatitis. Denies dysphagia and odynophagia. Denies reflux, n/v, change in bowel habits. : Denies dysuria or gross hematuria. No symptoms of bladder outlet obstruction. Endo: Denies hot flashes. Denies polyuria and polydipsia. Denies heat and cold intolerance. Musculoskeletal: Denies muscular pain. Derm: Denies rash. Denies jaundice and diffuse pruritis. Heme: See above. Psych: Normal mood. PHYSICAL EXAM: Vitals: Blood pressure 110/56, pulse 60, temperature 36.8 ?C (98.2 ?F), height 156 cm (5' 1.42 ), weight 59.4 kg (131 lb). Well-appearing and in no acute distress. EYES: Sclerae are anicteric bilaterally. NECK: Supple. RESPIRATORY: Inspiratory breath sounds are of normal intensity in all moss. No rales, wheezes or rhonchi. CARDIOVASCULAR: Rhythm is regular. Valve click. There is no gallop or murmur. ABDOMEN: The abdomen is nondistended. No palpable splenomegaly. Extremities: No swelling or edema. SKIN: No jaundice or rash. No petechiae. 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 No focal motor weakness. MUSCULOSKELETAL: No muscle wasting. LABS: Component Latest Ref Rng AND Units 06/02/2022 08/26/2022 WBC 3.70 - 11.00 k/uL 9.85 8.58 RBC 3.90 - 5.20 m/uL 3.61 (L) 3.49 (L) Hemoglobin 11.5 - 15.5 g/dL 10.5 (L) 10.3 (L) Hematocrit 36.0 - 46.0 % 32.6 (L) 31.7 (L) MCV 80.0 - 100.0 fL 90.3 90.8 MCH 26.0 - 34.0 pg 29.1 29.5 MCHC 30.5 - 36.0 g/dL 32.2 32.5 RDW-CV 11.5 - 15.0 % 14.3 15.1 (H) Platelet Count 150 - 400 k/uL 230 228 MPV 9.0 - 12.7 fL 10.5 11.4 Neut% % 77.8 75.1 Abs Neut (ANC) 1.45 - 7.50 k/uL 7.66 (H) 6.44 Lymph% % 11.7 13.5 Abs Lymph 1.00 - 4.00 k/uL 1.15 1.16 Louisa% % 8.2 9.6 Abs Louisa <0.87 k/uL 0.81 0.82 Eosin% % 1.4 1.0 Abs Eosin <0.46 k/uL 0.14 0.09 Baso% % 0.7 0.6 Abs Baso <0.11 k/uL 0.07 0.05 Immature Gran % % 0.2 0.2 IMMATURE GRANS (ABS) <0.10 k/uL <0.03 <0.03 NRBC /100 WBC 0.0 0.0 Absolute nRBC <0.01 k/uL <0.01 <0.01 DTYPE Auto Auto Protein, Total 6.3 - 8.0 g/dL 6.8 6.3 Albumin 3.9 - 4.9 g/dL 4.0 3.9 Calcium 8.5 - 10.2 mg/dL 9.6 8.8 Bilirubin, Total 0.2 - 1.3 mg/dL 0.7 0.6 Alkaline Phosphatase 34 - 123 U/L 102 87 AST 13 - 35 U/L 23 24 ALT 7 - 38 U/L 9 11 Glucose 74 - 99 mg/dL 106 (H) 90 BUN 7 - 21 mg/dL 23 (H) 23 (H) Creatinine 0.58 - 0.96 mg/dL 1.03 (H) 0.91 Sodium 136 - 144 mmol/L 138 138 Potassium 3.7 - 5.1 mmol/L 4.5 4.7 Chloride 97 - 105 mmol/L 104 105 CO2 22 - 30 mmol/L 26 25 Anion Gap 9 - 18 mmol/L 8 (L) 8 (L) eGFR >=60 mL/min/1.73mA? 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 [facility] 2022 History of Presen t illness Narrative Diagnosis: 1) Mechanical hemolytic anemia. HPI: Patient is a 72-year-old female who has a past medical history [...] was 94.9 and the MCH was 30.8. Iron studies from January 2016. Total iron was [...] Presents for ongoing hematologic management. Interim history: She offers no complaints today. Has her mother in a [place]--has dementia and had been caring for her at her home. Smoking 6-7 cigs a day. No exertion chest pain. Has noticed lately feeling MVP--feels like suction feeling in her heart. Had it frequently prior to mitral valve replacement. Lasts few seconds. Doesn't make her short of breath. Notices more if tired, but no particular trigger. PMH, medications and allergies as below personally reviewed by me today. Any changes documented in appropriate section. ROS: Constitutional: Denies episodes of fever and night sweats. Neuro: Denies VALDIVIA, vertigo, dizziness and imbalance. Denies symptoms of neuropathy. HEENT: No recent change in voice, vision or hearing. Resp: No cough, wheeze or sputum production. CVS: See above. GI: Denies dysgeusia. Denies symptoms of stomatitis. Denies dysphagia and odynophagia. Denies reflux, n/v, change in bowel habits. : Denies dysuria or gross hematuria. No symptoms of bladder outlet obstruction. Endo: Denies hot flashes. Denies polyuria and polydipsia. Denies heat and cold intolerance. Musculoskeletal: Denies muscular pain. Derm: Denies rash. Denies jaundice and diffuse pruritis. Heme: See above. Psych: Normal mood. PHYSICAL EXAM: Vitals: Blood pressure 110/56, pulse 60, temperature 36.8 C (98.2 F), height 156 cm (5' 1.42 ), weight 59.4 kg (131 lb). Well-appearing and in no acute distress. EYES: Sclerae are anicteric bilaterally. NECK: Supple. RESPIRATORY: Inspiratory breath sounds are of normal intensity in all moss. No rales, wheezes or rhonchi. CARDIOVASCULAR: Rhythm is regular. Valve click. There is no gallop or murmur. ABDOMEN: The abdomen is nondistended. No palpable splenomegaly. Extremities: No swelling or edema. SKIN: No jaundice or rash. No petechiae. 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 No focal motor weakness. MUSCULOSKELETAL: No muscle wasting. LABS: Component Latest Ref Rng & Units 06/02/2022 08/26/2022 WBC 3.70 - 11.00 k/uL 9.85 8.58 RBC 3.90 - 5.20 m/uL 3.61 (L) 3.49 (L) Hemoglobin 11.5 - 15.5 g/dL 10.5 (L) 10.3 (L) Hematocrit 36.0 - 46.0 % 32.6 (L) 31.7 (L) MCV 80.0 - 100.0 fL 90.3 90.8 MCH 26.0 - 34.0 pg 29.1 29.5 MCHC 30.5 - 36.0 g/dL 32.2 32.5 RDW-CV 11.5 - 15.0 % 14.3 15.1 (H) Platelet Count 150 - 400 k/uL 230 228 MPV 9.0 - 12.7 fL 10.5 11.4 Neut% % 77.8 75.1 Abs Neut (ANC) 1.45 - 7.50 k/uL 7.66 (H) 6.44 Lymph% % 11.7 13.5 Abs Lymph 1.00 - 4.00 k/uL 1.15 1.16 Louisa% % 8.2 9.6 Abs Louisa <0.87 k/uL 0.81 0.82 Eosin% % 1.4 1.0 Abs Eosin <0.46 k/uL 0.14 0.09 Baso% % 0.7 0.6 Abs Baso <0.11 k/uL 0.07 0.05 Immature Gran % % 0.2 0.2 IMMATURE GRANS (ABS) <0.10 k/uL <0.03 <0.03 NRBC /100 WBC 0.0 0.0 Absolute nRBC <0.01 k/uL <0.01 <0.01 DTYPE Auto Auto Protein, Total 6.3 - 8.0 g/dL 6.8 6.3 Albumin 3.9 - 4.9 g/dL 4.0 3.9 Calcium 8.5 - 10.2 mg/dL 9.6 8.8 Bilirubin, Total 0.2 - 1.3 mg/dL 0.7 0.6 Alkaline Phosphatase 34 - 123 U/L 102 87 AST 13 - 35 U/L 23 24 ALT 7 - 38 U/L 9 11 Glucose 74 - 99 mg/dL 106 (H) 90 BUN 7 - 21 mg/dL 23 (H) 23 (H) Creatinine 0.58 - 0.96 mg/dL 1.03 (H) 0.91 Sodium 136 - 144 mmol/L 138 138 Potassium 3.7 - 5.1 mmol/L 4.5 4.7 Chloride 97 - 105 mmol/L 104 105 CO2 22 - 30 mmol/L 26 25 Anion Gap 9 - 18 mmol/L 8 (L) 8 (L) eGFR >=60 mL/min/1.73m 59 (L) 68 Retic % 0.4 - 2.0 % 2.8 (H) 3.6 (H) Abs Retic 0.018 - 0.100 M/uL 0.100 0.126 (H) LD 135 - 214 U/L 834 (H) 868 (H) Haptoglobin 31 - 238 mg/dL <10 (L) <10 (L) DAGT, Polyspecific AHG Negative Negative ASSESSMENT/PLAN: (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 -Patient has history of mechanical mitral valve replacement. Previously discussed with Dr. Keating. Since that she remains asymptomatic and well compensated, no indication for surgical intervention at this time. -Again addressed smoking cessation again today. She is more psychologically motivated to quit and has cut down to nearly 1/2 ppd. -Reviewed labs with her. Stable Hgb overall. Plan: -Continue iron and folic acid supplementation. -She will continue regular follow-up with Dr. Keating. -Will continue to address smoking cessation at future visits. -Lab work in 3 months. -Office visit in 6 months. Portions of this documentation were copied and pasted from previous office visit notes in order to provide a cohesive continuity of the history. The note has been reviewed and edited and updated as necessary. During this patient visit I have spent approximately 10 minutes out of 20 in counseling regarding smoking cessation, treatment options and test results and coordinating care. Lui Wilkerson DO documented in this encounter [facility] 03-02-2022 History of Presen t illness Narrative Diagnosis: 1) Mechanical hemolytic anemia. HPI: Patient is a 71-year-old female who has a past medical history [...] was 94.9 and the MCH was 30.8. Iron studies from January 2016. Total iron was [...] Presents for ongoing hematologic management. Interim history: She offers no complaints today. She smoking more than half a pack a day of cigarettes at this point. She attributes this to a lot of stress going on with her family. She has a granddaughter who is anorexic and just started college and her mother has developed dementia and she has been caring for her at the [place] [facility] quite a bit. She does not have any chest pain, pressure or tightness at rest or with exertion. She denies shortness of breath at rest and with moderate exertion. She has not had any unusual bleeding or unexplained bruising. She has generalized fatigue. Appetite is normal. PMH, medications and allergies as below personally reviewed by me today. Any changes documented in appropriate section. ROS: Constitutional: Denies episodes of fever and night sweats. Neuro: Denies VALDIVIA, vertigo, dizziness and imbalance. Denies symptoms of neuropathy. HEENT: No recent change in voice, vision or hearing. Resp: No cough, wheeze or sputum production. CVS: See above. GI: Denies dysgeusia. Denies symptoms of stomatitis. Denies dysphagia and odynophagia. Denies reflux, n/v, change in bowel habits. : Denies dysuria or gross hematuria. No symptoms of bladder outlet obstruction. Endo: Denies hot flashes. Denies polyuria and polydipsia. Denies heat and cold intolerance. Musculoskeletal: Denies muscular pain. Derm: Denies rash. Denies jaundice and diffuse pruritis. Heme: See above. Psych: Normal mood. PHYSICAL EXAM: Vitals: Blood pressure 106/53, pulse 63, temperature 36.6 C (97.8 F), height 153.5 cm (5' 0.43 ), weight 58.3 kg (128 lb 8 oz), SpO2 96 %. Well-appearing and in no acute distress. EYES: Sclerae are anicteric bilaterally. NECK: Supple. RESPIRATORY: Inspiratory breath sounds are of normal intensity in all moss. No rales, wheezes or rhonchi. CARDIOVASCULAR: Rhythm is regular. Valve click. There is no gallop or murmur. ABDOMEN: The abdomen is nondistended. No palpable splenomegaly. Extremities: No swelling or edema. SKIN: No jaundice or rash. No petechiae. 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 No focal motor weakness. MUSCULOSKELETAL: No muscle wasting. LABS: Component Latest Ref Rng & Units 03/18/2021 09/15/2021 12/09/2021 03/02/2022 WBC 3.70 - 11.00 k/uL 8.26 9.26 9.13 9.07 RBC 3.90 - 5.20 m/uL 3.81 (L) 3.61 (L) 3.40 (L) 3.53 (L) Hemoglobin 11.5 - 15.5 g/dL 11.3 (L) 10.8 (L) 10.1 (L) 10.6 (L) Hematocrit 36.0 - 46.0 % 34.1 (L) 33.4 (L) 31.4 (L) 32.4 (L) MCV 80.0 - 100.0 fL 89.5 92.5 92.4 91.8 MCH 26.0 - 34.0 pg 29.7 29.9 29.7 30.0 MCHC 30.5 - 36.0 g/dL 33.1 32.3 32.2 32.7 RDW-CV 11.5 - 15.0 % 14.3 14.6 14.6 13.9 Platelet Count 150 - 400 k/uL 232 210 232 235 MPV 9.0 - 12.7 fL 10.7 10.3 10.8 11.2 Neut% % 74.1 75.8 70.9 74.3 Abs Neut (ANC) 1.45 - 7.50 k/uL 6.11 7.01 6.46 6.74 Lymph% % 13.8 14.0 17.3 13.9 Abs Lymph 1.00 - 4.00 k/uL 1.14 1.30 1.58 1.26 Louisa% % 9.6 8.2 9.6 9.4 Abs Louisa <0.87 k/uL 0.79 0.76 0.88 (H) 0.85 Eosin% % 1.9 1.4 1.4 1.5 Abs Eosin <0.46 k/uL 0.16 0.13 0.13 0.14 Baso% % 0.6 0.4 0.5 0.6 Abs Baso <0.11 k/uL 0.05 0.04 0.05 0.05 Immature Gran % % 0.2 0.3 0.3 IMMATURE GRANS (ABS) <0.10 k/uL <0.03 0.03 0.03 NRBC /100 WBC 0.0 0.0 0.0 Absolute nRBC <0.01 k/uL <0.01 <0.01 <0.01 <0.01 DTYPE Auto Auto Auto Nucleated Reds 0 /100 WBC 0.0 Diff Type Auto Diff Retic % 0.4 - 2.0 % 3.6 (H) 3.5 (H) Abs Retic 0.018 - 0.100 M/uL 0.122 (H) 0.125 (H) ASSESSMENT/PLAN: (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 -Patient has history of mechanical mitral valve replacement. Previously discussed with Dr. Keating. Since that she remains asymptomatic and well compensated, no indication for surgical intervention at this time. -Again addressed smoking cessation again today. She is still not psychologically motivated enough to quit and continues to smoke for alleviation of stress and anxiety (mother has dementia and is in NH). -Reviewed labs with her. Stable Hgb. Plan: -Continue iron and folic acid supplementation. -She will continue regular follow-up with Dr. Keating. -Will continue to address smoking cessation at future visits. -Lab work in 3 months. -Office visit in 6 months. Portions of this documentation were copied and pasted from previous office visit notes in order to provide a cohesive continuity of the history. The note has been reviewed and edited and updated as necessary. During this patient visit I have spent approximately 10 minutes out of 20 in counseling regarding smoking cessation, treatment options and test results and coordinating care. Lui Wilkerson DO documented in this encounter [facility] 01-16-2022 Miscellaneous Notes Patient's request for medication is as follows Signed Prescriptions Disp Refills folic acid 1 mg tablet 90 tablet 3 Sig: TAKE 1 TABLET BY MOUTH EVERY DAY MAUREEN: No Authorizing Provider: JOSH CURRAN Order entered - please phone pharmacy and notify patient. Josh Curran MD Patient has been identified by name and date of : Yes Pending Prescriptions Disp Refills FOLIC ACID 1 MG TABLET 90 tablet 3 Sig: TAKE 1 TABLET BY MOUTH EVERY DAY MAUREEN: Yes RX INSTRUCTIONS: Patient aware RX will be sent to pharmacy. No need to notify patient. Shilpi Reardon LPN documented in this encounter [facility] 12-11-2021 Miscellaneous Notes Pt. Notified of results, voiced understanding. Copy of labs over the past year and note from Dr. Wilkerson faxed to Dr. Keating as directed. Shilpi Reardon LPN Can let her know that her anemia is slightly worse than in the past. This is due to the heart valve causing a breakdown of the red blood cells. She still compensating fairly well. My plan currently is to recheck as scheduled in February. Please fax a copy of this note and her lab work over the last year in grid form to Dr. Keating. Lui Wilkerson DO documented in this encounter [facility] documented as of this encounter (statuses as of 12/05/2021) [facility] History of Past illness Narrative* Problem Noted Date Resolved Date Fall from ground level 08/23/2018 9 Trauma 08/23/2018 08/25/2018 Absolute anemia 10/27/2017 10/27/2017 documented as of this encounter (statuses as of 12/11/2021) [address]-2019 History of Past illness Narrative* Problem Noted Date Resolved Date Fall from ground level 08/23/2018 9 Trauma 08/23/2018 08/25/2018 Absolute anemia 10/27/2017 10/27/2017 documented as of this encounter (statuses as of 01/16/2022) [address]2019 History of Past illness Narrative* Problem Noted Date Resolved Date Fall from ground level 08/23/2018 9 Trauma 08/23/2018 08/25/2018 Absolute anemia 10/27/2017 10/27/2017 documented as of this encounter (statuses as of 03/02/2022) [address]2019 History of Past illness Narrative* Problem Noted Date Resolved Date Fall from ground level 08/23/2018 9 Trauma 08/23/2018 08/25/2018 Absolute anemia 10/27/2017 10/27/2017 documented as of this encounter (statuses as of 06/02/2022) [address]2019 History of Past illness Narrative* Problem Noted Date Resolved Date Fall from ground level 08/23/2018 9 Trauma 08/23/2018 08/25/2018 Absolute anemia 10/27/2017 10/27/2017 documented as of this encounter (statuses as of 08/26/2022) [address]2019 History of Past illness Narrative* Problem Noted Date Resolved Date Fall from ground level 08/23/2018 9 Trauma 08/23/2018 08/25/2018 Absolute anemia 10/27/2017 10/27/2017 documented as of this encounter (statuses as of 09/04/2022) [address]2019 History of Past illness Narrative* Problem Noted Date Diagnosed Date Resolved Date Fall from ground level 08/23/201808/25 Trauma 08/23/2018 08/25/2018 Absolute anemia 10/27/2017 10/27/2017 documented as of this encounter (statuses as of 03/02/2023) [place] [address] History of Past illness Narrative* Problem Noted Date Diagnosed Date Resolved Date Fall from ground level 08/23/201808/25 Trauma 08/23/2018 08/25/2018 Absolute anemia 10/27/2017 10/27/2017 documented as of this encounter (statuses as of 03/02/2023) [address]2019 History of Past illness Narrative* Problem Noted Date Diagnosed Date Resolved Date Fall from ground level 08/23/201808/25 Trauma 08/23/2018 08/25/2018 Absolute anemia 10/27/2017 10/27/2017 documented as of this encounter (statuses as of 03/10/2023) [address]2019 History of Past illness Narrative* Problem Noted Date Diagnosed Date Resolved Date Fall from ground level 08/23/201808/25 Trauma 08/23/2018 08/25/2018 Absolute anemia 10/27/2017 10/27/2017 documented as of this encounter (statuses as of 05/16/2023) [address]2019 History of Past illness Narrative* Problem Noted Date Diagnosed Date Resolved Date Fall from ground level 08/23/201808/25 Trauma 08/23/2018 08/25/2018 Absolute anemia 10/27/2017 10/27/2017 documented as of this encounter (statuses as of 06/02/2023) [address]2019 History of Past illness Narrative* Problem Noted Date Diagnosed Date Resolved Date Fall from ground level 08/23/201808/25 Trauma 08/23/2018 08/25/2018 Absolute anemia 10/27/2017 10/27/2017 documented as of this encounter (statuses as of 06/07/2023) [facility] Diagnosis 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 [facility] 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 [facility] Diagnosis 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 [facility] Diagnosis 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 [facility] Diagnosis 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 documented in this encounter [facility] note* Diagnosis Lung nodule- Primary Solitary pulmonary nodule 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 Smoker Tobacco use disorder documented in this encounter [facility] note* Diagnosis Lung nodules- Primary Other nonspecific abnormal finding of lung field documented in this encounter [facility] note* Diagnosis Lung nodule Solitary pulmonary nodule Smoker Tobacco use disorder documented in this encounter [facility] note* Diagnosis Lung nodule- Primary Solitary pulmonary nodule 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 documented in this encounter [facility] note* Diagnosis Lung nodule Solitary pulmonary nodule 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 documented in this encounter [facility] Summary Purpose Family History No Family History Records FoundNo Family History Records FoundNo Family History Records FoundNo Family History Records Found Advance Directives No Advanced Directives Records FoundDocuments on File Type Date Recorded 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 Patients with a score of 40 or above are considered highest risk for readmission. Specific patient level drivers will be listed at the bottom of the summary. Admission Information Admission Information ADMIT DATE: 08/19/2018 DISCHARGE DATE: 08/25/18 MY DOCTORS AND MEDICAL TEAM: My Main Hospital Doctor: Yoni Nowak Primary Care Provider: Tank Treadwell MD My Medical Team Members: Treatment Team: Attending Provider: Yoni Nowak Consulting: Allen Walsh Consulting: Angelica Zavala Consulting: Rory Whalen (more content not included)... Reason for Referral Specialty Diagnoses / Procedures Referred By Sher t Referred To Contact CT IMAGING Diagnoses Lung nodule Smoker Procedures CT CHEST WO IVCON DIAGNOSTIC COMPUTED TOMOGRAPHY THORAX W/O CNTRST Lui Wilkerson, DO [address] [place] [address] [place] [address] Referral ID Status Reason Start Date Expiration Date Visits Requested Visits Authorized [id number] Pending Review Auto-Generat ed Referral 03/01/2023 03/30/2024 1 1 Specialty Diagnoses / Procedures Referred By Contac t Referred To Contact CT IMAGING Diagnoses Lung nodules Procedures CT CHEST WO IVCON DIAGNOSTIC COMPUTED TOMOGRAPHY THORAX W/O CNTRST Lui Wilkerson, DO [address] [place] [address] [place] [address] Referral ID Status Reason Start Date Expiration Date Visits Requested Visits Authorized [id number] Authorized Auto-Generat ed Referral 03/09/2023 04/07/2024 1 1 Referral ID Status Reason Start Date Expiration Date V isits Requested Visits Authorized [id number] Closed Auto-Generate d Referral 03/01/2023 03/30/2024 1 1 Additional Source Comments INFORMATION SOURCE (unrecogn ized section and content) DATE CREATED AUTHOR AUTHOR'S ORGANIZ ATION 03/01/2019 [facility] DATE CREATED AUTHOR AUTHOR'S ORGANIZ ATION 09/25/2020 [facility] DATE CREATED AUTHOR AUTHOR'S ORGANIZ ATION 07/01/2023 [facility] Source Comments (unrecognize d section and content) In the event this informatio n is protected by the Federal Confidentiality of Alcohol and Drug Abuse Patient Records regulations: The Federal rules restrict any use of the information to criminally investigate or prosecute any alcohol or drug abuse patient.[facility] event this information is protected by the Federal Confidentiality of Alcohol and Drug Abuse Patient Records regulations: The Federal rules restrict any use of the information to criminally investigate or prosecute any alcohol or drug abuse patient.[facility] the event this information is protected by the Federal Confidentiality of Alcohol and Drug Abuse Patient Records regulations: The Federal rules restrict any use of the information to criminally investigate or prosecute any alcohol or drug abuse patient.[facility] the event this information is protected by the Federal Confidentiality of Alcohol and Drug Abuse Patient Records regulations: The Federal rules restrict any use of the information to criminally investigate or prosecute any alcohol or drug abuse patient.[facility] the event this information is protected by the Federal Confidentiality of Alcohol and Drug Abuse Patient Records regulations: The Federal rules restrict any use of the information to criminally investigate or prosecute any alcohol or drug abuse patient.[facility] the event this information is protected by the Federal Confidentiality of Alcohol and Drug Abuse Patient Records regulations: The Federal rules restrict any use of the information to criminally investigate or prosecute any alcohol or drug abuse patient.[facility] the event this information is protected by the Federal Confidentiality of Alcohol and Drug Abuse Patient Records regulations: The Federal rules restrict any use of the information to criminally investigate or prosecute any alcohol or drug abuse patient.[facility] the event this information is protected by the Federal Confidentiality of Alcohol and Drug Abuse Patient Records regulations: The Federal rules restrict any use of the information to criminally investigate or prosecute any alcohol or drug abuse patient.[facility] the event this information is protected by the Federal Confidentiality of Alcohol and Drug Abuse Patient Records regulations: The Federal rules restrict any use of the information to criminally investigate or prosecute any alcohol or drug abuse patient.[facility] the event this information is protected by the Federal Confidentiality of Alcohol and Drug Abuse Patient Records regulations: The Federal rules restrict any use of the information to criminally investigate or prosecute any alcohol or drug abuse patient.[facility] the event this information is protected by the Federal Confidentiality of Alcohol and Drug Abuse Patient Records regulations: The Federal rules restrict any use of the information to criminally investigate or prosecute any alcohol or drug abuse patient.[facility] the event this information is protected by the Federal Confidentiality of Alcohol and Drug Abuse Patient Records regulations: The Federal rules restrict any use of the information to criminally investigate or prosecute any alcohol or drug abuse patient.[facility] the event this information is protected by the Federal Confidentiality of Alcohol and Drug Abuse Patient Records regulations: The Federal rules restrict any use of the information to criminally investigate or prosecute any alcohol or drug abuse patient.[facility] the event this information is protected by the Federal Confidentiality of Alcohol and Drug Abuse Patient Records regulations: The Federal rules restrict any use of the information to criminally investigate or prosecute any alcohol or drug abuse patient.[facility] Care Teams (unrecognized sec tion and content) Rehab Director Occupational Therapist Relationship Specialty Start Date End Date Mile, Tank Chi PCP - General Gerontology 01/27/17 Rehab Director Occupational Therapist Relationship Specialty Start Date End Date Mile, Tank Chi PCP - General Gerontology 01/27/17 Rehab Director Occupational Therapist Relationship Specialty Start Date End Date Mile, Tank Chi PCP - General Gerontology 01/27/17 Rehab Director Occupational Therapist Relationship Specialty Start Date End Date Mile, Tank Chi PCP - General Gerontology 01/27/17 Rehab Director Occupational Therapist Relationship Specialty Start Date End Date Mile, Tank Chi PCP - General Gerontology 01/27/17 Rehab Director Occupational Therapist Relationship Specialty Start Date End Date Mile, Tank Chi PCP - General Gerontology 01/27/17 Liu Wilkerson DO [address] [place] [address] Hematology/Oncology 09/03/22 Zuri, [place] S [address] [place] [address] Cardiology 09/03/22 Rehab Director Occupational Therapist Relationship Specialty Start Date End Date Tank Treadwell Chi PCP - General Gerontology 01/27/17 Lui Wilkerson DO [address] [place] [address] Hematology/Oncology 09/03/22 Zuri, [place] S [address] [place] [address] Cardiology 09/03/22 Rehab Director Occupational Therapist Relationship Specialty Start Date End Date Tank Treadwell Chi PCP - General Gerontology 01/27/17 Lui Wilkerson DO [address] [place] [address] Hematology/Oncology 09/03/22 Zuri, [place] S [address] [place] [address] Cardiology 09/03/22 Rehab Director Occupational Therapist Relationship Specialty Start Date End Date Tank Treadwell Chi PCP - General Gerontology 01/27/17 Lui Wilkerson DO [address] [place] [address] Hematology/Oncology 09/03/22 Zuri, Jack S [address] [place] [address] Cardiology 09/03/22 Rehab Director Occupational Therapist Relationship Specialty Start Date End Date Tank Teradwell Chi PCP - General Gerontology 01/27/17 Lui Wilkerson DO [address] [place] [address] Hematology/Oncology 09/03/22 aJck Keating MD [address] [place] [address] Cardiology 09/03/22 Rehab Director Occupational Therapist Relationship Specialty Start Date End Date Tank Treadwell Chi PCP - General Gerontology 01/27/17 Lui Wilkerson DO [address] [place] [address] Hematology/Oncology 09/03/22 Jack Keating MD [address] [place] [address] Cardiology 09/03/22 Rehab Director Occupational Therapist Relationship Specialty Start Date End Date Tank Treadwell Chi PCP - General Gerontology 01/27/17 Lui Wilkerson DO [address] [place] [address] Hematology/Oncology 09/03/22 Jack Keating MD [address] [place], [place] [address] Cardiology 09/03/22 Rehab Director Occupational Therapist Relationship Specialty Start Date End Date Tank Treadwell Chi PCP - General Gerontology 01/27/17 Lui Wilkerson DO [address] [place] [address] Hematology/Oncology 09/03/22 Jack Keating MD [address] [place] [address] Cardiology 09/03/22 Reason for Visit (unrecogniz ed section and content) Reason Comments Refill Request Reason Comments Established Patient Reason Comments Established Patient 6 mo with labs Reason Comments Established Patient Reason Comments Follow Up Reason Comments Results CT chest Reason Comments Radiology CT Specialty Diagnoses / Procedures Referred By Contac t Referred To Contact CT IMAGING Diagnoses Lung nodule Smoker Procedures CT CHEST WO IVCON DIAGNOSTIC COMPUTED TOMOGRAPHY THORAX W/O CNTRST Lui Wilkerson DO [address] [place] [address] [place] [address] Referral ID Status Reason Start Date Expiration Date V isits Requested Visits Authorized [id number] Closed Auto-Generate d Referral 03/01/2023 03/30/2024 1 1 FOR RECORDS PERTAINING TO PATIENTS WHO ARE OR HAVE BEEN ENROLLED IN A CHEMICAL DEPENDENCY/SUBSTANCEABUSE PROGRAM, SOME INFORMATION MAY BE OMITTED. This clinical summary was aggregated from multiple sources. Caution should be exercised in using it in the provision of clinical care. This summary normalizes information from multiple sources, and as a consequence, information in this document may materially change the coding, format and clinical context of patient data. In addition, data may be omitted in some cases. CLINICAL DECISIONS SHOULD BE BASED ON THE PRIMARY CLINICAL RECORDS. [email or web address] provides no warranty or guarantee of the accuracy or completeness of information in this document.
== END | disposition home or self-care (01) ==
LOC: PSN 13:51
PROVIDERS: PCP Family Medicine Geriatric Medicine; Referring Provider Family Medicine Geriatric Medicine; Visit Provider Family Medicine Geriatric Medicine
DX: R68.83 Chills (without fever) (principal)
CPT/HCPCS: 87631

== ENCOUNTER 2023-07-29 14:40 | Outpatient (RCR) | payer MEDICARE, SELFPAY ==
[2023-07-11 20:57] VITALS: BMI 26.7
[2023-07-26 13:43] LABS: International Normalized Ratio 1.5
[2023-07-29 16:10] LABS: International Normalized Ratio 2.9; Prothrombin Time (Protime)PT. 30.3 SECONDS (11.7-14.9)
== END 2023-07-29 18:00 | disposition home or self-care (01) ==
LOC: LAB 14:40
PROVIDERS: Family Provider Family Medicine Geriatric Medicine; PCP Family Medicine Geriatric Medicine; Referring Provider Internal Medicine Cardiovascular Disease; Visit Provider Internal Medicine Cardiovascular Disease
DX: Z79.01 Long term (current) use of anticoagulants (principal); Z95.2 Presence of prosthetic heart valve
CPT/HCPCS: 36415; 85610

== ENCOUNTER 2023-08-10 02:54 | Emergency (ER) | payer MEDICARE, SELFPAY ==
[2023-08-10 02:55] VITALS: BP 104/66; PULSE 72; RESP 16; TEMP 36.9; O2SAT 97; BMI 25.2
[2023-08-10 03:20] LABS: International Normalized Ratio 2.1; Prothrombin Time (Protime)PT. 23.8 SECONDS (11.7-14.9)
--- OUTSIDE RECORDS SUMMARY | 2023-08-10 03:56 | XMS RPT_ITS | CCD ---
Author Name Unknown Address [address] [place] [address] Organization [facility] Care Team Providers Care Sr. Merchandise Planner Name Role Phone Shaylee RN, Sheyla A [...] Provider Mile, Tank Chi Primary Care Provider Lui Wilkerson DO Unavailable Zuri, Jack S [...] [ADHESIVE BANDAGES] allergy to substance 1 Rash [facility] Work Phone: [phone] (13 sources) PARoxetine drug allergy 1 many side effects [facility] Work Phone: [phone] Medications Completed/Discontinued Medications Medication Drug Class(es) Dates Sig (Normalized) Sig (Original) acetaminophen 500 mg / diphenhydrAMINE hydrochloride 25 mg oral tablet (20 sources) Histamine-1 Receptor Antagonist Start: 04-07-2011 End: 03-31-2016 take 1 tablet by mouth at bedtime TYLENOL PM EXTRA STRENGTH 500-25 MG TABS One tablet by mouth at bedtime. DIPHENHYDRAMINE-A PAP (SLEEP) [id number] Siobhan Stacy RN Problems Active Problems Problem Classification Problem Date Documented Date Episodic/Chronic Acute cerebrovascular disease (14 sources) Cerebral hemorrhage; Translations: [Nontraumatic intracerebral hemorrhage, unspecified] Onset: 08-19-2018 08-25-2018 Chronic Cardiac dysrhythmias (20 sources) Premature beats; Translations: [Ventricular premature beats] Onset: 11-17-2010 Resolved: 03-26-2016 11-17-2010 Chronic Coronary atherosclerosis and other heart disease (20 sources) Atherosclerotic heart disease of [place] coronary artery without angina pectoris; Translations: [Coronary [...] Unclassified (6 sources) Warfarin therapy started; Translations: [snf (current) use of anticoagulants] Onset: 05-24-2015 05-24-2015 [...] (current) use of other medications; Translations: [Other long term care social worker (current) drug therapy] Onset: 07-03-2011 07-03-2011 Episodic Other aftercare (14 sources) Long-term current use of anticoagulant; Translations: [assistant terminal manager (current) use of anticoagulants] Onset: 08-23-2018 08-25-2018 [...] 03-01-2023 16:08-0400 Body height 154 cm Lui [employer] DO Work Phone: [facility] 03-01-2023 16:08-0400 Body temperature 97.81 [degF] Lui [employer] DO Work Phone: [facility] 03-01-2023 16:08-0400 Body weight 59.19 kg Lui Masci DO Work Phone: [facility] 03-01-2023 16:08-0400 Diastolic blood pressure 49 mm[Hg] Lui Masci DO Work Phone: [facility] 03-01-2023 16:08-0400 Heart rate 62 /min Lui [employer] DO Work Phone: [facility] 03-01-2023 16:08-0400 SaO2% (BldA) [Mass fraction] 98 % Lui Masci DO Work Phone: [facility] 03-01-2023 16:08-0400 Systolic blood pressure 73 mm[Hg] Lui Masci DO Work Phone: [facility] 2022 15:41-0500 Body height 156 cm Lui Masci DO Work Phone: [facility] 2022 15:41-0500 Body temperature 98.2 [degF] Lui Masci DO Work Phone: [facility] 2022 15:41-0500 Body weight 59.42 kg Lui Masci DO Work Phone: [facility] 2022 15:41-0500 Diastolic blood pressure 56 mm[Hg] Lui Masci DO Work Phone: [facility] 2022 15:41-0500 Heart rate 60 /min Lui Masci DO Work Phone: [facility] 2022 15:41-0500 Systolic blood pressure 110 mm[Hg] Lui Masci DO Work Phone: [facility] 03-02-2022 15:41-0400 Body height 153.5 cm Lui Masci DO Work Phone: [facility] 03-02-2022 15:41-0400 Body temperature 97.81 [degF] Lui Masci DO Work Phone: [facility] 03-02-2022 15:41-0400 Body weight 58.29 kg Lui Masci DO Work Phone: [facility] 03-02-2022 15:41-0400 Diastolic blood pressure 53 mm[Hg] Lui Masci DO Work Phone: [facility] 03-02-2022 15:41-0400 Heart rate 63 /min Lui Masci DO Work Phone: [facility] 03-02-2022 15:41-0400 SaO2% (BldA) [Mass fraction] 96 % Lui Masci DO Work Phone: [facility] 03-02-2022 15:41-0400 Systolic blood pressure 106 mm[Hg] Lui Masci DO Work Phone: [facility] 03-30-2017 13:48-0400 BMI (Body Mass Index) 26.26 kg/m2 [facility] Work Phone: 03-30-2017 13:48-0400 BP Diastolic 44 mm[Hg] [facility] Work Phone: 03-30-2017 13:48-0400 BP Systolic 102 mm[Hg] [facility] Work Phone: 03-30-2017 13:48-0400 Height 154.94 cm [facility] Work Phone: 03-30-2017 13:48-0400 Pulse (Heart Rate) 60 /min [facility] Work Phone: 03-30-2017 13:48-0400 Respiratory Rate 20 /min [facility] Work Phone: 03-30-2017 13:48-0400 Weight 63.05 kg [facility] Work Phone: 09-28-2016 12:58-0400 BMI (Body Mass Index) 26.26 kg/m2 Sheyla June RN [facility] Work Phone: 09-28-2016 12:58-0400 Body weight 63.05 kg Argelia Cruz RN [facility] Work Phone: 09-28-2016 12:58-0400 BP Diastolic 48 mm[Hg] Sheyla June RN [facility] Work Phone: 09-28-2016 12:58-0400 BP Systolic 100 mm[Hg] Sheyla June RN [facility] Work Phone: 09-28-2016 12:58-0400 Height 154.94 cm Sheyla June RN [facility] Work Phone: 09-28-2016 12:58-0400 Pulse (Heart Rate) 82 /min Sheyla June RN [facility] Work Phone: 09-28-2016 12:58-0400 Respiratory Rate 18 /min Sheyla June RN [facility] Work Phone: 09-28-2016 12:58-0400 Weight 63.05 kg Sheyla June RN [facility] Work Phone: 03-31-2016 11:24-0400 BP Diastolic 48 mm[Hg] Sheyla June RN [facility] Work Phone: [phone] 11:24-0400 BP Systolic 100 mm[Hg] Sheyla June RN [facility] Work Phone: 03-31-2016 11:24-0400 BSA (Body Surface Area) 1.57 m2 Sheyla June RN [facility] Work Phone: 11-20-2015 14:52-0400 Pulse Oximetry 98 % Sheyla June RN [facility] Work Phone: 10-16-2015 11:38-0400 Body Temperature 98.2 [degF] Sheyla June RN [facility] Work Phone: 10-16-2015 11:38-0400 Pulse Oximetry 97 % Sheyla June RN [facility] Work Phone: 02-21-2014 16:05-0400 Heart rate 416 ms [facility] Work Phone: 02-21-2014 16:05-0400 Heart rate 65 /min Argelia Cruz RN [facility] Work Phone: Encounters Encounter Date Encounter Type Care Provider Facility Start: 06-28-2023 ambulatory LUI WILKERSON Facility:[facility] Start: 06-07-2023 Telephone encounter Lui [...] PA-C Work Phone: Start: 09-28-2016 End: 09-28-2016 SALES CONTRACT ADMINISTRATOR Argelia Eid PA-C Work Phone: Start: 09-28-2016 [...] PA-C Work Phone: Start: 12-31-2015 End: 09-23-2016 SALES CONTRACT ADMINISTRATOR Argelia Eid PA-C Work Phone: Start: 12-31-2015 End: 09-23-2016 Follow Up Appt 3 months Argelia leblanc PA-C Work Phone: Start: 12-31-2015 End: 01-01-2016 *BMP Argelia Eid PA-C Work Phone: Start: 12-31-2015 End: 01-01-2016 *CBC with Differential Argelia gil PA-C Work Phone: Start: 12-31-2015 End: 09-23-2016 Chest x-ray Argelia Eid PA-C Work Phone: Start: 12-31-2015 End: 09-23-2016 SALES CONTRACT ADMINISTRATOR Argelia Eid PA-C Work Phone: Start: 12-31-2015 [...] months Chrissy Cason Start: 06-28-2015 End: 06-28-2015 [facility] Jack Keating MD Start: 05-24-2015 End: 05-24-2015 [...] Jack Keating MD Start: 12-11-2014 End: 12-11-2014 SALES CONTRACT ADMINISTRATOR Argelia Eid PA-C Work Phone: Start: 12-11-2014 End: 12-12-2014 Documentation of current medications Argelia Eid PA-C Work Phone: Start: 12-11-2014 End: 12-11-2014 Follow Up Appt 6 months Argelia leblanc PA-C Work Phone: Start: 12-11-2014 End: 12-12-2014 Smoking cessation education Argelia Laureano PA-C Work Phone: Start: 12-11-2014 End: 12-11-2014 SALES CONTRACT ADMINISTRATOR Argelia Eid PA-C Work Phone: Start: 12-11-2014 [...] PA-C Work Phone: Start: 02-21-2014 End: 02-21-2014 SALES CONTRACT ADMINISTRATOR Argelia Eid PA-C Work Phone: Start: 02-21-2014 [...] PA-C Work Phone: Start: 02-21-2014 End: 02-21-2014 SALES CONTRACT ADMINISTRATOR Argelia Eid PA-C Work Phone: Start: 02-21-2014 [...] ADOLFO Keating MD Start: 02-13-2013 End: 02-13-2013 SALES CONTRACT ADMINISTRATOR Argelia Eid PA-C Work Phone: Start: 02-13-2013 End: 02-13-2013 Ecg routine ecg w/least 12 lds w/i&r Argelia Eid PA-C Work Phone: Start: 02-13-2013 End: 02-13-2013 Follow Up Appt 6 months Argelia leblanc PA-C Work Phone: Start: 02-13-2013 End: 02-13-2013 SALES CONTRACT ADMINISTRATOR Argelia Eid PA-C Work Phone: Start: 02-13-2013 [...] Author Start: 06-02-2026 Diabetes Screening Diabetes Screenin [facility] Start: 02-22-2026 DIABETES SCREEN DIABETES SCREEN [facility] Start: 02-22-2026 Diabetes Screening Diabetes Screenin g [facility] Start: 08-26-2025 DIABETES SCREEN DIABETES SCREEN [facility] Start: 06-02-2025 DIABETES SCREEN DIABETES SCREEN [facility] Start: 03-02-2025 DIABETES SCREEN DIABETES SCREEN [facility] Start: 12-09-2024 DIABETES SCREEN DIABETES SCREEN [facility] Start: 09-15-2024 DIABETES SCREEN DIABETES SCREEN [facility] Start: 03-05-2024 Influenza [facility] Start: 03-12-2023 Covid-19 Vaccine ( season) Covid-19 Vaccine () [facility] Start: 03-12-2023 Influenza vaccination C [facility] Start: 08-26-2022 End: 10-26-2022 CBC W Auto Differential panel - Blood CBC + DIFF Lab STAT Other non-autoimmune hemolytic anemias (HCC) Expected: 08/26/2022, Expires: 10/26/2022 [facility] Work Phone: Immunizations Immunization Date Immunization Notes Care Provider Cyril smith 04-08-2021 influenza virus vacc ine, unspecified formulation Ct (I-Stat) Work Phone: [facility] Payers Date Payer Category Payer Medicare [employer] MEDICARE A ETNA MEDICARE PPO [id number] 2021-Present [phone] [address] [place] [address] PPO [id number] 2021 Medicare A[employer]NA MEDICARE A ETNA MEDICARE PPO [id number] 2021-Present [phone] [address] [place] [address] PPO [id number] 2021 Medicare [id number] 1950 Unknown [id number] 1950 Unknown [id number] 1950 Unknown [id number] Unknown [id number] Unknown [id number] Social History Date Type Detail Facility Start: 01-27-2017 End: 10-26-2018 Tobacco smoking status NHIS Occasional tobacco smoker [facility] History of tobacco use Cigarette Smoker C [facility] Start: 01-27-2017 End: 11-30-2022 Cigarettes smoked current (pack per day) - Reported 1 [facility] Start: 01-27-2017 End: 10-26-2018 Tobacco use and exposure Smokeless tobacco non-user [facility] Start: 09-15-2021 End: 03-01-2023 Alcohol intake Ex-drinker (finding) [facility] Start: 01-27-2017 History SDOH Alcohol Comment socially [facility] Start: 10-26-2018 Tobacco Comment Pt has cut stacy k to 1/4 pack daily. [facility] Start: 1950 Sex Assigned At Not on file C [facility] Start: 02-20-2022 End: 03-02-2022 Exposure to SARS-CoV-2 (event) Not sure [facility] Start: 11-30-2022 End: 03-01-2023 Tobacco use panel [facility] Adult Depression Screening Assessment 0 [facility] Clinical Notes 08-23-2018 to 06-28-2023 Telephone Encounter - Imelda Morse - 06/07/2023 10:52 AM ESTTelephone Encounter - Janice Owens LPN - 06/07/2023 7:57 AM ESTTelephone Encounter - Janice Owens LPN - 06/07/2023 7:57 AM EST Note Date & Type Note Facility 06-28-2023 Note HNO ID: [id number] Author: Lili Barreto RT(R) Service: ? Author Type: Heel Buffer Type: Progress Notes Filed: 06/28/2023 3:35 PM [...] RT Osito(R) June 28, 2023 3:35 PM [facility] 06-07-2023 Miscellaneous Notes Message relayed to [...] get her most recent echocardiogram report from [facility]? Thank you. Lui Wilkerson DO documented in this encounter [facility] 06-07-2023 Note HNO ID: [id number] Author: Lui Wilkerson DO Service: ? Author Type: Physician Type: Progress Notes Filed: 06/07/2023 6:06 AM Note Text: No office visit was scheduled. Lui Wilkerson DO [facility] 06-07-2023 History of Presen t illness Narrative No office visit was scheduled. Lui Wilkerson DO documented in this encounter [facility] 06-06-2023 Miscellaneous Notes Let her know lab work and kidney function stable. Okay to recheck in August as scheduled. Can we get her most recent echocardiogram report from [facility]? Thank you. Lui Wilkerson DO documented in this encounter [facility] 03-10-[address] as requested [...] Lui Wilkerson DO documented in this encounter [facility] 03-05-2023 Note HNO ID: [id number] Author: Lili Barreto, RT(R) Service: ? Author Type: Heel Buffer Type: Progress Notes Filed: 03/05/2023 2:56 PM [...] RT Osito(R) March 05, 2023 2:56 PM [facility] 03-05-2023 History of Presen t illness [...] 2023 2:56 PM documented in this encounter [facility] 03-02-2023 Miscellaneous Notes Patient informed and scheduled LM for patient to return call. When patient calls, please advise of Dr. Wilkerson's office and scheduled CT Chest accordingly. Sakshi Barroso Can let her know I checked the [facility] electronic record and I cannot find any chest imaging on her since a chest x-ray done in 2016. Therefore please schedule her for CT chest without IV contrast. Lui Wilkerson DO documented in this encounter [facility] 03-01-2023 Note HNO ID: [id number] Author: Lui Wilkerson DO Service: ? Author [...] No jaundice or rash. No petechiae. NEUROLOGIC: tool room supervisor II-XII are grossly intact. No focal motor [...] Abs Lymph 1.00 - 4.00 k/uL 1.41 Spencer% % 8.2 Abs Spencer <0.87 k/uL 0.83 Eosin% % 1.1 Abs [...] the last ye (more content not included)... [facility] 03-01-2023 History of Presen t illness [...] No jaundice or rash. No petechiae. NEUROLOGIC: tool room supervisor II-XII are grossly intact. No focal motor [...] Abs Lymph 1.00 - 4.00 k/uL 1.41 Spencer% % 8.2 Abs Spencer <0.87 k/uL 0.83 Eosin% % 1.1 Abs [...] time, surveillance was stopped. Reviewed EMR through [facility]. No chest imaging since CXR [...] which included preparing to see the patient, [id number] patient care, completing clinical documentation, obtaining and/or reviewing separately obtained history, performing a medically appropriate examination, counseling and educating the patient/family/caregiver, ordering medications, tests, or procedures, communicating with other HCPs (not separately reported), and communicating results to the patient/family/caregiver. Lui Wilkerson DO documented in this encounter [facility] 2022 Note HNO ID: [id number] Author: Lui Wilkerson DO Service: ? Author [...] complaints today. Has her mother in a fpc--has dementia and had been caring for her [...] No jaundice or rash. No petechiae. NEUROLOGIC: tool room supervisor II-XII are grossly intact. No focal motor [...] Lymph 1.00 - 4.00 k/uL 1.15 1.16 Spencer% % 8.2 9.6 Abs Spencer <0.87 k/uL 0.81 0.82 Eosin% % 1.4 [...] diagnosis) Assessment: - (more content not included)... [facility] 2022 History of Presen t illness [...] complaints today. Has her mother in a fpc--has dementia and had been caring for her [...] No jaundice or rash. No petechiae. NEUROLOGIC: tool room supervisor II-XII are grossly intact. No focal motor [...] Lymph 1.00 - 4.00 k/uL 1.15 1.16 Spencer% % 8.2 9.6 Abs Spencer <0.87 k/uL 0.81 0.82 Eosin% % 1.4 [...] Lui Wilkerson DO documented in this encounter [facility] 03-02-2022 History of Presen t illness Narrative [...] has been caring for her at the fpc quite a bit. She does not have [...] No jaundice or rash. No petechiae. NEUROLOGIC: tool room supervisor II-XII are grossly intact. No focal motor [...] - 4.00 k/uL 1.14 1.30 1.58 1.26 Spencer% % 9.6 8.2 9.6 9.4 Abs Spencer <0.87 k/uL 0.79 0.76 0.88 (H) 0.85 [...] Lui Wilkerson DO documented in this encounter [facility] 01-16-2022 Miscellaneous Notes Patient's request for medication [...] Shilpi Reardon LPN documented in this encounter [facility] 12-11-2021 Miscellaneous Notes Pt. Notified of results, [...] Lui Wilkerson DO documented in this encounter [facility] documented as of this encounter (statuses as of 12/05/2021) [facility] History of Past illness Narrative* Problem Noted Date Resolved Date Fall from ground level 08/23/2018 9 Trauma 08/23/2018 08/25/2018 Absolute anemia 10/27/2017 10/27/2017 documented as of this encounter (statuses as of 12/11/2021) [address] History of Past illness Narrative* Problem Noted Date Resolved Date Fall from ground level 08/23/2018 9 Trauma 08/23/2018 08/25/2018 Absolute anemia 10/27/2017 10/27/2017 documented as of this encounter (statuses as of 01/16/2022) [address] History of Past illness Narrative* Problem Noted Date Resolved Date Fall from ground level 08/23/2018 9 Trauma 08/23/2018 08/25/2018 Absolute anemia 10/27/2017 10/27/2017 documented as of this encounter (statuses as of 03/02/2022) [address] History of Past illness Narrative* Problem Noted Date Resolved Date Fall from ground level 08/23/2018 9 Trauma 08/23/2018 08/25/2018 Absolute anemia 10/27/2017 10/27/2017 documented as of this encounter (statuses as of 06/02/2022) [address]2019 History of Past illness Narrative* Problem Noted Date Resolved Date Fall from ground level 08/23/2018 9 Trauma 08/23/2018 08/25/2018 Absolute anemia 10/27/2017 10/27/2017 documented as of this encounter (statuses as of 08/26/2022) [address]2019 History of Past illness Narrative* Problem Noted Date Resolved Date Fall from ground level 08/23/2018 9 Trauma 08/23/2018 08/25/2018 Absolute anemia 10/27/2017 10/27/2017 documented as of this encounter (statuses as of 09/04/2022) [address]2019 History of Past illness Narrative* Problem Noted Date Diagnosed Date Resolved Date Fall from ground level 08/23/201808/25 Trauma 08/23/2018 08/25/2018 Absolute anemia 10/27/2017 10/27/2017 documented as of this encounter (statuses as of 03/02/2023) [place] [address] History of Past illness Narrative* Problem Noted Date Diagnosed Date Resolved Date Fall from ground level 08/23/201808/25 Trauma 08/23/2018 08/25/2018 Absolute anemia 10/27/2017 10/27/2017 documented as of this encounter (statuses as of 03/02/2023) [address] History of Past illness Narrative* Problem Noted Date Diagnosed Date Resolved Date Fall from ground level 08/23/201808/25 Trauma 08/23/2018 08/25/2018 Absolute anemia 10/27/2017 10/27/2017 documented as of this encounter (statuses as of 03/10/2023) [address]2019 History of Past illness Narrative* Problem Noted Date Diagnosed Date Resolved Date Fall from ground level 08/23/201808/25 Trauma 08/23/2018 08/25/2018 Absolute anemia 10/27/2017 10/27/2017 documented as of this encounter (statuses as of 05/16/2023) [address]2019 History of Past illness Narrative* Problem Noted Date Diagnosed Date Resolved Date Fall from ground level 08/23/201808/25 Trauma 08/23/2018 08/25/2018 Absolute anemia 10/27/2017 10/27/2017 documented as of this encounter (statuses as of 06/02/2023) [address] History of Past illness Narrative* Problem Noted Date Diagnosed Date Resolved Date Fall from ground level 08/23/201808/25 Trauma 08/23/2018 08/25/2018 Absolute anemia 10/27/2017 10/27/2017 documented as of this encounter (statuses as of 06/07/2023) [facility] Diagnosis 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 [facility] 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 [facility] Diagnosis 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 [facility] Diagnosis 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 [facility] Diagnosis 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 documented in this encounter [facility] note* Diagnosis Lung nodule- Primary Solitary pulmonary nodule 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 Smoker Tobacco use disorder documented in this encounter [facility] note* Diagnosis Lung nodules- Primary Other nonspecific abnormal finding of lung field documented in this encounter [facility] note* Diagnosis Lung nodule Solitary pulmonary nodule Smoker Tobacco use disorder documented in this encounter [facility] note* Diagnosis Lung nodule- Primary Solitary pulmonary nodule 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 documented in this encounter [facility] note* Diagnosis Lung nodule Solitary pulmonary nodule 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 documented in this encounter [facility] Summary Purpose Family History No Family History Records FoundNo Family History Records FoundNo Family History Records FoundNo Family History Records Found Advance Directives No Advanced Directives Records FoundDocuments on File Type Date Recorded 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 Expl anation Advance Directive(s) 08/19/2018 4:11 PM Hospital Course Note HNO ID: [id number] Author: Reji Hoffman) Migel Service: Trauma Author Type: Physician [employer] Strip Inspector Type: Discharge Summaries Filed: 08/25/2018 9:34 AM [...] Lui Wilkerson, DO [address] [place] [address] [place] [address] Referral ID Status Reason Start Date Expiration Date Visits Requested Visits Authorized [id number] Pending Review Auto-Generat ed Referral 03/01/2023 03/30/2024 1 1 Specialty Diagnoses / Procedures Referred By Contac t Referred To Contact CT IMAGING Diagnoses Lung nodules Procedures CT CHEST WO IVCON DIAGNOSTIC COMPUTED TOMOGRAPHY THORAX W/O CNTRST Lui Wilkerson, DO [address] [place] [address] [place] [address] Referral ID Status Reason Start Date Expiration Date Visits Requested Visits Authorized [id number] Authorized Auto-Generat ed Referral 03/09/2023 04/07/2024 1 1 Referral ID Status Reason Start Date Expiration Date V isits Requested Visits Authorized [id number] Closed Auto-Generate d Referral 03/01/2023 03/30/2024 1 1 Additional Source Comments INFORMATION SOURCE (unrecogn ized section and content) DATE CREATED AUTHOR AUTHOR'S ORGANIZ ATION 03/01/2019 [facility] DATE CREATED AUTHOR AUTHOR'S ORGANIZ ATION 09/25/2020 [facility] DATE CREATED AUTHOR AUTHOR'S ORGANIZ ATION 07/01/2023 [facility] Source Comments (unrecognize d section and content) In the event this informatio n is protected by the Federal Confidentiality of Alcohol and Drug Abuse Patient Records regulations: The Federal rules restrict any use of the information to criminally investigate or prosecute any alcohol or drug abuse patient.[facility] the event this information is protected by the Federal Confidentiality of Alcohol and Drug Abuse Patient Records regulations: The Federal rules restrict any use of the information to criminally investigate or prosecute any alcohol or drug abuse patient.[facility]In the event this information is protected by the Federal Confidentiality of Alcohol and Drug Abuse Patient Records regulations: The Federal rules restrict any use of the information to criminally investigate or prosecute any alcohol or drug abuse patient.[facility]In the event this information is protected by the Federal Confidentiality of Alcohol and Drug Abuse Patient Records regulations: The Federal rules restrict any use of the information to criminally investigate or prosecute any alcohol or drug abuse patient.[facility]In the event this information is protected by the Federal Confidentiality of Alcohol and Drug Abuse Patient Records regulations: The Federal rules restrict any use of the information to criminally investigate or prosecute any alcohol or drug abuse patient.[facility]In the event this information is protected by the Federal Confidentiality of Alcohol and Drug Abuse Patient Records regulations: The Federal rules restrict any use of the information to criminally investigate or prosecute any alcohol or drug abuse patient.[facility] HospitalIn the event this information is protected by the Federal Confidentiality of Alcohol and Drug Abuse Patient Records regulations: The Federal rules restrict any use of the information to criminally investigate or prosecute any alcohol or drug abuse patient.[facility] HospitalIn the event this information is protected by the Federal Confidentiality of Alcohol and Drug Abuse Patient Records regulations: The Federal rules restrict any use of the information to criminally investigate or prosecute any alcohol or drug abuse patient.[facility]In the event this information is protected by the Federal Confidentiality of Alcohol and Drug Abuse Patient Records regulations: The Federal rules restrict any use of the information to criminally investigate or prosecute any alcohol or drug abuse patient.[facility]In the event this information is protected by the Federal Confidentiality of Alcohol and Drug Abuse Patient Records regulations: The Federal rules restrict any use of the information to criminally investigate or prosecute any alcohol or drug abuse patient.[facility] HospitalIn the event this information is protected by the Federal Confidentiality of Alcohol and Drug Abuse Patient Records regulations: The Federal rules restrict any use of the information to criminally investigate or prosecute any alcohol or drug abuse patient.[facility]In the event this information is protected by the Federal Confidentiality of Alcohol and Drug Abuse Patient Records regulations: The Federal rules restrict any use of the information to criminally investigate or prosecute any alcohol or drug abuse patient.[facility] HospitalIn the event this information is protected by the Federal Confidentiality of Alcohol and Drug Abuse Patient Records regulations: The Federal rules restrict any use of the information to criminally investigate or prosecute any alcohol or drug abuse patient.[facility] HospitalIn the event this information is protected by the Federal Confidentiality of Alcohol and Drug Abuse Patient Records regulations: The Federal rules restrict any use of the information to criminally investigate or prosecute any alcohol or drug abuse patient.[facility] Care Teams (unrecognized sec tion and content) Sr. Merchandise Planner Relationship Specialty Start Date End Date Mile, Tank Chi PCP - General Gerontology 01/27/17 Sr. Merchandise Planner Relationship Specialty Start Date End Date Mile, Tank Chi PCP - General Gerontology 01/27/17 Sr. Merchandise Planner Relationship Specialty Start Date End Date Mile, Tank Chi PCP - General Gerontology 01/27/17 Sr. Merchandise Planner Relationship Specialty Start Date End Date Mile, Tank Chi PCP - General Gerontology 01/27/17 Sr. Merchandise Planner Relationship Specialty Start Date End Date Mile, Tank Chi PCP - General Gerontology 01/27/17 Sr. Merchandise Planner Relationship Specialty Start Date End Date Mile, Tank Chi PCP - General Gerontology 01/27/17 Lui Wilkerson DO [address] [place] [address] Hematology/Oncology 09/03/22 Zuri, Jack S [address] [place] [address] Cardiology 09/03/22 Sr. Merchandise Planner Relationship Specialty Start Date End Date Tank Treadwell Chi PCP - General Gerontology 01/27/17 Lui Wilkerson DO [address] [place] [address] Hematology/Oncology 09/03/22 Zuri, Jack S [address] [place] [address] Cardiology 09/03/22 Sr. Merchandise Planner Relationship Specialty Start Date End Date Tank Treadwell Chi PCP - General Gerontology 01/27/17 Lui Wilkerson DO [address] [place] [address] Hematology/Oncology 09/03/22 Zuri, [place] S [address] [place] [address] Cardiology 09/03/22 Sr. Merchandise Planner Relationship Specialty Start Date End Date aTnk Treadwell Chi PCP - General Gerontology 01/27/17 Lui Wilkerson DO [address] [place] [address] Hematology/Oncology 09/03/22 Zuri, Jack S [address] [place] [address] Cardiology 09/03/22 Sr. Merchandise Planner Relationship Specialty Start Date End Date Tank Treadwell Chi PCP - General Gerontology 01/27/17 Lui Wilkerson DO [address] [place] [address] Hematology/Oncology 09/03/22 Jack Keating MD [address] [place] [address] Cardiology 09/03/22 Sr. Merchandise Planner Relationship Specialty Start Date End Date Tank Treadwell Chi PCP - General Gerontology 01/27/17 Lui Wilkerson DO [address] [place] [address] Hematology/Oncology 09/03/22 Jack Keating MD [address] [place] [address] Cardiology 09/03/22 Sr. Merchandise Planner Relationship Specialty Start Date End Date Tank Treadwell Chi PCP - General Gerontology 01/27/17 Lui Wilkerson DO [address] [place] [address] Hematology/Oncology 09/03/22 Jack Keating MD [address] [place], [place] [address] Cardiology 09/03/22 Sr. Merchandise Planner Relationship Specialty Start Date End Date Tank Treadwell Chi PCP - General Gerontology 01/27/17 Lui Wilkerson DO [address] [place] [address] Hematology/Oncology 09/03/22 Jack Keating MD [address] [place] [address] Cardiology 09/03/22 Reason for Visit [...] [facility] Lui Wilkerson DO [address] [place] [address] [place] [address] Referral ID Status Reason Start Date Expiration Date V isits Requested Visits Authorized [id number] Closed Auto-Generate d Referral 03/01/2023 03/30/2024 1 [...] BE BASED ON THE PRIMARY CLINICAL RECORDS. [employer] provides no warranty or guarantee of the accuracy or completeness of information in this document.
[2023-08-10] MEDS: Oxymetazoline 0.05% 1 SPRAY SPRAY.BTL NASAL (05:21)
[2023-08-10 05:26] VITALS: BP 119/87; PULSE 74; RESP 16; O2SAT 99
--- NOTE | 2023-08-10 05:32 | EX.ED.DYSGE1 ---
HPI History of Present Illness Chief Complaint: Nosebleed Informant: patient Narrative Narrative: Patient is a 72-year-old female with history of CABG, mechanical mitral valve on chronic Coumadin therapy presenting with epistaxis. Patient states that she recently had RSV and bronchitis. Recently when she blows her nose she noticed some blood however this evening around 1030 or 11 she started having bleeding coming from her left naris. She tried to lay on her right side and then was having bleeding going down the back of her throat. Bleeding seems improved upon arrival but she came in for further evaluation. Does follow with ENT but cannot recall the name. Denies any lightheadedness or other symptoms at this time. Denies any associated nasal trauma. States because of recent antibiotics her Coumadin level had been off and she had to take Lovenox shots. Last INR check was on 07/29 and was 2.9. Prior similar symptoms: No PFSH PFSH Medical History Anemia Atherosclerotic heart disease of [place] coronary artery without angina pectoris BPV (benign positional vertigo) Carotid artery stenosis Hyperlipidemia Nicotine dependence Non-autoimmune hemolytic anemia, unspecified Nonrheumatic mitral valve regurgitation Premature ventricular contractions Right carotid bruit Secondary pulmonary arterial hypertension Home Medications escitalopram oxalate 20 mg tablet 20 mg PO DAILY 12/30/14 [History Last Taken 12/30/14] folic acid 1 mg tablet 1 mg PO DAILY 90 days ##90 10/01/17 [History Last Taken Unknown] ascorbic acid (vitamin C) 500 mg tablet 500 mg PO BID 12/01/18 [History Last Taken Unknown] cholecalciferol (vitamin D3) 25 mcg (1,000 unit) capsule 25 mcg PO DAILY 02/29/20 [History Last Taken Unknown] furosemide 40 mg tablet 40 mg PO DAILY #90 tabs 10/20/21 [Rx Last Taken Unknown] potassium chloride 20 mEq tablet,extended release(part/cryst) (Klor-Con M) 20 meq PO DAILY 02/05/22 [History Last Taken Unknown] metoprolol tartrate 25 mg tablet 12.5 mg PO BID 11/12/22 [History Last Taken Unknown] rosuvastatin 20 mg tablet 20 mg PO DAILY 11/12/22 [History Last Taken Unknown] warfarin 4 mg tablet 4 mg PO DAILY Dose changed to 4 mg every day #90 tabs 05/14/23 [Rx Last Taken Unknown] warfarin 1 mg tablet 1 mg PO .COMPLEX #90 tabs 07/13/23 [Rx Last Taken Unknown] warfarin 5 mg tablet 5 mg PO .COMPLEX #90 tabs 07/13/23 [Rx Last Taken Unknown] Allergy/AdvReac Type Severity Reaction Status Date / Time adhesive tape AdvReac Severe Rash Verified 08/10/23 02:55 paroxetine [From Paxil] AdvReac Severe Many side Verified 08/10/23 02:55 effects Family History Mother Myocardial infarction CAD (coronary artery disease) Hx CABG Father Pulmonary fibrosis Surgical History H/O coronary artery bypass surgery (03/10/11) Hx of mitral valve replacement with mechanical valve (03/10/11) Social History Smoking Status: Light Smoker (<10/day) Tobacco: How many years used: 46 alcohol intake: current alcohol intake frequency: holidays/special occasions only Alcohol type: beer substance use type: does not use caffeine: Yes Type: tea what type of physical activity do you participate in: none seatbelt use: always do you feel safe at home: Yes ROS ROS ED Constitutional Constitutional ED: Denies chills or fever(s) Eyes Eyes: Denies change in vision ENT ENT ED: Reports other Details: Left-sided epistaxis ; Denies ear pain or sore throat Cardiovascular Cardiovascular: Denies chest pain Respiratory/Chest Respiratory/Chest: Denies cough or dyspnea Gastrointestinal Gastrointestinal: Denies nausea or vomiting Integumentary Denies rash Neurologic Neurologic: Denies headache(s) Hematologic/Lymphatic Hematologic/Lymphatic: Reports easy bleeding and easy bruising EXAM Physical Exam Const Vital Signs: 08/10/23 02:55 08/10/23 05:26 Temperature 98.5 F Temperature Source Oral Pulse Rate 72 74 Respiratory Rate 16 16 Blood Pressure 104/66 119/87 H Blood Pressure Mean 78 97 Pulse Ox 97 99 Positive well nourished and well developed General Appearance ED: well developed and NAD HEENT Reports TM's clear and moist mucous membranes HEENT Narrative: Cerumen impaction on the left side. Dried blood and clot noted in the left nares with no active bleeding. No blood noted in the oropharynx. Normal right nares. Normal external nose. Negative for trauma Tympanic Membrane ED: Yes TM's clear right Eyes PERRL and EOMs intact bilaterally Neck supple Chest Wall inspection of chest normal Resp normal respiratory effort and clear to auscultation bilaterally Cardio regular rate and regular rhythm Cardio Narrative: Clicking murmur present consistent with mechanical valve Extremity normal to inspection Neuro oriented x3 Sensorium / Orientation: alert Psych mental status grossly normal Skin no rashes or lesions noted and no wounds MDM MDM MDM Narrative Medical decision making narrative: Patient evaluated for nosebleed. No active bleeding at this time. Patient has an INR this mildly subtherapeutic at 2.1. Is informed of this. Will follow-up outpatient for further Coumadin adjustments. Patient is able to blow the clot out of her left nares and does not appear to have further bleeding. Because she is on Coumadin but hesitant to cauterize it for the risk of rebleeding. Direct pressure was applied after Afrin sprayed and patient does not have any further bleeding. Is counseled that the bleeding could start again and if it worsen she might require nasal packing. At this time she would like to defer nasal packing. Nursing able to irrigate cerumen from the left ear with improvement of her hearing. There is still some small cerumen left the patient has symptomatic improvement. Is given outpatient follow-up with ENT. Counseled on epistaxis care at home. She verbalizes agreement understands plan. Discharged home in stable addition. Is hemodynamically stable at time of disposition. Bleeding seems mild at this time I do not think an H&H is indicated. Lab Data Attestation: I reviewed the patient's lab results. Labs: Laboratory Results - last 24 hr 08/10/23 03:03 PT 23.8 H INR 2.1 Discharge Plan Triage Chief Complaint: Nosebleed ED Provider: Aliya Collazo Dx/Rx/DC Orders Clinical Impression: Left-sided epistaxis, Subtherapeutic anticoagulation, Impacted cerumen of left ear Instructions: Impacted Earwax, ED Epistaxis (Adult) Prescriptions: No Action folic acid 1 mg tablet 1 mg PO DAILY 90 Days Qty: 90 Patient Comments: TAKE ONE TABLET BY MOUTH EVERY DAY cholecalciferol (vitamin D3) 25 mcg (1,000 unit) capsule 25 mcg PO DAILY potassium chloride [Klor-Con M20] 20 mEq tablet,ER particles/crystals 20 meq PO DAILY Patient Comments: TAKE 1 TABLET BY MOUTH EVERY DAY metoprolol tartrate 25 mg tablet 12.5 mg PO BID rosuvastatin 20 mg tablet 20 mg PO DAILY escitalopram oxalate 20 MG tablet 20 mg PO DAILY ascorbic acid (vitamin C) 500 mg tablet 500 mg PO BID furosemide 40 mg tablet 40 mg PO DAILY Qty: 90 3RF warfarin 4 mg tablet 4 mg PO DAILY Qty: 90 3RF Protocol: Dose Management Condition: Wednesday Dose/Route: 4 mg Instruction: 1 x 4 mg tablet Condition: Wednesday Dose/Route: 4 mg Instruction: 1 x 4 mg tablet Condition: Wednesday Dose/Route: 4 mg Instruction: 1 x 4 mg tablet Condition: Wednesday Dose/Route: 4 mg Instruction: 1 x 4 mg tablet Condition: Dose/Route: 4 mg Instruction: 1 x 4 mg tablet Condition: Wednesday Dose/Route: 4 mg Instruction: 1 x 4 mg tablet Condition: Wednesday Dose/Route: 4 mg Instruction: 1 x 4 mg tablet Protocol Text: Adjustment Start Date: Wednesday07/30/23 INR Value: 2.9 INR Date: 07/29/23 Recheck Date: 08/20/23 warfarin 1 mg tablet 1 mg PO .COMPLEX Qty: 90 3RF Hold Instructions: Order Changed Protocol: Dose Management Condition: Wednesday Dose/Route: 4 mg Instruction: 1 x 4 mg tablet Condition: Wednesday Dose/Route: 4 mg Instruction: 1 x 4 mg tablet Condition: Wednesday Dose/Route: 4 mg Instruction: 1 x 4 mg tablet Condition: Wednesday Dose/Route: 4 mg Instruction: 1 x 4 mg tablet Condition: Dose/Route: 4 mg Instruction: 1 x 4 mg tablet Condition: Wednesday Dose/Route: 4 mg Instruction: 1 x 4 mg tablet Condition: Wednesday Dose/Route: 4 mg Instruction: 1 x 4 mg tablet Protocol Text: Adjustment Start Date: Wednesday07/30/23 INR Value: 2.9 INR Date: 07/29/23 Recheck Date: 08/20/23 Rx Instructions: Take 1 tablet with 1/2 of a 5 mg tablet on Wed, , Wed to = 3.5 mg (take a 5 mg tablet all other days of the week, or as directed). warfarin 5 mg tablet 5 mg PO .COMPLEX Qty: 90 3RF Hold Instructions: Order Changed Protocol: Dose Management Condition: Wednesday Dose/Route: 4 mg Instruction: 1 x 4 mg tablet Condition: Wednesday Dose/Route: 4 mg Instruction: 1 x 4 mg tablet Condition: Wednesday Dose/Route: 4 mg Instruction: 1 x 4 mg tablet Condition: Wednesday Dose/Route: 4 mg Instruction: 1 x 4 mg tablet Condition: Dose/Route: 4 mg Instruction: 1 x 4 mg tablet Condition: Wednesday Dose/Route: 4 mg Instruction: 1 x 4 mg tablet Condition: Wednesday Dose/Route: 4 mg Instruction: 1 x 4 mg tablet Protocol Text: Adjustment Start Date: Wednesday07/30/23 INR Value: 2.9 INR Date: 07/29/23 Recheck Date: 08/20/23 Rx Instructions: 5 mg orally 1/2 tablet with a 1 mg tablet on Wed, , Wed to = 2.5 mg: take a 5 mg tablet Wed,, , Wed; or as directed; Primary Care Provider: Leonardo Sotelo Chi Referrals: Maurilio Ely MD [Med Staff - Active Staff] - As Needed Leonardo Sotelo Chi, MD [Primary Care Provider] - Activity Restrictions/Additional Instructions: Your INR today was slightly low at 2.1. Please follow-up with your doctor that manages your Coumadin for further recommendations. The bleeding seems of stopped for now. If it continues to get worse she might require nasal packing per discussion. For the short-term (no more than 3 days) if your bleeding happens you can put Afrin in the nose and apply direct pressure to stop the bleeding. I do recommend using nasal saline throughout the day to keep the nasal mucosa moist. Disposition Disposition: Home, Self Care Discharge Date/Time: 08/10/23 05:37
== END 2023-08-10 05:37 | disposition home or self-care (01) ==
PROVIDERS: Emergency Provider Emergency Medicine; PCP Family Medicine Geriatric Medicine; Visit Provider Emergency Medicine
DX: R04.0 Epistaxis (principal); F17.200 Nicotine dependence, unspecified, uncomplicated; H61.22 Impacted cerumen, left ear; Z95.5 Presence of coronary angioplasty implant and graft; Z95.2 Presence of prosthetic heart valve; Z79.01 Long term (current) use of anticoagulants; I25.10 Atherosclerotic heart disease of native coronary artery without angina pectoris; E78.5 Hyperlipidemia, unspecified
CPT/HCPCS: 69209; 85610; 99283; A4216

== ENCOUNTER 2023-09-06 12:39 | Outpatient (RCR) | payer MEDICARE, SELFPAY ==
[2023-08-11 21:47] VITALS: BMI 26.7
[2023-08-17 12:46] LABS: International Normalized Ratio 3.2; Prothrombin Time (Protime)PT. 33.2 SECONDS (11.7-14.9)
[2023-09-06 14:03] LABS: International Normalized Ratio 3.2; Prothrombin Time (Protime)PT. 32.7 SECONDS (11.7-14.9)
== END 2023-09-09 18:00 | disposition home or self-care (01) ==
LOC: LAB 12:39
PROVIDERS: Family Provider Family Medicine Geriatric Medicine; PCP Family Medicine Geriatric Medicine; Referring Provider Internal Medicine Cardiovascular Disease; Visit Provider Internal Medicine Cardiovascular Disease
DX: Z79.01 Long term (current) use of anticoagulants (principal); Z95.2 Presence of prosthetic heart valve
CPT/HCPCS: 36415; 85610

== ENCOUNTER → 2023-09-08 | Outpatient (CLI) | payer MEDICARE, SELFPAY ==
--- NOTE | 2023-09-08 13:01 | ECHOD_ITS ---
Version 2 Reason For Study: Hx of MVR Procedure This was a 2D Doppler, Color Flow transthoracic echocardiogram. Exam performed in department. Left Ventricle Normal LV size. Mild concentric left ventricular hypertrophy. Ventricular microbubbles noted. Left ventricular systolic function is normal. The estimated ejection fraction is 65 %. Septal bounce. No regional wall motion abnormalities noted. Right Ventricle Normal RV size. Mild global right ventricular systolic dysfunction. Atria The left atrium is moderately enlarged. Normal right atrium. Mitral Valve Peak transmitral valve gradient 20 mmHg. Mean transmitral valve gradient 5 mmHg. Gradients are abnormal for this prosthetic mitral valve. The opening of the prosthetic mitral valve appears to be limited. Limited motion noted of the prosthetic bileaflet mitral valve. Tricuspid Valve Normal tricuspid valve. Moderately severe (3+) eccentric tricuspid valve insufficiency. Pulmonary artery systolic pressure is 135 mmHg. Severe pulmonary hypertension. Aortic Valve Trisinus/trileaflet aortic valve. Pulmonic Valve Normal pulmonic valve. Great Vessels Normal aortic root. The pulmonary artery is normal size. Inferior vena cava collapse with sniff. Pericardium/Pleural No pericardial effusion. MMode/2D Measurements & Calculations LVIDd: 4.5 cm IVSd: 1.2 cm Ao root diam: 2.5 cm LVIDs: 2.8 cm LVPWd: 1.2 cm RVDd: 3.8 cm FS: 38.6 % LAV(MOD-bp): 70.8 ml LVAd ap4: 22.0 cm2 SV(MOD-sp4): 40.5 ml LAV(MOD-bp) Indexed: 45.8 ml/m2 LVLd ap4: 6.9 cm LAV(MOD-sp2): 64.8 ml EDV(MOD-sp4): 58.7 ml LAV(MOD-sp4): 72.7 ml EDV(sp4-el): 60.0 ml LVAs ap4: 11.4 cm2 LVLs ap4: 6.1 cm ESV(MOD-sp4): 18.2 ml ESV(sp4-el): 18.1 ml EF(MOD-sp4): 69.0 % EF(sp4-el): 69.8 % SV(sp4-el): 41.9 ml LA A4 area: 23.6 cm2 LA dimension(2D): 5.1 cm RA A4 area: 12.5 cm2 TAPSE: 1.3 cm Time Measurements MV dec time: 0.18 sec Doppler Measurements & Calculations MV E max keo: 201.8 cm/sec Lat Peak E' Keo: 3.9 cm/sec Med Peak E' Keo: 4.2 cm/sec MV A max keo: 45.8 cm/sec E/E' lat: 52.4 E/E' med: 48.5 MV E/A: 4.4 MV V2 max: 225.6 cm/sec Ao V2 max: 117.8 cm/sec MV max P.4 mmHg MV dec slope: 1143 cm/sec2 Ao max P.6 mmHg MV V2 mean: 92.3 cm/sec Ao V2 mean: 78.9 cm/sec MV mean P.1 mmHg Ao mean P.7 mmHg MV V2 VTI: 43.8 cm Ao V2 VTI: 25.2 cm AV (velocity ratio): 0.93 LV V1 max: 104.2 cm/sec PA V2 max: 96.0 cm/sec PI end-d keo: 196.4 cm/sec LV V1 max P.3 mmHg LV V1 mean P.1 mmHg LV V1 mean: 68.2 cm/sec LV V1 VTI: 23.5 cm TR max keo: 569.6 cm/sec TR max P.2 mmHg ECHO/Echo Complete Interpretation Summary Normal LV size. Left ventricular systolic function is normal. The estimated ejection fraction is 65 %. The left atrium is moderately enlarged. Mild concentric left ventricular hypertrophy. Severe pulmonary hypertension. Pulmonary artery systolic pressure is 135 mmHg. Limited motion noted of the prosthetic bileaflet mitral valve Peak transmitral valve gradient 20 mmHg. Compared to the previous the pulmonary pressures are significantly elevated and the peak transmitral valve gradient is also elevated Ventricular microbubbles noted Ordering Physician: Lui Wilkerson Referring Physician: Leonardo Sotelo Chi Performed By: Casi Kendall RDCS, RVT
== END | disposition home or self-care (01) ==
LOC: CVS 12:59
PROVIDERS: PCP Family Medicine Geriatric Medicine; Referring Provider Internal Medicine Hematology & Oncology; Visit Provider Internal Medicine Hematology & Oncology
DX: D59.5 Paroxysmal nocturnal hemoglobinuria [Marchiafava-Micheli] (principal); Z95.2 Presence of prosthetic heart valve
CPT/HCPCS: 93306

== ENCOUNTER 2023-09-15 07:56 | Outpatient (CLI) | payer MEDICARE, SELFPAY ==
--- NOTE | 2023-09-15 07:58 | ECHOTEE_ITS ---
Version 2 Reason For Study: Assess MV Replacement Medication RIP probe 6VT-D (SN [id number]) passed with minimal difficulty. No complications were noted. Cetacaine Topical [place] given X3 orally. Versed 3 mg given slow IVP. Fentanyl 50 mcg given slow IVP. Performed a rapid injection of agitated mix of 9 cc saline and 1cc air to assess for atrial septal defect. Left Ventricle Normal LV size. D shaped septum in diastole. Left ventricular systolic function is normal. The estimated ejection fraction is 60 %. No regional wall motion abnormalities noted. Right Ventricle Normal RV size. Normal systolic function. Atria Bubble contrast study negative for right to left interatrial shunt. The left atrium is moderately enlarged. No thrombus is detected in the left atrial appendage. Normal right atrium. Mitral Valve Moderately severe (3+) eccentric mitral valve insufficiency. Mechanical prosthetic bileaflet mitral valve which appears to be seated with adequate movement of both leaflets with no evidence of thrombus. There is evidence of a paravalvular eccentric leak noted. No significant obvious rocking motion is noted. Tricuspid Valve Normal tricuspid valve. Moderately severe (3+) tricuspid valve insufficiency. Aortic Valve Trisinus/trileaflet aortic valve. Pulmonic Valve Normal pulmonic valve. Vessels Normal aortic root. Normal arch. The pulmonary artery is normal size. Pericardium No pericardial effusion. ECHO/Echo Transesophageal (RIP) Interpretation Summary Normal LV size. Left ventricular systolic function is normal. The estimated ejection fraction is 60 %. Mechanical prosthetic bileaflet mitral valve which appears to be seated with ad equate movement of both leaflets with no evidence of thrombus. There is evidence of a paravalvular eccentric leak noted. No significant obvious rocking motion is noted. Moderately severe (3+) eccentric mitral valve insufficiency. Ordering Physician: Jack Keating Referring Physician: Leonardo Sotelo Chi Performed By: Casi Kendall, RDCS, RVT
== END 2023-09-15 10:30 | disposition home or self-care (01) ==
LOC: CVS 07:58
PROVIDERS: PCP Family Medicine Geriatric Medicine; Referring Provider Internal Medicine Cardiovascular Disease; Visit Provider Internal Medicine Cardiovascular Disease
DX: D59.4 Other nonautoimmune hemolytic anemias (principal); Z95.2 Presence of prosthetic heart valve
CPT/HCPCS: 93312; 93320; 93325; J7040; A4216

== ENCOUNTER 2023-09-18 10:04 | Emergency (ER) | payer MEDICARE, SELFPAY ==
[2023-09-18 10:05] VITALS: BP 151/66; PULSE 72; RESP 16; TEMP 35.8; O2SAT 96; BMI 24.9
--- NOTE | 2023-09-18 10:34 | EX.ED.DYSGE1 ---
HPI History of Present Illness Chief Complaint: Nosebleed Informant: patient and spouse/S.O. Narrative Narrative: Patient presents with nosebleed that started around 330 this morning. She states she thinks that most of the bleeding is coming from the left nare, but she has had some from the right. She does feel that it is intermittently running down her throat. No recent facial trauma or URI symptoms. Patient was seen here in late July with a nosebleed that stopped after spraying Afrin. She followed up with Dr. Man and states that she had a couple sites cauterized. She is currently on Coumadin because of mitral valve replacement. She states her last INR check was about 2 or 3 weeks ago. [facility] Medical History Anemia Atherosclerotic heart disease of [place] coronary artery without angina pectoris BPV (benign positional vertigo) Carotid artery stenosis Hyperlipidemia Nicotine dependence Non-autoimmune hemolytic anemia, unspecified Nonrheumatic mitral valve regurgitation Premature ventricular contractions Right carotid bruit Secondary pulmonary arterial hypertension Home Medications escitalopram oxalate 20 mg tablet 20 mg PO DAILY 12/30/14 [History Last Taken 12/30/14] folic acid 1 mg tablet 1 mg PO DAILY 90 days ##90 10/01/17 [History Last Taken Unknown] ascorbic acid (vitamin C) 500 mg tablet 500 mg PO BID 12/01/18 [History Last Taken Unknown] cholecalciferol (vitamin D3) 25 mcg (1,000 unit) capsule 25 mcg PO DAILY 02/29/20 [History Last Taken Unknown] furosemide 40 mg tablet 40 mg PO DAILY #90 tabs 10/20/21 [Rx Last Taken Unknown] potassium chloride 20 mEq tablet,extended release(part/cryst) (Klor-Con M) 20 meq PO DAILY 02/05/22 [History Last Taken Unknown] metoprolol tartrate 25 mg tablet 12.5 mg PO BID 11/12/22 [History Last Taken Unknown] warfarin 4 mg tablet 4 mg PO DAILY Dose changed to 4 mg every day #90 tabs 05/14/23 [Rx Last Taken Unknown] warfarin 1 mg tablet 1 mg PO .COMPLEX #90 tabs 07/13/23 [Rx Last Taken Unknown] warfarin 5 mg tablet 5 mg PO .COMPLEX #90 tabs 07/13/23 [Rx Last Taken Unknown] aspirin 81 mg tablet,delayed release (Adult Low Dose Aspirin) 81 mg PO DAILY 09/14/23 [History Last Taken Unknown] diphenhydramine 25 mg-acetaminophen 500 mg tablet (Tylenol PM Extra Strength) 1 tab PO QHS PRN 09/14/23 [History Last Taken Unknown] omeprazole 20 mg capsule,delayed release 20 mg PO DAILY 09/14/23 [History Last Taken Unknown] polysaccharide iron complex 150 mg iron capsule 150 mg PO DAILY 09/14/23 [History Last Taken Unknown] rosuvastatin 20 mg tablet 40 mg PO DAILY 09/14/23 [History Last Taken Unknown] Allergy/AdvReac Type Severity Reaction Status Date / Time adhesive tape AdvReac Severe Rash Verified 09/18/23 10:06 paroxetine [From Paxil] AdvReac Severe Many side Verified 09/18/23 10:06 effects Family History Mother Myocardial infarction CAD (coronary artery disease) Hx CABG Father Pulmonary fibrosis Surgical History H/O coronary artery bypass surgery (03/10/11) Hx of mitral valve replacement with mechanical valve (03/10/11) Social History Smoking Status: Light Smoker (<10/day) Tobacco: How many years used: 46 alcohol intake: current alcohol intake frequency: holidays/special occasions only Alcohol type: beer substance use type: does not use caffeine: Yes Type: tea what type of physical activity do you participate in: none seatbelt use: always do you feel safe at home: Yes ROS ROS ED Constitutional Constitutional ED: Denies chills or fever(s) Eyes Eyes: Denies discharge from eye(s) ENT ENT ED: Reports other Details: Nosebleed ; Denies discharge from eye(s), rhinorrhea or sore throat Cardiovascular Cardiovascular: Denies chest pain Respiratory/Chest Respiratory/Chest: Denies cough or dyspnea Gastrointestinal Gastrointestinal: Denies abdominal pain, nausea or vomiting Musculoskeletal Musculoskeletal: Denies extremity pain Integumentary Denies Abrasions or rash Neurologic Neurologic: Denies headache(s) or weakness Psychiatric Psychiatric: Denies anxiety or depression Allergic/Immunologic Allergic/Immunologic ED: Denies lip swelling or urticaria EXAM Physical Exam Const Vital Signs: 09/18/23 10:05 Temperature 96.5 F L Temperature Source Temporal Pulse Rate 72 Respiratory Rate 16 Blood Pressure 151/66 H Blood Pressure Mean 94 Pulse Ox 96 Oxygen Delivery Method Room Air Positive well nourished and well developed General Appearance ED: well developed HEENT Reports moist mucous membranes HEENT Narrative: Blood noted in the bilateral nares, left greater than right. No significant bleeding at this time. Eyes EOMs intact bilaterally Chest Wall inspection of chest normal and palpation of chest normal Resp normal respiratory effort and clear to auscultation bilaterally Cardio regular rate and regular rhythm GI non-tender Extremity normal to inspection Neuro oriented x3 and no sensory deficits noted Motor Exam: strength 5/5 throughout Psych mental status grossly normal Skin no rashes or lesions noted MDM MDM MDM Narrative Medical decision making narrative: Patient have her INR checked at this time. Afrin spray ordered. Lab Data Labs: Laboratory Results - last 24 hr 09/18/23 10:57 PT 25.5 H INR 2.3 Treatment and Re-Evaluation :: INR is 2.3. She states typically they want her INR between 2.5 and 3.5. Patient has not no further bleeding here. After discussion she would prefer sponge packing in case the bleeding starts again. She was able to blow her nose to remove any clots. No further bleeding noted. She used 2 sprays of her own Afrin to the left nostril. Merisel packing was placed without difficulty. Patient will follow-up with Dr. Man who she has seen previously. Discharge Plan Triage Chief Complaint: Nosebleed ED Provider: Nicole Haji Dx/Rx/DC Orders Clinical Impression: Epistaxis Instructions: ED Epistaxis (Adult) Prescriptions: No Action folic acid 1 mg tablet 1 mg PO DAILY 90 Days Qty: 90 Patient Comments: TAKE ONE TABLET BY MOUTH EVERY DAY cholecalciferol (vitamin D3) 25 mcg (1,000 unit) capsule 25 mcg PO DAILY potassium chloride [Klor-Con M20] 20 mEq tablet,ER particles/crystals 20 meq PO DAILY Patient Comments: TAKE 1 TABLET BY MOUTH EVERY DAY metoprolol tartrate 25 mg tablet 12.5 mg PO BID rosuvastatin 20 mg tablet 40 mg PO DAILY aspirin [Adult Low Dose Aspirin] 81 mg tablet,delayed release (DR/EC) 81 mg PO DAILY polysaccharide iron complex 150 mg iron capsule 150 mg PO DAILY Patient Comments: TAKE 1 CAPSULE BY MOUTH EVERY DAY FOR 90 DAYS omeprazole 20 mg capsule,delayed release(DR/EC) 20 mg PO DAILY diphenhydramine-acetaminophen [Tylenol PM Extra Strength] 25-500 mg tablet 1 tab PO QHS PRN escitalopram oxalate 20 MG tablet 20 mg PO DAILY ascorbic acid (vitamin C) 500 mg tablet 500 mg PO BID furosemide 40 mg tablet 40 mg PO DAILY Qty: 90 3RF warfarin 4 mg tablet 4 mg PO DAILY Qty: 90 3RF Protocol: Dose Management Condition: Wednesday Dose/Route: 4 mg Instruction: 1 x 4 mg tablet Condition: Wednesday Dose/Route: 4 mg Instruction: 1 x 4 mg tablet Condition: Wednesday Dose/Route: 4 mg Instruction: 1 x 4 mg tablet Condition: Wednesday Dose/Route: 0 mg Instruction: 0 tablets Condition: Dose/Route: 4 mg Instruction: 1 x 4 mg tablet Condition: Wednesday Dose/Route: 4 mg Instruction: 1 x 4 mg tablet Condition: Wednesday Dose/Route: 4 mg Instruction: 1 x 4 mg tablet Protocol Text: Adjustment Start Date: 09/16/23 INR Value: 3.2 INR Date: 09/06/23 Recheck Date: 09/21/23 warfarin 1 mg tablet 1 mg PO .COMPLEX Qty: 90 3RF Hold Instructions: Order Changed Protocol: Dose Management Condition: Wednesday Dose/Route: 4 mg Instruction: 1 x 4 mg tablet Condition: Wednesday Dose/Route: 4 mg Instruction: 1 x 4 mg tablet Condition: Wednesday Dose/Route: 4 mg Instruction: 1 x 4 mg tablet Condition: Wednesday Dose/Route: 0 mg Instruction: 0 tablets Condition: Dose/Route: 4 mg Instruction: 1 x 4 mg tablet Condition: Wednesday Dose/Route: 4 mg Instruction: 1 x 4 mg tablet Condition: Wednesday Dose/Route: 4 mg Instruction: 1 x 4 mg tablet Protocol Text: Adjustment Start Date: 09/16/23 INR Value: 3.2 INR Date: 09/06/23 Recheck Date: 09/21/23 Rx Instructions: Take 1 tablet with 1/2 of a 5 mg tablet on Wed, , Wed to = 3.5 mg (take a 5 mg tablet all other days of the week, or as directed). warfarin 5 mg tablet 5 mg PO .COMPLEX Qty: 90 3RF Hold Instructions: Order Changed Protocol: Dose Management Condition: Wednesday Dose/Route: 4 mg Instruction: 1 x 4 mg tablet Condition: Wednesday Dose/Route: 4 mg Instruction: 1 x 4 mg tablet Condition: Wednesday Dose/Route: 4 mg Instruction: 1 x 4 mg tablet Condition: Wednesday Dose/Route: 0 mg Instruction: 0 tablets Condition: Dose/Route: 4 mg Instruction: 1 x 4 mg tablet Condition: Wednesday Dose/Route: 4 mg Instruction: 1 x 4 mg tablet Condition: Wednesday Dose/Route: 4 mg Instruction: 1 x 4 mg tablet Protocol Text: Adjustment Start Date: 09/16/23 INR Value: 3.2 INR Date: 09/06/23 Recheck Date: 09/21/23 Rx Instructions: 5 mg orally 1/2 tablet with a 1 mg tablet on Wed, , Wed to = 2.5 mg: take a 5 mg tablet Wed,, , Wed; or as directed; Primary Care Provider: Leonardo Sotelo Chi Referrals: Maurilio Ely MD [Med Staff - Active Staff] - As soon as possible Leonardo Sotelo Chi, MD [Primary Care Provider] - Disposition Disposition: Home, Self Care
[2023-09-18 11:18] LABS: International Normalized Ratio 2.3; Prothrombin Time (Protime)PT. 25.5 SECONDS (11.7-14.9)
[2023-09-18 12:05] VITALS: BP 140/59; PULSE 71; RESP 18; TEMP 35.8; O2SAT 95
== END 2023-09-18 12:06 | disposition home or self-care (01) ==
PROVIDERS: Emergency Provider Emergency Medicine; PCP Family Medicine Geriatric Medicine; Visit Provider Emergency Medicine
DX: R04.0 Epistaxis (principal); Z95.2 Presence of prosthetic heart valve; F17.200 Nicotine dependence, unspecified, uncomplicated; Z79.01 Long term (current) use of anticoagulants; I25.10 Atherosclerotic heart disease of native coronary artery without angina pectoris; E78.5 Hyperlipidemia, unspecified; Z79.899 Other long term (current) drug therapy
CPT/HCPCS: 30901; 85610; 99283; A4216

== ENCOUNTER → 2023-09-29 | Outpatient (CLI) | payer MEDICARE, SELFPAY ==
--- NOTE | 2023-09-29 15:54 | CT_ITS ---
STUDY: CTA CHEST REASON FOR EXAM: Female, 73 years old. Worsening shortness of breath. Prior CABG. RADIATION DOSAGE (If Supplied By Facility): CTDIvol = ( 6.03 ) mGy, DLP = ( 161.46 ) mGycm TECHNIQUE: The examination was performed with the intravenous administration of IV 100mL Isovue-370. Post-processing of the angiographic images was performed, with multiplanar reformation and 3D reconstruction. Individualized dose optimization techniques were used for this CT. COMPARISON: None. FINDINGS: Normal enhancement of the main pulmonary artery and right and left pulmonary arteries. Normal enhancement of the bilateral peripheral pulmonary arteries. There is no demonstrated pulmonary embolism. Normal thoracic aorta and visualized great vessels. There is no demonstrated aortic dissection. Sternal cerclage wires and vascular clips are present from a prior sternotomy and coronary artery bypass graft procedure (CABG). There are calcifications of the coronary arteries. Prior mitral valve replacement. Normal mediastinum. Normal hilar regions. Normal visualized trachea and bronchi. Mild degree of emphysematous changes. Hyperinflation. Mild scarring in the posterolateral aspect of the lingular segment of the left upper lobe. Normal pleura. Normal chest wall structures. There are degenerative changes of thoracic spine. The patient is status post cholecystectomy. Fatty infiltration of the liver. CT/CTA Chest W/WO Contrast IMPRESSION: No evidence of pulmonary embolism. Mild degree of emphysematous changes with scarring in the posterior aspect of the lingular segment of the left upper lobe. Electronically Signed: Fermin Patterson MD at 14:44 EDT ,
[2023-09-29 16:21] LABS: CREATININE FINGERSTICK < 1.0 mg/dL (0.55-1.02); EGFR FINGERSTICK > 60.0000 mL/min (>60)
== END | disposition home or self-care (01) ==
PROVIDERS: PCP Family Medicine Geriatric Medicine; Referring Provider Internal Medicine Cardiovascular Disease; Visit Provider Internal Medicine Cardiovascular Disease
DX: R06.02 Shortness of breath (principal); Z95.2 Presence of prosthetic heart valve; Z79.01 Long term (current) use of anticoagulants
CPT/HCPCS: 36415; 71275; 85610; Q9967

== ENCOUNTER 2023-10-08 13:42 | Outpatient (RCR) | payer MEDICARE, SELFPAY ==
[2023-09-09 22:16] VITALS: BMI 26.7
[2023-09-29 16:31] LABS: International Normalized Ratio 3.9; Prothrombin Time (Protime)PT. 38.1 SECONDS (11.7-14.9)
[2023-10-08 14:24] LABS: International Normalized Ratio 2.5; Prothrombin Time (Protime)PT. 26.8 SECONDS (11.7-14.9)
== END 2023-10-09 18:00 | disposition home or self-care (01) ==
LOC: LAB 13:42
PROVIDERS: Family Provider Family Medicine Geriatric Medicine; PCP Family Medicine Geriatric Medicine; Referring Provider Internal Medicine Cardiovascular Disease; Visit Provider Internal Medicine Cardiovascular Disease
DX: Z79.01 Long term (current) use of anticoagulants (principal); Z95.2 Presence of prosthetic heart valve
CPT/HCPCS: 36415; 85610

== ENCOUNTER → 2023-10-26 | Outpatient (CLI) | payer MEDICARE, SELFPAY ==
[2023-10-26 13:27] LABS: Absolute Lymphocyte Count 0.96 X10^3/uL (0.83-4.51); Absolute Neutrophil Count 10.5 X10^3/uL (2.0-7.7); Basophil# 0.07 X10^3/uL; Basophil% 0.6 % (0-1); Eosinophil# 0.13 X10^3/uL; Hematocrit 33.5 % (37-47); Hemoglobin 10.6 g/dL (12.0-15.0); Lymphocyte # 0.96 X10^3/ul (0.83-4.51); Lymphocyte % 7.6 % (19-41); Mean Corp Hgb Conc 31.6 g/dL (32-36); Mean Corpuscular Hgb 31.1 pg (27.0-32.0); Mean Corpuscular Volume 98.2 fL (81-99); Mean Platelet Vol. 11.6 fl (6.2-12.0); Monocyte# 0.98 X10^3/uL; Monocyte% 7.7 % (0-10); NRBC Flagged by Analyzer 0 % (0-5); Neutrophil % 82.6 % (47-70); Platelet Count 251 K/mm3 (150-450); RBC Distribution Width CV 15.2 % (11.6-14.6); RBC Distribution Width SD 54.7 fl (35.1-43.9); Red Blood Count 3.41 M/mm3 (4.2-5.4); White Blood Count 12.7 K/mm3 (4.4-11.0)
[2023-10-26 13:55] LABS: ALB/GLOB Ratio 0.9 RATIO (0.9-2.4); AST(SGOT) 69 U/L (15-37); Alanine Aminotransfer ALT/SGPT 27 U/L (13-56); Albumin, Serum 3.5 g/dL (3.2-5.0); Alkaline Phosphatase 82 U/L (45-117); Anion Gap 7 (5-15); BUN 23 mg/dL (7-18); BUN/Creat Ratio 20.5 RATIO (10-20); Calcium,Total 9.4 mg/dL (8.5-10.1); Chloride 105 mmol/L (98-107); Creatinine, Serum 1.12 mg/dL (0.55-1.02); EST Glomerular Filtration Rate 51 mL/min (>60); Est Glom Filt Rate - Afr Amer 62 mL/min (>60); Globulin 3.8 g/dL (2.2-4.2); Glucose 116 mg/dL (74-106); Potassium 4.8 mmol/L (3.5-5.1); Protein, Total 7.3 g/dL (6.4-8.2); Sodium Level 137 mmol/L (136-145); Thyroid Stim Hormone (TSH) 0.79 uIU/mL (0.358-3.74)
[2023-10-26 14:16] LABS: Vitamin D,25 Hydroxy 47.7 ng/mL
== END | disposition home or self-care (01) ==
LOC: POLAB3 11:25
PROVIDERS: PCP Family Medicine Geriatric Medicine; Visit Provider Family Medicine Geriatric Medicine
DX: I10 Essential (primary) hypertension (principal); E55.9 Vitamin D deficiency, unspecified
CPT/HCPCS: 36415; 80053; 82306; 84443; 85025

== ENCOUNTER → 2023-10-28 | Outpatient (CLI) | payer MEDICARE, SELFPAY ==
--- NOTE | 2023-10-28 14:53 | BI_ITS ---
MAMMOGRAPHY - BILATERAL SCREENING REASON FOR EXAM: Female, 73 years old. Routine annual screening examination. PERTINENT HISTORY: Non-contributory. TECHNIQUE: Digital bilateral breast darci (3D mammographic acquisition) in the CC and MLO projections. 2-D mediolateral oblique (MLO) and craniocaudad (CC) views of both breasts were obtained. CAD: Full Field Digital Mammography with Computer Added Detection was performed. COMPARISON: Comparison is made with prior study June 07, 2018 and March 25, 2010. FINDINGS: Breast Composition: There are scattered areas of fibroglandular density. There are no dominant masses or suspicious calcifications. Stable small benign-appearing bilateral axillary lymph nodes. No other significant abnormalities are identified. There has been no significant change since the prior study. BI/SCRN MAMM (CAD)W/DARCI BILAT IMPRESSION: Stable bilateral screening mammogram. Yearly follow-up mammogram recommended. (A) ASSESSMENT CATEGORY: BIRADS Category 2: Benign. A letter regarding these results will be sent to the patient by the facility within 30 days. Approximately 10% of breast cancers are not detected by mammography. A normal mammogram should not delay biopsy of a clinically suspicious abnormality. [id number] Electronically Signed: Fermin Patterson MD at 15:46 EDT ,
== END | disposition home or self-care (01) ==
LOC: OPBI 14:51
PROVIDERS: PCP Family Medicine Geriatric Medicine; Referring Provider Family Medicine Geriatric Medicine; Visit Provider Family Medicine Geriatric Medicine
DX: Z12.31 Encounter for screening mammogram for malignant neoplasm of breast (principal)
CPT/HCPCS: 77063; 77067

== ENCOUNTER 2023-11-05 12:35 | Outpatient (RCR) | payer MEDICARE, SELFPAY ==
[2023-10-09 22:04] VITALS: BMI 26.7
[2023-10-28 16:51] LABS: International Normalized Ratio 2.3; Prothrombin Time (Protime)PT. 25.5 SECONDS (11.7-14.9)
[2023-11-05 13:25] LABS: International Normalized Ratio 2.4; Prothrombin Time (Protime)PT. 26.1 SECONDS (11.7-14.9)
== END 2023-11-09 22:39 | disposition home or self-care (01) ==
LOC: LAB 12:35
PROVIDERS: Family Provider Family Medicine Geriatric Medicine; PCP Family Medicine Geriatric Medicine; Referring Provider Internal Medicine Cardiovascular Disease; Visit Provider Internal Medicine Cardiovascular Disease
DX: Z79.01 Long term (current) use of anticoagulants (principal); Z95.2 Presence of prosthetic heart valve; Z12.31 Encounter for screening mammogram for malignant neoplasm of breast
CPT/HCPCS: 36415; 77063; 77067; 85610

== ENCOUNTER 2023-11-29 15:34 | Outpatient (RCR) | payer MEDICARE, SELFPAY ==
[2023-11-09 22:39] VITALS: BMI 26.7
--- NOTE | 2023-11-29 15:45 | RAD_ITS ---
EXAM: XR RIGHT FOOT COMPLETE, 3 OR MORE VIEWS CLINICAL INDICATION: RIGHT FOOT PAIN TECHNIQUE: Frontal, lateral and oblique views of the right foot. COMPARISON: No relevant prior studies available. FINDINGS: BONES/JOINTS: Unremarkable. No acute fracture. No subluxation. Normal alignment. Preservation of the joint space. No sclerotic or destructive changes observed. SOFT TISSUES: Unremarkable. No soft tissue swelling or gas. No radiopaque foreign body. RAD/Foot min 3 Views IMPRESSION: Negative right foot x-rays. Electronically Signed: Brett Prescott MD at 0:10 EDT ,
[2023-11-29 16:38] LABS: Absolute Lymphocyte Count 1.57 X10^3/uL (0.83-4.51); Absolute Neutrophil Count 10.3 X10^3/uL (2.0-7.7); Basophil# 0.09 X10^3/uL; Basophil% 0.7 % (0-1); Eosinophil# 0.27 X10^3/uL; Hematocrit 32.2 % (37-47); Lymphocyte # 1.57 X10^3/ul (0.83-4.51); Lymphocyte % 11.6 % (19-41); Mean Corp Hgb Conc 31.1 g/dL (32-36); Mean Corpuscular Hgb 29.9 pg (27.0-32.0); Mean Corpuscular Volume 96.1 fL (81-99); Mean Platelet Vol. 11.1 fl (6.2-12.0); Monocyte# 1.26 X10^3/uL; Monocyte% 9.3 % (0-10); NRBC Flagged by Analyzer 0 % (0-5); Neutrophil # 10.25 X10^3/uL (2.7-7.7); Neutrophil % 75.9 % (47-70); Platelet Count 327 K/mm3 (150-450); RBC Distribution Width CV 14.9 % (11.6-14.6); RBC Distribution Width SD 51.6 fl (35.1-43.9); Red Blood Count 3.35 M/mm3 (4.2-5.4); White Blood Count 13.5 K/mm3 (4.4-11.0)
[2023-11-29 16:43] LABS: International Normalized Ratio 3.2; Prothrombin Time (Protime)PT. 32.2 SECONDS (11.7-14.9)
[2023-11-29 16:52] LABS: Erythrocyte Sedimentation Rate 28 mm/hr (0-30)
[2023-11-29 17:26] LABS: ALB/GLOB Ratio 0.7 RATIO (0.9-2.4); AST(SGOT) 49 U/L (15-37); Alanine Aminotransfer ALT/SGPT 20 U/L (13-56); Albumin, Serum 3.2 g/dL (3.2-5.0); Alkaline Phosphatase 91 U/L (45-117); Anion Gap 4 (5-15); BUN 26 mg/dL (7-18); BUN/Creat Ratio 23.6 RATIO (10-20); Calcium,Total 9.6 mg/dL (8.5-10.1); Chloride 104 mmol/L (98-107); EST Glomerular Filtration Rate 52 mL/min (>60); Est Glom Filt Rate - Afr Amer 63 mL/min (>60); Globulin 4.3 g/dL (2.2-4.2); Glucose 74 mg/dL (74-106); Potassium 4.8 mmol/L (3.5-5.1); Protein, Total 7.5 g/dL (6.4-8.2); Sodium Level 136 mmol/L (136-145); Uric Acid 7.5 mg/dL (2.6-6.0)
== END 2023-12-10 18:00 | disposition home or self-care (01) ==
LOC: LAB 15:34
PROVIDERS: Family Provider Family Medicine Geriatric Medicine; PCP Family Medicine Geriatric Medicine; Referring Provider Family Medicine Geriatric Medicine; Visit Provider Internal Medicine Cardiovascular Disease
DX: Z79.01 Long term (current) use of anticoagulants (principal); Z95.2 Presence of prosthetic heart valve; M79.671 Pain in right foot
CPT/HCPCS: 36415; 73630; 80053; 84550; 85025; 85610; 85652; 86140

== ENCOUNTER 2023-12-20 11:52 | Outpatient (RCR) | payer MEDICARE, SELFPAY ==
[2023-12-13 09:15] VITALS: BMI 26.7
[2023-12-20 12:45] LABS: International Normalized Ratio 3.4; Prothrombin Time (Protime)PT. 34.4 SECONDS (11.7-14.9)
== END 2023-12-20 18:00 | disposition home or self-care (01) ==
LOC: LAB 11:52
PROVIDERS: Family Provider Family Medicine Geriatric Medicine; PCP Family Medicine Geriatric Medicine; Referring Provider Family Medicine Geriatric Medicine; Visit Provider Internal Medicine Cardiovascular Disease
DX: Z79.01 Long term (current) use of anticoagulants (principal); Z95.2 Presence of prosthetic heart valve
CPT/HCPCS: 36415; 85610

== ENCOUNTER → 2024-01-20 | Outpatient (CLI) | payer MEDICARE, SELFPAY ==
[2024-01-20 13:32] LABS: Absolute Lymphocyte Count 0.87 X10^3/uL (0.83-4.51); Absolute Neutrophil Count 10.3 X10^3/uL (2.0-7.7); Basophil# 0.06 X10^3/uL; Basophil% 0.5 % (0-1); Eosinophil# 0.09 X10^3/uL; Eosinophils% 0.7 % (0-5); Hematocrit 26.3 % (37-47); Hemoglobin 7.9 g/dL (12.0-15.0); Lymphocyte # 0.87 X10^3/ul (0.83-4.51); Mean Corpuscular Hgb 27.5 pg (27.0-32.0); Mean Corpuscular Volume 91.6 fL (81-99); Mean Platelet Vol. 10.6 fl (6.2-12.0); Monocyte# 1.09 X10^3/uL; Monocyte% 8.8 % (0-10); NRBC Flagged by Analyzer 0 % (0-5); Neutrophil # 10.27 X10^3/uL (2.7-7.7); Neutrophil % 82.5 % (47-70); Platelet Count 326 K/mm3 (150-450); RBC Distribution Width CV 15.1 % (11.6-14.6); RBC Distribution Width SD 50.5 fl (35.1-43.9); Red Blood Count 2.87 M/mm3 (4.2-5.4); White Blood Count 12.4 K/mm3 (4.4-11.0)
== END | disposition home or self-care (01) ==
LOC: LAB 12:21
PROVIDERS: PCP Family Medicine Geriatric Medicine; Referring Provider Family Medicine Geriatric Medicine; Visit Provider Family Medicine Geriatric Medicine
DX: R53.83 Other fatigue (principal); D50.9 Iron deficiency anemia, unspecified
CPT/HCPCS: 36415; 82274; 85025

== ENCOUNTER 2024-02-01 12:34 | Day surgery (SDC) | payer MEDICARE, SELFPAY ==
[2024-02-01] VITALS (7 sets, daily range): BP systolic 114–135; BP diastolic 42–75; PULSE 70–80; RESP 16; TEMP 36.3–36.6; O2SAT 95–100; BMI 24.5
[2024-02-01] MEDS: Lactated Ringers 1,000 ML 15 ML IV (13:14)
--- NOTE | 2024-02-01 13:45 | COLBX_PTH ---
PATIENT: CLEMENTINE WARD LOC: EN U#:[id number] AGE/SX: 73/F ROOM: RE02/01/[address]: Dr. Saqib Gonzalez DO : 1950 BED: DIS: 02/01/2024 SPEC #: [id number] RECD: 02/02/24 08:01 STATUS: JUANI REMeng #: [id number] LEA: 02/01/24 13:[address]: Saqib Gonzalez DEPT: SURGICAL PATHOLOGY RECD BY: Melissa Walker ENTERED: 02/02/24 11:33 SP TYPE: COLON BX OTHR DR: Dr. Leonardo Sotelo MD Tissues: A - Duodenum, NOS B - COLON BIOPSY Procedures: Surgery Specimen Level IV HEADER OPERATION: Colonoscopy with biopsies, EGD with biopsy and electrohemostasis PRE-OP DIAGNOSIS: Blood in stool TISSUE SUBMITTED: A- Duodenum biopsy, B- Random colon biopsy MICROSCOPIC DIAGNOSIS A. Duodenum, biopsy: Fragments of duodenal mucosa, no pathologic diagnosis. B. Colon, random biopsy: Fragments of colonic mucosa, no pathologic diagnosis. / 02/03/2024 MICROSCOPIC DESCRIPTION Slides are reviewed. GROSS DESCRIPTION A. Received in fixative is one container labeled with the patient's name and designated Duodenum biopsy. The specimen consists of two irregular fragments of light armstrong soft tissue that in aggregate measure 0.6 x 0.3 x 0.1 cm. The specimen is totally submitted in one cassette. B. Received in fixative is one container labeled with the patient's name and designated Random colon biopsy. The specimen consists of multiple irregular fragments of light armstrong soft tissue that in aggregate measure 1.2 x 0.3 x 0.1 cm. The specimen is totally submitted in one cassette. / 02/02/2024 TC:4 CPT:68112a6
--- NOTE | 2024-02-01 13:56 | PCM.PRE.AN2 ---
ASA Classification* ASA Classification ASA Classification: 3 Assessment & Plan Anesthesia* Anesthesia Assessment Anesthesia Assessment: Discussed sedation and/or anesthesia options, risks, benefits, and alternatives with patient/parents/legal guardian/POA. Questions invited. The patient/parents/legal guardian/POA seems to understand and agrees to proceed with anesthesia plan. Reviewed the physical assessment, medical history, allergy history and patient home medications list prior to surgery/procedure/anesthetic and documented any changes. Performed airway and anesthesia risk assessments. Anesthesia Type Anesthesia Type: MAC Anesthesia Focused Assessment* Temperature: 97.4 F Pulse Rate: 70 Blood Pressure: 135/47 Respiratory Rate: 16 Pulse Ox: 97 Airway Assessment Mouth opens: >3 cm Mallampati Score: II Focused Labs Anesthesia Preop lab: CBC WBC 12.4 K/mm3 (4.4-11.0) H 01/20/24 12:27 RBC 2.87 M/mm3 (4.2-5.4) L 01/20/24 12:27 Hgb 8.7 g/dL (12.0-15.0) L 01/24/24 12:58 Hct 29.6 % (37-47) L 01/24/24 12:58 Plt Count 326 K/mm3 (150-450) 01/20/24 12:27 CHEMISTRY Potassium 4.2 mmol/L (3.5-5.1) 01/18/24 13:10 Sodium 136 mmol/L (136-145) 01/18/24 13:10 BUN 24 mg/dL (7-18) H 01/18/24 13:10 Creatinine 1.05 mg/dL (0.55-1.02) H 01/18/24 13:10 Glucose 105 mg/dL (74-106) 01/18/24 13:10 TSH 0.79 uIU/mL (0.358-3.74) 10/26/23 11:26 COAG PT 27.5 SECONDS (11.7-14.9) H 01/24/24 12:58 INR 2.7 11/11/23 11:00 Pre-Assessment Diagnosis/Proposed Procedure Planned Operative Procedure(s): EGD/CSCOPE Anesthesia History Anesthesia History - 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 When Was Last Pacemaker Check QUESTION #4 FULL TEXT: You/Your Family Experience fever (hyperthermia) with Anesthesia Last Oral Intake Last Oral intake: Last Oral Intake NPO since 09:45 02/01/24 13:05 Meds taken in AM with sips of water? Meds patient instructed to take am of surgery PONV PONV - airways control specialist: PONV - airways control specialist Female Yes 01/28/24 13:48 HX of Motion Sickness Yes 01/28/24 13:48 HX of N/V After Surgery No 01/28/24 13:48 Non-Smoker Yes 01/28/24 13:48 Duration of Surgery greater No 01/28/24 13:48 than 60 minutes Number of Risk Factors 3 01/28/24 13:48 PONV Score Moderate Risk 01/28/24 13:48 Height & Weight Height & Weight: Anesthesia: Height & Weight Height 5 ft 02/01/24 13:05 Weight: 56.9 kg 02/01/24 13:05 Body Mass Index (BMI) 24.5 02/01/24 13:05 Respiratory Assessment Respiratory Assessment - airways control specialist: Respiratory Tract Infection Hx - airways control specialist Hx Respiratory Tract Infection No 01/28/24 13:48 STOP Sleep Apnea STOP Sleep Apnea - airways control specialist: STOP Sleep Apnea - airways control specialist Hx Hypertension Yes: CONTROLLED WITH MED 01/28/24 13:48 Hx Sleep Apnea No 01/28/24 13:48 CPAP BIPAP Do you snore loudly (louder No 01/28/24 13:48 than talking or can be heard Do you often feel tired/ Yes 01/28/24 13:48 fatigued/ sleepy during daytime? Has anyone observed you stop No 01/28/24 13:48 breathing during sleep? STOP Results Positive 01/28/24 13:48 QUESTION #5 FULL TEXT : Do you snore loudly (louder than talking or can be heard through closed doors)? Tobacco Use History Tobacco Use History - airways control specialist: Tobacco Use History - airways control specialist Tobacco Use Smoking Status Light Smoker (<10/day) 01/28/24 13:48 Hx Tobacco Use Yes 01/28/24 13:48 Years Smoking Packs Smoked per Day Smoking Cessation Date was within the last 15 years Hx Smoking Cessation Date Hx Smoking Cessation Counseling Hematologic Medial History Hematologic Hx - airways control specialist: Hematologic Medical Hx - rn clinical documentation specialist Hx of Blood Transfusion No 01/28/24 13:48 Hx of Transfusion in last 3 No 01/28/24 13:48 Months Date of Last Transfusion (if within last 3 months) Ever experience any problems No 01/28/24 13:48 with transfusion(s)? Specify any problems Hx of Preganancy in last 3 No 01/28/24 13:48 Months Nurse Filling Out Transfusion DSCHRIBER 01/28/24 13:48 & Questions: Date: 01/28/24 01/28/24 13:48 Time: 13:50 01/28/24 13:48 Patient unable to answer at this time (ie. confused, unrespo /Reproduction History /Reproductive History - airways control specialist: /Reproductive Hx- airways control specialist Hx Now No 01/28/24 13:48 Gestational Age (in weeks): EDC: Hx Hx Para Hx Section SAB No 01/28/24 13:48 Active Medications Active Medications: Current Medications Generic Name Dose Route Start Last Admin Trade Name Freq PRN Reason Stop Dose Admin Lactated Ringer's 1,000 mls @ 15 mls/hr 02/01/24 13:15 02/01/24 13:14 IV 15 mls/hr .Q48H MARVIN Administration PFSH Medical History (Updated 01/28/24 @ 13:59 by Diana Flores) Wears hearing aid Wears glasses Wears dentures Post-menopausal Depression Anxiety Arthritis Anemia Low iron DVT (deep venous thrombosis) High cholesterol Injury of head and neck Vertigo History of hiatal hernia History of ulceration History of diverticulitis Gastric reflux Smoker Shortness of breath on exertion Leg cramps History of edema History of stress test History of transesophageal echocardiography (RIP) History of echocardiogram History of rheumatic fever Hypertension History of CHF (congestive heart failure) Cardiology follow-up encounter History of irregular heartbeat Fatigue Non-autoimmune hemolytic anemia, unspecified BPV (benign positional vertigo) Nicotine dependence Carotid artery stenosis Premature ventricular contractions Right carotid bruit Hyperlipidemia Secondary pulmonary arterial hypertension Nonrheumatic mitral valve regurgitation Atherosclerotic heart disease of [place] coronary artery without angina pectoris Home Medications ?Medication ?Instructions ?Recorded ?Last Taken ?Type escitalopram oxalate 20 mg tablet 20 mg PO DAILY 12/30/14 12/30/14 History folic acid 1 mg tablet 1 mg PO DAILY 90 days ##90 10/01/17 Unknown History ascorbic acid (vitamin C) 500 mg 500 mg PO BID 12/01/18 Unknown History tablet cholecalciferol (vitamin D3) 25 25 mcg PO DAILY 02/29/20 Unknown History mcg (1,000 unit) capsule furosemide 40 mg tablet 40 mg PO DAILY #90 tabs 10/20/21 Unknown Rx potassium chloride 20 mEq 20 meq PO DAILY 02/05/22 Unknown History tablet,extended release(part/cryst) (Klor-Con M) metoprolol tartrate 25 mg tablet 12.5 mg PO BID 11/12/22 Unknown History warfarin 4 mg tablet 4 mg PO DAILY Dose changed to 4 mg 05/14/23 Unknown Rx every day #90 tabs omeprazole 20 mg capsule,delayed 20 mg PO DAILY 09/14/23 Unknown History release polysaccharide iron complex 150 mg 150 mg PO DAILY 09/14/23 Unknown History iron capsule rosuvastatin 20 mg tablet 40 mg PO QHS 09/14/23 Unknown History doxepin 10 mg capsule 10 mg PO QHS PRN PRN itching 01/25/24 Unknown History Allergy/AdvReac Type Severity Reaction Status Date / Time adhesive tape AdvReac Severe Rash Verified 02/01/24 13:04 paroxetine (From Paxil) AdvReac Severe Many side Verified 02/01/24 13:04 effects Family History Mother Myocardial infarction CAD (coronary artery disease) Hx CABG Father Pulmonary fibrosis Surgical History (Updated 01/28/24 @ 13:59 by Diana Flores) Hx of right cataract extraction Hx of left cataract extraction History of esophagogastroduodenoscopy (EGD) Hx of cholecystectomy History of back surgery Hx of foot surgery H/O coronary artery bypass surgery (03/10/11) Hx of mitral valve replacement with mechanical valve (03/10/11) Social History Smoking Status: Light Smoker (<10/day) Tobacco: How many years used: 46 alcohol intake: current alcohol intake frequency: holidays/special occasions only Alcohol type: beer substance use type: does not use caffeine: Yes Type: tea what type of physical activity do you participate in: none seatbelt use: always do you feel safe at home: Yes Review of Systems (Anesthesia) ROS Narrative System reviewed and no additional complaints, except as documented.
--- NOTE | 2024-02-01 14:18 | PCM.HP.BLA ---
History and Physical Date of Admission: 02/01/24 Pt here for blood in stool, and fatigue. Pt states she has BM daily sometimes they are loose. Pt has c/o SOB, weakness, and leg cramps at night. Pt is having surgery Feb.17 for mitral valve. Takes omeprazole daily. [facility] Medical History (Updated 01/25/24 @ 13:20 by Bailey Fish LPN) Fatigue Non-autoimmune hemolytic anemia, unspecified BPV (benign positional vertigo) Nicotine dependence Carotid artery stenosis Anemia Premature ventricular contractions Right carotid bruit Hyperlipidemia Secondary pulmonary arterial hypertension Nonrheumatic mitral valve regurgitation Atherosclerotic heart disease of [place] coronary artery without angina pectoris Surgical History H/O coronary artery bypass surgery (03/10/11) Hx of mitral valve replacement with mechanical valve (03/10/11) Family History Mother Myocardial infarction CAD (coronary artery disease) Hx CABGFather Pulmonary fibrosis Social History Smoking Status: Light Smoker (<10/day) Tobacco: How many years used: 46 alcohol intake: current alcohol intake frequency: holidays/special occasions only Alcohol type: beer substance use type: does not use caffeine: Yes Type: tea what type of physical activity do you participate in: none seatbelt use: always do you feel safe at home: Yes HPI HPI Chief Complaint: Follow-up visit Details: CLEMENTINE WARD, is a 73 F who presents to the office today for +FOBT. This test was ordered after she was found to be anemic. She does seem to have a chronic anemia that she follows Dr. Wilkerson for. Her last Hgb was 8.7 (01/24/24). This is the lowest her Hgb has been since 2016 according to [facility] records. She has had increasing fatigue over the past month but no other symptoms. She has CAD and hx of bypass surgery and mitral valve replacement. She will be undergoing cardiac surgery in February and wanted her fatigue and anemia resolved prior to this. She says the ophthalmic assistant does not believe her fatigue to be related to her cardiac issues. She denies have black or tarry stool but she does take iron so her baseline stool is black. She denies n/v, diarrhea, hematemesis or abdominal pain. ROS Const Constitutional: Positive for fatigue; No fever(s) or weight change ENT ENT: No difficulty swallowing Gastro GI: Positive for bloating, change in bowel habits, diarrhea, heartburn and Blood in stool; No abdominal pain, belching, change in stool character, coffee ground emesis, constipation, cramping, difficulty swallowing, feeling full early, excessive flatus, incontinent of stools, Vomiting blood/hematemesis, loose stools, Black,tarry stools, nausea/dyspepsia, pain with swallowing, vomiting or other Musc Musculoskeletal: Positive for joint pain, joint swelling, muscle cramps, muscle weakness, numbness, tingling and leg pain at night Skin Skin: No yellowing of the eye or itchy eyes Neuro Neurology: Positive for dizziness, numbness and tingling Psych Psychiatric: Positive for anxiety and No depression Endo Endocrine: Positive for fatigue; No weight change Aller/Imm Allergy/Immunologic: No itchy eyes Hong/Lymp Hematologic/Lymphatic: Positive for easy bruising; No easy bleeding Exam Const General: cooperative and comfortable Nutritional Appearance: average body habitus and well nourished [facility] Head: normal to inspection Ears: hearing grossly normal bilaterally Nose: external nose normal Face and sinus: normal facial exam Mouth: oral mucosae normal Throat: posterior oropharynx normal Eyes General: appearance normal, both eyes and all related structures Neck Neck: normal visual inspection Chest Chest palpation & inspection: normal inspection of the chest and normal palpation of entire chest wall Resp Effort & Inspection: normal respiratory effort Auscultation: Bilateral: Clear to Auscultation Cardio Palpation: normal PMI Rate: regular rate Rhythm: regular rhythm GI Inspection: normal to inspection Auscultation: normal bowel sounds Percussion: normal to percussion Palpation: no hepatosplenomegaly Skin General: no rashes or lesions noted Neuro General: patient alert Extrem General: normal to inspection Psych Affect: normal affect Assessment and Plan Assessment and Plan (1) Blood in stool: Status: Acute Plan -Patient has a hx of anemia. Last Hgb was 8.7 (01/24/24) which is the lowest it has been since 2016. FOBT+ from 01/20/24 -She has no obvious signs of bleeding and no GI symptoms. Her stool is black but she takes iron -Will schedule pt for EGD and colonoscopy to rule out GI bleed before she undergoes cardiac surgery -She will continue to take omeprazole -I have examined the patient and the H&P has been reviewed. There are no clinical changes since date of exam.
--- NOTE | 2024-02-01 15:07 | OP.EGD_ITS ---
Patient Name: Lauren Cortes Procedure Date: 02/01/2024 2:24 PM Date of : 1950 Age: 73 Procedure: Upper GI endoscopy Indications: Iron deficiency anemia Providers: Saqib Gonzalez DO Referring MD: Saqib Gonzalez DO Medicines: Monitored Anesthesia Care Patient Profile: This is a 73 year old female. Refer to note in patient chart for documentation of history and physical. Patient has symptoms. Complications: No immediate complications. Procedure: Pre-Anesthesia Assessment: - Prior to the procedure, a History and Physical was performed, and patient medications and allergies were reviewed. The patient is competent. The risks and benefits of the procedure and the sedation options and risks were discussed with the patient. All questions were answered and informed consent was obtained. Patient identification and proposed procedure were verified by the physician in the pre-procedure area. Mental Status Examination: alert and oriented. Airway Examination: normal oropharyngeal airway and neck mobility. Respiratory Examination: clear to auscultation. CV Examination: normal. Prophylactic Antibiotics: The patient does not require prophylactic antibiotics. Prior Anticoagulants: The patient has taken no anticoagulant or antiplatelet agents. ASA Grade Assessment: III - A patient with severe systemic disease. After reviewing the risks and benefits, the patient was deemed in satisfactory condition to undergo the procedure. The anesthesia plan was to use monitored anesthesia care (MAC). Immediately prior to administration of medications, the patient was re-assessed for adequacy to receive sedatives. The heart rate, respiratory rate, oxygen saturations, blood pressure, adequacy of pulmonary ventilation, and response to care were monitored throughout the procedure. The physical status of the patient was re-assessed after the procedure. After obtaining informed consent, the endoscope was passed under direct vision. Throughout the procedure, the patient's blood pressure, pulse, and oxygen saturations were monitored continuously. The Colonoscope was introduced through the mouth, and advanced to the second part of duodenum. The upper GI endoscopy was accomplished without difficulty. The patient tolerated the procedure well. Scope In: 2:37:18 PM Scope Out: 2:43:04 PM Total Procedure Duration Time 0 hours 5 minutes 46 seconds Findings: The examined esophagus was normal. A single 5 mm angiodysplastic lesion with no bleeding was found on the greater curvature of the stomach. Coagulation for hemostasis using heater probe was successful. Estimated blood loss was minimal. One oozing linear gastric ulcer with pigmented material was found at the pylorus. The lesion was 6 mm in largest dimension. Coagulation for hemostasis using heater probe was successful. Estimated blood loss was minimal. Patchy moderately congested mucosa without active bleeding and with no stigmata of bleeding was found in the duodenal bulb, in the first portion of the duodenum and in the second portion of the duodenum. Biopsies for histology were taken with a cold forceps for evaluation of celiac disease. Verification of patient identification for the specimen was done. Estimated blood loss was minimal. Impression: - Normal esophagus. 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 Treated with a heater probe. - Oozing gastric ulcer with pigmented material. Treated with a heater probe. - Congested duodenal mucosa. Biopsied. Recommendation: - Discharge patient to home. - Resume previous diet. - Continue present medications. - Await pathology results. Procedure Code(s): --- Professional --- 14265, 59, Esophagogastroduodenoscopy, flexible, transoral; with control of bleeding, any method 13306, 51, Esophagogastroduodenoscopy, flexible, transoral; with biopsy, single or multiple CPT copyright 2021 [employer]. All rights reserved. The codes documented in this report are preliminary and upon rigger review may be revised to meet current compliance requirements. Saqib Gonzalez DO 02/01/2024 3:07:15 PM This report has been signed electronically. Number of Addenda: 0 Note Initiated On: 02/01/2024 2:24 PM
--- NOTE | 2024-02-01 15:07 | OP.CCLET_ITS ---
02/01/2024 Leonardo Sotelo MD [address] [place] [address] Re : Upper GI endoscopy procedure for Lauren Cortes Dear Dr. Sotelo This procedure was performed on Thursday, February 01, 2024. My impressions and recommendations are as follows: Impressions : - Normal esophagus. 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 Treated with a heater probe. - Oozing gastric ulcer with pigmented material. Treated with a heater probe. - Congested duodenal mucosa. Biopsied. Recommendations : - Discharge patient to home. - Resume previous diet. - Continue present medications. - Await pathology results. My findings are described in the full procedure note, which is enclosed. If I can be of further assistance, please feel free to contact me at . Sincerely, Saqib Gonzalez, 02/01/2024 3:07:15 PM This report has been signed electronically.
--- NOTE | 2024-02-01 15:09 | PCM.POST.ANE ---
Anesthesia: Postop Eval I Current Vital Signs Temperature: 97.6 F Pulse Rate: 80 Blood Pressure: 114/42 Respiratory Rate: 16 Pulse Ox: 100 Oxygen Delivery Method: Room Air Assessment Airway patent: Yes Spontaneous unlabored respirations: Yes Mental status: Awake and Calm nausea: No Vomiting: No Anesthesia Complication: No Fluid Hydration Crystalloid volume administer (ml): 1,200 Total IV fluid infused: 1,200 Progress Note Anesthesia document: Postop Eval 1 completed: Yes
--- NOTE | 2024-02-01 15:11 | OP.COLON_ITS ---
Patient Name: Lauren Cortes Procedure Date: 02/01/2024 2:43 PM Date of : 1950 Age: 73 Procedure: Colonoscopy Indications: Iron deficiency anemia Providers: Saqib Gonzalez DO Referring MD: Saqib Gonzalez DO Patient Profile: This is a 73 year old female. Refer to note in patient chart for documentation of history and physical. Patient has symptoms. Last Colonoscopy: date unknown. Unable to locate last colonoscopy report. Complications: No immediate complications. Procedure: Pre-Anesthesia Assessment: - Prior to the procedure, a History and Physical was performed, and patient medications and allergies were reviewed. The patient is competent. The risks and benefits of the procedure and the sedation options and risks were discussed with the patient. All questions were answered and informed consent was obtained. Patient identification and proposed procedure were verified by the physician in the pre-procedure area. Mental Status Examination: alert and oriented. Airway Examination: normal oropharyngeal airway and neck mobility. Respiratory Examination: clear to auscultation. CV Examination: normal. Prophylactic Antibiotics: The patient does not require prophylactic antibiotics. Prior Anticoagulants: The patient has taken no anticoagulant or antiplatelet agents. ASA Grade Assessment: III - A patient with severe systemic disease. After reviewing the risks and benefits, the patient was deemed in satisfactory condition to undergo the procedure. The anesthesia plan was to use monitored anesthesia care (MAC). Immediately prior to administration of medications, the patient was re-assessed for adequacy to receive sedatives. The heart rate, respiratory rate, oxygen saturations, blood pressure, adequacy of pulmonary ventilation, and response to care were monitored throughout the procedure. The physical status of the patient was re-assessed after the procedure. After I obtained informed consent, the scope was passed under direct vision. Throughout the procedure, the patient's blood pressure, pulse, and oxygen saturations were monitored continuously. The Colonoscope was introduced through the anus and advanced to the terminal ileum. The colonoscopy was performed without difficulty. The patient tolerated the procedure well. The quality of the bowel preparation was adequate. Scope In: 2:48:57 PM Scope Withdrawal Time 0 hours 6 minutes 33 seconds Scope Out: 2:58:12 PM Total Procedure Duration Time 0 hours 9 minutes 15 seconds Findings: The perianal and digital rectal examinations were normal. A few small-mouthed diverticula were found in the recto-sigmoid colon, sigmoid colon and descending colon. An area of mildly congested mucosa was found in the recto-sigmoid colon, in the sigmoid colon, in the transverse colon and in the ascending colon. Biopsies were taken with a cold forceps for histology. Verification of patient identification for the specimen was done. Estimated blood loss was minimal. Impression: - Diverticulosis in the recto-sigmoid colon, in the sigmoid colon and in the descending colon. - Congested mucosa in the recto-sigmoid colon, in the sigmoid colon, in the transverse colon and in the ascending colon. Biopsied. Recommendation: - Discharge patient to home. - Resume previous diet. - Continue present medications. - Await pathology results. - Repeat colonoscopy in 5 years for surveillance. Procedure Code(s): --- Professional --- 11344, Colonoscopy, flexible; with biopsy, single or multiple CPT copyright 2021 [employer]. All rights reserved. The codes documented in this report are preliminary and upon migration agent review may be revised to meet current compliance requirements. Saqib Gonzalez DO 02/01/2024 3:11:09 PM This report has been signed electronically. Number of Addenda: 0 Note Initiated On: 02/01/2024 2:43 PM
--- NOTE | 2024-02-01 15:12 | OP.CCLET_ITS ---
02/01/2024 Leonardo Sotelo MD [address] [place] [address] Re : Colonoscopy procedure for Lauren Cortes Dear Dr. Sotelo This procedure was performed on Thursday, February 01, 2024. My impressions and recommendations are as follows: Impressions : - Diverticulosis in the recto-sigmoid colon, in the sigmoid colon and in the descending colon. - Congested mucosa in the recto-sigmoid colon, in the sigmoid colon, in the transverse colon and in the ascending colon. Biopsied. Recommendations : - Discharge patient to home. - Resume previous diet. - Continue present medications. - Await pathology results. - Repeat colonoscopy in 5 years for surveillance. My findings are described in the full procedure note, which is enclosed. If I can be of further assistance, please feel free to contact me at . Sincerely, Saqib Gonzalez, 02/01/2024 3:11:09 PM This report has been signed electronically.
[2024-02-01 17:45] LABS: Vitamin B12 336 pg/mL (211-911)
--- NOTE | 2024-02-02 07:13 | POSTOPAN2_ITS ---
Anesthesia Postop Eval I Sum Postop Eval Completion status Anesthesia document: Postop Eval 1 completed: Yes Anesthesia Postop Eval I Summary Anesthesia Postop Eval I Summary: Anesthesia Postop Eval I: Assessment Summary Airway patent Yes 02/01/24 15:09 CLAM GRADER.ADENIKEOBY Spontaneous unlabored Yes 02/01/24 15:09 CLAM GRADER.BOSTON respirations Mental status Awake,Calm 02/01/24 15:09 CLAM GRADER.ADENIKEOBVladimir nausea No 02/01/24 15:09 CLAM GRADER.ADENIKEOBVladimir Vomiting No 02/01/24 15:09 CLAM GRADER.ADENIKEOBVladimir Anesthesia Postop Eval I: Fluid Summary Crystalloid volume administer 1,200 02/01/24 15:09 CLAM GRADER.ADENIKEOBY (ml) Colloids volume administered ( ml) Blood Product volume administered (ml) Total IV fluid infused 1,200 02/01/24 15:09 CLAM GRADER.BOSTON Anesthesia Postop Eval I: Summary Notes Anesthesia Complication No 02/01/24 15:09 CLAM GRADERSHARONDA Anesthesia Complication Comment: Post-operative progress note Anesthesia: Postop Eval II Evaluation Mental status: Awake and Calm Pain Level: 0 nausea: No Vomiting: No Complications Anesthesia Complication: No
--- NOTE | 2024-02-02 07:13 | PCM.POSTANE2 ---
Anesthesia Postop Eval I Sum Postop Eval Completion status Anesthesia document: Postop Eval 1 completed: Yes Anesthesia Postop Eval I Summary Anesthesia Postop Eval I Summary: Anesthesia Postop Eval I: Assessment Summary Airway patent Yes 02/01/24 15:09 PUBLIC SERVICE DIRECTOR.ADENIKEOBY Spontaneous unlabored Yes 02/01/24 15:09 PUBLIC SERVICE DIRECTOR.BOSTON respirations Mental status Awake,Calm 02/01/24 15:09 PUBLIC SERVICE DIRECTOR.ADENIKEOBVladimir nausea No 02/01/24 15:09 PUBLIC SERVICE DIRECTOR.ADENIKEOBVladimir Vomiting No 02/01/24 15:09 PUBLIC SERVICE DIRECTOR.ADENIKEOBVladimir Anesthesia Postop Eval I: Fluid Summary Crystalloid volume administer 1,200 02/01/24 15:09 PUBLIC SERVICE DIRECTOR.ADENIKEOBY (ml) Colloids volume administered ( ml) Blood Product volume administered (ml) Total IV fluid infused 1,200 02/01/24 15:09 PUBLIC SERVICE DIRECTOR.BOSTON Anesthesia Postop Eval I: Summary Notes Anesthesia Complication No 02/01/24 15:09 PUBLIC SERVICE DIRECTORSHARONDA Anesthesia Complication Comment: Post-operative progress note Anesthesia: Postop Eval II Evaluation Mental status: Awake and Calm Pain Level: 0 nausea: No Vomiting: No Complications Anesthesia Complication: No
[2024-02-06 03:06] LABS: Alpha-1-Globulins 0.3 g/dL (0.0-0.4); Alpha-2-Globulins 0.6 g/dL (0.4-1.0); Anti-Parietal Cell AB, QN 12.3 Units (0.0-20.0); Deamidated Gliadin IgA 4 units (0-19); Deamidated Gliadin IgG 2 units (0-19); Endomysial Antibody IgA Negative (Negative); Gastrin, Serum 618 pg/mL (0-115); IMMUNOFIXATION RESULT,S Comment: (.); Immunoglobulin A 256 mg/dL (64-422); Immunoglobulin E 3 IU/mL (6-495); Immunoglobulin G 944 mg/dL (586-1602); Immunoglobulin M 185 mg/dL (26-217); Intrinsic Factor Ab 1.1 AU/mL (0.0-1.1); PROEL- TOTAL PROTEIN 5.9 g/dL (6.0-8.5); t-Transglutaminase IgA <2 U/mL (0-3)
== END 2024-02-01 16:05 | disposition home or self-care (01) ==
LOC: EN 12:34 → AC 12:37
PROVIDERS: PCP Family Medicine Geriatric Medicine; Referring Provider Family Medicine Geriatric Medicine; Visit Provider Internal Medicine Gastroenterology
PROC: 0DJD8ZZ Inspection of Lower Intestinal Tract, Via Natural or Artificial Opening Endoscopic (ICD-10-PCS; CPT 45378; principal; 2024-02-01 13:40)
DX: K57.30 Diverticulosis of large intestine without perforation or abscess without bleeding (principal); I25.10 Atherosclerotic heart disease of native coronary artery without angina pectoris; F17.200 Nicotine dependence, unspecified, uncomplicated; D50.9 Iron deficiency anemia, unspecified; K31.89 Other diseases of stomach and duodenum; K25.9 Gastric ulcer, unspecified as acute or chronic, without hemorrhage or perforation; E78.00 Pure hypercholesterolemia, unspecified; F41.9 Anxiety disorder, unspecified; F32.A Depression, unspecified; K63.89 Other specified diseases of intestine; I10 Essential (primary) hypertension; K21.9 Gastro-esophageal reflux disease without esophagitis; Z79.01 Long term (current) use of anticoagulants; Z79.899 Other long term (current) drug therapy; Z95.1 Presence of aortocoronary bypass graft; Z86.718 Personal history of other venous thrombosis and embolism
CPT/HCPCS: 45380; 43255; 43239; 36415; 82607; 82746; 82784; 82785; 82941; 83516; 84165; 86255; 86334; 86340; 88305; J7120

== ENCOUNTER 2024-02-09 11:08 | Outpatient (RCR) | payer MEDICARE, SELFPAY ==
[2024-01-09 22:12] VITALS: BMI 26.7
[2024-01-14 15:38] LABS: Prothrombin Time (Protime)PT. 44.5 SECONDS (11.7-14.9)
[2024-01-14 16:04] LABS: International Normalized Ratio 4.8
[2024-01-18 13:37] LABS: Absolute Lymphocyte Count 0.82 X10^3/uL (0.83-4.51); Absolute Neutrophil Count 9.5 X10^3/uL (2.0-7.7); Basophil# 0.05 X10^3/uL; Basophil% 0.4 % (0-1); Eosinophil# 0.13 X10^3/uL; Eosinophils% 1.1 % (0-5); Hematocrit 26.2 % (37-47); Hemoglobin 7.9 g/dL (12.0-15.0); Lymphocyte # 0.82 X10^3/ul (0.83-4.51); Lymphocyte % 7.1 % (19-41); Mean Corp Hgb Conc 30.2 g/dL (32-36); Mean Corpuscular Volume 92.9 fL (81-99); Mean Platelet Vol. 10.8 fl (6.2-12.0); Monocyte% 7.8 % (0-10); NRBC Flagged by Analyzer 0 % (0-5); Neutrophil # 9.51 X10^3/uL (2.7-7.7); Neutrophil % 83.1 % (47-70); Platelet Count 320 K/mm3 (150-450); RBC Distribution Width CV 15.2 % (11.6-14.6); RBC Distribution Width SD 51.3 fl (35.1-43.9); Red Blood Count 2.82 M/mm3 (4.2-5.4); White Blood Count 11.5 K/mm3 (4.4-11.0)
[2024-01-18 14:03] LABS: Anion Gap 6 (5-15); BUN 24 mg/dL (7-18); BUN/Creat Ratio 22.9 RATIO (10-20); Calcium,Total 9.1 mg/dL (8.5-10.1); Chloride 104 mmol/L (98-107); Creatinine, Serum 1.05 mg/dL (0.55-1.02); EST Glomerular Filtration Rate 55 mL/min (>60); Est Glom Filt Rate - Afr Amer 66 mL/min (>60); Glucose 105 mg/dL (74-106); Potassium 4.2 mmol/L (3.5-5.1); Sodium Level 136 mmol/L (136-145)
[2024-01-18 14:14] LABS: Prothrombin Time (Protime)PT. 22.9 SECONDS (11.7-14.9)
[2024-01-24 13:36] LABS: Hematocrit 29.6 % (37-47); Hemoglobin 8.7 g/dL (12.0-15.0)
[2024-01-24 13:45] LABS: International Normalized Ratio 2.6; Prothrombin Time (Protime)PT. 27.5 SECONDS (11.7-14.9)
[2024-02-07 15:04] LABS: International Normalized Ratio 3.9
[2024-02-09 11:35] LABS: International Normalized Ratio 3.3; Prothrombin Time (Protime)PT. 33.2 SECONDS (11.7-14.9)
== END 2024-02-09 18:00 | disposition home or self-care (01) ==
LOC: LAB 11:08
PROVIDERS: Nurse Practitioner Family; Family Provider Family Medicine Geriatric Medicine; PCP Family Medicine Geriatric Medicine; Referring Provider Internal Medicine Cardiovascular Disease; Visit Provider Internal Medicine Cardiovascular Disease
DX: Z79.01 Long term (current) use of anticoagulants (principal); Z95.2 Presence of prosthetic heart valve; D64.9 Anemia, unspecified; R53.83 Other fatigue
CPT/HCPCS: 36415; 80048; 85014; 85018; 85025; 85610

== ENCOUNTER 2024-02-28 13:11 | Outpatient (RCR) | payer MEDICARE, SELFPAY ==
[2024-02-09 20:41] VITALS: BMI 26.7
[2024-02-28 13:44] LABS: International Normalized Ratio 2.5; Prothrombin Time (Protime)PT. 26.9 SECONDS (11.7-14.9)
== END 2024-02-28 18:00 | disposition home or self-care (01) ==
LOC: LAB 13:11
PROVIDERS: Family Provider Family Medicine Geriatric Medicine; PCP Family Medicine Geriatric Medicine; Referring Provider Internal Medicine Cardiovascular Disease; Visit Provider Internal Medicine Cardiovascular Disease
DX: Z79.01 Long term (current) use of anticoagulants (principal); Z95.2 Presence of prosthetic heart valve
CPT/HCPCS: 36415; 85610

== ENCOUNTER → 2024-04-07 | Outpatient (CLI) | payer MEDICARE, SELFPAY ==
--- NOTE | 2024-04-07 09:40 | CDU_ITS ---
Reason For Study: Carotid Stenosis Rt. Velocities/BP Lt. Velocities/BP Prox CCA 76.2/22.3 cm/sec. Prox CCA 47.9/16.0 cm/sec. Mid CCA 65.2/12.4 cm/sec. Mid CCA 57.8/19.3 cm/sec. Dist CCA 61.9/14.6 cm/sec. Dist CCA 60.0/23.7 cm/sec. Prox ICA 272.6/52.7 cm/sec. Prox ICA 241.2/63.4 cm/sec. Mid ICA 130.2/18.2 cm/sec. Mid ICA 208.8/37.8 cm/sec. Dist ICA 96.0/26.7 cm/sec. Dist ICA 97.9/30.3 cm/sec. Rt. ICA/CCA = 4.2. Lt. ICA/CCA = 4.2. Prox ECA 223.9/13.9 cm/sec. Prox ECA 489.3/62.4 cm/sec. Rt. Vert. Retrograde Flow Noted cm/sec. Lt. Vert. 128.1/24.6 cm/sec. Right Extracranial There is heterogeneous, irregular atherosclerotic plaque noted in the right common carotid artery. There is heterogeneous, irregular atherosclerotic plaque noted in the right internal carotid artery. The atherosclerotic plaque causes acoustic shadowing. There is heterogeneous, irregular atherosclerotic plaque noted in the right external carotid artery. Rt Vert A - Retrograde Flow noted. Left Extracranial There is heterogeneous, irregular atherosclerotic plaque noted in the left common carotid artery. There is heterogeneous, irregular atherosclerotic plaque noted in the left internal carotid artery. There is heterogeneous, irregular atherosclerotic plaque noted in the left external carotid artery. The Doppler flow velocities are elevated in the left vertebral artery, suggesting stenosis. Procedure Carotid Duplex 88222. This is a Carotid Duplex examination using B-mode, color flow and specral Doppler. The exam was diagnostic. Exam performed in department. Preliminary sent to Dr. Joshi office [facility]. VL/Carotid Duplex Ultrasound Interpretation Summary Severe (>70%) stenosis right extracranial internal carotid. Severe (>70%) steno sis left extracranial internal carotid. 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 Left vertebral stenosis. Ordering Physician: Curtis Joshi Referring Physician: Leonardo Sotelo Chi Performed By: Regino Felder RVT
== END | disposition home or self-care (01) ==
LOC: CVS 09:40
PROVIDERS: PCP Family Medicine Geriatric Medicine; Referring Provider Surgery Vascular Surgery; Visit Provider Surgery Vascular Surgery
DX: I65.23 Occlusion and stenosis of bilateral carotid arteries (principal); I77.1 Stricture of artery
CPT/HCPCS: 93880

== ENCOUNTER 2024-04-10 11:33 | Outpatient (RCR) | payer MEDICARE, SELFPAY ==
[2024-03-12 02:19] VITALS: BMI 26.7
[2024-03-27 13:28] LABS: International Normalized Ratio 3.7; Prothrombin Time (Protime)PT. 36.6 SECONDS (11.7-14.9)
[2024-04-10 12:45] LABS: International Normalized Ratio 3.8
== END 2024-04-10 18:00 | disposition home or self-care (01) ==
LOC: LAB 11:33
PROVIDERS: Family Provider Family Medicine Geriatric Medicine; PCP Family Medicine Geriatric Medicine; Referring Provider Internal Medicine Cardiovascular Disease; Visit Provider Internal Medicine Cardiovascular Disease
DX: Z79.01 Long term (current) use of anticoagulants (principal); Z95.2 Presence of prosthetic heart valve
CPT/HCPCS: 36415; 85610

== ENCOUNTER → 2024-04-26 | Outpatient (CLI) | payer MEDICARE, SELFPAY ==
[2024-04-26 12:23] LABS: Absolute Lymphocyte Count 1.02 X10^3/uL (0.83-4.51); Absolute Neutrophil Count 8.9 X10^3/uL (2.0-7.7); Basophil# 0.08 X10^3/uL; Basophil% 0.7 % (0-1); Eosinophil# 0.14 X10^3/uL; Eosinophils% 1.3 % (0-5); Hematocrit 37.4 % (37-47); Hemoglobin 11.4 g/dL (12.0-15.0); Lymphocyte # 1.02 X10^3/ul (0.83-4.51); Lymphocyte % 9.2 % (19-41); Mean Corp Hgb Conc 30.5 g/dL (32-36); Mean Corpuscular Hgb 25.4 pg (27.0-32.0); Mean Corpuscular Volume 83.5 fL (81-99); Mean Platelet Vol. 10.4 fl (6.2-12.0); Monocyte% 8.1 % (0-10); NRBC Flagged by Analyzer 0 % (0-5); Neutrophil # 8.87 X10^3/uL (2.7-7.7); Neutrophil % 80.2 % (47-70); Platelet Count 263 K/mm3 (150-450); RBC Distribution Width CV 17.8 % (11.6-14.6); RBC Distribution Width SD 53.9 fl (35.1-43.9); Red Blood Count 4.48 M/mm3 (4.2-5.4); White Blood Count 11.1 K/mm3 (4.4-11.0)
[2024-04-26 13:09] LABS: ALB/GLOB Ratio 0.8 RATIO (0.9-2.4); AST(SGOT) 24 U/L (15-37); Alanine Aminotransfer ALT/SGPT 15 U/L (13-56); Albumin, Serum 3.3 g/dL (3.2-5.0); Alkaline Phosphatase 109 U/L (45-117); Anion Gap 7 (5-15); BUN 17 mg/dL (7-18); BUN/Creat Ratio 21.8 RATIO (10-20); Calcium,Total 9.4 mg/dL (8.5-10.1); Chloride 103 mmol/L (98-107); Creatinine, Serum 0.78 mg/dL (0.55-1.02); EST Glomerular Filtration Rate 77 mL/min (>60); Est Glom Filt Rate - Afr Amer 93 mL/min (>60); Globulin 3.9 g/dL (2.2-4.2); Glucose 108 mg/dL (74-106); Potassium 4.3 mmol/L (3.5-5.1); Protein, Total 7.2 g/dL (6.4-8.2); Sodium Level 138 mmol/L (136-145); Uric Acid 6.2 mg/dL (2.6-6.0)
== END | disposition home or self-care (01) ==
LOC: POLAB3 11:33
PROVIDERS: PCP Family Medicine Geriatric Medicine; Visit Provider Family Medicine Geriatric Medicine
DX: I10 Essential (primary) hypertension (principal); M10.9 Gout, unspecified; E55.9 Vitamin D deficiency, unspecified
CPT/HCPCS: 36415; 80053; 82306; 84443; 84550; 85025

== ENCOUNTER 2024-05-08 12:32 | Outpatient (RCR) | payer MEDICARE, SELFPAY ==
[2024-04-11 03:38] VITALS: BMI 26.7
[2024-04-17 13:37] LABS: International Normalized Ratio 3.3
[2024-05-08 13:41] LABS: International Normalized Ratio 2.7; Prothrombin Time (Protime)PT. 28.5 SECONDS (11.7-14.9)
== END 2024-05-08 18:00 | disposition home or self-care (01) ==
LOC: LAB 12:32
PROVIDERS: Family Provider Family Medicine Geriatric Medicine; PCP Family Medicine Geriatric Medicine; Referring Provider Internal Medicine Cardiovascular Disease; Visit Provider Internal Medicine Cardiovascular Disease
DX: Z79.01 Long term (current) use of anticoagulants (principal); Z95.2 Presence of prosthetic heart valve
CPT/HCPCS: 36415; 85610

== ENCOUNTER 2024-06-05 13:28 | Outpatient (RCR) | payer MEDICARE, SELFPAY ==
[2024-05-11 21:01] VITALS: BMI 26.7
[2024-06-05 14:11] LABS: Prothrombin Time (Protime)PT. 30.6 SECONDS (11.7-14.9)
== END 2024-06-10 18:00 | disposition home or self-care (01) ==
LOC: LAB 13:28
PROVIDERS: Family Provider Family Medicine Geriatric Medicine; PCP Family Medicine Geriatric Medicine; Referring Provider Internal Medicine Cardiovascular Disease; Visit Provider Internal Medicine Cardiovascular Disease
DX: Z79.01 Long term (current) use of anticoagulants (principal); Z95.2 Presence of prosthetic heart valve
CPT/HCPCS: 36415; 85610

== ENCOUNTER 2024-06-26 12:40 | Outpatient (RCR) | payer MEDICARE, SELFPAY ==
[2024-06-10 22:45] VITALS: BMI 26.7
[2024-06-26 13:09] LABS: International Normalized Ratio 3.1; Prothrombin Time (Protime)PT. 31.8 SECONDS (11.7-14.9)
== END 2024-06-26 18:00 | disposition home or self-care (01) ==
LOC: LAB 12:40
PROVIDERS: Family Provider Family Medicine Geriatric Medicine; PCP Family Medicine Geriatric Medicine; Referring Provider Internal Medicine Cardiovascular Disease; Visit Provider Internal Medicine Cardiovascular Disease
DX: Z79.01 Long term (current) use of anticoagulants (principal); Z95.2 Presence of prosthetic heart valve
CPT/HCPCS: 36415; 85610

== ENCOUNTER 2024-07-24 12:35 | Outpatient (RCR) | payer MEDICARE, SELFPAY ==
[2024-07-12 03:52] VITALS: BMI 26.7
[2024-07-24 13:14] LABS: International Normalized Ratio 3.2; Prothrombin Time (Protime)PT. 33.2 SECONDS (11.7-14.9)
== END 2024-07-24 18:00 | disposition home or self-care (01) ==
LOC: LAB 12:35
PROVIDERS: Family Provider Family Medicine Geriatric Medicine; PCP Family Medicine Geriatric Medicine; Referring Provider Internal Medicine Cardiovascular Disease; Visit Provider Internal Medicine Cardiovascular Disease
DX: Z79.01 Long term (current) use of anticoagulants (principal); Z95.2 Presence of prosthetic heart valve
CPT/HCPCS: 36415; 85610

== ENCOUNTER 2024-08-25 13:47 | Outpatient (RCR) | payer MEDICARE, SELFPAY ==
[2024-08-11 21:21] VITALS: BMI 26.7
[2024-08-25 16:01] LABS: International Normalized Ratio 1.8; Prothrombin Time (Protime)PT. 21.5 SECONDS (11.7-14.9)
== END 2024-09-08 18:00 | disposition home or self-care (01) ==
LOC: LAB 13:47
PROVIDERS: Family Provider Family Medicine Geriatric Medicine; PCP Family Medicine Geriatric Medicine; Referring Provider Internal Medicine Cardiovascular Disease; Visit Provider Internal Medicine Cardiovascular Disease
DX: Z79.01 Long term (current) use of anticoagulants (principal); Z95.2 Presence of prosthetic heart valve; Z12.31 Encounter for screening mammogram for malignant neoplasm of breast
CPT/HCPCS: 36415; 85610

== ENCOUNTER 2024-10-02 10:01 | Outpatient (RCR) | payer MEDICARE, SELFPAY ==
[2024-09-09 03:51] VITALS: BMI 26.7
[2024-09-11 14:56] LABS: Prothrombin Time (Protime)PT. 39.7 SECONDS (11.7-14.9)
[2024-09-18 16:06] LABS: International Normalized Ratio 3.5; Prothrombin Time (Protime)PT. 35.8 SECONDS (11.7-14.9)
[2024-10-02 10:52] LABS: International Normalized Ratio 2.9; Prothrombin Time (Protime)PT. 31.2 SECONDS (11.7-14.9)
== END 2024-10-02 18:00 | disposition home or self-care (01) ==
LOC: LAB 10:01
PROVIDERS: Family Provider Family Medicine Geriatric Medicine; PCP Family Medicine Geriatric Medicine; Referring Provider Internal Medicine Cardiovascular Disease; Visit Provider Internal Medicine Cardiovascular Disease
DX: Z79.01 Long term (current) use of anticoagulants (principal); Z95.2 Presence of prosthetic heart valve
CPT/HCPCS: 36415; 85610

== ENCOUNTER 2024-10-16 12:06 | Outpatient (RCR) | payer MEDICARE, SELFPAY ==
[2024-10-09 21:51] VITALS: BMI 26.7
[2024-10-16 12:44] LABS: Absolute Lymphocyte Count 0.98 X10^3/uL (0.83-4.51); Absolute Neutrophil Count 7.4 X10^3/uL (2.0-7.7); Basophil# 0.05 X10^3/uL; Basophil% 0.5 % (0-1); Eosinophil# 0.11 X10^3/uL; Eosinophils% 1.2 % (0-5); Hematocrit 34.5 % (37-47); Hemoglobin 11.5 g/dL (12.0-15.0); Lymphocyte # 0.98 X10^3/ul (0.83-4.51); Lymphocyte % 10.5 % (19-41); Mean Corp Hgb Conc 33.3 g/dL (32-36); Mean Corpuscular Hgb 30.7 pg (27.0-32.0); Mean Corpuscular Volume 92.2 fL (81-99); Mean Platelet Vol. 10.5 fl (6.2-12.0); Monocyte# 0.77 X10^3/uL; Monocyte% 8.2 % (0-10); NRBC Flagged by Analyzer 0 % (0-5); Neutrophil # 7.43 X10^3/uL (2.7-7.7); Neutrophil % 79.3 % (47-70); Platelet Count 192 K/mm3 (150-450); RBC Distribution Width CV 13.8 % (11.6-14.6); RBC Distribution Width SD 47.2 fl (35.1-43.9); Red Blood Count 3.74 M/mm3 (4.2-5.4); White Blood Count 9.4 K/mm3 (4.4-11.0)
[2024-10-16 13:28] LABS: ALB/GLOB Ratio 1.3 RATIO (0.9-2.4); AST(SGOT) 30 U/L (<=31); Alanine Aminotransfer ALT/SGPT 11 U/L (<=34); Alkaline Phosphatase 99 U/L (35-104); Anion Gap 11 (5-15); BUN 25 mg/dL (4-19); BUN/Creat Ratio 26.1 RATIO (10-20); Calcium,Total 9.5 mg/dL (7.6-11.0); Carbon Dioxide 23.5 mmol/L (21.0-32.0); Chloride 104 mmol/L (98-108); Creatinine, Serum 0.95 mg/dL (0.70-1.20); EST Glomerular Filtration Rate 63 (>60); Glucose 99 mg/dL (70-99); Potassium 4.3 mmol/L (3.3-5.1); Sodium Level 139 mmol/L (133-145); Total Bilirubin 0.65 mg/dL (0.00-1.30); Uric Acid 8.4 mg/dL (2.6-6.0)
[2024-10-16 13:29] LABS: Vitamin D,25 Hydroxy 41.9 ng/mL (30-100)
[2024-10-16 13:53] LABS: International Normalized Ratio 3.2; Prothrombin Time (Protime)PT. 33.3 SECONDS (11.7-14.9)
== END 2024-11-08 18:00 | disposition home or self-care (01) ==
LOC: LAB 12:06
PROVIDERS: Family Provider Family Medicine Geriatric Medicine; PCP Family Medicine Geriatric Medicine; Referring Provider Internal Medicine Cardiovascular Disease; Visit Provider Internal Medicine Cardiovascular Disease
DX: Z79.01 Long term (current) use of anticoagulants (principal); Z12.31 Encounter for screening mammogram for malignant neoplasm of breast; I10 Essential (primary) hypertension; M10.9 Gout, unspecified; E55.9 Vitamin D deficiency, unspecified
CPT/HCPCS: 36415; 80053; 82306; 84443; 84550; 85025; 85610

== ENCOUNTER 2024-12-05 12:25 | Outpatient (RCR) | payer MEDICARE, SELFPAY ==
[2024-11-08 20:41] VITALS: BMI 26.7
[2024-11-14 18:21] LABS: International Normalized Ratio 2.1; Prothrombin Time (Protime)PT. 24.3 SECONDS (11.7-14.9)
[2024-11-20 15:11] LABS: International Normalized Ratio 3.3; Prothrombin Time (Protime)PT. 33.9 SECONDS (11.7-14.9)
[2024-12-05 13:33] LABS: International Normalized Ratio 3.1; Prothrombin Time (Protime)PT. 32.6 SECONDS (11.7-14.9)
== END 2024-12-05 18:00 | disposition home or self-care (01) ==
LOC: LAB 12:25
PROVIDERS: Family Provider Family Medicine Geriatric Medicine; PCP Family Medicine Geriatric Medicine; Referring Provider Internal Medicine Cardiovascular Disease; Visit Provider Internal Medicine Cardiovascular Disease
DX: Z79.01 Long term (current) use of anticoagulants (principal)
CPT/HCPCS: 36415; 85610

== ENCOUNTER 2025-01-05 15:08 | Outpatient (RCR) | payer MEDICARE, SELFPAY ==
[2024-12-09 20:45] VITALS: BMI 26.7
[2025-01-05 17:44] LABS: International Normalized Ratio 3.4; Prothrombin Time (Protime)PT. 34.9 SECONDS (11.7-14.9)
== END 2025-01-05 18:00 | disposition home or self-care (01) ==
LOC: LAB 15:08
PROVIDERS: Family Provider Family Medicine Geriatric Medicine; PCP Family Medicine Geriatric Medicine; Referring Provider Internal Medicine Cardiovascular Disease; Visit Provider Internal Medicine Cardiovascular Disease
DX: Z79.01 Long term (current) use of anticoagulants (principal)
CPT/HCPCS: 36415; 85610

== ENCOUNTER 2025-01-26 12:17 | Outpatient (RCR) | payer MEDICARE, SELFPAY ==
[2025-01-26 13:00] LABS: Prothrombin Time (Protime)PT. 31.8 SECONDS (11.7-14.9)
== END 2025-02-08 20:56 | disposition home or self-care (01) ==
LOC: LAB 12:17
PROVIDERS: Family Provider Family Medicine Geriatric Medicine; PCP Family Medicine Geriatric Medicine; Referring Provider Internal Medicine Cardiovascular Disease; Visit Provider Internal Medicine Cardiovascular Disease
DX: Z79.01 Long term (current) use of anticoagulants (principal)
CPT/HCPCS: 36415; 85610

== ENCOUNTER → 2025-02-22 | Outpatient (CLI) | payer MEDICARE, SELFPAY ==
--- NOTE | 2025-02-22 12:55 | ECHOD_ITS ---
Reason For Study Reason For Study: VALVE REPLACEMENT EVAL Procedure This was a 2D Doppler, Color Flow transthoracic echocardiogram. Exam performed in department. Left Ventricle Normal LV size. Left ventricular systolic function is normal. The left ventricular ejection fraction is 65 %. No regional wall motion abnormalities noted. Right Ventricle Normal RV size. Normal systolic function. Atria Normal left atrium. Normal right atrium. Mitral Valve Mean transmitral valve gradient 4 mmHg. Stable appearing mechanical mitral valve apparatus. Tricuspid Valve Normal tricuspid valve. Mild to moderate (1-2+) tricuspid valve insufficiency. Pulmonary artery systolic pressure is 42 mmHg. Aortic Valve Trisinus/trileaflet aortic valve. Great Vessels Normal aortic root. The pulmonary artery is normal size. Inferior vena cava collapse with respiration. Pericardium/Pleural No pericardial effusion. MMode/2D Measurements & Calculations LVIDd: 4.6 cm IVSd: 0.96 cm Ao root diam: 2.5 cm LVIDs: 2.9 cm LVPWd: 0.97 cm RVDd: 2.8 cm FS: 37.2 % LAV(MOD-bp): 55.2 ml LVAd ap4: 22.1 cm2 LVAd ap2: 21.2 cm2 LAV(MOD-bp) Indexed: 35.0 ml/m2 LVLd ap4: 6.8 cm LVLd ap2: 6.5 cm LAV(MOD-sp2): 54.5 ml EDV(MOD-sp4): 61.0 ml EDV(MOD-sp2): 60.4 ml LAV(MOD-sp4): 54.4 ml EDV(sp4-el): 61.4 ml EDV(sp2-el): 58.7 ml LVAs ap4: 12.3 cm2 LVAs ap2: 10.6 cm2 LVLs ap4: 5.8 cm LVLs ap2: 5.9 cm ESV(MOD-sp4): 23.5 ml ESV(MOD-sp2): 16.3 ml ESV(sp4-el): 22.2 ml ESV(sp2-el): 16.0 ml EF(MOD-sp4): 61.4 % EF(MOD-sp2): 73.1 % EF(sp4-el): 63.9 % SV(MOD-sp4): 37.5 ml SV(MOD-sp2): 44.1 ml SV(sp4-el): 39.2 ml SI(MOD-sp4): 23.8 ml/m2 SI(MOD-sp2): 28.0 ml/m2 LA A4 area: 19.1 cm2 LA dimension(2D): 4.1 cm RA A4 area: 16.6 cm2 TAPSE: 1.4 cm Time Measurements MV dec time: 0.19 sec Doppler Measurements & Calculations MV E max keo: 199.3 cm/sec Lat Peak E' Keo: 8.9 cm/sec Med Peak E' Keo: 8.3 cm/sec MV A max keo: 34.9 cm/sec E/E' lat: 22.3 E/E' med: 24.1 MV E/A: 5.7 MV V2 max: 220.3 cm/sec MV P1/2t max keo: 204.8 cm/sec Ao V2 max: 131.2 cm/sec MV max P.4 mmHg MV P1/2t: 60.6 msec Ao max P.9 mmHg MV V2 mean: 82.6 cm/sec Ao V2 mean: 88.5 cm/sec MV mean P.0 mmHg MV dec slope: 990.6 cm/sec2 Ao mean P.5 mmHg MV V2 VTI: 47.8 cm MVA(P1/2t): 3.6 cm2 Ao V2 VTI: 29.8 cm AV (velocity ratio): 0.67 LV V1 max: 85.9 cm/sec PA V2 max: 123.1 cm/sec PI dec slope: 310.0 cm/sec2 LV V1 max P.0 mmHg PA V2 mean: 83.1 cm/sec LV V1 mean P.5 mmHg LV V1 mean: 58.6 cm/sec LV V1 VTI: 19.9 cm TR max keo: 310.9 cm/sec TR max P.7 mmHg ECHO/Echo Complete Interpretation Summary Normal LV size. Left ventricular systolic function is normal. The left ventricular ejection fraction is 65 %. Stable appearing mechanical mitral valve apparatus. Compared to the previous echocardiogram the ejection fraction is improved, righ t ventricular size and pressures improved and pulmonary pressures are better. Ordering Physician: Jack Keating Referring Physician: Leonardo Sotelo Chi; Andrés Mcallister Performed By: Suzanne Rowland, RDCS, RVT
== END | disposition home or self-care (01) ==
LOC: CVS 12:55
PROVIDERS: PCP Family Medicine Geriatric Medicine; Referring Provider Internal Medicine Cardiovascular Disease; Visit Provider Internal Medicine Cardiovascular Disease
DX: Z95.2 Presence of prosthetic heart valve (principal)
CPT/HCPCS: 93306

== ENCOUNTER 2025-03-08 12:39 | Outpatient (RCR) | payer MEDICARE, SELFPAY ==
[2025-02-22 15:52] LABS: Prothrombin Time (Protime)PT. 30.5 SECONDS (11.7-14.9)
[2025-03-08 13:05] LABS: Prothrombin Time (Protime)PT. 19.1 SECONDS (11.7-14.9)
== END 2025-03-08 18:00 | disposition home or self-care (01) ==
LOC: LAB 12:39
PROVIDERS: Family Provider Family Medicine Geriatric Medicine; PCP Family Medicine Geriatric Medicine; Referring Provider Internal Medicine Cardiovascular Disease; Visit Provider Internal Medicine Cardiovascular Disease
DX: Z79.01 Long term (current) use of anticoagulants (principal)
CPT/HCPCS: 36415; 85610

== ENCOUNTER → 2025-03-27 | Outpatient (CLI) | payer MEDICARE, SELFPAY | END | disposition home or self-care (01) | LOC: POLAB3 16:18 | PROVIDERS: PCP Family Medicine Geriatric Medicine; Visit Provider Family Medicine Geriatric Medicine | DX: N39.0 Urinary tract infection, site not specified (principal) | CPT/HCPCS: 87077; 87086; 87088; 87186 ==

== ENCOUNTER 2025-04-03 13:48 | Outpatient (RCR) | payer MEDICARE, SELFPAY ==
[2025-03-13 10:50] LABS: Prothrombin Time (Protime)PT. 30.1 SECONDS (11.7-14.9)
[2025-03-20 14:54] LABS: Prothrombin Time (Protime)PT. 25.5 SECONDS (11.7-14.9)
[2025-03-27 17:27] LABS: Prothrombin Time (Protime)PT. 30.1 SECONDS (11.7-14.9)
[2025-04-03 14:52] LABS: Prothrombin Time (Protime)PT. 28.0 SECONDS (11.7-14.9)
== END 2025-04-10 18:00 | disposition home or self-care (01) ==
LOC: LAB 13:48
PROVIDERS: Family Provider Family Medicine Geriatric Medicine; PCP Family Medicine Geriatric Medicine; Referring Provider Internal Medicine Cardiovascular Disease; Visit Provider Internal Medicine Cardiovascular Disease
DX: Z79.01 Long term (current) use of anticoagulants (principal); Z95.2 Presence of prosthetic heart valve
CPT/HCPCS: 36415; 85610

== ENCOUNTER 2025-04-11 11:11 | Outpatient (RCR) | payer MEDICARE, SELFPAY ==
[2025-04-11 11:59] LABS: Prothrombin Time (Protime)PT. 30.3 SECONDS (11.7-14.9)
== END 2025-04-11 18:00 | disposition home or self-care (01) ==
LOC: LAB 11:11
PROVIDERS: Family Provider Family Medicine Geriatric Medicine; PCP Family Medicine Geriatric Medicine; Referring Provider Internal Medicine Cardiovascular Disease; Visit Provider Internal Medicine Cardiovascular Disease
DX: Z79.01 Long term (current) use of anticoagulants (principal)
CPT/HCPCS: 36415; 85610

== ENCOUNTER → 2025-04-20 | Outpatient (CLI) | payer MEDICARE, SELFPAY ==
[2025-04-20 13:38] LABS: Hematocrit 33.6 % (37-47); Hemoglobin 11.0 g/dL (12.0-15.0); Immature Granulocytes Count 0.020 X10^3/uL (0.0-0.0); Mean Corp Hgb Conc 32.7 g/dL (32-36); Mean Corpuscular Volume 92.3 fL (81-99); Mean Platelet Vol. 11.0 fl (6.2-12.0); NRBC Flagged by Analyzer 0 % (0-5); Platelet Count 196 K/mm3 (150-450); RBC Distribution Width CV 14.4 % (11.6-14.6); RBC Distribution Width SD 48.6 fl (35.1-43.9); Red Blood Count 3.64 M/mm3 (4.2-5.4); White Blood Count 10.5 K/mm3 (4.4-11.0)
[2025-04-20 14:38] LABS: AST(SGOT) 53 U/L (<=31); Alanine Aminotransfer ALT/SGPT 20 U/L (<=34); Albumin, Serum 4.1 g/dL (3.4-4.8); Alkaline Phosphatase 96 U/L (35-104); Anion Gap 11 (5-15); BUN 18 mg/dL (4-19); BUN/Creat Ratio 19.9 RATIO (10-20); Calcium,Total 9.4 mg/dL (7.6-11.0); Carbon Dioxide 25.0 mmol/L (21.0-32.0); Chloride 103 mmol/L (98-108); Globulin 3.0 g/dL (2.2-4.2); Glucose 98 mg/dL (70-99); Potassium 4.7 mmol/L (3.3-5.1); Vitamin D,25 Hydroxy 48.3 ng/mL (30-100)
== END | disposition home or self-care (01) ==
LOC: LAB 12:41
PROVIDERS: PCP Family Medicine Geriatric Medicine; Referring Provider Family Medicine Geriatric Medicine; Visit Provider Family Medicine Geriatric Medicine
DX: I10 Essential (primary) hypertension (principal); E55.9 Vitamin D deficiency, unspecified
CPT/HCPCS: 36415; 80053; 82306; 84443; 85025

== ENCOUNTER 2025-05-15 12:31 | Outpatient (RCR) | payer MEDICARE, SELFPAY ==
[2025-05-15 13:45] LABS: Prothrombin Time (Protime)PT. 32.1 SECONDS (11.7-14.9)
== END 2025-06-09 18:00 | disposition home or self-care (01) ==
LOC: LAB 12:31
PROVIDERS: Family Provider Family Medicine Geriatric Medicine; PCP Family Medicine Geriatric Medicine; Referring Provider Internal Medicine Cardiovascular Disease; Visit Provider Internal Medicine Cardiovascular Disease
DX: Z79.01 Long term (current) use of anticoagulants (principal)
CPT/HCPCS: 36415; 85610

== ENCOUNTER 2025-07-02 12:29 | Outpatient (RCR) | payer MEDICARE, SELFPAY ==
[2025-06-14 15:24] LABS: Prothrombin Time (Protime)PT. 46.3 SECONDS (11.7-14.9)
[2025-06-18 14:22] LABS: Prothrombin Time (Protime)PT. 29.1 SECONDS (11.7-14.9)
[2025-07-02 13:13] LABS: Prothrombin Time (Protime)PT. 27.5 SECONDS (11.7-14.9)
== END 2025-07-02 18:00 | disposition home or self-care (01) ==
LOC: LAB 12:29
PROVIDERS: Family Provider Family Medicine Geriatric Medicine; PCP Family Medicine Geriatric Medicine; Referring Provider Internal Medicine Cardiovascular Disease; Visit Provider Internal Medicine Cardiovascular Disease
DX: Z79.01 Long term (current) use of anticoagulants (principal)
CPT/HCPCS: 36415; 85610